=== PATIENT | female | born 1965 | race Caucasian/White ===

== ENCOUNTER 2023-04-09 20:47 | Outpatient (OUT) | payer MEDICARE, SELFPAY | END 2023-04-09 20:48 | PROVIDERS: PCP Nurse Practitioner; Visit Provider Nurse Practitioner | DX: G47.33 Obstructive sleep apnea (adult) (pediatric) (principal) | CPT/HCPCS: 95811 ==

== ENCOUNTER 2023-04-13 15:53 | Outpatient (OUT) | payer MEDICARE, SELFPAY ==
[2023-04-13 16:54] LABS: Free T4 0.74 ng/dL (0.76-1.46)
[2023-04-13 16:58] LABS: Thyroid Stimulating Hormone 5.441 uIU/mL (0.358-3.740)
== END 2023-04-13 15:54 ==
LOC: LAB 15:54
PROVIDERS: PCP Nurse Practitioner; Visit Provider Nurse Practitioner
DX: R94.6 Abnormal results of thyroid function studies (principal)
CPT/HCPCS: 36415; 84439; 84443

== ENCOUNTER 2023-06-15 10:13 | Outpatient (OUT) | payer MEDICARE, SELFPAY ==
[2023-06-15 11:26] LABS: Free T4 0.92 ng/dL (0.76-1.46)
[2023-06-15 11:28] LABS: Thyroid Stimulating Hormone 2.396 uIU/mL (0.358-3.740)
== END 2023-06-15 10:14 | disposition home or self-care (01) ==
LOC: LAB 10:15
PROVIDERS: PCP Nurse Practitioner; Visit Provider Nurse Practitioner
DX: E03.9 Hypothyroidism, unspecified (principal)
CPT/HCPCS: 36415; 84439; 84443

== ENCOUNTER 2023-10-17 12:35 | Emergency (ER) | payer MEDICARE, SELFPAY ==
[2023-10-17 12:45] VITALS: BP 155/74; PULSE 78; RESP 18; TEMP 36.8; O2SAT 97; BMI 32.5
--- NOTE | 2023-10-17 12:48 | XR_ITS ---
The [address] [address] Patient Name: JAMIR YORK MRN: [id number] date: 1965 Sex: F Assigned Patient Location: ER Current Patient Location: ER Accession/Order Number: [id number] Exam Date: 10/17/2023 13:11 Report Date: 10/17/2023 13:59 At the request of: SAMANTHA OVIEDO Procedure: XR knee LT 4V EXAM: XR knee LT 4V HISTORY: pain COMPARISON: None. TECHNIQUE: 3 views of the left knee. FINDINGS: Corticated ossicle adjacent to the medial femoral condyle likely relates to remote injury. Calcifications adjacent to the lateral femoral condyle are likely ligamentous. No acute fracture identified. No dislocation. No significant knee joint effusion. XR/XR knee LT 4V IMPRESSION: 1. No acute osseous abnormality. Electronically authenticated by: BERTAH BENJAMIN Date: 10/17/2023 13:59
--- NOTE | 2023-10-17 13:06 | ED_ITS ---
Documented by User: Nereida Rawls 10/17/23 15:51 HPI - Extremity Injury (Lower) General Chief Complaint: Extremity Injury, Lower Stated Complaint: LOWER EXTREMITY INJURY LEFT KNEE Time Seen by Provider: 10/17/23 13:05 Source: patient Mode of arrival: walk-in Limitations: no limitations History of Present Illness HPI Narrative: 58 year old female presents to the ED for pain to her left knee s/p slip and fall this morning. She slipped on ice, landing on the left knee. Denies injury to other areas. Denies hitting her head and LOC. Denies pain to her neck and back. She has been ambulatory. She has an abrasion to the left inferior knee. Tetanus status is unknown. She is deaf. Pt prefers family to sign for her; family is at bedside. She is declining medication for her discomfort at this time. Related Data Previous Rx's Medication Instructions Recorded hydrocodone 5 mg-acetaminophen 325 1 tab PO Q8H PRN pain 5 days #15 10/17/23 mg tablet tabs Allergies Allergy/AdvReac Type Severity Reaction Status Date / Time No Known Drug Allergies Allergy Verified 10/17/23 12:45 Review of Systems ROS Constitutional Denies: fever or chills Cardiovascular Denies: chest pain Respiratory Denies: shortness of breath Musculoskeletal Reports: extremity pain; Denies: back pain or neck pain Integumentary/Breast Denies: rash PFSH PFSH Social History Smoking status: Never smoker Exam Constitutional Vital Signs, click to edit/add: Last Vital Signs Temp 98.2 F 10/17/23 12:45 Pulse 78 10/17/23 12:45 Resp 18 10/17/23 12:45 BP 155/74 H 10/17/23 12:45 Pulse Ox 97 10/17/23 12:45 Common normals: no apparent distress and oriented x3 General appearance: cooperative; not ill appearing Eye Common normals: no scleral icterus Neck & C-Spine Common normals: supple Chest Chest: symmetrical chest wall rise Respiratory Common normals: normal respiratory effort Effort & inspection: symmetric chest movement Cardio Common normals: regular rhythm Peripheral pulses: posterior tibial pulses present and dorsalis pedis pulses present Extremity Left lower extremity: knee joint Left knee: inspection (Abrasion to inferior knee. No obvious deformity.) and palpation (Tenderness with palpation.) Neuro Common normals: oriented x3 Sensorium/orientation: awake and alert Course Vital Signs Vital signs: Vital Signs Temperature 98.2 F 10/17/23 12:45 Pulse Rate 78 10/17/23 12:45 Respiratory Rate 18 10/17/23 12:45 Blood Pressure 155/74 H 10/17/23 12:45 Pulse Oximetry 97 10/17/23 12:45 Temperature 98.2 F 10/17/23 12:45 Pulse Rate 78 10/17/23 12:45 Respiratory Rate 18 10/17/23 12:45 Blood Pressure 155/74 H 10/17/23 12:45 Pulse Oximetry 97 10/17/23 12:45 MDM - Extremity Injury (Lower) MDM Narrative Medical decision making narrative: X-ray of the left knee showed no acute findings. Her tetanus status was updated today. She declined medication for her discomfort here. She has a knee immobilizer and a walker at home. She also has antiinflammatory medication at home. OARRS was reviewed. A prescription was provided for nor[employer]. Follow up with an orthopedist for a recheck, further evaluation and treatment. Medical Records Attestation: I reviewed the patient's medical records. Imaging Data XR left knee: Attestation: I have reviewed the pertinent imaging results. Radiologist's impression: Procedure: XR knee LT 4V EXAM: XR knee LT 4V HISTORY: pain COMPARISON: None. TECHNIQUE: 3 views of the left knee. FINDINGS: Corticated ossicle adjacent to the medial femoral condyle likely relates to remote injury. Calcifications adjacent to the lateral femoral condyle are likely ligamentous. No acute fracture identified. No dislocation. No significant knee joint effusion. XR/XR knee LT 4V IMPRESSION: 1. No acute osseous abnormality. Electronically authenticated by: BERTHA BENJAMIN Date: 10/17/2023 13:59 Discharge Plan Discharge Chief Complaint: Extremity Injury, Lower Clinical Impression: Injury of knee, left, Abrasion of knee, left Patient Disposition: Home, Self-Care Time of Disposition Decision: 14:14 Condition: Good Mode of Transportation: Private Vehicle Prescriptions / Home Meds: New hydrocodone-acetaminophen 5-325 mg tablet 1 tab PO Q8H PRN (Reason: pain) 5 Days Qty: 15 0RF Instructions: Abrasion (ED), Knee Pain (ED) Stand Alone Forms: Portal Instructions Referrals: Cheri Pool NP [Primary Care Provider] - 1 week Jimbo De La O MD [Physician] - 11/05/23 Discharge Date/Time: 10/17/23 14:20 Documented by User: Gurwinder Rogers MD 10/17/23 18:43 HPI - Extremity Injury (Lower) General Chief Complaint: Extremity Injury, Lower Stated Complaint: LOWER EXTREMITY INJURY LEFT KNEE Time Seen by Provider: 10/17/23 13:05 Related Data Previous Rx's Medication Instructions Recorded hydrocodone 5 mg-acetaminophen 325 1 tab PO Q8H PRN pain 5 days #15 10/17/23 mg tablet tabs Allergies Allergy/AdvReac Type Severity Reaction Status Date / Time No Known Drug Allergies Allergy Verified 10/17/23 12:45 PFSH PFSH Social History Smoking status: Never smoker Exam Constitutional Vital Signs, click to edit/add: Last Vital Signs Temp 98.2 F 10/17/23 12:45 Pulse 78 10/17/23 12:45 Resp 18 10/17/23 12:45 BP 155/74 H 10/17/23 12:45 Pulse Ox 97 10/17/23 12:45 Course Vital Signs Vital signs: Vital Signs Temperature 98.2 F 10/17/23 12:45 Pulse Rate 78 10/17/23 12:45 Respiratory Rate 18 10/17/23 12:45 Blood Pressure 155/74 H 10/17/23 12:45 Pulse Oximetry 97 10/17/23 12:45 Temperature 98.2 F 10/17/23 12:45 Pulse Rate 78 10/17/23 12:45 Respiratory Rate 18 10/17/23 12:45 Blood Pressure 155/74 H 10/17/23 12:45 Pulse Oximetry 97 10/17/23 12:45 MDM - Extremity Injury (Lower) MDM Narrative Medical decision making narrative: X-ray of the left knee showed no acute findings. Her tetanus status was updated today. She declined medication for her discomfort here. She has a knee immobilizer and a walker at home. She also has antiinflammatory medication at home. OARRS was reviewed. A prescription was provided for norco. Follow up with an orthopedist for a recheck, further evaluation and treatment. I, Dr Rogers, have reviewed the above progress note and course of action in the ER; agree with the above. I have personally seen and evaluated this patient, gone over history and physical, and discussed disposition and treatment plan with the patient. Discharge Plan Discharge Chief Complaint: Extremity Injury, Lower Clinical Impression: Injury of knee, left, Abrasion of knee, left Patient Disposition: Home, Self-Care Time of Disposition Decision: 14:14 Condition: Good Mode of Transportation: Private Vehicle Prescriptions / Home Meds: New hydrocodone-acetaminophen 5-325 mg tablet 1 tab PO Q8H PRN (Reason: pain) 5 Days Qty: 15 0RF Instructions: Abrasion (ED), Knee Pain (ED) Stand Alone Forms: Portal Instructions Referrals: Cheri Pool NP [Primary Care Provider] - 1 week Jimbo De La O MD [Physician] - 11/05/23 Discharge Date/Time: 10/17/23 14:20
--- NOTE | 2023-10-17 14:28 | PC.NURSE ---
ABRASION TO R KNEE
== END 2023-10-17 14:20 | disposition home or self-care (01) ==
PROVIDERS: Emergency Provider Emergency Medicine; PCP Nurse Practitioner
DX: S80.212A Abrasion, left knee, initial encounter (principal); W00.0XXA Fall on same level due to ice and snow, initial encounter
CPT/HCPCS: 73564; 99284

== ENCOUNTER 2023-10-25 14:46 | Outpatient (OUT) | payer MEDICARE, SELFPAY ==
--- NOTE | 2023-10-25 15:10 | MM_ITS ---
Patient Name: JAMIR YORK MR#: [id number] : 1965 Exam Date: 10/25/2023 Ordering Doctor: SARAH Pool CNP RADIOLOGY REPORT PROCEDURE: MM TOMOSYNTHESIS SCREENING BI COMPARISON: MG MAMM SCREEN 3D YARY CAD, 10/24/2022. MG MAMM SCREEN 3D YARY CAD, 10/11/2021. MG MAMM YARY SCRN W CAD DIG, 12/18/2013. INDICATIONS: screening Calculator Name NCI Breast Cancer Risk Assessment Tool 5 Year Breast Cancer Risk 1.50% Lifetime Breast Cancer Risk 8.30% Personal Breast Cancer No Personal Ovarian Cancer No Treatments None Family Cancers Father with lung cancer at age ~65; Mother with colon/pancreas cancer at age 69. LOCATION: [facility] BREAST COMPOSITION: Heterogeneously dense,which may obscure small masses. FINDINGS: DIAGNOSTIC CATEGORY 2--BENIGN FINDING: RIGHT BREAST: No significant suspicious finding. Scattered benign-appearing calcifications are present. No significant change has occurred. LEFT BREAST: No significant suspicious finding. Scattered benign-appearing calcifications are present. No significant change has occurred. RECOMMENDATIONS: ROUTINE MAMMOGRAM AND CLINICAL EVALUATION IN 12 MONTHS. PLEASE NOTE: A NORMAL MAMMOGRAM DOES NOT EXCLUDE THE POSSIBILITY OF BREAST CANCER. A CLINICALLY SUSPICIOUS PALPABLE LUMP SHOULD BE BIOPSIED. Dictated by: Jimbo Jimenez M.D. on 10/26/2023 at 11:47 Approved by: Jimbo Jimenez M.D. on 10/26/2023 at 11:49
== END 2023-10-25 14:47 | disposition home or self-care (01) ==
LOC: MAMMO 14:46
PROVIDERS: PCP Nurse Practitioner; Visit Provider Nurse Practitioner
DX: Z12.31 Encounter for screening mammogram for malignant neoplasm of breast (principal); Z80.1 Family history of malignant neoplasm of trachea, bronchus and lung; Z80.0 Family history of malignant neoplasm of digestive organs; Z80.8 Family history of malignant neoplasm of other organs or systems
CPT/HCPCS: 77063; 77067

== ENCOUNTER 2023-12-04 09:32 | Outpatient (OUT) | payer MEDICARE, SELFPAY ==
--- OUTSIDE RECORDS SUMMARY | 2023-12-04 09:37 | XMS_ITS | CCD ---
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 Name Role Phone UNKNOWN, PROVIDER Attending Unavailable AICHHOLZ, RUBY Primary Care Unavailable AICHHOLZ, RUBY Referring Unavailable UNKNOWN, PROVIDER Admitting Unavailable DAISY MANZANO Attending Unavailable AICHHOLZ, ARMORED VEHICLE OFFICER RUBY Admitting Unavailable AICHHOLZ, ARMORED VEHICLE OFFICER RUBY Attending Unavailable AICHHOLZ, ARMORED VEHICLE OFFICER RUBY Primary Care Unavailable AICHHOLZ, ARMORED VEHICLE OFFICER RUBY Consulting Unavailable AICHHOLZ, ARMORED VEHICLE OFFICER RUBY Admitting Unavailable AICHHOLZ, ARMORED VEHICLE OFFICER RUBY Attending Unavailable AICHHOLZ, ARMORED VEHICLE OFFICER RUBY Primary Care Unavailable AICHHOLZ, ARMORED VEHICLE OFFICER RUBY Consulting Unavailable MAHOGANY, OLGA Admitting Unavailable MAHOGANY, OLGA Attending Unavailable AICHHOLZ, ARMORED VEHICLE OFFICER RUBY Primary Care Unavailable AICHHOLZ, ARMORED VEHICLE OFFICER RUBY Referring Unavailable MAHOGANY, OLGA Consulting Unavailable AICHHOLZ, ARMORED VEHICLE OFFICER RUBY Admitting Unavailable AICHHOLZ, ARMORED VEHICLE OFFICER RUBY Attending Unavailable AICHHOLZ, ARMORED VEHICLE OFFICER RUBY Primary Care Unavailable AICHHOLZ, ARMORED VEHICLE OFFICER RUBY Consulting Unavailable AICHHOLZ, ARMORED VEHICLE OFFICER RUBY Admitting Unavailable AICHHOLZ, ARMORED VEHICLE OFFICER RUBY Attending Unavailable AICHHOLZ, ARMORED VEHICLE OFFICER RUBY Primary Care Unavailable AICHHOLZ, ARMORED VEHICLE OFFICER RUBY Admitting Unavailable AICHHOLZ, ARMORED VEHICLE OFFICER RUBY Attending Unavailable AICHHOLZ, ARMORED VEHICLE OFFICER RUBY Primary Care Unavailable DR JOSSE GODFREY V Consulting Unavailable AICHHOLZ, ARMORED VEHICLE OFFICER RUBY Consulting Unavailable AICHHOLZ, RUBY Attending Unavailable Problems Active Problems Problem Classification Problem Date Documented Da te Episodic/Chronic Disorders of lipid metabolism (1 source) Hyperlipidemia, unspecified; Translations: [HYPERLIPIDEMIA UNSPECIFIED] Onset: 12-27-2022 Chronic Essential hypertension (6 sources) Essential (primary) hypertension; Translations: [Essential (primary) hypertension] Onset: 07-08-2022 Chronic Heart valve disorders (9 sources) Nonrheumatic aortic (valve) stenosis; Translations: [Presence of other heart-valve replacement] Onset: 03-21-2022 Chronic Other screening for suspected conditions (not mental disorders or infectious disease) (9 sources) Other specified abnormal findings of blood chemistry; Translations: [Abnormal results of thyroid function studies] Onset: 10-24-2022 Episodic Pulmonary heart disease (2 sources) Pulmonary hypertension due to left heart disease; Translations: [Pulmonary hypertension due to left heart disease] Onset: 09-18-2022 Chronic Residual codes; unclassified (4 sources) Obstructive sleep apnea (adult) (pediatric); Translations: [OBSTRUCTIVE SLEEP APNEA] Onset: 02-19-2023 Chronic Past or Other Problems Problem Classification Problem Date Documented Da te Episodic/Chronic Residual codes; unclassified (1 source) Family history of malignant neoplasm, unspecified; Translations: [FAM HX MALIGNANT NEOPLASM UNS] Onset: 10-27-2022 Episodic Results Test Name Value Interpretation Reference Range Facility THYROID ANTIBODIESon 023 Thyroglobulin Antibody <1.0 Normal 0.0-0.9 [facility] Comment on above: Result Comment: Thyr oglobulin Antibody measured by iDiDiD Methodology Performed By: #### T CANDELARIABS #### [facility] [address] [place] [address] Dr. Olya Vides Thyroid Peroxidase (TPO) Ab <9 Normal 0-34 [facility] Comment on above: Performed By: #### T HYRABS #### [facility] [address] [address] [address] Olya Vides FREE T4on 01-19-2023 Free T4 [Mass/Vol] 0.84 ng/dL Normal 0.76-1.[address] [facility] Comment on above: Performed By: #### T SH, CMP, LIPID #### [facility] [address] [address] [address] Olya Vides TSHon 01-19-2023 TSH 5.355 uIU/mL Critically high 0.358-3.[address] [facility] Comment on above: Performed By: #### T SH #### [facility] [address] [place] [address] Dr. Olya Vides CBC AUTO DIFFon 12-22-2022 BASO # 0.1 103/ul Normal 0.0-0.1 [facility] Comment on above: Performed By: #### C BC #### [facility] [address] [place] [address] Dr. Olya Vides Basophils/100 WBC (Bld) 1.1 % Normal 0.2-2.0 [facility] Comment on above: Performed By: #### C BC #### [facility] [address] [place] [address] Dr. Olya Vides EO # 0.1 103/ul Normal 0.0-0.7 [facility] Comment on above: Performed By: #### C BC #### [facility] [address] [place] [address] Dr. Olya Vides Eosinophils/100 WBC (Bld) 3.0 % Normal 0.9-7.0 [facility] Comment on above: Performed By: #### C BC #### [facility] [address] [place] [address] Dr. Olya Vides Erythrocyte distribution width (RBC) [Ratio] 12.5 % Normal 11.0-15.0 [facility] Comment on above: Performed By: #### C BC #### [facility] [address] [place] [address] Dr. Olya Vides Hematocrit (Bld) [Volume fraction] 42.5 % Normal 36.0-48.0 [facility] Comment on above: Performed By: #### C BC #### [facility] [address] [place] [address] Dr. Olya Vides Hemoglobin (Bld) [Mass/Vol] 15.0 g/dL Normal 12.0-16.0 [facility] Comment on above: Performed By: #### C BC #### [facility] [address] [place] [address] Dr. Olya Vides IG # 0.02 10e3/ul Normal 0.00-0.03 [facility] Comment on above: Performed By: #### C BC #### [facility] [address] [place] [address] Dr. Olya Vides IG % 0.4 % Normal 0.0-0.5 [facility] Comment on above: Performed By: #### C BC #### [facility] [address] [place] [address] Dr. Olya Vides LYMPH # 1.4 103/ul Normal 1.2-3.8 [facility] Comment on above: Performed By: #### C BC #### [facility] [address] [place] [address] Dr. Olya Vides Lymphocytes/100 WBC (Bld) 30.4 % Normal 20.5-60.0 [facility] Comment on above: Performed By: #### C BC #### [facility] [address] [place] [address] Dr. Olya Vides MANUAL DIFF REQ NO Normal [facility] Comment on above: Performed By: #### C BC #### [facility] [address] [place] [address] Dr. Olya Vides MCH (RBC) [Entitic mass] 32.8 pg Normal 26.7-34.0 [facility] Comment on above: Performed By: #### C BC #### [facility] [address] [place] [address] Dr. Olya Vides MCHC (RBC) [Mass/Vol] 35.3 g/dL Critically high 29.9-35.2 [facility] Comment on above: Performed By: #### C BC #### [facility] [address] [place] [address] Dr. Olya Vides MCV (RBC) [Entitic vol] 92.8 fL Normal 81.0-99.0 [facility] Comment on above: Performed By: #### C BC #### [facility] [address] [place] [address] Dr. Olya Vides MONO # 0.4 103/ul Normal 0.3-0.8 [facility] Comment on above: Performed By: #### C BC #### [facility] [address] [place] [address] Dr. Olya Vides Monocytes/100 WBC (Bld) 7.7 % Normal 1.7-12.0 [facility] Comment on above: Performed By: #### C BC #### [facility] [address] [place] [address] Dr. Olya Vides NEUT # 2.7 103/ul Normal 1.4-6.5 [facility] Comment on above: Performed By: #### C BC #### [facility] [address] [place] [address] Dr. Olya Vides Neutrophils/100 WBC (Bld) 57.4 % Normal 43.0-75.0 [facility] Comment on above: Performed By: #### C BC #### [facility] [address] [place] [address] Dr. Olya Vides Platelet mean volume (Bld) [Entitic vol] 9.7 fL Normal 9.5-13.5 [facility] Comment on above: Performed By: #### C BC #### [facility] [address] [place] [address] Dr. Olya Vides PLT 224 103/ul Normal 150-450 [facility] Comment on above: Performed By: #### C BC #### [facility] [address] [place] [address] Dr. Olya Vides RBC 4.58 106/ul Normal 4.20-5.40 [facility] Comment on above: Performed By: #### C BC #### [facility] [address] [place] [address] Dr. Olya Vides WBC 4.7 103/ul Normal 4.0-11.0 [facility] Comment on above: Performed By: #### C BC #### [facility] [address] [place] [address] Dr. Olya Vides FREE T4on 12-22-2022 Free T4 [Mass/Vol] 0.85 ng/dL Normal 0.76-1.46 [facility] Comment on above: Performed By: #### F T4 #### [facility] [address] [place] [address] Dr. Olya Vides LIPID PROFILEon 12-22-2022 CHOL-HDL RATIO NORM SEE BELOW Normal [facility] Comment on above: Result Comment: 3.3 - 4.4 LOW RISK 4.4 - 7.1 AVERAGE RISK 7.1 - 11.0 MODERATE RISK >11.0 HIGH RISK Performed By: #### T SH, CMP, LIPID #### [facility] [address] [address] [address] Olya Vides Cholesterol [Mass/Vol] 193 mg/dL Normal <=200 [facility] Comment on above: Performed By: #### T SH, CMP, LIPID #### [facility] [address] [address] [address] Olya Vides Cholesterol in HDL [Mass/Vol] 63 mg/dL Critically high 40-60 [facility] Comment on above: Performed By: #### T SH, CMP, LIPID #### [facility] [address] [address] [address] Olya Vides Cholesterol in LDL [Mass/Vol] 93.0 mg/dL Normal [facility] Comment on above: Performed By: #### T SH, CMP, LIPID #### [facility] [address] [address] [address] Olya Vides Cholesterol.total/C holesterol in HDL [Mass ratio] 3.1 {ratio} Normal [facility] Comment on above: Performed By: #### T SH, CMP, LIPID #### [facility] [address] [address] [address] Olya Vides HDL NORMAL > or = 60 mg/dl - LO W CARDIOVASCULAR RISK <40 mg/dl - HIGH CARDIOVASCULAR RISK Normal [facility] Comment on above: Performed By: #### T SH, CMP, LIPID #### [facility] [address] [address] [address] Olya Vides LDL CALC NORMAL SEE BELOW Normal [facility] Comment on above: Result Comment: <100 mg/dl OPTIMAL 100 - 129 mg/dl NEAR OR ABOVE OPTIMAL 130 - 159 mg/dl BORDERLINE HIGH 160 - 189 mg/dl HIGH >190 mg/dl VERY HIGH Performed By: #### T SH, CMP, LIPID #### [facility] [address] [address] [address] Olya Vides Triglyceride [Mass/Vol] 185 mg/dL Critically high <=150 [facility] Comment on above: Performed By: #### T SH, CMP, LIPID #### [facility] [address] [place] [address] Dr. Olya Vides VLDL CALC 37.0 mg/dL Normal [facility] Comment on above: Performed By: #### T SH, CMP, LIPID #### [facility] [address] [address] [address] Olya Vides PROF 14(COMP METB)on 023 Albumin [Mass/Vol] 4.2 g/dL Normal 3.4-5.0 [facility] Comment on above: Performed By: #### T SH, CMP, LIPID #### [facility] [address] [place] [address] Dr. Olya Vides Albumin/Globulin [Mass ratio] 1.0 {ratio} Normal [facility] Comment on above: Performed By: #### T SH, CMP, LIPID #### [facility] [address] [place] [address] Dr. Olya Vides ALP [Catalytic activity/Vol] 73 U/L Normal 46-116 [facility] Comment on above: Performed By: #### T SH, CMP, LIPID #### [facility] [address] [place] [address] Dr. Olya Vides ALT [Catalytic activity/Vol] 39 U/L Normal 14-59 [facility] Comment on above: Performed By: #### T SH, CMP, LIPID #### [facility] [address] [place] [address] Dr. Olya Vides Anion gap [Moles/Vol] 15.5 mmol/L Normal [facility] Comment on above: Performed By: #### T SH, CMP, LIPID #### [facility] [address] [place] [address] Dr. Olya Vides AST [Catalytic activity/Vol] 47 U/L Critically high 15-37 [facility] Comment on above: Performed By: #### T SH, CMP, LIPID #### [facility] [address] [address] [address] Olya Vides Bilirubin [Mass/Vol] 0.5 mg/dL Normal 0.2-1.0 [facility] Comment on above: Performed By: #### T SH, CMP, LIPID #### [facility] [address] [address] [address] Olya Vides Calcium [Mass/Vol] 9.6 mg/dL Normal 8.5-10.1 [facility] Comment on above: Performed By: #### T SH, CMP, LIPID #### [facility] [address] [address] [address] Olya Vides Chloride [Moles/Vol] 96 mmol/L Critically low 98-107 [facility] Comment on above: Performed By: #### T SH, CMP, LIPID #### [facility] [address] [place] [address] Dr. Olya Vides CO2 [Moles/Vol] 29.2 mmol/L Normal 21.0-32.0 [facility] Comment on above: Performed By: #### T SH, CMP, LIPID #### [facility] [address] [place] [address] Dr. Olya Vides Creatinine [Mass/Vol] 0.57 mg/dL Normal 0.55-1.02 [facility] Comment on above: Performed By: #### T SH, CMP, LIPID #### [facility] [address] [place] [address] Dr. Olya Vides EGFR-AF MALAGASY >60 Normal >=60 [facility] Comment on above: Performed By: #### T SH, CMP, LIPID #### [facility] [address] [place] [address] Dr. Olya Vides EGFR-NON AF MALAGASY >60 Normal >=60 [facility] Comment on above: Performed By: #### T SH, CMP, LIPID #### [facility] [address] [place] [address] Dr. Olya Vides Globulin (S) [Mass/Vol] 4.4 g/dL Normal [facility] Comment on above: Performed By: #### T SH, CMP, LIPID #### [facility] [address] [place] [address] Dr. Olya Vides Glucose [Mass/Vol] 87 mg/dL Normal 74-106 [facility] Comment on above: Performed By: #### T SH, CMP, LIPID #### [facility] [address] [place] [address] Dr. Olya Vides Potassium [Moles/Vol] 3.7 mmol/L Normal 3.5-5.1 [facility] Comment on above: Performed By: #### T SH, CMP, LIPID #### [facility] [address] [place] [address] Dr. Olya Vides Protein [Mass/Vol] 8.6 g/dL Critically high 6.4-8.2 [facility] Comment on above: Performed By: #### T SH, CMP, LIPID #### [facility] [address] [place] [address] Dr. Olya Vides Sodium [Moles/Vol] 137 mmol/L Normal 136-145 [facility] Comment on above: Performed By: #### T SH, CMP, LIPID #### [facility] [address] [place] [address] Dr. Olya Vides Urea nitrogen [Mass/Vol] 5.0 mg/dL Critically low 7.0-18.0 [facility] Comment on above: Performed By: #### T SH, CMP, LIPID #### [facility] [address] [place] [address] Dr. Olya Vides Urea nitrogen/Creatinine [Mass ratio] 8.8 mg/mg Normal [facility] Comment on above: Performed By: #### T SH, CMP, LIPID #### [facility] [address] [place] [address] Dr. Olya Vides TSHon 12-22-2022 TSH 3.759 uIU/mL Critically high 0.358-3.740 [facility] Comment on above: Performed By: #### T SH, CMP, LIPID #### [facility] [address] [place] [address] Dr. Olya Vides UA RANDOM W/MICROSCOPICon BACTERIA NONE SEEN Normal NONE SEEN [facility] Comment on above: Performed By: #### U AMIC #### [facility] [address] [address] [address] Olya Vides Bilirubin Ql (U) Negative Normal NEGATIVE [facility] Comment on above: Performed By: #### U AMIC #### [facility] [address] [address] [address] Olya Vides CAST NONE SEEN Normal NONE SEEN [facility] Comment on above: Performed By: #### U AMIC #### [facility] [address] [address] [address] Olya Vides Clarity (U) CLEAR Normal CLEAR [facility] Comment on above: Performed By: #### U AMIC #### [facility] [address] [place] [address] Dr. Olya Vides Color (U) LT. YELLOW Normal YELLOW [facility] Comment on above: Performed By: #### U AMIC #### [facility] [address] [place] [address] Dr. Olya Vides Crystals LM Nom (Urine sed) NONE SEEN Normal NONE SEEN [facility] Comment on above: Performed By: #### U AMIC #### [facility] [address] [place] [address] Dr. Olya Vides Epithelial cells LM Ql (Urine sed) FEW Abnormal NONE SEEN /RARE [facility] Comment on above: Performed By: #### U AMIC #### [facility] [address] [address] [address] Olya Vides Glucose Ql (U) Negative Normal NEGATIVE [facility] Comment on above: Performed By: #### U AMIC #### [facility] [address] [address] [address] Olya Vides Hemoglobin Ql (U) SMALL Abnormal NEGATIVE [facility] Comment on above: Performed By: #### U AMIC #### [facility] [address] [place] [address] Dr. Olya Vides Ketones Ql (U) Negative Normal NEGATIVE [facility] Comment on above: Performed By: #### U AMIC #### [facility] [address] [address] [address] Olya Vides LEUKOCYTES Negative Normal NEGATIVE [facility] Comment on above: Performed By: #### U AMIC #### [facility] [address] [address] [address] Olya Vides MUCOUS NONE SEEN Normal NONE SEEN [facility] Comment on above: Performed By: #### U AMIC #### [facility] [address] [address] [address] Olya Vides Nitrite Ql (U) Negative Normal NEGATIVE [facility] Comment on above: Performed By: #### U AMIC #### [facility] [address] [place] [address] Dr. Olya Vides pH (U) 5.5 [pH] Normal 5-9 [facility] Comment on above: Performed By: #### U AMIC #### [facility] [address] [place] [address] Dr. Olya Vides RBC 0-2 Normal 0-2 [facility] Comment on above: Performed By: #### U AMIC #### [facility] [address] [place] [address] Dr. Olya Vides SPEC GRAVITY <=1.005 Abnormal 1.005-<=1.025 [facility] Comment on above: Performed By: #### U AMIC #### [facility] [address] [address] [address] Olya Vides UA PROTEIN Negative Normal NEGATIVE/ TRACE [facility] Comment on above: Performed By: #### U AMIC #### [facility] [address] [address] [address] Olya Vides Urobilinogen Qn (U) 0.2 {Davie'U}/dL Normal 0.2 - 1. 0 [facility] Comment on above: Performed By: #### U AMIC #### [facility] [address] [place] [address] Dr. Olya Vides WBC NONE SEEN Normal NONE SEEN [facility] Comment on above: Performed By: #### U AMI #### [facility] [address] [address] [address] Olya Vides MG MAMM SCREEN 3D YARY CADon 10-24-2022 MG MAMM SCREEN 3D YARY CAD Patient: ROSA SADLER. Exam Date: 10/24/2022 : 1965 Gender:F Ordering : SARAH RUBY [facility] Admission #: [id number] Family : Order #: [id number] CLICK HERE TO VIEW EXAM RADIOLOGY REPORT PROCEDURE: MAMMOGRAM SCREENING 3D BILATERAL CAD COMPARISON: MG MAMM YARY DIAG W CAD, 10/06/2020. MG MAMM SCREEN 3D YARY CAD, 10/11/2021. INDICATIONS: Screening mammography Calculator Name NCI Breast Cancer Risk Assessment Tool 5 Year Breast Cancer Risk 1.50% Lifetime Breast Cancer Risk 8.50% Personal Breast Cancer No Personal Ovarian Cancer No Treatments None Family Cancers Mother with unkwn. etiology cancer at age 69. LOCATION: [facility] BREAST COMPOSITION: Heterogeneously dense,which may obscure small masses. FINDINGS: DIAGNOSTIC CATEGORY 2--BENIGN FINDING. NO CHANGE FROM COMPARISON. Scattered benign-appearing nodules are present. Scattered benign-appearing calcifications are present. Scattered benign-appearing lymph nodes are present. RIGHT BREAST: No significant suspicious finding. LEFT BREAST: No significant suspicious finding. RECOMMENDATIONS: ROUTINE MAMMOGRAM AND CLINICAL EVALUATION IN 12 MONTHS. PLEASE NOTE: A NORMAL MAMMOGRAM DOES NOT EXCLUDE THE POSSIBILITY OF BREAST CANCER. A CLINICALLY SUSPICIOUS PALPABLE LUMP SHOULD BE BIOPSIED. Dictated by: Josse Godfrey MD on 10/24/2022 at 15:29 Approved by: Josse Godfrey MD on 10/24/2022 at 15:31 Normal [facility] Follow-Upon 09-18-2022 Follow-Up [id number] Rosa Sadler 1965 F Date Provider Department Center 09/18/2022 DAISY GLASGOW [facility] Family History Problem Relation Age of Onset No Known Problems Mother No Known Problems Father Family Status - Relation Status Age at Mother Father Level of Service:80671 [place] OFFICE/OUTPATIENT ESTABLISHED LOW MDM 20-29 MIN Reason for Visit and Comments: Valve Disorder [3372] Hypertension [670096] Normal [facility] 07-09-2022 Abstract [id number] Rosa Sadler 1965 F Date Provider Department Center 07/09/2022 YOLANDA ARCHER Family History Family history unknown: Yes Normal [facility] 07-08-2022 Abstract [id number] Rosa Sadler 1965 F Date Provider Department Center 07/08/2022 YOLANDA ARCHER Family History Family history unknown: Yes Normal [facility] ECHOCARDIO M/2D COMPLETEon 0 03-21-2022 ECHOCARDIO M/2D COMPLETE Patient: ROSA SADLER. Exam Date: 03/21/2022 : 1965 Gender:F Ordering : OLGA VIDES Admission #: [id number] Family : SARAH [facility]ANDA [facility] Order #: [id number] CLICK HERE TO VIEW EXAM ECHOCARDIOGRAM REPORT PROCEDURE: CARDIO PULMONARY ECHOCARDIO M/2D COMP INDICATIONS: History of tissue graft aortic valve replacement (2018) COMPARISON: None. DESCRIPTION: COMPLETE ECHOCARDIOGRAM Real-time transthoracic echocardiography with 2D, M-mode, spectral and color flow Doppler performed. QUALITY: Technical quality was limited. LEFT VENTRICLE: Small chamber size. Normal global systolic function. Abnormal septal motion due to RV pressure or volume overload. LV EF: Normal left ventricular ejection fraction, (>55%). DIASTOLIC: ATRIAL SEPTUM: Hypermobile interatrial septum. Visually appears intact. LEFT ATRIUM: Mild dilatation. RIGHT ATRIUM: Moderate dilatation. RIGHT VENTRICLE: Moderate dilatation. Normal right ventricular systolic function. TRICUSPID VALVE: Normal mobility and thickness. No stenosis with moderate regurgitation. RVSP 33 mmHg MITRAL VALVE: Normal mobility and thickness. No evidence of mitral valve stenosis. There is no mitral annular calcification. AORTIC VALVE: Bio-Prosthetic valve appears well seated in the aortic position with abnormal doppler flow. DVI 0.2, mean gradient 16 mmHg. No aortic regurgitation. AORTIC ROOT: Normal diameter and appearance. PULMONIC VALVE: Not well visualized. No stenosis. No regurgitation. PERICARDIUM: No evidence of pericardial effusion. IVC: Collapses with inspirations. PLEURA: CONCLUSION: 1. Normal ventricular systolic function. LVEF is 65%. 2. Moderately dilated right ventricle. 3. Moderate biatrial dilatation. 4. Bioprosthetic aortic valve with abnormally high Doppler flows. No aortic regurgitation is seen. 5. Moderate tricuspid regurgitation. 6. Normal right-sided pressures. Adult Echocardiography Procedure Report Left Ventricle LVEDD (3.7 - 5.6 cm): 3.69 cm LVESD (2.2 - 4.0 cm): 2.52 cm LVIVS thickness (0.6 - 1.2 cm): 1.04 cm LVPW thickness (0.5 - 1.0 cm): 9.93 mm e': 12.30 cm/s E - e': 8.40 LVOT Area (cm2): 2.54 cm2 LVOT Diameter 1.80 cm Left Ventricular Ejection Fraction: 65 % Left Atrium Left Atrium Systolic Dimension: 3.60 cm Left Atrium Systolic Area(A4C): 18.90 cm2 Left Atrium Systolic Volume(A4C): 67338 mm3 Mitral Valve MV E to A Ratio: 1.50 Mitral Valve A-Wave Peak Velocity: 69.60 cm/s Mitral Valve E-Wave Peak Velocity: 103.00 cm/s Deceleration Time: 206 ms Right Ventricle Aorta AO Root Diam: 2.60 cm Aortic Valve Peak Velocity (Antegrade Flow): 229.00 cm/s, 242.00 cm/s AoV Area (Peak Lobo): 0.63 cm2 Peak Velocity(Antegrade Flow): 265.00 cm/s Peak Gradient(Antegrade Flow): 28 mm[Hg] Mean Velocity(Antegrade Flow): 189.00 cm/s Mean Gradient(Antegrade Flow): 16 mm[Hg] Velocity Time Integral: 63.40 cm Tricuspid Valve Pulmonic Valve Peak Velocity: 88.70 cm/s Peak Gradient: 3 mm[Hg] Right Atrium Dictated by: Daisy Manzano M.D. on 03/21/2022 at 17:07 Approved by: Daisy Manzano M.D. on 03/21/2022 at 17:14 Normal [facility] BASIC METABOLIC PANELon 10-3 Calcium [Mass/Vol] 9.9 mg/dL Normal 8.6-10.3 [facility] Comment on above: Performed By: #### 0 0071 #### [address] Chloride [Moles/Vol] 104 mmol/L Normal 98-107 [facility] Comment on above: Performed By: #### 0 0071 #### [facility] [address] [place] [address], [facility] CO2 [Moles/Vol] 27 mmol/L Normal 21-31 [facility] Comment on above: Performed By: #### 0 0071 #### [facility] [address] [facility] [address] [place] [id number], [facility] Creatinine [Mass/Vol] 0.62 mg/dL Normal 0.60-1.20 [facility] Comment on above: Performed By: #### 0 0071 #### [facility] [address] [place] [address], [facility] GFR/1.73 sq M.predicted among blacks MDRD (S/P/Bld) [Vol rate/Area] mL/min/{1.73_m2} Normal >60 [facility] Comment on above: Performed By: #### 0 0071 #### [facility] [address] [place] [address], [facility] GFR/1.73 sq M.predicted among non-blacks MDRD (S/P/Bld) [Vol rate/Area] mL/min/{1.73_m2} Normal >60 [facility] Comment on above: Performed By: #### 0 0071 #### [facility] [address] [facility] [place] [address], [facility] Glucose [Mass/Vol] 105 mg/dL High 70-100 [facility] Comment on above: Performed By: #### 0 0071 #### [facility] [address] [place] [address], [place] Potassium [Moles/Vol] 3.9 mmol/L Normal 3.5-5.1 [facility] Comment on above: Performed By: #### 0 0071 #### [facility] [address] Sodium [Moles/Vol] 139 mmol/L Normal 136-145 The [facility] Comment on above: Performed By: #### 0 0071 #### [facility] [address] Urea nitrogen [Mass/Vol] 10 mg/dL Normal 7-25 [facility] Comment on above: Performed By: #### 0 1 #### [facility] [address] CBC W/DIFFon 08-27-2020 ABS IMM GRANS 0.0 10*3/uL Normal 0.0-0.2 The [facility] Comment on above: Performed By: #### 5 102 #### [facility] [address] ABS NEUTROPHILS 5.2 10*3/uL Normal 1.6-7.6 The [facility] Comment on above: Performed By: #### 5 102 #### [facility] [address] Basophils (Bld) [#/Vol] 0.1 10*3/uL Normal 0.0-0.2 [facility] Comment on above: Performed By: #### 5 102 #### [facility] [address] Basophils/100 WBC (Bld) 0.8 % Normal 0.0-1.0 [facility] Comment on above: Performed By: #### 5 102 #### [facility] [address] Eosinophils (Bld) [#/Vol] 0.1 10*3/uL Normal 0.0-0.5 [facility] Comment on above: Performed By: #### 5 102 #### [facility] [address] [facility] [place] [address], [facility] Eosinophils/100 WBC (Bld) 1.0 % Normal 0.0-6.0 [facility] Comment on above: Performed By: #### 5 0103 #### [facility] [address] [place] [address], [facility] Erythrocyte distribution width (RBC) [Ratio] 13.2 % Normal 11.5-15.0 [facility] Comment on above: Performed By: #### 5 0103 #### [facility] [address] [facility] [place] [address], [facility] Hematocrit (Bld) [Volume fraction] 45.7 % High 36.0-45.0 [facility] Comment on above: Performed By: #### 5 3 #### [facility] [address] [facility]. [address] Hemoglobin (Bld) [Mass/Vol] 15.4 g/dL High 12.0-15.0 [facility] Comment on above: Performed By: #### 5 0103 #### [facility] [address] [facility] [place] [address], [facility] IMMATURE GRANS 0.4 % Normal 0.0-1.0 The [facility] Comment on above: Performed By: #### 5 0103 #### [facility] [address] [facility] [place] [address], [facility] Lymphocytes (Bld) [#/Vol] 1.3 10*3/uL Normal 1.2-4.0 [facility] Comment on above: Performed By: #### 5 0103 #### [facility] [address] [place] [address], [facility] Lymphocytes/100 WBC (Bld) 17.7 % Low 20.0-45.0 [facility] Comment on above: Performed By: #### 5 0103 #### [facility] [address] MCH (RBC) [Entitic mass] 32.4 pg Normal 27.0-33.0 [facility] Comment on above: Performed By: #### 5 0103 #### [facility] [address] [facility]. [address] MCHC (RBC) [Mass/Vol] 33.7 g/dL Normal 32.0-35.0 [facility] Comment on above: Performed By: #### 5 0103 #### [facility] [address] MCV (RBC) [Entitic vol] 96.0 fL Normal 82.0-98.0 [facility] Comment on above: Performed By: #### 5 0103 #### [facility] [address] Monocytes (Bld) [#/Vol] 0.5 10*3/uL Normal 0.1-1.0 [facility] Comment on above: Performed By: #### 5 0103 #### [facility] [address] MONOS 7.2 % Normal 5.0-12.0 [facility] Comment on above: Performed By: #### 5 0103 #### [facility] [address] Neutrophils/100 WBC (Bld) 72.9 % High 40.0-72.0 [facility] Comment on above: Performed By: #### 5 0103 #### [facility] [address] Nucleated RBC/100 WBC (Bld) [Ratio] 0 % Normal 0-0 [facility] Comment on above: Performed By: #### 5 0103 #### [facility] [address] PLAT CNT 199 10*3/uL Normal 150-400 The [facility] Comment on above: Performed By: #### 5 0103 #### [facility] [address] [place] [address], [facility] RBC (Bld) [#/Vol] 4.76 10*6/uL Normal 3.80-5.00 The [facility] Comment on above: Performed By: #### 5 0103 #### [facility] [address] [place] [address], [facility] WBC (Bld) [#/Vol] 7.18 10*3/uL Normal 4.00-10.60 [facility] Comment on above: Performed By: #### 5 0103 #### [facility] [address] [place] [address], [facility] Encounters Encounter Date Encounter Type Care Provider Facility Start: 10-09-2023 End: 10-09-2023 ambulatory RUBY AICHHOLZ Not Available Start: 04-09-2023 ambulatory [employer] RUBY AICHHOLZ Facil ity:H1 Start: 02-19-2023 End: 02-20-2023 ambulatory [employer] RUBY AICHHOLZ Facility:[facility]1 Start: 01-19-2023 End: 01-20-2023 ambulatory [employer] RUBY AICHHOLZ Facility:[facility]1 Start: 12-22-2022 End: 12-23-2022 ambulatory [employer] RUBY AICHHOLZ Facility:[facility]1 Start: 10-24-2022 End: 10-25-2022 ambulatory [employer] RUBY AICHHOLZ Facility:[facility]1 Start: 09-18-2022 ambulatory DAISY KARISSAALVARADO [facility] Start: 03-21-2022 End: 03-22-2022 ambulatory OLGA VIDES Facility:[facility]1 Start: 08-27-2020 End: 08-28-2020 ambulatory PROVIDER UNKNOWN Facility:[facility] Payers Date Payer Category Payer Unknown [id number] [id number] [id number] 1965 Unknown [id number] 2.16.84 [id number] 1964 Unknown [id number] 2.16.84 [id number] 1964 Unknown [id number] 2.16.84 [id number] 1964 Unknown [id number] 2.16.84 [id number] 1964 Unknown [id number] 2.16.84 [id number] 1964 Unknown [id number] 2.16.84 [id number] 1964 Unknown [id number] 1960 Medicare [id number] 1960 Medicare [id number] Private Health Insurance DETerri [id number] Progress note 09-18-2022 Note Date & Type Note Facility 09-18-2022 Note [facility] Subjective Rosa Sadler is a 56 y.o. year old female patient being seen for 6 mo follow up aortic Valve Disorder and Hypertension Denies chest pain, SOB, and palpitations. Had echo in February 2022. Doing well. 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 She is a 52 yo woman with no prior history of ? congenital heart disease. Her mentions that she had a heart cath procedure, this was at age 2 when she was discovered to be deaf. She is completely deaf in the right ear, and partially deaf in the left ear and wears a hearing aid. She has a underdeveloped right ear; at one point in time plastic surgery was considered but never done. She has hypertension recently on treatment with lisinopril-HCTZ. She has occasional chest pain. She has dyspnea on exertion, in NYHA class III. This is relived by rest. She has no palpitations and no leg edema. She is s/p hysterectomy 3 years ago for fibroid. She was never . Her says they never desired to conceive. Echocardiogram 07/08/2018: normal LV systolic function, mild diastolic dysfunction, moderate to severe aortic stenosis (mean Gr 33, Max gr 57), possibly bicuspid aortic valve, mildly elevated right sided pressures. ECG 07/08/2018: sinus rhythm RAD IRBBB Update 08/21/2018: She is seen in follow up. She has no chest pain. She has dyspnea on exertion, in NYHA class III. This is relived by rest. She has no palpitations and no leg edema. Transesophageal echocardiogram 07/24/2018: Global left ventricular systolic function is normal (Visually estimated EF 65%). Normal right ventricular systolic function. The right ventricle is mildly enlarged. The right atrium appears enlarged. The aortic valve is thickened with reduced cusp mobility Trileaflet aortic valve Severe low flow low gradient aortic valve stenosis with DEAN 0.8 cm2; stroke volume index is 33 ml/m2; mean gradient is 35 mmHg and the DVI is 0.26. Mild aortic valve regurgitation. Mild tricuspid regurgitation. Doppler studies suggest normal right sided pressures. No pericardial effusion. No intracardiac shunt by agitated saline injections. Update 09/30/2018: She is seen in follow up after her recent cardiac catheterization. She has been well with no new issues since last visit. She was seen by the CT surgery service and is scheduled for valve surgery on 10/08/2018. She has chosen a bioprosthetic valve. Cardiac cath 09/04/2018: 1. Normal coronary angiogram. 2. Normal filling pressures. 3. Normal pulmonary arterial pressures. 4. Preserved cardiac output and cardiac index. Carotid u/s 09/18/2018: 1. Antegrade flow of both vertebral arteries. 2. Stenosis in the range of 0-15% in both internal carotid arteries. Update 10/31/2018: She is now s/p AVR on 10/08/2018: Aortic valve replacement with 19 mm [place] Inspiris Resilia bovine pericardial tissue valve, serial #[id number], model 07759S. She has done well with that with no chest pain and no shortness of breath. She has no palpitations. Update 12/30/2018: She is seen in follow up. She has been well. No chest pain. No dyspnea. Occasional dizziness. No leg swelling. She is enrolled in cardiac rehab. At last visit I had stopped lasix and KCL. Visit of 09/22/2020: Seen in follow-up. Recently she underwent an echocardiogram that suggested evidence of stenosis of the bioprosthetic aortic valve. A transesophageal echocardiogram was performed that was consistent with patient prosthesis mismatch. She reports that she has been doing well with no symptoms. She feels good.. Her blood pressure today is low and her heart rate is elevated. She is currently on amlodipine 5 mg daily, aspirin 81 mg daily and atorvastatin 10 mg daily. LUIS 08/27/2020: Global left ventricular systolic function is normal. The EF is 55 % visually. No regional wall motion abnormality. Concentric left ventricular hypertrophy. The left atrium appears enlarged. The left atrial appendage is monolobular. There is no spontaneous echo contrast ( smoke ) in the left atrial appendage. Normal left atrial appendage, no thrombus seen. No intracardiac shunt by Doppler color flow. A bioprosthetic valve is seen in the aortic position with abnormally high Doppler flows. Prosthetic aortic valve leaflets is normal. No prosthesis regurgitation. There is no significant perivalvular reg (more content not included)... [facility] Summary Purpose Family History No Family History Records FoundNo Family History Records FoundNo Family History Records FoundNo Family History Records Found Advance Directives No Advanced Directives Records FoundNo Advanced Directives Records FoundNo Advanced Directives Records FoundNo Advanced Directives Records Found Additional Source Comments INFORMATION SOURCE (unrecogn ized section and content) DATE CREATED AUTHOR 03/22/2021 [facility] DATE CREATED AUTHOR AUTHOR'S ORGANIZ ATION 09/21/2022 [facility] DATE CREATED AUTHOR AUTHOR'S ORGANIZ ATION 03/13/2023 [facility] DATE CREATED AUTHOR AUTHOR'S ORGANIZ ATION 10/11/2023 [facility] [employer] [facility] FOR RECORDS PERTAINING TO PATIENTS WHO ARE OR HAVE BEEN ENROLLED IN A CHEMICAL DEPENDENCY/SUBSTANCEABUSE PROGRAM, SOME INFORMATION MAY BE OMITTED. This clinical summary was aggregated from multiple sources. Caution should be exercised in using it in the provision of clinical care. This summary normalizes information from multiple sources, and as a consequence, information in this document may materially change the coding, format and clinical context of patient data. In addition, data may be omitted in some cases. CLINICAL DECISIONS SHOULD BE BASED ON THE PRIMARY CLINICAL RECORDS. [facility] [employer] [facility]. provides no warranty or guarantee of the accuracy or completeness of information in this document.
[2023-12-04 10:13] LABS: Basophils Absolute Auto 0.1 10^3/uL (0.0-0.1); Basophils Percent Auto 1.4 % (0.2-2.0); Eosinophils Absolute Auto 0.1 10^3/uL (0.0-0.7); Eosinophils Percent Auto 2.5 % (0.9-7.0); Hematocrit 39.2 % (36.0-48.0); Hemoglobin 13.3 g/dL (12.0-16.0); Immature Granulocytes Abs Auto 0.01 10^3/uL (0.00-0.03); Immature Granulocytes Pct Auto 0.2 % (0.0-0.5); Lymphocytes Percent Auto 38.3 % (20.5-60.0); Mean Corpuscular HGB Conc 33.9 g/dL (29.9-35.2); Mean Corpuscular Hemoglobin 31.7 pg (26.7-34.0); Mean Corpuscular Volume 93.3 fL (81.0-99.0); Mean Platelet Volume 10.5 fL (9.5-13.5); Monocytes Absolute Auto 0.4 10^3/uL (0.3-0.8); Monocytes Percent Auto 8.5 % (1.7-12.0); Neutrophils Absolute Auto 2.5 10^3/uL (1.4-6.5); Neutrophils Percent Auto 49.1 % (43.0-75.0); Platelet Count 209 10^3/uL (150-450); Red Cell Distribution Width 12.3 % (11.0-15.0); White Blood Count 5.2 10^3/uL (4.0-11.0)
[2023-12-04 11:07] LABS: Alanine Aminotransferase 55 U/L (14-59); Albumin Globulin Ratio 0.9; Albumin Level 3.7 g/dL (3.4-5.0); Alkaline Phosphatase 84 U/L (46-116); Aspartate Amino Transferase 38 U/L (15-37); BUN Creatinine Ratio 10.8; Bilirubin Total 0.5 mg/dL (0.2-1.0); Carbon Dioxide 28.3 mmol/L (21.0-32.0); Chloride 94 mmol/L (98-107); Chol HDL Ratio 2.2; Cholesterol 155 mg/dL (<=200); Estimated GFR (African America >60 (>=60); Estimated GFR (Non-African Ame >60 (>=60); Globulin 4.1 g/dL; Glucose 83 mg/dL (74-106); HDL Cholesterol 70 mg/dL (40-60); Potassium 3.3 mmol/L (3.5-5.1); Sodium 132 mmol/L (136-145); TSH W/ REFLEX FT4 4.378 uIU/mL (0.358-3.740); Total Protein 7.8 g/dL (6.4-8.2); Triglycerides 83 mg/dL (<=150); VLDL CHOLESTEROL 16.6 mg/dL
[2023-12-04 12:47] LABS: Free T4 1.03 ng/dL (0.76-1.46)
[2023-12-04 15:57] LABS: Bilirubin Urine NEGATIVE (NEGATIVE); Blood Urine TRACE-I (NEGATIVE); Clarity Urine CLEAR (CLEAR); Color Urine LT. YELLOW (YELLOW); Glucose Urine UA NEGATIVE (NEGATIVE); Ketones Urine NEGATIVE (NEGATIVE); Leukocyte Esterase Urine NEGATIVE (NEGATIVE); Nitrite Urine NEGATIVE (NEGATIVE); Protein Urine NEGATIVE (NEG/TRACE); Specific Gravity Urine <=1.005 (1.005-1.025); Urobilinogen Urine 0.2 EU/dL (0.2-1.0)
[2023-12-04 16:01] LABS: Urine Microscopic Indicated YES
[2023-12-04 16:02] LABS: RBC Urine 0-2 #/HPF (0-2); WBC Urine NONE SEEN #/HPF (NONE SEEN)
[2023-12-04 16:03] LABS: Bacteria Urine TRACE #/HPF (NONE SEEN); Cast Seen? NONE SEEN #/LPF (NONE SEEN); Crystals Seen? None Seen #/HPF (None Seen); Mucus Urine NONE SEEN (NONE SEEN); Squamous Epithelial Cell Urine RARE #/LPF (NONE/RARE)
== END 2023-12-04 09:33 | disposition home or self-care (01) ==
LOC: LAB 09:35
PROVIDERS: PCP Nurse Practitioner; Visit Provider Nurse Practitioner
DX: E03.9 Hypothyroidism, unspecified (principal); E78.2 Mixed hyperlipidemia; I10 Essential (primary) hypertension
CPT/HCPCS: 36415; 80053; 80061; 81001; 84439; 84443; 85025

== ENCOUNTER 2023-12-25 10:31 | Outpatient (OUT) | payer MEDICARE, SELFPAY ==
--- OUTSIDE RECORDS SUMMARY | 2023-12-25 10:43 | XMS_ITS | CCD ---
Author Name Unknown Address [address] [place] [address] Organization [facility] Care Team Providers Care Steel Layer Name Role Phone UNKNOWN, PROVIDER Attending Unavailable AICHHOLZ, CHERI Primary Care Unavailable AICHHOLZ, CHERI Referring Unavailable UNKNOWN, PROVIDER Admitting Unavailable DAISY SMITH Attending Unavailable AICHHOLZ, LAPEL PADDER CHERI Admitting Unavailable AICHHOLZ, LAPEL PADDER CHERI Attending Unavailable AICHHOLZ, LAPEL PADDER CHERI Primary Care Unavailable AICHHOLZ, LAPEL PADDER CHERI Consulting Unavailable AICHHOLZ, LAPEL PADDER CHERI Admitting Unavailable AICHHOLZ, LAPEL PADDER CHERI Attending Unavailable AICHHOLZ, LAPEL PADDER CHERI Primary Care Unavailable AICHHOLZ, LAPEL PADDER CHERI Consulting Unavailable MAHOGANY, OLGA Admitting Unavailable MAHOGANY, OLGA Attending Unavailable AICHHOLZ, LAPEL PADDER CHERI Primary Care Unavailable AICHHOLZ, LAPEL PADDER CHERI Referring Unavailable MAHOGANY, OLGA Consulting Unavailable AICHHOLZ, LAPEL PADDER CHERI Admitting Unavailable AICHHOLZ, LAPEL PADDER CHERI Attending Unavailable AICHHOLZ, LAPEL PADDER CHERI Primary Care Unavailable AICHHOLZ, LAPEL PADDER CHERI Consulting Unavailable AICHHOLZ, LAPEL PADDER CHERI Admitting Unavailable AICHHOLZ, LAPEL PADDER CHERI Attending Unavailable AICHHOLZ, LAPEL PADDER CHERI Primary Care Unavailable AICHHOLZ, LAPEL PADDER CHERI Admitting Unavailable AICHHOLZ, LAPEL PADDER CHERI Attending Unavailable AICHHOLZ, LAPEL PADDER CHERI Primary Care Unavailable DR JOSSE GODFREY V Consulting Unavailable AICHHOLZ, LAPEL PADDER CHERI Consulting Unavailable AICHHOLZ, CHERI Attending Unavailable A[employer]holz [employer], Cheri Unavailable Caitie LOZOYA, Rick Primary Care Provider Medications Current Medications Medication Drug Class(es) Dates Sig (Normalized) Sig (Original) aspirin 81 mg delayed release oral tablet (1 source) Platelet Aggregation Inhibitor, Nonsteroidal Anti-inflammator y Drug take 1 tablet by mouth in the morning aspirin 81 MG EC tablet Take 81 mg by mouth in the morning. 0 Active atorvastatin 10 mg oral tablet (1 source) HMG-CoA Reductase Inhibitor take 1 tablet by mouth in the morning atorvastatin (Lipitor) 10 MG tablet Take 10 mg by mouth in the morning. 0 Active escitalopram 10 mg oral tablet (1 source) Serotonin Reuptake Inhibitor take 1 tablet by mouth in the morning escitalopram (Lexapro) 10 MG tablet Take 10 mg by mouth in the morning. 0 Active hydroCHLOROthiazide 12.5 mg oral tablet (1 source) Thiazide Diuretic take 2 tablets by mouth in the morning hydroCHLOROthiazide (HYDRODiuril) 12.5 MG tablet Take 25 mg by mouth in the morning. [facility] Cardiology. 0 Active levothyroxine sodium 0.05 mg oral tablet (1 source) l-Thyroxine Start: 4 End: 4 take 1 tablet by mouth before mealtime levothyroxine (Synthroid) 50 MCG tablet Indications: Hypothyroidism (acquired) (CMS/HCC) Take 1 tablet (50 mcg) by mouth in the morning. Take before meals. 90 tablet 0 12/06/2023 03/05/2024 Active 24 hr metoprolol succinate 50 mg extended release oral tablet (1 source) beta-Adrenergic Josiane take 1 tablet by mouth every twenty-four hours in the morning metoprolol succinate XL (Toprol-XL) 50 MG 24 hr tablet Take 50 mg by mouth in the morning. Do not crush or chew.. 0 Active omeprazole 20 mg delayed release oral capsule (1 source) Proton Pump Inhibitor Start: 4 End: 4 take 1 capsule by mouth in the morning omeprazole (PriLOSEC) [address] capsule Indications: Gastro-esophageal reflux disease without esophagitis , Esophageal reflux Take 1 capsule (20 mg) by mouth in the morning. 90 capsule 1 11/04/2023 02/02/2024 Active Problems Active Problems Problem Classification Problem Date Documented Date Episodic/Chronic Anxiety disorders (1 source) Anxiety; Translations: [Anxiety disorder, unspecified] Onset: 12-06-2023 12-06-2023 Chronic Disorders of lipid metabolism (2 sources) Hyperlipidemia, unspecified; Translations: [Mixed hyperlipidemia] Onset: 12-27-2022 10-09-2023 Chronic Esophageal disorders (1 source) Gastroesophageal reflux disease without esophagitis; Translations: [Gastro-esophageal reflux disease without esophagitis] Onset: 10-09-2023 10-09-2023 Chronic Essential hypertension (7 sources) Essential (primary) hypertension; Translations: [Essential hypertension] Onset: 07-08-2022 Chronic Fluid and electrolyte disorders (2 sources) Hyponatremia; Translations: [Hypo-osmolality and hyponatremia] Onset: 12-06-2023 12-06-2023 Episodic Heart valve disorders (11 sources) Nonrheumatic aortic (valve) stenosis; Translations: [Presence of other heart-valve replacement] Onset: 03-21-2022 Chronic Other ear and sense organ disorders (1 source) Hearing loss; Translations: [Unspecified hearing loss, unspecified ear] Onset: 12-06-2023 12-06-2023 Chronic Other nutritional; endocrine; and metabolic disorders (1 source) Body mass index 30+ - obesity; Translations: [Obesity, unspecified] Onset: 10-09-2023 10-09-2023 Chronic Other screening for suspected conditions (not mental disorders or infectious disease) (10 sources) Other specified abnormal findings of blood chemistry; Translations: [Abnormal results of thyroid function studies] Onset: 10-24-2022 Episodic Other upper respiratory disease (1 source) Allergic rhinitis; Translations: [Allergic rhinitis, unspecified] Onset: 12-06-2023 12-06-2023 Chronic Pulmonary heart disease (3 sources) Pulmonary hypertension due to left heart disease; Translations: [Pulmonary hypertension due to left heart disease] Onset: 09-18-2022 Chronic Residual codes; unclassified (4 sources) Obstructive sleep apnea (adult) (pediatric); Translations: [OBSTRUCTIVE SLEEP APNEA] Onset: 02-19-2023 Chronic Residual codes; unclassified (1 source) Obstructive sleep apnea syndrome; Translations: [Obstructive sleep apnea (adult) (pediatric)] Onset: 12-06-2023 12-06-2023 Chronic Thyroid disorders (1 source) Acquired hypothyroidism; Translations: [Hypothyroidism, unspecified] Onset: 10-09-2023 10-09-2023 Chronic Past or Other Problems Problem Classification Problem Date Documented Da te Episodic/Chronic Other nutritional; endocrine; and metabolic disorders (1 source) Obesity caused by energy imbalance; Translations: [Other obesity due to excess calories] Onset: 10-09-2023 Resolved: 10-09-2023 10-09-2023 Chronic Residual codes; unclassified (1 source) Family history of malignant neoplasm, unspecified; Translations: [FAM HX MALIGNANT NEOPLASM UNS] Onset: 10-27-2022 Episodic Results Test Name Value Interpretation Reference Range Facility THYROID ANTIBODIESon 023 Thyroglobulin Antibody <1.0 Normal 0.0-0.9 [facility] Comment on above: Result Comment: Thyr oglobulin Antibody measured by [employer] Performed By: #### T CANDELARIABS #### [facility] [address] [place] [address] Dr. Olya Vides Thyroid Peroxidase (TPO) Ab <9 Normal 0-34 [facility] Comment on above: Performed By: #### T HYBS #### [facility] [address] [place] [address] Dr. Olya Vides FREE T4on 01-19-2023 Free T4 [Mass/Vol] 0.84 ng/dL Normal 0.76-1.46 [facility] Comment on above: Performed By: #### T SH, CMP, LIPID #### [facility] [address] [place] [address] Dr. Olya Vides TSHon 01-19-2023 TSH 5.355 uIU/mL Critically high 0.358-3.740 [facility] Comment on above: Performed By: #### T SH #### [facility] [address] [place] [address] Dr. Olya Vides CBC AUTO DIFFon 12-22-2022 BASO # 0.1 103/ul Normal 0.0-0.1 [facility] Comment on above: Performed By: #### C BC #### [facility] [address] [place] [address] Dr. Olya Vides Basophils/100 WBC (Bld) 1.1 % Normal 0.2-2.0 [facility] Comment on above: Performed By: #### C BC #### [facility] [address] [place] [address] Dr. Olya Vides EO # 0.1 103/ul Normal 0.0-0.7 [facility] Comment on above: Performed By: #### C BC #### [facility] [address] [place] [address] Dr. Olya Vides Eosinophils/100 WBC (Bld) 3.0 % Normal 0.9-7.0 [facility] Comment on above: Performed By: #### C BC #### [facility] [address] [place] [address] Dr. Olya Vides Erythrocyte distribution width (RBC) [Ratio] 12.5 % Normal 11.0-15.0 [facility] Comment on above: Performed By: #### C BC #### [facility] [address] [place] [address] Dr. Olya Vides Hematocrit (Bld) [Volume fraction] 42.5 % Normal 36.0-48.0 [facility] Comment on above: Performed By: #### C BC #### [facility] [address] [place] [address] Dr. Olya Vides Hemoglobin (Bld) [Mass/Vol] 15.0 g/dL Normal 12.0-16.0 [facility] Comment on above: Performed By: #### C BC #### [facility] [address] [place] [address] Dr. Olya Vides IG # 0.02 10e3/ul Normal 0.00-0.03 [facility] Comment on above: Performed By: #### C BC #### [facility] [address] [place] [address] Dr. Olya Vides IG % 0.4 % Normal 0.0-0.5 [facility] Comment on above: Performed By: #### C BC #### [facility] [address] [place] [address] Dr. Olya Vides LYMPH # 1.4 103/ul Normal 1.2-3.8 [facility] Comment on above: Performed By: #### C BC #### [facility] [address] [place] [address] Dr. Olya Vides Lymphocytes/100 WBC (Bld) 30.4 % Normal 20.5-60.0 [facility] Comment on above: Performed By: #### C BC #### [facility] [address] [place] [address] Dr. Olya Vides MANUAL DIFF REQ NO Normal [facility] Comment on above: Performed By: #### C BC #### [facility] [address] [place] [address] Dr. Olya Vides MCH (RBC) [Entitic mass] 32.8 pg Normal 26.7-34.0 [facility] Comment on above: Performed By: #### C BC #### [facility] [address] [place] [address] Dr. Olya Vides MCHC (RBC) [Mass/Vol] 35.3 g/dL Critically high 29.9-35.2 [facility] Comment on above: Performed By: #### C BC #### [facility] [address] [place] [address] Dr. Olya Vides MCV (RBC) [Entitic vol] 92.8 fL Normal 81.0-99.0 [facility] Comment on above: Performed By: #### C BC #### [facility] [address] [place] [address] Dr. Olya Vides MONO # 0.4 103/ul Normal 0.3-0.8 [facility] Comment on above: Performed By: #### C BC #### [facility] [address] [place] [address] Dr. Olya Vides Monocytes/100 WBC (Bld) 7.7 % Normal 1.7-12.0 [facility] Comment on above: Performed By: #### C BC #### [facility] [address] [place] [address] Dr. Olya Vides NEUT # 2.7 103/ul Normal 1.4-6.5 [facility] Comment on above: Performed By: #### C BC #### [facility] [address] [place] [address] Dr. Olya Vides Neutrophils/100 WBC (Bld) 57.4 % Normal 43.0-75.0 [facility] Comment on above: Performed By: #### C BC #### [facility] [address] [address] [address] Olya Vides Platelet mean volume (Bld) [Entitic vol] 9.7 fL Normal 9.5-13.5 [facility] Comment on above: Performed By: #### C BC #### [facility] [address] [address] [address] Olya Vides PLT 224 103/ul Normal 150-450 [facility] Comment on above: Performed By: #### C BC #### [facility] [address] [address] [address] Olya Vides RBC 4.58 106/ul Normal 4.20-5.40 [facility] Comment on above: Performed By: #### C BC #### [facility] [address] [place] [address] Dr. Olya Vides WBC 4.7 103/ul Normal 4.0-11.0 [facility] Comment on above: Performed By: #### C BC #### [facility] [address] [place] [address] Dr. Olya Vides FREE T4on 12-22-2022 Free T4 [Mass/Vol] 0.85 ng/dL Normal 0.76-1.46 [facility] Comment on above: Performed By: #### F T4 #### [facility] [address] [place] [address] Dr. Olya Vides LIPID PROFILEon 12-22-2022 CHOL-HDL RATIO NORM SEE BELOW Normal [facility] Comment on above: Result Comment: 3.3 - 4.4 LOW RISK 4.4 - 7.1 AVERAGE RISK 7.1 - 11.0 MODERATE RISK >11.0 HIGH RISK Performed By: #### T SH, CMP, LIPID #### [facility] [address] [place] [address] Dr. Olya Vides Cholesterol [Mass/Vol] 193 mg/dL Normal <=200 [facility] Comment on above: Performed By: #### T SH, CMP, LIPID #### [facility] [address] [address] [address] Olya Vides Cholesterol in HDL [Mass/Vol] 63 mg/dL Critically high 40-60 [facility] Comment on above: Performed By: #### T SH, CMP, LIPID #### [facility] [address] [place] [address] Dr. Olya Vides Cholesterol in LDL [Mass/Vol] 93.0 mg/dL Normal [facility] Comment on above: Performed By: #### T SH, CMP, LIPID #### [facility] [address] [place] [address] Dr. Olya Vides Cholesterol.total/C holesterol in HDL [Mass ratio] 3.1 {ratio} Normal [facility] Comment on above: Performed By: #### T JORDY, CMP, LIPID #### [facility] [address] [place] [address] Dr. Olya Vides HDL NORMAL > or = 60 mg/dl - LO W CARDIOVASCULAR RISK <40 mg/dl - HIGH CARDIOVASCULAR RISK Normal [facility] Comment on above: Performed By: #### T SH, CMP, LIPID #### [facility] [address] [place] [address] Dr. Olya Vides LDL CALC NORMAL SEE BELOW Normal [facility] Comment on above: Result Comment: <100 mg/dl OPTIMAL 100 - 129 mg/dl NEAR OR ABOVE OPTIMAL 130 - 159 mg/dl BORDERLINE HIGH 160 - 189 mg/dl HIGH >190 mg/dl VERY HIGH Performed By: #### T JORDY CMP, LIPID #### [facility] [address] [place] [address] Dr. Olya Vides Triglyceride [Mass/Vol] 185 mg/dL Critically high <=150 [facility] Comment on above: Performed By: #### T SH, CMP, LIPID #### [facility] [address] [place] [address] Dr. Olya Vides VLDL CALC 37.0 mg/dL Normal [facility] Comment on above: Performed By: #### T SH, CMP, LIPID #### [facility] [address] [place] [address] Dr. Olya Vides PROF 14(COMP METB)on 023 Albumin [Mass/Vol] 4.2 g/dL Normal 3.4-5.0 [facility] Comment on above: Performed By: #### T SH, CMP, LIPID #### [facility] [address] [address] [address] Olya Vides Albumin/Globulin [Mass ratio] 1.0 {ratio} Normal [facility] Comment on above: Performed By: #### T SH, CMP, LIPID #### [facility] [address] [address] [address] Olya Vides ALP [Catalytic activity/Vol] 73 U/L Normal 46-116 [facility] Comment on above: Performed By: #### T JORDY, CMP, LIPID #### [facility] [address] [address] [address] Olya Vides ALT [Catalytic activity/Vol] 39 U/L Normal 14-59 [facility] Comment on above: Performed By: #### T JORDY, CMP, LIPID #### [facility] [address] [address] [address] Olya Vides Anion gap [Moles/Vol] 15.5 mmol/L Normal [facility] Comment on above: Performed By: #### T JORDY, CMP, LIPID #### [facility] [address] [address] [address] Olya Vides AST [Catalytic activity/Vol] 47 U/L Critically high 15-37 [facility] Comment on above: Performed By: #### T JORDY, CMP, LIPID #### [facility] [address] [address] [address] Olya Vides Bilirubin [Mass/Vol] 0.5 mg/dL Normal 0.2-1.0 [facility] Comment on above: Performed By: #### T SH, CMP, LIPID #### [facility] [address] [address] [address] Olya Vides Calcium [Mass/Vol] 9.6 mg/dL Normal 8.5-10.1 [facility] Comment on above: Performed By: #### T SH, CMP, LIPID #### [facility] [address] [address] [address] Olya Vides Chloride [Moles/Vol] 96 mmol/L Critically low 98-107 [facility] Comment on above: Performed By: #### T SH, CMP, LIPID #### [facility] [address] [address] [address] Olya Vides CO2 [Moles/Vol] 29.2 mmol/L Normal 21.0-32.0 [facility] Comment on above: Performed By: #### T SH, CMP, LIPID #### [facility] [address] [address] [address] Olya Vides Creatinine [Mass/Vol] 0.57 mg/dL Normal 0.55-1.02 [facility] Comment on above: Performed By: #### T SH, CMP, LIPID #### [facility] [address] [place] [address] Dr. Olya Vides EGFR-AF RWANDAN >60 Normal >=60 [facility] Comment on above: Performed By: #### T SH, CMP, LIPID #### [facility] [address] [place] [address] Dr. Olya Vides EGFR-NON AF RWANDAN >60 Normal >=60 [facility] Comment on above: Performed By: #### T SH, CMP, LIPID #### [facility] [address] [address] [address] Olya Vides Globulin (S) [Mass/Vol] 4.4 g/dL Normal [facility] Comment on above: Performed By: #### T SH, CMP, LIPID #### [facility] [address] [place] [address] Dr. Olya Vides Glucose [Mass/Vol] 87 mg/dL Normal 74-106 [facility] Comment on above: Performed By: #### T SH, CMP, LIPID #### [facility] [address] [place] [address] Dr. Olya Vides Potassium [Moles/Vol] 3.7 mmol/L Normal 3.5-5.1 [facility] Comment on above: Performed By: #### T SH, CMP, LIPID #### [facility] [address] [address] [address] Olya Vides Protein [Mass/Vol] 8.6 g/dL Critically high 6.4-8.2 [facility] Comment on above: Performed By: #### T SH, CMP, LIPID #### [facility] [address] [address] [address] Olya Vides Sodium [Moles/Vol] 137 mmol/L Normal 136-145 [facility] Comment on above: Performed By: #### T SH, CMP, LIPID #### [facility] [address] [place] [address] Dr. Olya Vides Urea nitrogen [Mass/Vol] 5.0 mg/dL Critically low 7.0-18.0 [facility] Comment on above: Performed By: #### T SH, CMP, LIPID #### [facility] [address] [place] [address] Dr. Olya Vides Urea nitrogen/Creatinine [Mass ratio] 8.8 mg/mg Normal [facility] Comment on above: Performed By: #### T SH, CMP, LIPID #### [facility] [address] [place] [address] Dr. Olya Vides TSHon 12-22-2022 TSH 3.759 uIU/mL Critically high 0.358-3.740 [facility] Comment on above: Performed By: #### T SH, CMP, LIPID #### [facility] [address] [place] [address] Dr. Olya Vides UA RANDOM W/MICROSCOPICon BACTERIA NONE SEEN Normal NONE SEEN [facility] Comment on above: Performed By: #### U AMIC #### [facility] [address] [place] [address] Dr. Olya Vides Bilirubin Ql (U) Negative Normal NEGATIVE [facility] Comment on above: Performed By: #### U AMIC #### [facility] [address] [place] [address] Dr. Olya Vides CAST NONE SEEN Normal NONE SEEN [facility] Comment on above: Performed By: #### U AMIC #### [facility] [address] [address] [address] Olya Vides Clarity (U) CLEAR Normal CLEAR [facility] Comment on above: Performed By: #### U AMIC #### [facility] [address] [place] [address] Dr. Olya Vides Color (U) LT. YELLOW Normal YELLOW [facility] Comment on above: Performed By: #### U AMIC #### [facility] [address] [address] [address] Olya Vides Crystals LM Nom (Urine sed) NONE SEEN Normal NONE SEEN [facility] Comment on above: Performed By: #### U AMIC #### [facility] [address] [place] [address] Dr. Olya Vides Epithelial cells LM Ql (Urine sed) FEW Abnormal NONE SEEN /RARE [facility] Comment on above: Performed By: #### U AMIC #### [facility] [address] [place] [address] Dr. Olya Vides Glucose Ql (U) Negative Normal NEGATIVE [facility] Comment on above: Performed By: #### U AMIC #### [facility] [address] [place] [address] Dr. Olya Vides Hemoglobin Ql (U) SMALL Abnormal NEGATIVE [facility] Comment on above: Performed By: #### U AMIC #### [facility] [address] [place] [address] Dr. Olya Vides Ketones Ql (U) Negative Normal NEGATIVE [facility] Comment on above: Performed By: #### U AMIC #### [facility] [address] [place] [address] Dr. Olya Vides LEUKOCYTES Negative Normal NEGATIVE [facility] Comment on above: Performed By: #### U AMIC #### [facility] [address] [place] [address] Dr. Olya Vides MUCOUS NONE SEEN Normal NONE SEEN [facility] Comment on above: Performed By: #### U AMIC #### [facility] [address] [place] [address] Dr. Olya Vides Nitrite Ql (U) Negative Normal NEGATIVE [facility] Comment on above: Performed By: #### U AMIC #### [facility] [address] [address] [address] Olya Vides pH (U) 5.5 [pH] Normal 5-9 [facility] Comment on above: Performed By: #### U AMIC #### [facility] [address] [address] [address] Olya Vides RBC 0-2 Normal 0-2 [facility] Comment on above: Performed By: #### U AMIC #### [facility] [address] [address] [address] Olya Vides SPEC GRAVITY <=1.005 Abnormal 1.005-<=1.025 [facility] Comment on above: Performed By: #### U AMIC #### [facility] [address] [place] [address] Dr. Olya Vides UA PROTEIN Negative Normal NEGATIVE/ TRACE [facility] Comment on above: Performed By: #### U AMIC #### [facility] [address] [address] [address] Olya Vides Urobilinogen Qn (U) 0.2 {Davie'U}/dL Normal 0.2 - 1. 0 [facility] Comment on above: Performed By: #### U AMIC #### [facility] [address] [place] [address] Dr. Olya Vides WBC NONE SEEN Normal NONE SEEN [facility] Comment on above: Performed By: #### U AMIC #### [facility] [address] [place] [address] Dr. Olya Vides MG MAMM SCREEN 3D YARY CADon 10-24-2022 MG MAMM SCREEN 3D YARY CAD Patient: ROSA SADLER Exam Date: 10/24/2022 : 1965 Gender:F Ordering : SARAH POOL CNP Admission #: [id number] Family : Order #: [id number] CLICK HERE TO VIEW EXAM RADIOLOGY REPORT [...] cancer at age 68. LOCATION: [facility] BREAST COMPOSITION: Heterogeneously dense,which may obscure small [...] Godfrey MD on 10/24/2022 at 15:31 Normal [facility] Follow-Upon 09-18-2022 Follow-Up [id number] Rosa Sadler 1965 F Date Provider Department Center 09/18/2022 DAISY GLASGOW ALEXANDRA Carson Family History Problem Relation Age of Onset No Known Problems Mother No Known Problems Father Family Status - Relation Status Age at Mother Father Level of Service:55067 IA OFFICE/OUTPATIENT ESTABLISHED LOW MDM 20-29 MIN Reason for Visit and Comments: Valve Disorder [3372] Hypertension [999205] Normal [facility] Abstracton 07-09-2022 Abstract [id number] Rosa Sadler 1965 F Date Provider Department Center 07/09/2022 YOLANDA ARCHER ALEXANDRA Carson Family History Family history unknown: Yes Normal [facility] Abstracton 07-08-2022 Abstract [id number] Rosa Sadler 1965 F Date Provider Department Center 07/08/2022 YOLANDA ARCHER ALEXANDRA Carson Family History Family history unknown: Yes Normal [facility] ECHOCARDIO M/2D COMPLETEon 0 03-21-2022 ECHOCARDIO M/2D COMPLETE Patient: ROSA SADLER Exam Date: 03/21/2022 : 1965 Gender:F Ordering : OLGA VIDES Admission #: [id number] Family : SARAH POOL [facility] Order #: [id number] CLICK HERE TO VIEW EXAM ECHOCARDIOGRAM REPORT [...] Area(A4C): 18.90 cm2 Left Atrium Systolic Volume(A4C): 14973 mm3 Mitral Valve MV E to A [...] 3 mm[Hg] Right Atrium Dictated by: Daisy Smith M.D. on 03/21/2022 at 17:07 Approved by: Daisy Smith M.D. on 03/21/2022 at 17:14 Normal [facility] BASIC METABOLIC PANELon 10-3 0 Calcium [Mass/Vol] 9.9 mg/dL Normal 8.6-10.3 [facility] Comment on above: Performed By: #### 0 0071 #### [facility] [address] [place] [address], [facility] Chloride [Moles/Vol] 104 mmol/L Normal 98-107 [facility] Comment on above: Performed By: #### 0 0071 #### [facility] [address] [place] [address], [place] CO2 [Moles/Vol] 27 mmol/L Normal 21-31 [facility] Comment on above: Performed By: #### 0 0071 #### [facility] [address] [place] [address], [place] Creatinine [Mass/Vol] 0.62 mg/dL Normal 0.60-1.20 [facility] Comment on above: Performed By: #### 0 0071 #### [facility] [address] [place] [address], [place] GFR/1.73 sq M.predicted among blacks MDRD (S/P/Bld) [Vol rate/Area] mL/min/{1.73_m2} Normal >60 [facility] Comment on above: Performed By: #### 0 0071 #### [facility] [address] [place] [address], [place] GFR/1.73 sq M.predicted among non-blacks MDRD (S/P/Bld) [Vol rate/Area] mL/min/{1.73_m2} Normal >60 [facility] Comment on above: Performed By: #### 0 0071 #### [facility] [address] [place] [address], [place] Glucose [Mass/Vol] 105 mg/dL High 70-100 [facility] Comment on above: Performed By: #### 0 0071 #### [facility] [address] [place] [address], [place] Potassium [Moles/Vol] 3.9 mmol/L Normal 3.5-5.1 [facility] Comment on above: Performed By: #### 0 0071 #### [facility] [address] [place] [address], [place] Sodium [Moles/Vol] 139 mmol/L Normal 136-145 [facility] Comment on above: Performed By: #### 0 0071 #### [facility] [address] [place] [address], [place] Urea nitrogen [Mass/Vol] 10 mg/dL Normal 7-25 [facility] Comment on above: Performed By: #### 0 0071 #### [facility] [address] CBC W/DIFFon 08-27-2020 ABS IMM GRANS 0.0 10*3/uL Normal 0.0-0.2 [facility] Comment on above: Performed By: #### 5 0103 #### [facility] [address] [place] [address], [facility] ABS NEUTROPHILS 5.2 10*3/uL Normal 1.6-7.6 [facility] Comment on above: Performed By: #### 5 0103 #### [facility] [address] [facility] [place] [address], [facility] Basophils (Bld) [#/Vol] 0.1 10*3/uL Normal 0.0-0.2 [facility] Comment on above: Performed By: #### 5 0103 #### [facility] [address] [place] [address], [facility] Basophils/100 WBC (Bld) 0.8 % Normal 0.0-1.0 [facility] Comment on above: Performed By: #### 5 0103 #### [facility] [address] [place] [address], [facility] Eosinophils (Bld) [#/Vol] 0.1 10*3/uL Normal 0.0-0.5 [facility] Comment on above: Performed By: #### 5 0103 #### [facility] [address] [facility] [place] [address], [facility] Eosinophils/100 WBC (Bld) 1.0 % Normal 0.0-6.0 [facility] Comment on above: Performed By: #### 5 0103 #### [facility] [address] Erythrocyte distribution width (RBC) [Ratio] 13.2 % Normal 11.5-15.0 [facility] Comment on above: Performed By: #### 5 0103 #### [facility] [address] [place] [address], [facility] Hematocrit (Bld) [Volume fraction] 45.7 % High 36.0-45.0 [facility] Comment on above: Performed By: #### 5 0103 #### [facility] [address] [facility] [place] [address], [facility] Hemoglobin (Bld) [Mass/Vol] 15.4 g/dL High 12.0-15.0 [facility] Comment on above: Performed By: #### 5 0103 #### [facility] [address] [place] [address], [facility] IMMATURE GRANS 0.4 % Normal 0.0-1.0 [facility] Comment on above: Performed By: #### 5 0103 #### [facility] [address] Lymphocytes (Bld) [#/Vol] 1.3 10*3/uL Normal 1.2-4.0 [facility] Comment on above: Performed By: #### 5 0103 #### [facility] [address] [place] [address], [facility] Lymphocytes/100 WBC (Bld) 17.7 % Low 20.0-45.0 [facility] Comment on above: Performed By: #### 5 0103 #### [facility] [address] [place] [address], [facility] MCH (RBC) [Entitic mass] 32.4 pg Normal 27.0-33.0 [facility] Comment on above: Performed By: #### 5 0103 #### [facility] [address] [place] [address], [facility] MCHC (RBC) [Mass/Vol] 33.7 g/dL Normal 32.0-35.0 [facility] Comment on above: Performed By: #### 5 0103 #### [facility] [address] [place] [address], [facility] MCV (RBC) [Entitic vol] 96.0 fL Normal 82.0-98.0 [facility] Comment on above: Performed By: #### 5 0103 #### [facility] [address] [place] [address], [facility] Monocytes (Bld) [#/Vol] 0.5 10*3/uL Normal 0.1-1.0 [facility] Comment on above: Performed By: #### 5 0103 #### [facility] [address] [place] [id number], [facility] MONOS 7.2 % Normal 5.0-12.0 [facility] Comment on above: Performed By: #### 102 #### [facility] [address] [place] [id number], [facility] Neutrophils/100 WBC (Bld) 72.9 % High 40.0-72.0 [facility] Comment on above: Performed By: #### 102 #### [facility] [address] [place] [address], [facility] Nucleated RBC/100 WBC (Bld) [Ratio] 0 % Normal 0-0 [facility] Comment on above: Performed By: #### 5 3 #### [facility] [address] [place] [id number], [facility] PLAT CNT 199 10*3/uL Normal 150-400 [facility] Comment on above: Performed By: #### 3 #### [facility] [address] [place] [address], [facility] RBC (Bld) [#/Vol] 4.76 10*6/uL Normal 3.80-5.00 [facility] Comment on above: Performed By: #### 102 #### [facility] [address] [place] [address], [facility] WBC (Bld) [#/Vol] 7.18 10*3/uL Normal 4.00-10.60 [facility] Comment on above: Performed By: #### 5 0103 #### [facility] [address] [place] [address], [facility] Encounters Encounter Date Encounter Type Care Provider Facility Start: 12-06-2023 Orders Only Cheri Pool [employer] Work Phone: [facility] Comment on above: Hyponatremia (Primar y Dx) Start: 10-09-2023 End: 10-09-2023 ambulatory CHERI AICHHOLZ Not Available Start: 04-09-2023 ambulatory LAP[employer] P[employer]DER CHERI AICHHOLZ Facil ity:H1 Start: 02-19-2023 End: 02-20-2023 ambulatory [employer] CHERI AICHHOLZ Facility:[facility]1 Start: 01-19-2023 End: 01-20-2023 ambulatory [employer] CHERI AICHHOLZ Facility:[facility]1 Start: 12-22-2022 End: 12-23-2022 ambulatory [employer] P[employer] CHERI AICHHOLZ Facility:[facility]1 Start: 10-24-2022 End: 10-25-2022 ambulatory [employer] CHERI AICHHOLZ Facility:[facility]1 Start: 09-18-2022 ambulatory DAISY shannon [facility] Start: 03-21-2022 End: 03-22-2022 ambulatory OLGA VIDES Facility:H1 Start: 08-27-2020 End: 08-28-2020 ambulatory PROVIDER UNKNOWN Facility:[facility] Procedures Date Procedure Procedure Detail Performing Clinician Start: 10-26-2023 Mammography Cheri chino [employer] Work Phone: Start: 01-07-2020 Colonoscopy Cheri Misti chino [employer] Work Phone: Plan of Treatment Date Care Activity Detail Author Start: 01-06-2030 Screening for malign ant neoplasm of colon [facility] Start: 10-26-2024 Screening for malign ant neoplasm of breast Mammogram [facility] Start: 01-10-2024 End: 01-10-2024 Patient encounter procedure 01/10/2024 4:30 PM EDT Office Visit [facility] [address] [place] [address] Cheri Pool, ABIEL [address] [place] [phone] [facility] Start: 12-06-2023 End: 12-06-2024 Basic metabolic 1998 panel - Serum or Plasma Basic metabolic panel Lab Routine Hyponatremia Expected: 12/06/2023 (Approximate), Expires: 12/06/2024 [facility] Work Phone: Comment on above: Expected: 12/06/2023 (Approximate), Expires: 12/06/2024 Start: 06-29-2023 Influenza vaccination Influenza Vacc ine (#1) [facility] Start: 1994 Screening for malign ant neoplasm of cervix HPV/Cotest [facility] Start: 1985 Screening for malign ant neoplasm of cervix Pap Smear [facility] Start: 1965 Medicare Annual Wellness (AWV) Medicare Annual Wellness (AWV) [facility] Start: 1965 Screening for malign ant neoplasm of colon [facility] Immunizations Immunization Date Immunization Notes Care Provider [facility] 08-24-2022 influenza, injectabl e, quadrivalent, preservative free Cheri Pool [employer] Work Phone: [facility] 08-24-2022 SARS-COV-2 (COVID-19 ) vaccine, mRNA, spike protein, LNP, bivalent, PF Cheri Pool [employer] Work Phone: [facility] 08-24-2022 influenza virus vacc ine, unspecified formulation Cheri Yrn [employer] Work Phone: [facility] 10-27-2021 Moderna SARS-CoV-2 Vaccination Cheri Yrn [employer] Work Phone: [facility] 02-25-2021 Moderna SARS-CoV-2 Vaccination Cheri Marioz [employer] Work Phone: [facility] 01-28-2021 Moderna SARS-CoV-2 Vaccination Cheri Aichholz [employer] Work Phone: [facility] Payers Date Payer Category Payer Medicare [employer] U[employer] MEDICARE ADVANTAGE [id number] 2023-Present [address] [address] [place] [address] [id number] 1965 Unknown [id number] 1965 Unknown [id number] 593 1965 Unknown [id number] 593 1965 Unknown [id number]. 593 1965 Unknown [id number] [id number]. 593 1965 Unknown [id number] [id number]. 593 1965 Unknown [id number]. 593 1965 Unknown [id number] 1259 1960 Medicare [id number] 1960 Medicare [id number] Private Health Insurance [facility] [id number] Social History Date Type Detail Facility [facility]: [facility]09[facility]23 [facility] Start: 10-09-2023 Tobacco use and exposure Smokeless t obacco non-user [facility] Start: 12-06-2023 Alcohol intake Ex-drinker (finding) [facility] Start: 10-09-2023 History of Social function [facility] Start: 10-09-2023 Tobacco use panel [facility] Start: 1965 Sex Assigned At Not on file [facility] History of Present illness Narrative 12-06-2023 Cheri Pool NP - 12/06/2023 9:30 AM EST Note Date & Type Note Facility 12-06-2023 History of Presen t illness Narrative labs documented in this encounter [facility] Progress note 09-18-2022 Note Date & Type Note Facility 09-18-2022 Note [place] [facility] Subjective Rosa Sadler is a 56 [...] 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 She has done well with that with [...] significant perivalvular reg (more content not included)... [facility] Evaluation note Note Date & Type Note Facility Evaluation note Diagnosis Hyponatremia- Primary Hyposmolality and/or hyponatremia documented in this encounter [facility] Summary Purpose Family History No Family History Records FoundNo Family History Records FoundNo Family History Records FoundNo Family History Records Found Advance Directives No Advanced Directives Records FoundNo Advanced Directives Records FoundNo Advanced Directives Records FoundNo Advanced Directives Records Found Additional Source Comments INFORMATION SOURCE (unrecogn ized section and content) DATE CREATED AUTHOR 03/22/2021 [facility] DATE CREATED AUTHOR AUTHOR'S ORGANIZ ATION 09/21/2022 [facility] DATE CREATED AUTHOR AUTHOR'S ORGANIZ ATION 03/13/2023 [facility] DATE CREATED AUTHOR AUTHOR'S ORGANIZ ATION 10/11/2023 [facility] dical Specialists EPIC Care Teams (unrecognized sec tion and content) Steel Layer Relationship Specialty Start Date End Date Rick Blood MD [address] [place] [phone] PCP - General Family Medicine 09/26/23 Cheri Pool NP [address] [place] [phone] Referring Physician Family Medicine 10/29/22 FOR RECORDS PERTAINING TO PATIENTS WHO ARE [...] BE BASED ON THE PRIMARY CLINICAL RECORDS. [facility]. provides no warranty or guarantee of the accuracy or completeness of information in this document.
[2023-12-25 12:09] LABS: BUN Creatinine Ratio 12.5; Calcium 9.1 mg/dL (8.5-10.1); Carbon Dioxide 31.5 mmol/L (21.0-32.0); Chloride 97 mmol/L (98-107); Estimated GFR (African America >60 (>=60); Estimated GFR (Non-African Ame >60 (>=60); Glucose 90 mg/dL (74-106); Potassium 3.5 mmol/L (3.5-5.1); Sodium 137 mmol/L (136-145); TSH W/ REFLEX FT4 2.425 uIU/mL (0.358-3.740)
== END 2023-12-25 10:32 | disposition home or self-care (01) ==
LOC: LAB 10:32
PROVIDERS: PCP Nurse Practitioner; Visit Provider Nurse Practitioner
DX: E87.1 Hypo-osmolality and hyponatremia (principal); E03.9 Hypothyroidism, unspecified
CPT/HCPCS: 36415; 80048; 84443

== ENCOUNTER 2024-09-05 13:49 | Outpatient (OUT) | payer MEDICARE, SELFPAY ==
--- NOTE | 2024-09-05 14:00 | CA_ITS ---
Patient Name: JAMIR YORK MR#: [id number] : 1965 Exam Date: 09/05/2024 Ordering Doctor: DR DAISY SMITH M.D. ECHOCARDIOGRAM REPORT PROCEDURE: CA ECHO DOPPLER COMPLETE INDICATIONS: Aortic valve replacement, tissue graft COMPARISON: None. DESCRIPTION: COMPLETE ECHOCARDIOGRAM Real-time transthoracic echocardiography with 2D, M-mode, spectral and color flow Doppler performed. QUALITY: Technical quality was good. LEFT VENTRICLE: Normal chamber size. Normal left ventricular wall thickness. LV EF: Normal left ventricular ejection fraction 55%, no wall motion abnormalities. DIASTOLIC: Indeterminate. ATRIAL SEPTUM: Visually appears intact. LEFT ATRIUM: Normal chamber size. RIGHT ATRIUM: Severe dilatation. RIGHT VENTRICLE: Moderate dilatation. Reduced right ventricular systolic function. TRICUSPID VALVE: Normal mobility and thickness. No stenosis with severe regurgitation. Doppler studies reveal moderately (45-60) elevated right sided pressures.RVSP 57 mmHg MITRAL VALVE: Mildly thickened with normal mobility. No evidence of mitral valve stenosis. Trivial mitral regurgitation. AORTIC VALVE: Bio-Prosthetic valve appears well seated in the aortic position with normal doppler flow. No aortic regurgitation. AORTIC ROOT: Normal diameter and appearance. PULMONIC VALVE: Normal thickness and mobility. No stenosis. No regurgitation. PERICARDIUM: No evidence of pericardial effusion. IVC: IVC is dilated (2.3 cm), less than 50% inspirational collapse.C/W RAP 15 mmHg PLEURA: CONCLUSION: Normal left ventricle chamber size. Normal left ventricular wall thickness. Normal left ventricular ejection fraction 55%, no wall motion abnormalities. Severe RA dilatation. Moderate right ventricle dilatation. Reduced right ventricular systolic function. Moderately elevated right sided pressures. RVSP 57 mmHg Bio-Prosthetic valve appears well seated in the aortic position with normal doppler flow.No aortic regurgitation. Severe tricuspid regurgitation IVC is dilated (2.3 cm), less than 50% inspirational collapse.C/W RAP 15 mmHg Adult Echocardiography Procedure Report Left Ventricle LVEDD (3.7 - 5.6 cm): 3.46 cm LVESD (2.2 - 4.0 cm): 2.56 cm LVIVS thickness (0.6 - 1.2 cm): 0.86 cm LVPW thickness (0.5 - 1.0 cm): 0.90 cm e': 0.14 m/s E - e': 9.38 LVOT Max Gradient: 3.13 mm[Hg] LVOT Area (cm2): 0.88 m/s Peak Velocity (LVOT): 0.88 m/s Mean Velocity (LVOT): 0.57 m/s LVOT Diameter 1.81 cm Left Ventricular Ejection Fraction: Left Atrium LA Volume Index (2D A2C): 35.59 ml/m2 Left Atrium Systolic Dimension: 3.86 cm Mitral Valve MV E to A Ratio: 1.67 MV Max Gradient: MV Mean Gradient: Mitral Valve A-Wave Peak Velocity: 0.78 m/s Mitral Valve E-Wave Peak Velocity: 1.30 m/s Cardiovascular Orifice Area: Right Ventricle RV Internal Diastolic Dimension: Aorta AO Root Diam: 2.46 cm Ascending Ao Diam: 2.66 cm Aortic Valve AoV Area (Peak Lobo): 0.76 cm2, 0.76 cm2 AoV Area (VTI): 0.87 cm2, 0.87 cm2 Deceleration Iosco: Pressure Half-Time: Peak Velocity(Antegrade Flow): 3.00 m/s Peak Gradient(Antegrade Flow): 35.96 mm[Hg] Mean Velocity(Antegrade Flow): 2.00 m/s Mean Gradient(Antegrade Flow): 19.34 mm[Hg] Velocity Time Integral: 61.66 cm Tricuspid Valve Peak Velocity (Regurgitant Flow): 3.24 m/s Peak Velocity: Pulmonic Valve Mean Gradient: 1.74 mm[Hg] Mean Velocity: 0.61 m/s Peak Velocity: 0.92 m/s, 0.81 m/s Peak Gradient: 2.61 mm[Hg], 3.41 mm[Hg] Right Atrium Right Atrium volume 71.85 ml, 71.85 ml Dictated by: Rich Hughes MD on 09/05/2024 at 21:22 Approved by: Rich Hughes MD on 09/05/2024 at 21:36
--- OUTSIDE RECORDS SUMMARY | 2024-09-05 14:01 | XMS_ITS | CCD ---
Author Organization [facility] Care Team Providers Care Block Cuber Name Role Phone UNKNOWN, PROVIDER Attending Unavailable AICHHOLZ, CHERI Primary Care Unavailable AICHHOLZ, CHERI Referring Unavailable UNKNOWN, PROVIDER Admitting Unavailable AICHHOLZ, DETONATOR MAKER CHERI Admitting Unavailable AICHHOLZ, DETONATOR MAKER CHERI Attending Unavailable AICHHOLZ, DETONATOR MAKER CHERI Primary Care Unavailable AICHHOLZ, DETONATOR MAKER CHERI Consulting Unavailable AICHHOLZ, DETONATOR MAKER CHERI Admitting Unavailable AICHHOLZ, DETONATOR MAKER CHERI Attending Unavailable AICHHOLZ, DETONATOR MAKER CHERI Primary Care Unavailable AICHHOLZ, DETONATOR MAKER CHERI Consulting Unavailable MAHOGANY, OLGA Admitting Unavailable MAHOGANY, OLGA Attending Unavailable AICHHOLZ, DETONATOR MAKER CHERI Primary Care Unavailable AICHHOLZ, DETONATOR MAKER CHERI Referring Unavailable MAHOGANY, OLGA Consulting Unavailable AICHHOLZ, DETONATOR MAKER CHERI Admitting Unavailable AICHHOLZ, DETONATOR MAKER CHERI Attending Unavailable AICHHOLZ, DETONATOR MAKER CHERI Primary Care Unavailable AICHHOLZ, DETONATOR MAKER CHERI Consulting Unavailable AICHHOLZ, DETONATOR MAKER CHERI Admitting Unavailable AICHHOLZ, DETONATOR MAKER CHERI Attending Unavailable AICHHOLZ, DETONATOR MAKER CHERI Primary Care Unavailable AICHHOLZ, DETONATOR MAKER CHERI Admitting Unavailable AICHHOLZ, DETONATOR MAKER CHERI Attending Unavailable AICHHOLZ, DETONATOR MAKER CHERI Primary Care Unavailable DR JOSSE GODFREY V Consulting Unavailable AICHHOLZ, DETONATOR MAKER CHERI Consulting Unavailable Aichholz STRADDLE BUG, Cheri Unavailable Rick Blood MD Primary Care Provider [phone] AICHHOLZ, CHERI Attending Unavailable AICHHOLZ, CHERI Attending Unavailable AICHHOLZ, CHERI Attending Unavailable HERNAN LACEY Attending Unavailable Aichholz STRADDLE BUG, Cheri Unavailable Rick Blood MD Primary Care Provider Aichholz STRADDLE BUG, Cheri Unavailable Medications Current Medications Medication Drug Class(es) Dates Sig (Normalized) Sig (Original) aspirin 81 mg delayed release oral tablet (4 sources) Platelet Aggregation Inhibitor, Nonsteroidal Anti-inflammatory Drug Start: 08-31-2024 take 81 mg by mouth once daily Aspirin Active 81 MG PO Daily August 30, 2024 11:00pm Start: 06-03-2024 End: 09-01-2024 take 2 tablets by mouth once daily aspirin (Aspirin Low Dose) 81 MG EC tablet Indications: Nonrheumatic aortic (valve) stenosis , Aortic valve disorder Take 2 tablets (162 mg) by mouth Daily 180 tablet 1 06/03/2024 09/01/2024 Active take 1 tablet by [facility] aspirin 81 MG EC tablet Take 81 mg by mouth in the morning. 0 Active atorvastatin 10 mg oral tablet (4 sources) HMG-CoA Reductase Inhibitor Start: 01-10-2024 End: 11-26-2024 take 10 mg by mouth once daily Atorvastatin Active 10 MG PO Daily August 30, 2024 11:00pm take 1 tablet by mouth in the mo rning atorvastatin (Lipitor) 10 MG tablet Take 10 mg by mouth in the morning. 0 Active cephalexin 500 mg oral capsule (1 source) Cephalosporin Antibacterial Start: 08-31-2024 take 500 mg by mouth three times daily Cephalexin Active 500 MG PO Three times daily 21 August 30, 2024 11:00pm escitalopram 10 mg oral tablet (4 sources) Serotonin Reuptake Inhibitor Start: 08-25-2024 End: 11-23-2024 take 10 mg by mouth once daily Escitalopram Oxalate Active 10 MG PO Daily August 30, 2024 11:00pm take 1 tablet by mouth in the mo rning escitalopram (Lexapro) 10 MG tablet Take 10 mg by mouth in the morning. 0 Active hydroCHLOROthiazide 25 mg oral tablet (4 sources) Thiazide Diuretic Start: 08-25-2024 End: 11-23-2024 take 25 mg by mouth once daily Hydrochlorothiazide Active 25 MG PO Daily August 30, 2024 11:00pm take 2 tablets by [facility] in the morning hydroCHLOROthiazide (HYDRODiuril) 12.5 M G tablet Take 25 mg by mouth in the morning. [facility] Cardiology. 0 Active levothyroxine (4 sources) l-Thyroxine Start: 08-31-2024 take 50 ug by mouth once daily Levothyroxine Active 50 MCG PO Daily August 30, 2024 11:00pm Start: 08-25-2024 End: 11-23-2024 take 1 tablet by mouth before mealtime levothyroxine (Synthroid, Levoxyl) 50 MCG tablet Indications: Hypothyroidism (acquired) (CMS/HCC) Take 1 tablet (50 mcg) by mouth in the morning. Take before meals. 90 tablet 1 08/25/2024 11/23/2024 Active Start: 12-06-2023 End: 03-05-2024 take 1 tablet by mouth before mealtime levothyroxine (Synthroid) 50 MCG tablet Indications: Hypothyroidism (acquired) (CMS/HCC) Take 1 tablet (50 mcg) by mouth in the morning. Take before meals. 90 tablet 0 12/06/2023 03/05/2024 Active metoprolol tartrate 50 mg oral tablet (4 sources) beta-Adrenergic Josiane Start: 08-31-2024 take 50 mg by mouth once daily Metoprolol Succinate Active 50 MG PO Daily August 30, 2024 11:00pm take 1 tablet by maría th every twenty-four hours in the morning metoprolol succinate XL (Toprol-XL) 50 M G 24 hr tablet Take 50 mg by mouth in the morning. Do not crush or chew.. Active omeprazole 20 mg oral tablet (5 sources) Proton Pump Inhibitor Start: 08-31-2024 take 20 mg by mouth once daily Omeprazole Active 20 MG PO Daily August 30, 2024 11:00pm Start: 07-25-2024 End: 08-28-2024 take 1 capsule by mouth once daily omeprazole (PriLOSEC) [address] capsule Indications: Esophageal reflux Take 1 capsule (20 mg) by mouth Daily 90 capsule 1 08/28/2024 Active Start: 11-04-2023 End: 02-02-2024 take 1 capsule by mouth in the morning omeprazole (PriLOSEC) [address] capsule Indications: Gastro-esophageal reflux disease without esophagitis , Esophageal reflux Take 1 capsule (20 mg) by mouth in the morning. 90 capsule 1 11/04/2023 02/02/2024 Active sulfamethoxazole 800 mg / trimethoprim 160 mg oral tablet (1 source) Dihydrofolate Reductase Inhibitor Antibacterial, Sulfonamide Antimicrobial Start: 08-31-2024 take 1 tablet by mouth every twelve hours Sulfamethoxazole-Trimethoprim Active 1 TAB PO Every 12 hours 14 August 30, 2024 11:00pm Problems Active Problems Problem Classification Problem Date Documented Date Episodic/Chronic Anxiety disorders (5 sources) Anxiety; Translations: [Anxiety disorder, unspecified] Onset: 12-06-2023 12-06-2023 Chronic Disorders of lipid metabolism (6 sources) Hyperlipidemia, unspecified; Translations: [Mixed hyperlipidemia] Onset: 12-27-2022 10-09-2023 Chronic Esophageal disorders (5 sources) Gastroesophageal reflux disease without esophagitis; Translations: [Gastro-esophageal reflux disease without esophagitis] Onset: 10-09-2023 10-09-2023 Chronic Essential hypertension (9 sources) Essential (primary) hypertension; Translations: [Essential hypertension] Onset: 12-22-2022 Chronic Heart valve disorders (17 sources) Presence of other heart-valve replacement; Translations: [Rheumatic tricuspid insufficiency] Onset: 03-21-2022 Chronic Other ear and sense organ disorders (3 sources) Hearing loss; Translations: [Unspecified hearing loss, unspecified ear] Onset: 12-06-2023 12-06-2023 Chronic Other nutritional; endocrine; and metabolic disorders (3 sources) Body mass index 30+ - obesity; Translations: [Obesity, unspecified] Onset: 10-09-2023 10-09-2023 Chronic Other upper respiratory disease (3 sources) Allergic rhinitis; Translations: [Allergic rhinitis, unspecified] Onset: 12-06-2023 12-06-2023 Chronic Pulmonary heart disease (4 sources) Pulmonary hypertension due to left heart disease; Translations: [Pulmonary hypertension due to left heart disease] Onset: 09-18-2022 12-06-2023 Chronic Residual codes; unclassified (4 sources) Obstructive sleep apnea (adult) (pediatric); Translations: [OBSTRUCTIVE SLEEP APNEA] Onset: 02-19-2023 Chronic Residual codes; unclassified (3 sources) Obstructive sleep apnea syndrome; Translations: [Obstructive sleep apnea (adult) (pediatric)] Onset: 12-06-2023 12-06-2023 Chronic Thyroid disorders (5 sources) Acquired hypothyroidism; Translations: [Hypothyroidism, unspecified] Onset: 10-09-2023 10-09-2023 Chronic Past or Other Problems Problem Classification Problem Date Documented Da te Episodic/Chronic Fluid and electrolyte disorders (4 sources) Hyponatremia; Translations: [Hypo-osmolality and hyponatremia] Onset: 12-06-2023 12-06-2023 Episodic Mood disorders (2 sources) Mood disorders Onset: 01-10-2024 01-10-2024 Other nutritional; endocrine; and metabolic disorders (3 sources) Obesity caused by energy imbalance; Translations: [Other obesity due to excess calories] Onset: 10-09-2023 Resolved: 10-09-2023 10-09-2023 Chronic Other screening for suspected conditions (not mental disorders or infectious disease) (12 sources) Other specified abnormal findings of blood chemistry; Translations: [Abnormal results of thyroid function studies] Onset: 10-24-2022 Episodic Residual codes; unclassified (1 source) Family history of malignant neoplasm, unspecified; Translations: [FAM HX MALIGNANT NEOPLASM UNS] Onset: 10-27-2022 Episodic Results Test Name Value Interpretation Reference Range Facility Office Visiton 08-20-2024 Follow-up visit [id number] Rosa Sadler 1965 F Date Provider Department Center 08/20/2024 HERNAN HART [facility] Family History Problem Relation Age of Onset No Known Problems Mother No Known Problems Father Family Status - Relation Status Age at Mother Father Level of Service:96947 [place] OFFICE/OUTPATIENT ESTABLISHED LOW MDM 20 MIN Reason for Visit and Comments: Follow-up [380067] Normal [facility] 36on 07-25-2024 36 Patient has not been seen since 2021 Normal [facility] THYROID ANTIBODIESon 023 Thyroglobulin Antibody <1.0 Normal 0.0-0.9 [facility] Comment on above: Result Comment: Thyr oglobulin Antibody measured by Pigit Lesli Methodology Performed By: #### T HYRABS #### [facility] [address] [place] [address] Dr. Olya Vides Thyroid Peroxidase (TPO) Ab <9 Normal 0-34 [facility] Comment on above: Performed By: #### T HYRABS #### [facility] [address] [place] [address] Dr. Olya Vides FREE T4on 01-19-2023 Free T4 [Mass/Vol] 0.84 ng/dL Normal 0.76-1.46 [facility] Comment on above: Performed By: #### T SH, CMP, LIPID #### [facility] [address] [place] [address] Dr. Olya Vides TSHon 01-19-2023 TSH 5.355 uIU/mL Critically high 0.358-3.740 [facility] Comment on above: Performed By: #### T SH #### [facility] [address] [place] [address] Dr. Olya Vides CBC AUTO DIFFon 12-22-2022 BASO # 0.1 103/ul Normal 0.0-0.1 [facility] Comment on above: Performed By: #### C BC #### [facility] [address] [place] [address] Dr. Olya Vides Basophils/100 WBC (Bld) 1.1 % Normal 0.2-2.0 [facility] Comment on above: Performed By: #### C BC #### [facility] [address] [place] [address] Dr. Olya Vides EO # 0.1 103/ul Normal 0.0-0.7 [facility] Comment on above: Performed By: #### C BC #### [facility] [address] [place] [address] Dr. Olya Vides Eosinophils/100 WBC (Bld) 3.0 % Normal 0.9-7.0 [facility] Comment on above: Performed By: #### C BC #### [facility] [address] [place] [address] Dr. Olya Vides Erythrocyte distribution width (RBC) [Ratio] 12.5 % Normal 11.0-15.0 [facility] Comment on above: Performed By: #### C BC #### [facility] [address] [place] [address] Dr. Olya Vides Hematocrit (Bld) [Volume fraction] 42.5 % Normal 36.0-48.0 [facility] Comment on above: Performed By: #### C BC #### [facility] [address] [place] [address] Dr. Olya Vides Hemoglobin (Bld) [Mass/Vol] 15.0 g/dL Normal 12.0-16.0 [facility] Comment on above: Performed By: #### C BC #### [facility] [address] [place] [address] Dr. Olya Vides IG # 0.02 10e3/ul Normal 0.00-0.03 [facility] Comment on above: Performed By: #### C BC #### [facility] [address] [place] [address] Dr. Olya Vides IG % 0.4 % Normal 0.0-0.5 [facility] Comment on above: Performed By: #### C BC #### [facility] [address] [place] [address] Dr. Olya Vides LYMPH # 1.4 103/ul Normal 1.2-3.8 [facility] Comment on above: Performed By: #### C BC #### [facility] [address] [place] [address] Dr. Olya Vides Lymphocytes/100 WBC (Bld) 30.4 % Normal 20.5-60.0 [facility] Comment on above: Performed By: #### C BC #### [facility] [address] [place] [address] Dr. Olya Vides MANUAL DIFF REQ NO Normal [facility] Comment on above: Performed By: #### C BC #### [facility] [address] [place] [address] Dr. Olya Vides MCH (RBC) [Entitic mass] 32.8 pg Normal 26.7-34.0 [facility] Comment on above: Performed By: #### C BC #### [facility] [address] [place] [address] Dr. Olya Vides MCHC (RBC) [Mass/Vol] 35.3 g/dL Critically high 29.9-35.2 [facility] Comment on above: Performed By: #### C BC #### [facility] [address] [place] [address] Dr. Olya Vides MCV (RBC) [Entitic vol] 92.8 fL Normal 81.0-99.0 [facility] Comment on above: Performed By: #### C BC #### [facility] [address] [place] [address] Dr. Olya Vides MONO # 0.4 103/ul Normal 0.3-0.8 [facility] Comment on above: Performed By: #### C BC #### [facility] [address] [place] [address] Dr. Olya Vides Monocytes/100 WBC (Bld) 7.7 % Normal 1.7-12.0 [facility] Comment on above: Performed By: #### C BC #### [facility] [address] [place] [address] Dr. Olya Vides NEUT # 2.7 103/ul Normal 1.4-6.5 [facility] Comment on above: Performed By: #### C BC #### [facility] [address] [place] [address] Dr. Olya Vides Neutrophils/100 WBC (Bld) 57.4 % Normal 43.0-75.0 [facility] Comment on above: Performed By: #### C BC #### [facility] [address] [place] [address] Dr. Olya Vides Platelet mean volume (Bld) [Entitic vol] 9.7 fL Normal 9.5-13.5 [facility] Comment on above: Performed By: #### C BC #### [facility] [address] [place] [address] Dr. Olya Vides PLT 224 103/ul Normal 150-450 [facility] Comment on above: Performed By: #### C BC #### [facility] [address] [place] [address] Dr. Olya Vides RBC 4.58 106/ul Normal 4.20-5.40 [facility] Comment on above: Performed By: #### C BC #### [facility] [address] [place] [address] Dr. Olya Vides WBC 4.7 103/ul Normal 4.0-11.0 [facility] Comment on above: Performed By: #### C BC #### [facility] [address] [address] [address] Olya Vides FREE T4on 12-22-2022 Free T4 [Mass/Vol] 0.85 ng/dL Normal 0.76-1.46 [facility] Comment on above: Performed By: #### F T4 #### [facility] [address] [address] [address] Olya Vides LIPID PROFILEon 12-22-2022 CHOL-HDL RATIO NORM SEE BELOW Normal [facility] Comment on above: Result Comment: 3.3 - 4.4 LOW RISK 4.4 - 7.1 AVERAGE RISK 7.1 - 11.0 MODERATE RISK >11.0 HIGH RISK Performed By: #### T SH, CMP, LIPID #### [facility] [address] [address] [address] Olya Vides Cholesterol [Mass/Vol] 193 mg/dL Normal <=200 [facility] Comment on above: Performed By: #### T SH, CMP, LIPID #### [facility] [address] [address] [address] Olya Vides Cholesterol in HDL [Mass/Vol] 63 mg/dL Critically high 40-60 [facility] Comment on above: Performed By: #### T SH, CMP, LIPID #### [facility] [address] [address] [address] Olya Vides Cholesterol in LDL [Mass/Vol] 93.0 mg/dL Normal [facility] Comment on above: Performed By: #### T SH, CMP, LIPID #### [facility] [address] [address] [address] Olya Vides Cholesterol.total/C holesterol in HDL [Mass ratio] 3.1 {ratio} Normal [facility] Comment on above: Performed By: #### T SH, CMP, LIPID #### [facility] [address] [address] [address] Olya Vides HDL NORMAL > or = 60 mg/dl - LO W CARDIOVASCULAR RISK <40 mg/dl - HIGH CARDIOVASCULAR RISK Normal [facility] Comment on above: Performed By: #### T SH, CMP, LIPID #### [facility] [address] [address] [address] Olya Vides LDL CALC NORMAL SEE BELOW Normal [facility] Comment on above: Result Comment: <100 mg/dl OPTIMAL 100 - 129 mg/dl NEAR OR ABOVE OPTIMAL 130 - 159 mg/dl BORDERLINE HIGH 160 - 189 mg/dl HIGH >190 mg/dl VERY HIGH Performed By: #### T SH, CMP, LIPID #### [facility] [address] [address] [address] Olya Vides Triglyceride [Mass/Vol] 185 mg/dL Critically high <=150 [facility] Comment on above: Performed By: #### T SH, CMP, LIPID #### [facility] [address] [address] [address] Olya Vides VLDL CALC 37.0 mg/dL Normal [facility] Comment on above: Performed By: #### T SH, CMP, LIPID #### [facility] [address] [address] [address] Olya Vides PROF 14(COMP METB)on 023 Albumin [Mass/Vol] 4.2 g/dL Normal 3.4-5.0 [facility] Comment on above: Performed By: #### T SH, CMP, LIPID #### [facility] [address] [address] [address] Olya Vides Albumin/Globulin [Mass ratio] 1.0 {ratio} Normal [facility] Comment on above: Performed By: #### T SH, CMP, LIPID #### [facility] [address] [address] [address] Olya Vides ALP [Catalytic activity/Vol] 73 U/L Normal 46-116 [facility] Comment on above: Performed By: #### T SH, CMP, LIPID #### [facility] [address] [address] [address] Olya Vides ALT [Catalytic activity/Vol] 39 U/L Normal 14-59 [facility] Comment on above: Performed By: #### T SH, CMP, LIPID #### [facility] [address] [address] [address] Olya Vides Anion gap [Moles/Vol] 15.5 mmol/L Normal [facility] Comment on above: Performed By: #### T SH, CMP, LIPID #### [facility] [address] [address] [address] Olya Vides AST [Catalytic activity/Vol] 47 U/L Critically high 15-37 [facility] Comment on above: Performed By: #### T SH, CMP, LIPID #### [facility] [address] [address] [address] Olya Vides Bilirubin [Mass/Vol] 0.5 mg/dL Normal 0.2-1.0 [facility] Comment on above: Performed By: #### T SH, CMP, LIPID #### [facility] [address] [address] [address] Olya Vides Calcium [Mass/Vol] 9.6 mg/dL Normal 8.5-10.1 [facility] Comment on above: Performed By: #### T SH, CMP, LIPID #### [facility] [address] [address] [address] Olya Vides Chloride [Moles/Vol] 96 mmol/L Critically low 98-107 [facility] Comment on above: Performed By: #### T SH, CMP, LIPID #### [facility] [address] [address] [address] Olya Vides CO2 [Moles/Vol] 29.2 mmol/L Normal 21.0-32.0 [facility] Comment on above: Performed By: #### T SH, CMP, LIPID #### [facility] [address] [address] [address] Olya Vides Creatinine [Mass/Vol] 0.57 mg/dL Normal 0.55-1.02 [facility] Comment on above: Performed By: #### T SH, CMP, LIPID #### [facility] [address] [address] [address] Olya Vides EGFR-AF COMORAN >60 Normal >=60 [facility] Comment on above: Performed By: #### T SH, CMP, LIPID #### [facility] [address] [address] [address] Olya Vides EGFR-NON AF COMORAN >60 Normal >=60 [facility] Comment on above: Performed By: #### T SH, CMP, LIPID #### [facility] [address] [address] [address] Olya Vides Globulin (S) [Mass/Vol] 4.4 g/dL Normal [facility] Comment on above: Performed By: #### T SH, CMP, LIPID #### [facility] [address] [address] [address] Olya Vides Glucose [Mass/Vol] 87 mg/dL Normal 74-106 [facility] Comment on above: Performed By: #### T SH, CMP, LIPID #### [facility] [address] [address] [address] Olya Vides Potassium [Moles/Vol] 3.7 mmol/L Normal 3.5-5.1 [facility] Comment on above: Performed By: #### T SH, CMP, LIPID #### [facility] [address] [address] [address] Olya Vides Protein [Mass/Vol] 8.6 g/dL Critically high 6.4-8.2 [facility] Comment on above: Performed By: #### T SH, CMP, LIPID #### [facility] [address] [address] [address] Olya Vides Sodium [Moles/Vol] 137 mmol/L Normal 136-145 [facility] Comment on above: Performed By: #### T SH, CMP, LIPID #### [facility] [address] [address] [address] Olya Vides Urea nitrogen [Mass/Vol] 5.0 mg/dL Critically low 7.0-18.0 [facility] Comment on above: Performed By: #### T SH, CMP, LIPID #### [facility] [address] [address] [address] Olya Vides Urea nitrogen/Creatinine [Mass ratio] 8.8 mg/mg Normal [facility] Comment on above: Performed By: #### T SH, CMP, LIPID #### [facility] [address] [place] [address] Dr. Olya Vides TSHon 12-22-2022 TSH 3.759 uIU/mL Critically high 0.358-3.740 [facility] Comment on above: Performed By: #### T SH, CMP, LIPID #### [facility] [address] [place] [address] Dr. Olya Vides UA RANDOM W/MICROSCOPICon BACTERIA NONE SEEN Normal NONE SEEN [facility] Comment on above: Performed By: #### U AMIC #### [facility] [address] [place] [address] Dr. Olya Vides Bilirubin Ql (U) Negative Normal NEGATIVE [facility] Comment on above: Performed By: #### U AMIC #### [facility] [address] [place] [address] Dr. Olya Vides CAST NONE SEEN Normal NONE SEEN [facility] Comment on above: Performed By: #### U AMIC #### [facility] [address] [place] [address] Dr. Olya Vides Clarity (U) CLEAR Normal CLEAR [facility] Comment on above: Performed By: #### U AMIC #### [facility] [address] [place] [address] Dr. Olya Vides Color (U) LT. YELLOW Normal YELLOW [facility] Comment on above: Performed By: #### U AMIC #### [facility] [address] [place] [address] Dr. Olya Vides Crystals LM Nom (Urine sed) NONE SEEN Normal NONE SEEN [facility] Comment on above: Performed By: #### U AMIC #### [facility] [address] [place] [address] Dr. Olya Vides Epithelial cells LM Ql (Urine sed) FEW Abnormal NONE SEEN /RARE [facility] Comment on above: Performed By: #### U AMIC #### [facility] [address] [address] [address] Olya Vides Glucose Ql (U) Negative Normal NEGATIVE [facility] Comment on above: Performed By: #### U AMIC #### [facility] [address] [address] [address] Olya Vides Hemoglobin Ql (U) SMALL Abnormal NEGATIVE The [facility] Comment on above: Performed By: #### U AMIC #### [facility] [address] [address] [address] Olya Vides Ketones Ql (U) Negative Normal NEGATIVE [facility] Comment on above: Performed By: #### U AMIC #### [facility] [address] [address] [address] Olya Vides LEUKOCYTES Negative Normal NEGATIVE [facility] Comment on above: Performed By: #### U AMIC #### [facility] [address] [place] [address] Dr. Olya Vides MUCOUS NONE SEEN Normal NONE SEEN [facility] Comment on above: Performed By: #### U AMIC #### [facility] [address] [address] [address] Olya Vides Nitrite Ql (U) Negative Normal NEGATIVE The [facility] Comment on above: Performed By: #### U AMIC #### [facility] [address] [place] [address] Dr. Olya Vides pH (U) 5.5 [pH] Normal 5-9 [facility] Comment on above: Performed By: #### U AMIC #### [facility] [address] [address] [address] Olya Vides RBC 0-2 Normal 0-2 [facility] Comment on above: Performed By: #### U AMIC #### [facility] [address] [place] [address] Dr. Olya Vides SPEC GRAVITY <=1.005 Abnormal 1.005-<=1.025 [facility] Comment on above: Performed By: #### U AMIC #### [facility] [address] [place] [address] Dr. Olya Vides UA PROTEIN Negative Normal NEGATIVE/ TRACE [facility] Comment on above: Performed By: #### U AMIC #### [facility] [address] [address] [address] Olya Vides Urobilinogen Qn (U) 0.2 {Davie'U}/dL Normal 0.2 - 1. 0 [facility] Comment on above: Performed By: #### U AMIC #### [facility] [address] [address] [address] Olya Vides WBC NONE SEEN Normal NONE SEEN [facility] Comment on above: Performed By: #### U AMIC #### [facility] [address] [address] [address] Olya Vides MG MAMM SCREEN 3D YARY CADon 10-24-2022 MG MAMM SCREEN 3D YARY CAD Patient: ROSA SADLER Exam Date: 10/24/2022 : 1965 Gender:F Ordering : SARAH POOL [facility] Admission #: [id number] Family : Order #: [id number] CLICK HERE TO VIEW EXAM RADIOLOGY REPORT [...] etiology cancer at age 68. LOCATION: [facility] BREAST COMPOSITION: Heterogeneously dense,which may obscure [...] MD on 10/24/2022 at 15:31 Normal [facility] ECHOCARDIO M/2D COMPLETEon 0 03-21-2022 ECHOCARDIO M/2D COMPLETE Patient: ROSA SADLER Exam Date: 03/21/2022 : 1965 Gender:F Ordering : OLGA VIDES Admission #: [id number] Family : SARAH POOL [facility] Order #: [id number] CLICK HERE TO VIEW EXAM ECHOCARDIOGRAM REPORT [...] Area(A4C): 18.90 cm2 Left Atrium Systolic Volume(A4C): 05001 mm3 Mitral Valve MV E to A [...] Gradient: 3 mm[Hg] Right Atrium Dictated by: Christian Manzano M.D. on 03/21/2022 at 17:07 Approved by: Christian Manzano M.D. on 03/21/2022 at 17:14 Normal [facility] BASIC METABOLIC PANELon 10-3 Calcium [Mass/Vol] 9.9 mg/dL Normal 8.6-10.3 [facility] Comment on above: Performed By: #### 0 0071 #### [facility] [address] [place] [address], [facility] Chloride [Moles/Vol] 104 mmol/L Normal 98-107 [facility] Comment on above: Performed By: #### 0 0071 #### [facility] [address] [place] [address], [facility] CO2 [Moles/Vol] 27 mmol/L Normal 21-31 [facility] Comment on above: Performed By: #### 0 0071 #### [facility] [address] [place] [address], [place] Creatinine [Mass/Vol] 0.62 mg/dL Normal 0.60-1.20 [facility] Comment on above: Performed By: #### 0 0071 #### [facility] [address] [place] [address], [place] GFR/1.73 sq M.predicted among blacks MDRD (S/P/Bld) [Vol rate/Area] mL/min/{1.73_m2} Normal >60 [facility] Comment on above: Performed By: #### 0 0071 #### [facility] [address] [place] [address], [place] GFR/1.73 sq M.predicted among non-blacks MDRD (S/P/Bld) [Vol rate/Area] mL/min/{1.73_m2} Normal >60 [facility] Comment on above: Performed By: #### 0 0071 #### [facility] [address] [place] [address], [place] Glucose [Mass/Vol] 105 mg/dL High 70-[address] [facility] Comment on above: Performed By: #### 0 0071 #### [facility] [address] [place] [address], [place] Potassium [Moles/Vol] 3.9 mmol/L Normal 3.5-5.1 [facility] Comment on above: Performed By: #### 0 0071 #### [facility] [address] [place] [address], [place] Sodium [Moles/Vol] 139 mmol/L Normal 136-[address] [facility] Comment on above: Performed By: #### 0 0071 #### [facility] [address] [place] [address], [place] Urea nitrogen [Mass/Vol] 10 mg/dL Normal 7-25 [facility] Comment on above: Performed By: #### 0 0071 #### [facility] [address] [facility] [place] [address], [facility] CBC W/DIFFon 08-27-2020 ABS IMM GRANS 0.0 10*3/uL Normal 0.0-0.2 [facility] Comment on above: Performed By: #### 5 0103 #### [facility] [address] [facility] [place] [address], [facility] ABS NEUTROPHILS 5.2 10*3/uL Normal 1.6-7.6 The [facility] Comment on above: Performed By: #### 5 3 #### [facility] [address] [place] [address], [facility] Basophils (Bld) [#/Vol] 0.1 10*3/uL Normal 0.0-0.2 [facility] Comment on above: Performed By: #### 5 3 #### [facility] [address] [facility] [place] [address], [facility] Basophils/100 WBC (Bld) 0.8 % Normal 0.0-1.0 [facility] Comment on above: Performed By: #### 5 3 #### [facility] [address] [facility] [place] [address], [facility] Eosinophils (Bld) [#/Vol] 0.1 10*3/uL Normal 0.0-0.5 [facility] Comment on above: Performed By: #### 5 3 #### [facility] [address] [id number], [facility] Eosinophils/100 WBC (Bld) 1.0 % Normal 0.0-6.0 [facility] Comment on above: Performed By: #### 5 102 #### [facility] [address] [facility] [place] [id number], [facility] Erythrocyte distribution width (RBC) [Ratio] 13.2 % Normal 11.5-15.0 [facility] Comment on above: Performed By: #### 5 0103 #### [facility] [address] [place] [address], [facility] Hematocrit (Bld) [Volume fraction] 45.7 % High 36.0-45.0 [facility] Comment on above: Performed By: #### 5 0103 #### [facility] [address] [facility] [place] [address], [facility] Hemoglobin (Bld) [Mass/Vol] 15.4 g/dL High 12.0-15.0 [facility] Comment on above: Performed By: #### 5 0103 #### [facility] [address] [place] [address], [facility] IMMATURE GRANS 0.4 % Normal 0.0-1.0 [facility] Comment on above: Performed By: #### 5 0103 #### [facility] [address] [place] [address], [facility] Lymphocytes (Bld) [#/Vol] 1.3 10*3/uL Normal 1.2-4.0 [facility] Comment on above: Performed By: #### 5 0103 #### [facility] [address] [facility] [place] [address], [facility] Lymphocytes/100 WBC (Bld) 17.7 % Low 20.0-45.0 [facility] Comment on above: Performed By: #### 5 0103 #### [facility] [address] [facility] [place] [address], [facility] MCH (RBC) [Entitic mass] 32.4 pg Normal 27.0-33.0 [facility] Comment on above: Performed By: #### 5 0103 #### [facility] [address] [place] [address], [facility] MCHC (RBC) [Mass/Vol] 33.7 g/dL Normal 32.0-35.0 [facility] Comment on above: Performed By: #### 102 #### [facility] [address] [place] [address], [facility] MCV (RBC) [Entitic vol] 96.0 fL Normal 82.0-98.0 [facility] Comment on above: Performed By: #### 102 #### [facility] [address] [place] [address], [facility] Monocytes (Bld) [#/Vol] 0.5 10*3/uL Normal 0.1-1.0 [facility] Comment on above: Performed By: #### 102 #### [facility] [address] MONOS 7.2 % Normal 5.0-12.0 [facility] Comment on above: Performed By: #### 102 #### [facility] [address] Neutrophils/100 WBC (Bld) 72.9 % High 40.0-72.0 [facility] Comment on above: Performed By: #### 102 #### [facility] [address] Nucleated RBC/100 WBC (Bld) [Ratio] 0 % Normal 0-0 [facility] Comment on above: Performed By: #### 102 #### [facility] [address] [place] [address], [facility] PLAT CNT 199 10*3/uL Normal 150-400 The [facility] Comment on above: Performed By: #### 102 #### [facility] [address] [place] [address], [facility] RBC (Bld) [#/Vol] 4.76 10*6/uL Normal 3.80-5.00 [facility] Comment on above: Performed By: #### 102 #### [facility] [address] [place] [address], [facility] WBC (Bld) [#/Vol] 7.18 10*3/uL Normal 4.00-10.60 The [facility] Comment on above: Performed By: #### 5 0103 #### [facility] [address] [place] [address], [facility] Vital Signs Date Time Vital Sign Value Performing Clinician Faci lity 08-31-2024 12:24-0500 Body height 153.67 cm [facility] 08-31-2024 12:24-0500 Body mass index (BMI) [Ratio] 33.6 kg/m2 [facility] 08-31-2024 12:24-0500 Body temperature 97.3 [degF] [facility] 08-31-2024 12:24-0500 Body weight 79.37 kg [facility] 08-31-2024 12:24-0500 Diastolic blood pressure 84 mm[Hg] [facility] 08-31-2024 12:24-0500 Heart rate 74 /min [facility] 08-31-2024 12:24-0500 Respiratory rate 18 /min [facility] 08-31-2024 12:24-0500 SaO2% (BldA) [Mass fraction] 96 % [facility] 08-31-2024 12:24-0500 Systolic blood pressure 150 mm[Hg] [facility] Encounters Encounter Date Encounter Type Care Provider Facility Start: 08-31-2024 End: 08-31-2024 ambulatory [facility] Work Phone: Start: 08-31-2024 End: 08-31-2024 Patient encounter procedure [facility] Work Phone: Start: 08-28-2024 End: 08-28-2024 Refill Cheri Pool NP Work Phone: [facility] Comment on above: Mixed hyperlipidemia (CMS/HCC); Esophageal reflux Start: 08-23-2024 End: 08-25-2024 Refill Cheri Aichholz [facility] Work Phone: [facility] Comment on above: Anxiety; Hypothyroidism (acquired) (CMS/HCC); Primary hypertension (CMS/HCC); 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) Start: 08-20-2024 End: 08-20-2024 ambulatory [facility] Start: 07-14-2024 End: 07-14-2024 ambulatory CHERI AICHHOLZ Not Available Start: 01-10-2024 End: 01-10-2024 ambulatory CHERI AICHHOLZ Not Available Start: 01-10-2024 Patient encounter procedure Cheri Aichholz STRADDLE [employer]UG Work Phone: [facility] Start: 12-06-2023 Orders Only Cheri Aichholz STRADDLE BUG Work Phone: [facility] Comment on above: Hyponatremia (Primar y Dx) Start: 10-09-2023 End: 10-09-2023 ambulatory CHERI AICHHOLZ Not Available Start: 04-09-2023 ambulatory [employer]ON[employer] CHERI AICHHOLZ Facil ity:H1 Start: 02-19-2023 End: 02-20-2023 ambulatory DETONATOR MAK[employer] CHERI AICHHOLZ Facility:[facility] Start: 01-19-2023 End: 01-20-2023 ambulatory DETONATOR MAK[employer] CHERI AICHHOLZ Facility:[facility] Start: 12-22-2022 End: 12-23-2022 ambulatory [employer]ONATOR MAK[employer] CHERI AICHHOLZ Facility:[facility] Start: 10-24-2022 End: 10-25-2022 ambulatory DETONATOR MAKER CHERI AICHHOLZ Facility:[facility] Start: 03-21-2022 End: 03-22-2022 ambulatory LOGA VIDES Facility:[facility]1 Start: 08-27-2020 End: 08-28-2020 ambulatory PROVIDER UNKNOWN Facility:[facility] Procedures Date Procedure Procedure Detail Performing Clinician Start: 10-26-2023 Mammography Cherimegan chino [facility] Work Phone: Start: 01-07-2020 Colonoscopy Cheri Misti chino [employer] [employer] Work Phone: Plan of Treatment Date Care Activity Detail Author Start: 01-06-2030 Screening for malign ant neoplasm of colon [facility] Start: 01-13-2025 End: 01-13-2025 Patient encounter procedure 01/13/2025 10:00 AM EDT Office Visit [facility] [address] [place] [address] Cheri Pool, ABIEL [address] [place] [id number] [facility] Start: 01-09-2025 Medicare Annual Wellness (AWV) Medicare Annual Wellness (AWV) [facility] Start: 10-26-2024 Screening for malign ant neoplasm of breast Mammogram [facility] Start: 01-10-2024 End: 01-10-2024 Patient encounter procedure 01/10/2024 4:30 PM EDT Office Visit [facility] [address] [place] [address] Cheri Pool, ABIEL [address] [place] [id number] [facility] Start: 12-06-2023 End: 12-06-2024 Basic metabolic 1998 panel - Serum or Plasma Basic metabolic panel Lab Routine Hyponatremia Expected: 12/06/2023 (Approximate), Expires: 12/06/2024 [facility] Work Phone: Comment on above: Expected: 12/06/2023 (Approximate), Expires: 12/06/2024 Start: 06-29-2023 Influenza vaccination Influenza Vacc ine (#1) [facility] Start: 1994 Screening for malign ant neoplasm of cervix HPV/Cotest [facility] Start: 1985 Screening for malign ant neoplasm of cervix Pap Smear [facility] Start: 1964 Medicare Annual Wellness (AWV) Medicare Annual Wellness (AWV) [facility] Start: 1965 Screening for malign ant neoplasm of colon [facility] Immunizations Immunization Date Immunization Notes Care Provider Fa cility 10-27-2022 influenza, injectabl e, quadrivalent, preservative free Cheri Aichholz [employer] Work Phone: [facility] 08-24-2022 SARS-COV-2 (COVID-19 ) vaccine, mRNA, spike protein, LNP, bivalent, PF Cheri Aichholz [employer] Work Phone: [facility] 08-24-2022 influenza virus vacc ine, unspecified formulation Cheri Aichholz [employer] Work Phone: [facility] 10-27-2021 Moderna SARS-CoV-2 Vaccination Cheri Aichholz [employer] Work Phone: [facility] 02-25-2021 Moderna SARS-CoV-2 Vaccination Cheri Aichholz [employer]UG Work Phone: [facility] 01-28-2021 Moderna SARS-CoV-2 Vaccination Cheri Aichholz [employer]ADDLE [employer]UG Work Phone: [facility] Payers Date Payer Category Payer Medicare [employer] U[employer] MEDICARE ADVANTAGE [id number] 2023-Present [address] [address] [place] [address] [id number] 2023 Medicare (Managed Care) [facility] [id number] 1965 Unknown [id number] 1964 Unknown [id number] 1964 Unknown [id number]. 593 1965 Unknown [id number]. 593 1964 Unknown [id number]. 593 1964 Unknown [id number]. 593 1965 Unknown [id number]. 593 1965 Unknown [id number]. 1259 1965 Unknown [id number]. 1259 1964 Unknown [id number]. 1259 1960 Medicare [id number] 1960 Medicare [id number] Private Health Insurance [facility] [id number] Private Health Insurance [facility] [id number] Social History Date Type Detail Facility Start: 10-09-2023 End: 08-31-2024 Tobacco smoking status ILIS Never smoked tobacco [facility] Start: 10-09-2023 Tobacco use and exposure Smoke less tobacco non-user [facility] Start: 12-06-2023 End: 07-14-2024 Alcohol intake Ex-drinker (finding) [facility] Start: 10-09-2023 End: 01-10-2024 History of Social function [facility] Start: 10-09-2023 End: 01-10-2024 Tobacco use panel [facility] Start: 1965 Sex Assigned At Not on file [facility] Within the last year , have you been afraid of your partner or ex-partner? No [facility] Do you belong to any clubs or organizations such as catholic groups, unions, fraternal or athletic groups, or school groups? Yes [facility] Are you now , , , , never or living with a partner? [facility] How often to you hav e a drink containing alcohol? 4 or more times a week [facility] How many standard dr inks containing alcohol do you have on a typical day? 5 or 6 [facility] How often do you hav e 6 or more drinks on 1 occasion? Daily or almost daily [facility] How hard is it for y ou to pay for the very basics like food, housing, medical care, and heating Not hard at all [facility] Do you feel stress - tense, restless, nervous, or anxious, or unable to sleep at night because your mind is troubled all the time - these days [OSQ] Not at all [facility] (I/We) worried wheth er (my/our) food would run out before (I/we) got money to buy more. Never true [facility] Start: 1965 Sex Assigned At Female F [facility] Progress note 08-20-2024 Note Date & Type Note Facility 08-20-2024 Note Cardiovascular Medic [facility] SUBJECTIVE Chief Complaint Patient presents with Follow-up Rosa Sadler is a 58 y.o. female here for follow-up. Her Brayan accompanied her. HPI PMHx: aortic valve stenosis s/p aortic valve replacement, HTN, pHTN Deaf She has been doing well since we last saw her in 2021. No significant changes. Denies c/o CP, dyspnea, orthopnea, PND, LE edema, dizziness/LH, palpitations, syncope. 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 Cardiovascular: Negative for chest pain, dyspnea on exertion, irregular heartbeat, leg swelling, near-syncope, orthopnea, palpitations, paroxysmal nocturnal dyspnea and syncope. Hematologic/Lymphatic: Negative for bleeding problem. Does not bruise/bleed easily. OBJECTIVE Visit Vitals BP 110/80 (BP Location: Left arm, Patient Position: Sitting, BP Cuff Size: Adult) Pulse 72 Resp 13 Ht 1.575 m (5' 2 ) Wt 77.1 kg (170 lb) SpO2 97% BMI 31.09 kg/m??? Smoking Status Never BSA 1.84 m??? Medications: Current Outpatient Medications: aspirin 81 mg EC tablet, Take 2 tablets by mouth in the morning., Disp: , Rfl: atorvastatin (Lipitor) 10 mg tablet, TAKE 1 TABLET BY MOUTH EVERYDAY AT BEDTIME, Disp: , Rfl: escitalopram (Lexapro) 10 mg tablet, Take 1 tablet by mouth in the morning., Disp: , Rfl: hydroCHLOROthiazide (HYDRODiuril) 25 mg tablet, Take 1 tablet (25 mg) by mouth in the morning., Disp: 90 tablet, Rfl: 3 metoprolol succinate XL (Toprol-XL) 50 mg 24 hr tablet, Take 1 tablet (50 mg) by mouth in the morning., Disp: 90 tablet, Rfl: 0 omeprazole (PriLOSEC) [address] capsule, Take 1 tablet by mouth in the morning., Disp: , Rfl: Physical Exam Constitutional: Appearance: She is well-developed. She is not ill-appearing. HENT: Head: Normocephalic and atraumatic. Nose: Nose normal. Eyes: General: No scleral icterus. Pupils: Pupils are equal, round, and reactive to light. Neck: Thyroid: No thyromegaly. Vascular: No JVD. Cardiovascular: Rate and Rhythm: Normal rate and regular rhythm. Pulses: Radial pulses are 2+ on the right side and 2+ on the left side. Heart sounds: Murmur heard. Systolic (RUSB) murmur is present with a grade of 2/6. No friction rub. No gallop. Pulmonary: Effort: Pulmonary effort is normal. No respiratory distress. Breath sounds: Normal breath sounds. No wheezing or rales. Chest: Chest wall: No tenderness. Abdominal: General: Bowel sounds are normal. There is no distension. Palpations: Abdomen is soft. Tenderness: There is no abdominal tenderness. Musculoskeletal: General: No swelling. Cervical back: Neck supple. Skin: General: Skin is warm and dry. Neurological: General: No focal deficit present. Mental Status: She is alert and oriented to person, place, and time. Psychiatric: Mood and Affect: Mood normal. Behavior: Behavior is cooperative. Judgment: Judgment normal. Labs: Legacy Encounter on 08/27/2020 Component Date Value Ref Range Status Glucose 08/27/2020 105 (H) 70 - 100 mg/dL Final BUN 08/27/2020 10 7 - 25 mg/dL Final Creatinine 08/27/2020 0.62 0.60 - 1.20 mg/dL Final Sodium 08/27/2020 139 136 - 145 meq/L Final Potassium 08/27/2020 3.9 3.5 - 5.1 meq/L Final Chloride 08/27/2020 104 98 - 107 meq/L Final CO2 08/27/2020 27 21 - 31 meq/L Final Calcium 08/27/2020 9.9 8.6 - 10.3 mg/dL Final eGFR - Non- 08/27/2020 >60 >60 ml/min/1.73sq m Final eGFR - 08/27/2020 >60 >60 ml/min/1.73sq m Final No results found for: EXTCMP , BMPR1A , CBCDIF , BNP , LASAP , RED 12/25/2023 Cr 0.64, BUN 8, K 3.5, Na 137, eGFR >60 TSH 2.425 12/04/2023 Hgb 13.3, hct39.2, plt 209 Cr 0.65, BUN 7, K 3.3, Na 132, eGFR >60, AST 38, ALT 55 Chol 155, LDL 69, HDL 70, trig 83 TSH 4.378 Labs- 09/05/2021: BUN 13, Cr 0.71, normal, K+ 3.8 normal. Blood testing 09/13/2020: Chol 200, HDL 69, Trig 58, LDL 119- stable labs 09/15/2020 BUN 11., Cr 0.61- normal LFT normal Chol 200, HDL 69, Trig 58, LDL 119- stable TSH elevated 5.505 Testing/Procedures: Echocardiogram 03/21/2022: Normal ventricular systolic function, LVEF is 65%, moderately dilated right ventricle, moderate biatrial dilatation, bioprosthetic aortic valve with abn (more content not included)... [facility] History of Present illness Narrative 12-06-2023 Cheri Pool NP - 12/06/2023 9:30 AM EST Note Date & Type Note Facility 12-06-2023 History of Presen t illness Narrative labs documented in this encounter [facility] Evaluation note Note Date & Type Note Facility Evaluation note Diagnosis Hyponatremia- Primary Hyposmolality and/or hyponatremia documented in this encounter [facility] Evaluation note Note Date & Type Note Facility Evaluation note Diagnosis Primary hypertension (CMS/HCC)- Primary Unspecified essential hypertension Hypothyroidism (acquired) (CMS/HCC) Unspecified hypothyroidism Encounter for screening mammogram for malignant neoplasm of breast Mixed hyperlipidemia (CMS/HCC) Mixed hyperlipidemia Gastroesophageal reflux disease without esophagitis Esophageal reflux Obesity (BMI 30-39.9) Encounter for subsequent annual wellness visit (AWV) in Medicare patient- Primary Primary hypertension (CMS/HCC) Unspecified essential hypertension 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) Aortic valve stenosis, etiology of cardiac valve disease unspecified Gastroesophageal reflux disease without esophagitis Esophageal reflux Hypothyroidism (acquired) (CMS/HCC) Unspecified hypothyroidism Obesity (BMI 30-39.9) Anxiety Anxiety state, unspecified Gastro-esophageal reflux disease without esophagitis Esophageal reflux Mixed hyperlipidemia (CMS/HCC) Mixed hyperlipidemia Primary hypertension (CMS/HCC)- Primary Unspecified essential hypertension Obstructive sleep apnea Obstructive sleep apnea (adult) (pediatric) Aortic valve stenosis, etiology of cardiac valve disease unspecified Hypothyroidism (acquired) (CMS/HCC) Unspecified hypothyroidism Obesity (BMI 30-39.9) Anxiety Anxiety state, unspecified Anxiety Anxiety state, unspecified Hypothyroidism (acquired) (CMS/HCC) Unspecified hypothyroidism Primary hypertension (CMS/HCC) Unspecified essential hypertension 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) documented in this encounter [facility] Evaluation note Note Date & Type Note Facility Evaluation note Diagnosis Primary hypertension (CMS/HCC)- Primary Unspecified essential hypertension Hypothyroidism (acquired) (CMS/HCC) Unspecified hypothyroidism Encounter for screening mammogram for malignant neoplasm of breast Mixed hyperlipidemia (CMS/HCC) Mixed hyperlipidemia Gastroesophageal reflux disease without esophagitis Esophageal reflux Obesity (BMI 30-39.9) Encounter for subsequent annual wellness visit (AWV) in Medicare patient- Primary Primary hypertension (CMS/HCC) Unspecified essential hypertension 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) Aortic valve stenosis, etiology of cardiac valve disease unspecified Gastroesophageal reflux disease without esophagitis Esophageal reflux Hypothyroidism (acquired) (CMS/HCC) Unspecified hypothyroidism Obesity (BMI 30-39.9) Anxiety Anxiety state, unspecified Gastro-esophageal reflux disease without esophagitis Esophageal reflux Mixed hyperlipidemia (CMS/HCC) Mixed hyperlipidemia Primary hypertension (CMS/HCC)- Primary Unspecified essential hypertension Obstructive sleep apnea Obstructive sleep apnea (adult) (pediatric) Aortic valve stenosis, etiology of cardiac valve disease unspecified Hypothyroidism (acquired) (CMS/HCC) Unspecified hypothyroidism Obesity (BMI 30-39.9) Anxiety Anxiety state, unspecified Mixed hyperlipidemia (CMS/HCC) Mixed hyperlipidemia Esophageal reflux documented in this encounter [facility] Evaluation note Note Date & Type Note Facility Evaluation note No assessment information availa [facility] Work Phone: Summary Purpose Family History Relationship Condition Age at Onset Recorded Date/T warren father Malignant neoplasm Unknown Unknown mother Malignant neoplasm Unknown Advance Directives Advance Directive Response Recorded Date/ Time Advance Directives No August 31, 2024 12:11pm Chief Complaint and Reason for Visit Chief Complaint swollen sore below left breast Additional Source Comments INFORMATION SOURCE (unrecogn ized section and content) DATE CREATED AUTHOR 03/22/2021 [facility] DATE CREATED AUTHOR AUTHOR'S ORGANIZ ATION 03/13/2023 [facility] DATE CREATED AUTHOR AUTHOR'S ORGANIZ ATION 07/16/2024 [facility] DATE CREATED AUTHOR AUTHOR'S ORGANIZ ATION 08/22/2024 [facility] Teams (unrecognized sec tion and content) Block Cuber Relationship Specialty Start Date End Date Rick Blood MD [address] [place] [address] PCP - General Family Medicine 09/26/23 Cheri Pool NP [address] [place] [phone] Referring Physician Family Medicine 10/29/22 Block Cuber Relationship Specialty Start Date End Date Rick Blood MD [address] [place] [phone] PCP - General Family Medicine 01/10/24 Cheri Pool NP [address] [place] [phone] Referring Physician Family Medicine 10/29/22 Cheri Pool NP [address] [place] [phone] Nurse Practitioner Family Medicine 01/10/24 Block Cuber Relationship Specialty Start Date End Date Rick Blood MD [address] [place] [phone] PCP - General Family Medicine 01/10/24 Cheri Pool NP [address] [place] [phone] Referring Physician Family Medicine 10/29/22 Cheri Pool NP [address] [place] [phone] Nurse Practitioner Family Medicine 01/10/24 Team Status: Active Member Role Status Dates NON STAFF Primary Care Provider Active Team Status: Inactive Member Role Status Dates Margie Rasheed APRN Attending Provider Active Start: August 31, 2024 End: August 31, 2024 NON STAFF Primary Care Provider Active Start: August 31, 2024 End: August 31, 2024 Reason for Visit (unrecogniz ed section and content) Reason Comments Med Refill Reason Onset Date Comments Med Refill 08/28/2024 Goals (unrecognized section and content) Goals may be documented in a n alternate section FOR RECORDS PERTAINING TO PATIENTS WHO ARE [...] BE BASED ON THE PRIMARY CLINICAL RECORDS. [facility]. provides no warranty or guarantee of the accuracy or completeness of information in this document.
== END 2024-09-05 13:50 | disposition home or self-care (01) ==
LOC: CARD 13:49
PROVIDERS: PCP Nurse Practitioner; Visit Provider Internal Medicine Interventional Cardiology
DX: I35.9 Nonrheumatic aortic valve disorder, unspecified (principal); Z95.2 Presence of prosthetic heart valve
CPT/HCPCS: 93306

== ENCOUNTER 2024-10-07 11:16 | Outpatient (OUT) | payer MEDICARE, SELFPAY ==
[2024-10-07 11:42] LABS: Basophils Absolute Auto 0.1 10^3/uL (0.0-0.1); Basophils Percent Auto 0.9 % (0.2-2.0); Eosinophils Absolute Auto 0.1 10^3/uL (0.0-0.7); Eosinophils Percent Auto 1.1 % (0.9-7.0); Hematocrit 38.2 % (36.0-48.0); Hemoglobin 13.5 g/dL (12.0-16.0); Immature Granulocytes Abs Auto 0.02 10^3/uL (0.00-0.03); Immature Granulocytes Pct Auto 0.4 % (0.0-0.5); Lymphocytes Absolute Auto 1.2 10^3/uL (1.2-3.8); Mean Corpuscular HGB Conc 35.3 g/dL (29.9-35.2); Mean Corpuscular Hemoglobin 33.1 pg (26.7-34.0); Mean Corpuscular Volume 93.6 fL (81.0-99.0); Monocytes Absolute Auto 0.6 10^3/uL (0.3-0.8); Monocytes Percent Auto 10.3 % (1.7-12.0); Neutrophils Absolute Auto 3.6 10^3/uL (1.4-6.5); Neutrophils Percent Auto 65.3 % (43.0-75.0); Platelet Count 165 10^3/uL (150-450); Red Blood Count 4.08 10^6/uL (4.20-5.40); Red Cell Distribution Width 12.7 % (11.0-15.0); White Blood Count 5.5 10^3/uL (4.0-11.0)
[2024-10-07 11:56] LABS: Anion Gap 11.1; Calcium 9.3 mg/dL (8.5-10.1); Carbon Dioxide 29.6 mmol/L (21.0-32.0); Chloride 93 mmol/L (98-107); Estimated GFR (African America >60 (>=60 mL/min/1.73m^2); Estimated GFR (Non-African Ame >60 (>=60 mL/min/1.73m^2); Glucose 88 mg/dL (74-106); Potassium 3.7 mmol/L (3.5-5.1); Sodium 130 mmol/L (136-145)
--- OUTSIDE RECORDS SUMMARY | 2024-10-07 11:56 | XMS_ITS | CCD ---
Author Organization [facility] Care Team Providers Care Spinning Bath Person Name Role Phone UNKNOWN, PROVIDER Attending Unavailable AICHHOLZ, CHERI Primary Care Unavailable AICHHOLZ, CHERI Referring Unavailable UNKNOWN, PROVIDER Admitting Unavailable AICHHOLZ, TRAINING OFFICER CHERI Admitting Unavailable AICHHOLZ, TRAINING OFFICER CHERI Attending Unavailable AICHHOLZ, TRAINING OFFICER CHERI Primary Care Unavailable AICHHOLZ, TRAINING OFFICER CHERI Consulting Unavailable AICHHOLZ, TRAINING OFFICER CHERI Admitting Unavailable AICHHOLZ, TRAINING OFFICER CHERI Attending Unavailable AICHHOLZ, TRAINING OFFICER CHERI Primary Care Unavailable AICHHOLZ, TRAINING OFFICER CHERI Consulting Unavailable MAHOGANY, OLGA Admitting Unavailable MAHOGANY, OLGA Attending Unavailable AICHHOLZ, TRAINING OFFICER CHERI Primary Care Unavailable AICHHOLZ, TRAINING OFFICER CHERI Referring Unavailable MAHOGANY, OLGA Consulting Unavailable AICHHOLZ, TRAINING OFFICER CHERI Admitting Unavailable AICHHOLZ, TRAINING OFFICER CHERI Attending Unavailable AICHHOLZ, TRAINING OFFICER CHERI Primary Care Unavailable AICHHOLZ, TRAINING OFFICER CHERI Consulting Unavailable AICHHOLZ, TRAINING OFFICER CHERI Admitting Unavailable AICHHOLZ, TRAINING OFFICER CHERI Attending Unavailable AICHHOLZ, TRAINING OFFICER CHERI Primary Care Unavailable AICHHOLZ, TRAINING OFFICER CHERI Admitting Unavailable AICHHOLZ, TRAINING OFFICER CHERI Attending Unavailable AICHHOLZ, TRAINING OFFICER CHERI Primary Care Unavailable DR JOSSE GODFREY V Consulting Unavailable AICHHOLZ, TRAINING OFFICER CHERI Consulting Unavailable Aichholz CORE INSPECTOR, Cheri Unavailable Rick Blood MD Primary Care Provider [phone] AICHHOLZ, CHERI Attending Unavailable AICHHOLZ, CHERI Attending Unavailable AICHHOLZ, CHERI Attending Unavailable Aichholz CORE INSPECTOR, Cheri Unavailable Rick Blood MD Primary Care Provider [phone] Aichholz CORE INSPECTOR, Cheri Unavailable HERNAN GANDHI Attending Unavailable Medications Current Medications Medication Drug Class(es) [...] 06/03/2024 09/01/2024 Active take [facility] aspirin 81 MG EC [...] Active 500 MG PO Three times daily 18 05August 30, 2024 11:00pm escitalopram 10 mg oral [...] 30, 2024 11:00pm take 2 tablets by [facility] in the morning hydroCHLOROthiazide (HYDRODiuril) 12.5 M G tablet Take 25 mg by mouth in the morning. [facility] Cardiology. 0 Active levothyroxine (4 sources) l-Thyroxine [...] Test Name Value Interpretation Reference Range Facility 36on 09-16-2024 36 Regarding echo resul t from 09/05/2024: MD Tammy Hull MA; Hernan Gandhi NP She has severe tricuspid regurgitation and elevated right-sided pressures. I think we need to proceed with LUIS and right heart cath. Please schedule with me. Use diagnoses nonrheumatic tricuspid regurgitation and pulmonary hypertension. Tried to contact patient's . The phone went straight to voicemail and the mailbox is not set up to accept messages. I will try again later. Normal [facility] Office Visiton 08-20-2024 Follow-up visit [id number] Rosa Sadler 1965 F Date Provider Department Center 08/20/2024 Umer-HERNAN GANDHI [facility] Family History Problem Relation Age of Onset No Known Problems Mother No Known Problems Father Family Status - Relation Status Age at Mother Father Level of Service:77846 [place] OFFICE/OUTPATIENT ESTABLISHED LOW MDM 20 MIN Reason for Visit and Comments: Follow-up [641239] Normal [facility] 36on 07-25-2024 36 Patient has not been seen since 2021 Normal [facility] THYROID ANTIBODIESon 023 Thyroglobulin Antibody <1.0 Normal 0.0-0.9 [facility] Comment on above: Result Comment: Thyr oglobulin Antibody measured by [employer] Performed By: #### T CANDELARIABS #### [facility] [address] [place] [address] Dr. Olya Vides Thyroid Peroxidase (TPO) Ab <9 Normal 0-34 [facility] Comment on above: Performed By: #### T HYBS #### [facility] [address] [place] [address] Dr. Olya Vides FREE T4on 01-19-2023 Free T4 [Mass/Vol] 0.84 ng/dL Normal 0.76-1.46 [facility] Comment on above: Performed By: #### T SH, CMP, LIPID #### [facility] [address] [place] [address] Dr. Olya Vides TSHon 01-19-2023 TSH 5.355 uIU/mL Critically high 0.358-3.740 [facility] Comment on above: Performed By: #### T SH #### [facility] [address] [place] [address] Dr. Olya Vides CBC AUTO DIFFon 12-22-2022 BASO # 0.1 103/ul Normal 0.0-0.1 [facility] Comment on above: Performed By: #### C BC #### [facility] [address] [place] [address] Dr. Olya Vides Basophils/100 WBC (Bld) 1.1 % Normal 0.2-2.0 [facility] Comment on above: Performed By: #### C BC #### [facility] [address] [place] [address] Dr. Olya Vides EO # 0.1 103/ul Normal 0.0-0.7 [facility] Comment on above: Performed By: #### C BC #### [facility] [address] [place] [address] Dr. Olya Vides Eosinophils/100 WBC (Bld) 3.0 % Normal 0.9-7.0 [facility] Comment on above: Performed By: #### C BC #### [facility] [address] [place] [address] Dr. Olya Vides Erythrocyte distribution width (RBC) [Ratio] 12.5 % Normal 11.0-15.0 [facility] Comment on above: Performed By: #### C BC #### [facility] [address] [place] [address] Dr. Olya Vides Hematocrit (Bld) [Volume fraction] 42.5 % Normal 36.0-48.0 [facility] Comment on above: Performed By: #### C BC #### [facility] [address] [place] [address] Dr. Olya Vides Hemoglobin (Bld) [Mass/Vol] 15.0 g/dL Normal 12.0-16.0 [facility] Comment on above: Performed By: #### C BC #### [facility] [address] [place] [address] Dr. Olya Vides IG # 0.02 10e3/ul Normal 0.00-0.03 [facility] Comment on above: Performed By: #### C BC #### [facility] [address] [place] [address] Dr. Olya Vides IG % 0.4 % Normal 0.0-0.5 [facility] Comment on above: Performed By: #### C BC #### [facility] [address] [place] [address] Dr. Olya Vides LYMPH # 1.4 103/ul Normal 1.2-3.8 [facility] Comment on above: Performed By: #### C BC #### [facility] [address] [place] [address] Dr. Olya Vides Lymphocytes/100 WBC (Bld) 30.4 % Normal 20.5-60.0 [facility] Comment on above: Performed By: #### C BC #### [facility] [address] [place] [address] Dr. Olya Vides MANUAL DIFF REQ NO Normal [facility] Comment on above: Performed By: #### C BC #### [facility] [address] [address] [address] Olya Vides MCH (RBC) [Entitic mass] 32.8 pg Normal 26.7-34.0 [facility] Comment on above: Performed By: #### C BC #### [facility] [address] [place] [address] Dr. Olya Vides MCHC (RBC) [Mass/Vol] 35.3 g/dL Critically high 29.9-35.2 [facility] Comment on above: Performed By: #### C BC #### [facility] [address] [place] [address] Dr. Olya Vides MCV (RBC) [Entitic vol] 92.8 fL Normal 81.0-99.0 [facility] Comment on above: Performed By: #### C BC #### [facility] [address] [place] [address] Dr. Olya Vides MONO # 0.4 103/ul Normal 0.3-0.8 [facility] Comment on above: Performed By: #### C BC #### [facility] [address] [place] [address] Dr. Olya Vides Monocytes/100 WBC (Bld) 7.7 % Normal 1.7-12.0 [facility] Comment on above: Performed By: #### C BC #### [facility] [address] [place] [address] Dr. Olya Vides NEUT # 2.7 103/ul Normal 1.4-6.5 [facility] Comment on above: Performed By: #### C BC #### [facility] [address] [place] [address] Dr. Olya Vides Neutrophils/100 WBC (Bld) 57.4 % Normal 43.0-75.0 [facility] Comment on above: Performed By: #### C BC #### [facility] [address] [place] [address] Dr. Olya Vides Platelet mean volume (Bld) [Entitic vol] 9.7 fL Normal 9.5-13.5 [facility] Comment on above: Performed By: #### C BC #### [facility] [address] [place] [address] Dr. Olya Vides PLT 224 103/ul Normal 150-450 [facility] Comment on above: Performed By: #### C BC #### [facility] [address] [place] [address] Dr. Olya Vides RBC 4.58 106/ul Normal 4.20-5.40 [facility] Comment on above: Performed By: #### C BC #### [facility] [address] [place] [address] Dr. Olya Vides WBC 4.7 103/ul Normal 4.0-11.0 [facility] Comment on above: Performed By: #### C BC #### [facility] [address] [place] [address] Dr. Olya Vides FREE T4on 12-22-2022 Free T4 [Mass/Vol] 0.85 ng/dL Normal 0.76-1.46 [facility] Comment on above: Performed By: #### F T4 #### [facility] [address] [place] [address] Dr. Olya Vides LIPID PROFILEon 12-22-2022 CHOL-HDL RATIO NORM SEE BELOW Normal [facility] Comment on above: Result Comment: 3.3 - 4.4 LOW RISK 4.4 - 7.1 AVERAGE RISK 7.1 - 11.0 MODERATE RISK >11.0 HIGH RISK Performed By: #### T SH, CMP, LIPID #### [facility] [address] [place] [address] Dr. Olya Vides Cholesterol [Mass/Vol] 193 mg/dL Normal <=200 [facility] Comment on above: Performed By: #### T SH, CMP, LIPID #### [facility] [address] [place] [address] Dr. Olya Vides Cholesterol in HDL [Mass/Vol] 63 mg/dL Critically high 40-60 [facility] Comment on above: Performed By: #### T SH, CMP, LIPID #### [facility] [address] [place] [address] Dr. Olya Vides Cholesterol in LDL [Mass/Vol] 93.0 mg/dL Normal [facility] Comment on above: Performed By: #### T SH, CMP, LIPID #### [facility] [address] [address] [address] Olya Vides Cholesterol.total/C holesterol in HDL [Mass ratio] 3.1 {ratio} Normal [facility] Comment on above: Performed By: #### T SH, CMP, LIPID #### [facility] [address] [address] [address] Olya Vides HDL NORMAL > or = 60 mg/dl - LO W CARDIOVASCULAR RISK <40 mg/dl - HIGH CARDIOVASCULAR RISK Normal [facility] Comment on above: Performed By: #### T SH, CMP, LIPID #### [facility] [address] [address] [address] Olya Vides LDL CALC NORMAL SEE BELOW Normal [facility] Comment on above: Result Comment: <100 mg/dl OPTIMAL 100 - 129 mg/dl NEAR OR ABOVE OPTIMAL 130 - 159 mg/dl BORDERLINE HIGH 160 - 189 mg/dl HIGH >190 mg/dl VERY HIGH Performed By: #### T SH, CMP, LIPID #### [facility] [address] [address] [address] Olya Vides Triglyceride [Mass/Vol] 185 mg/dL Critically high <=150 [facility] Comment on above: Performed By: #### T SH, CMP, LIPID #### [facility] [address] [address] [address] Olya Vides VLDL CALC 37.0 mg/dL Normal [facility] Comment on above: Performed By: #### T SH, CMP, LIPID #### [facility] [address] [address] [address] Olya Vides PROF 14(COMP METB)on 023 Albumin [Mass/Vol] 4.2 g/dL Normal 3.4-5.0 [facility] Comment on above: Performed By: #### T SH, CMP, LIPID #### [facility] [address] [place] [address] Dr. Olya Vides Albumin/Globulin [Mass ratio] 1.0 {ratio} Normal [facility] Comment on above: Performed By: #### T SH, CMP, LIPID #### [facility] [address] [address] [address] Olya Vides ALP [Catalytic activity/Vol] 73 U/L Normal 46-116 [facility] Comment on above: Performed By: #### T SH, CMP, LIPID #### [facility] [address] [address] [address] Olya Vides ALT [Catalytic activity/Vol] 39 U/L Normal 14-59 [facility] Comment on above: Performed By: #### T SH, CMP, LIPID #### [facility] [address] [address] [address] Olya Vides Anion gap [Moles/Vol] 15.5 mmol/L Normal [facility] Comment on above: Performed By: #### T SH, CMP, LIPID #### [facility] [address] [address] [address] Olya Vides AST [Catalytic activity/Vol] 47 U/L Critically high 15-37 [facility] Comment on above: Performed By: #### T SH, CMP, LIPID #### [facility] [address] [address] [address] Olya Vides Bilirubin [Mass/Vol] 0.5 mg/dL Normal 0.2-1.0 [facility] Comment on above: Performed By: #### T SH, CMP, LIPID #### [facility] [address] [address] [address] Olya Vides Calcium [Mass/Vol] 9.6 mg/dL Normal 8.5-10.1 [facility] Comment on above: Performed By: #### T SH, CMP, LIPID #### [facility] [address] [address] [address] Olya Vides Chloride [Moles/Vol] 96 mmol/L Critically low 98-107 [facility] Comment on above: Performed By: #### T SH, CMP, LIPID #### [facility] [address] [address] [address] Olya Vides CO2 [Moles/Vol] 29.2 mmol/L Normal 21.0-32.0 [facility] Comment on above: Performed By: #### T SH, CMP, LIPID #### [facility] [address] [address] [address] Olya Vides Creatinine [Mass/Vol] 0.57 mg/dL Normal 0.55-1.02 [facility] Comment on above: Performed By: #### T SH, CMP, LIPID #### [facility] [address] [address] [address] Olya Vides EGFR-AF POLISH >60 Normal >=60 [facility] Comment on above: Performed By: #### T SH, CMP, LIPID #### [facility] [address] [address] [address] Olya Vides EGFR-NON AF POLISH >60 Normal >=60 [facility] Comment on above: Performed By: #### T SH, CMP, LIPID #### [facility] [address] [address] [address] Olya Vides Globulin (S) [Mass/Vol] 4.4 g/dL Normal [facility] Comment on above: Performed By: #### T SH, CMP, LIPID #### [facility] [address] [address] [address] Olya Vides Glucose [Mass/Vol] 87 mg/dL Normal 74-106 [facility] Comment on above: Performed By: #### T SH, CMP, LIPID #### [facility] [address] [address] [address] Olya Vides Potassium [Moles/Vol] 3.7 mmol/L Normal 3.5-5.1 [facility] Comment on above: Performed By: #### T SH, CMP, LIPID #### [facility] [address] [place] [address] Dr. Olya Vides Protein [Mass/Vol] 8.6 g/dL Critically high 6.4-8.2 [facility] Comment on above: Performed By: #### T SH, CMP, LIPID #### [facility] [address] [place] [address] Dr. Olya Vides Sodium [Moles/Vol] 137 mmol/L Normal 136-145 [facility] Comment on above: Performed By: #### T MICHI SPENCE, LIPID #### [facility] [address] [place] [address] Dr. Olya Vides Urea nitrogen [Mass/Vol] 5.0 mg/dL Critically low 7.0-18.0 [facility] Comment on above: Performed By: #### T JORDY CMP, LIPID #### [facility] [address] [place] [address] Dr. Olya Vides Urea nitrogen/Creatinine [Mass ratio] 8.8 mg/mg Normal [facility] Comment on above: Performed By: #### T JORDY CMP, LIPID #### [facility] [address] [place] [address] Dr. Olya Vides TSHon 12-22-2022 TSH 3.759 uIU/mL Critically high 0.358-3.740 [facility] Comment on above: Performed By: #### T JORDY CMP, LIPID #### [facility] [address] [place] [address] Dr. Olya Vides UA RANDOM W/MICROSCOPICon BACTERIA NONE SEEN Normal NONE SEEN [facility] Comment on above: Performed By: #### U AMIC #### [facility] [address] [place] [address] Dr. Olya Vides Bilirubin Ql (U) Negative Normal NEGATIVE [facility] Comment on above: Performed By: #### U AMIC #### [facility] [address] [place] [address] Dr. Olya Vides CAST NONE SEEN Normal NONE SEEN [facility] Comment on above: Performed By: #### U AMIC #### [facility] [address] [place] [address] Dr. Olya Vides Clarity (U) CLEAR Normal CLEAR [facility] Comment on above: Performed By: #### U AMIC #### [facility] [address] [place] [address] Dr. Olya Vides Color (U) LT. YELLOW Normal YELLOW [facility] Comment on above: Performed By: #### U AMIC #### [facility] [address] [address] [address] Olya Vides Crystals LM Nom (Urine sed) NONE SEEN Normal NONE SEEN [facility] Comment on above: Performed By: #### U AMIC #### [facility] [address] [address] [address] Olya Vides Epithelial cells LM Ql (Urine sed) FEW Abnormal NONE SEEN /RARE [facility] Comment on above: Performed By: #### U AMIC #### [facility] [address] [address] [address] Olya Vides Glucose Ql (U) Negative Normal NEGATIVE [facility] Comment on above: Performed By: #### U AMIC #### [facility] [address] [address] [address] Olya Vides Hemoglobin Ql (U) SMALL Abnormal NEGATIVE [facility] Comment on above: Performed By: #### U AMIC #### [facility] [address] [address] [address] Olya Vides Ketones Ql (U) Negative Normal NEGATIVE [facility] Comment on above: Performed By: #### U AMIC #### [facility] [address] [address] [address] Olya Vides LEUKOCYTES Negative Normal NEGATIVE [facility] Comment on above: Performed By: #### U AMIC #### [facility] [address] [address] [address] Olya Vides MUCOUS NONE SEEN Normal NONE SEEN [facility] Comment on above: Performed By: #### U AMIC #### [facility] [address] [address] [address] Olya Vides Nitrite Ql (U) Negative Normal NEGATIVE [facility] Comment on above: Performed By: #### U AMIC #### [facility] [address] [address] [address] Olya Vides pH (U) 5.5 [pH] Normal 5-9 [facility] Comment on above: Performed By: #### U AMIC #### [facility] [address] [address] [address] Olya Vides RBC 0-2 Normal 0-2 [facility] Comment on above: Performed By: #### U AMIC #### [facility] [address] [address] [address] Olya Vides SPEC GRAVITY <=1.005 Abnormal 1.005-<=1.025 [facility] Comment on above: Performed By: #### U AMIC #### [facility] [address] [address] [address] Olya Vides UA PROTEIN Negative Normal NEGATIVE/ TRACE [facility] Comment on above: Performed By: #### U AMIC #### [facility] [address] [address] [address] Olya Vides Urobilinogen Qn (U) 0.2 {Davie'U}/dL Normal 0.2 - 1. 0 [facility] Comment on above: Performed By: #### U AMIC #### [facility] [address] [place] [address] Dr. Olya Vides WBC NONE SEEN Normal NONE SEEN [facility] Comment on above: Performed By: #### U AMIC #### [facility] [address] [place] [address] Dr. Olya Vides MG MAMM SCREEN 3D YARY CADon 10-24-2022 MG MAMM SCREEN 3D YARY CAD Patient: ROSA SADLER Exam Date: 10/24/2022 : 1965 Gender:F Ordering : SARAH POOL [facility] Admission #: [id number] Family : Order #: [id number] CLICK HERE TO VIEW EXAM RADIOLOGY REPORT [...] cancer at age 68. LOCATION: [facility] BREAST COMPOSITION: Heterogeneously dense,which may obscure [...] Godfrey MD on 10/24/2022 at 15:31 Normal [facility] ECHOCARDIO M/2D COMPLETEon 0 03-21-2022 ECHOCARDIO M/2D COMPLETE Patient: ROSA SADLER Exam Date: 03/21/2022 : 1965 Gender:F Ordering : OLGA VIDES Admission #: [id number] Family : SARAH CHERIHyun POOL [facility] Order #: [id number] CLICK HERE TO VIEW EXAM ECHOCARDIOGRAM REPORT [...] Area(A4C): 18.90 cm2 Left Atrium Systolic Volume(A4C): 42988 mm3 Mitral Valve MV E to A [...] on 03/21/2022 at 17:14 Normal [facility] BASIC METABOLIC PANELon 10-3 Calcium [Mass/Vol] 9.9 mg/dL Normal 8.6-10.3 [facility] Comment on above: Performed By: #### 0 0071 #### [facility] [address] [place] [address], [place] Chloride [Moles/Vol] 104 mmol/L Normal 98-107 [facility] Comment on above: Performed By: #### 0 0071 #### [facility] [address] [place] [address], [place] CO2 [Moles/Vol] 27 mmol/L Normal 21-31 [facility] Comment on above: Performed By: #### 0 0071 #### [facility] [address] [place] [address], [place] Creatinine [Mass/Vol] 0.62 mg/dL Normal 0.60-1.20 [facility] Comment on above: Performed By: #### 0 0071 #### [facility] [address] [place] [address], [place] GFR/1.73 sq M.predicted among blacks MDRD (S/P/Bld) [Vol rate/Area] mL/min/{1.73_m2} Normal >60 [facility] Comment on above: Performed By: #### 0 0071 #### [facility] [address] [place] [address], [place] GFR/1.73 sq M.predicted among non-blacks MDRD (S/P/Bld) [Vol rate/Area] mL/min/{1.73_m2} Normal >60 [facility] Comment on above: Performed By: #### 0 0071 #### [facility] [address] [place] [address], [place] Glucose [Mass/Vol] 105 mg/dL High 70-100 [facility] Comment on above: Performed By: #### 0 0071 #### [facility] [address] [place] [address], [place] Potassium [Moles/Vol] 3.9 mmol/L Normal 3.5-5.1 [facility] Comment on above: Performed By: #### 0 0071 #### [facility] [address] Sodium [Moles/Vol] 139 mmol/L Normal 136-145 [facility] Comment on above: Performed By: #### 0 0071 #### [facility] [address] Urea nitrogen [Mass/Vol] 10 mg/dL Normal 7-25 [facility] Comment on above: Performed By: #### 0 0071 #### [facility] [address] [place] [address], [facility] CBC W/DIFFon 08-27-2020 ABS IMM GRANS 0.0 10*3/uL Normal 0.0-0.2 [facility] Comment on above: Performed By: #### 5 102 #### [facility] [address] ABS NEUTROPHILS 5.2 10*3/uL Normal 1.6-7.6 [facility] Comment on above: Performed By: #### 5 102 #### [facility] [address] [place] [address], [facility] Basophils (Bld) [#/Vol] 0.1 10*3/uL Normal 0.0-0.2 [facility] Comment on above: Performed By: #### 5 3 #### [facility] [address] [place] [address], [facility] Basophils/100 WBC (Bld) 0.8 % Normal 0.0-1.0 [facility] Comment on above: Performed By: #### 5 102 #### [facility] [address] [place] [address], [facility] Eosinophils (Bld) [#/Vol] 0.1 10*3/uL Normal 0.0-0.5 [facility] Comment on above: Performed By: #### 5 0103 #### [facility] [address] [place] [address], [facility] Eosinophils/100 WBC (Bld) 1.0 % Normal 0.0-6.0 [facility] Comment on above: Performed By: #### 5 0103 #### [facility] [address] [place] [address], [facility] Erythrocyte distribution width (RBC) [Ratio] 13.2 % Normal 11.5-15.0 [facility] Comment on above: Performed By: #### 5 0103 #### [facility] [address] [facility] [place] [address], [facility] Hematocrit (Bld) [Volume fraction] 45.7 % High 36.0-45.0 [facility] Comment on above: Performed By: #### 5 0103 #### [facility] [address] [facility] [place] [address], [facility] Hemoglobin (Bld) [Mass/Vol] 15.4 g/dL High 12.0-15.0 [facility] Comment on above: Performed By: #### 5 0103 #### [facility] [address] [place] [address], [facility] IMMATURE GRANS 0.4 % Normal 0.0-1.0 [facility] Comment on above: Performed By: #### 5 0103 #### [facility] [address] [facility] [place] [address], [facility] Lymphocytes (Bld) [#/Vol] 1.3 10*3/uL Normal 1.2-4.0 [facility] Comment on above: Performed By: #### 5 0103 #### [facility] [address] [place] [address], [facility] Lymphocytes/100 WBC (Bld) 17.7 % Low 20.0-45.0 [facility] Comment on above: Performed By: #### 5 0103 #### [facility] [address] [facility] [place] [address], [facility] MCH (RBC) [Entitic mass] 32.4 pg Normal 27.0-33.0 [facility] Comment on above: Performed By: #### 3 #### [facility] [address] [facility] [place] [address], [facility] MCHC (RBC) [Mass/Vol] 33.7 g/dL Normal 32.0-35.0 [facility] Comment on above: Performed By: #### 3 #### [facility] [address] [place] [address], [facility] MCV (RBC) [Entitic vol] 96.0 fL Normal 82.0-98.0 [facility] Comment on above: Performed By: #### 5 3 #### [facility] [address] [place] [address], [facility] Monocytes (Bld) [#/Vol] 0.5 10*3/uL Normal 0.1-1.0 [facility] Comment on above: Performed By: #### 5 3 #### [facility] [address] [place] [address], [facility] MONOS 7.2 % Normal 5.0-12.0 [facility] Comment on above: Performed By: #### 5 3 #### [facility] [address] [facility] [address] Neutrophils/100 WBC (Bld) 72.9 % High 40.0-72.0 [facility] Comment on above: Performed By: #### 5 3 #### [facility] [address] [facility] [place] [address], [facility] Nucleated RBC/100 WBC (Bld) [Ratio] 0 % Normal 0-0 [facility] Comment on above: Performed By: #### 5 3 #### [facility] [address] [place] [address], [facility] PLAT CNT 199 10*3/uL Normal 150-[address] [facility] Comment on above: Performed By: #### 5 0103 #### [facility] [address] [place] [address], [facility] RBC (Bld) [#/Vol] 4.76 10*6/uL Normal 3.80-5.00 The [facility] Comment on above: Performed By: #### 5 0103 #### [facility] [address] [place] [address], [facility] WBC (Bld) [#/Vol] 7.18 10*3/uL Normal 4.00-10.60 The [facility] Comment on above: Performed By: #### 5 0103 #### [facility] [address] [place] [address], [facility] Vital Signs Date Time Vital Sign Value Performing Clinician Faci lity 08-31-2024 12:24-0500 Body height 153.67 cm [facility] 08-31-2024 12:24-0500 Body mass index (BMI) [Ratio] 33.6 kg/m2 [facility] 08-31-2024 12:24-0500 Body temperature 97.3 [degF] [facility] 08-31-2024 12:24-0500 Body weight 79.37 kg [facility] 08-31-2024 12:24-0500 Diastolic blood pressure 84 mm[Hg] [facility] 08-31-2024 12:24-0500 Heart rate 74 /min [facility] 08-31-2024 12:24-0500 Respiratory rate 18 /min [facility] 08-31-2024 12:24-0500 SaO2% (BldA) [Mass fraction] 96 % [facility] 08-31-2024 12:24-0500 Systolic blood pressure 150 mm[Hg] [facility] Encounters Encounter Date Encounter Type Care Provider Facility Start: 08-31-2024 End: 08-31-2024 ambulatory [facility] Work Phone: Start: 08-31-2024 End: 08-31-2024 Patient encounter procedure [facility] [place] Work Phone: Start: 08-28-2024 End: 08-28-2024 Refill Cheri Aichholz CORE INSPECTOR Work Phone: [facility] Comment on above: Mixed hyperlipidemia (CMS/HCC); Esophageal reflux Start: 08-23-2024 End: 08-25-2024 Refill Cheri Aichholz CORE INSPECTOR Work Phone: [facility] Comment on above: Anxiety; Hypothyroidism (acquired) (CMS/HCC); Primary hypertension (CMS/HCC); 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) Start: 08-20-2024 End: 08-20-2024 ambulatory [facility] Start: 07-14-2024 End: 07-14-2024 ambulatory CHERI AICHHOLZ Not Available Start: 01-10-2024 End: 01-10-2024 ambulatory CHERI AICHHOLZ Not Available Start: 01-10-2024 Patient encounter procedure Cheri Aichholz CORE INSPECTOR Work Phone: [facility] Start: 12-06-2023 Orders Only Cheri Aichholz CORE INSPECTOR Work Phone: [facility] Comment on above: Hyponatremia (Primar y Dx) Start: 10-09-2023 End: 10-09-2023 ambulatory CHERI AICHHOLZ Not Available Start: 04-09-2023 ambulatory TRAINING OFFICER CHERI AICHHOLZ Facil ity:[facility]1 Start: 02-19-2023 End: 02-20-2023 ambulatory TRAINING OFFICER CHERI AICHHOLZ Facility:[facility] Start: 01-19-2023 End: 01-20-2023 ambulatory TRAINING OFFICER CHERI AICHHOLZ Facility:[facility] Start: 12-22-2022 End: 12-23-2022 ambulatory TRAINING OFFICER CHERI AICHHOLZ Facility:[facility] Start: 10-24-2022 End: 10-25-2022 ambulatory TRAINING OFFICER CHERI SADAFReedSHASHI Facility:[facility] Start: 03-21-2022 End: 03-22-2022 ambulatory OLGA VIDES Facility:[facility] Start: 08-27-2020 End: 08-28-2020 ambulatory PROVIDER UNKNOWN Facility:[facility] Procedures Date Procedure Procedure Detail Performing Clinician Start: 10-26-2023 Mammography Cheri chino CORE INSPECTOR Work Phone: Start: 01-07-2020 Colonoscopy Cheri chino CORE INSPECTOR Work Phone: Plan of Treatment Date Care Activity Detail Author Start: 01-06-2030 Screening for malign ant neoplasm of colon [facility] Start: 01-13-2025 End: 01-13-2025 Patient encounter procedure 01/13/2025 10:00 AM EDT Office Visit [facility] [address] [place] [phone] Cheri Pool NP [address] [place] [phone] [facility] Start: 01-09-2025 Medicare Annual Wellness (AWV) Medicare Annual Wellness (AWV) [facility] Start: 10-26-2024 Screening for malign ant neoplasm of breast Mammogram [facility] Start: 01-10-2024 End: 01-10-2024 Patient encounter procedure 01/10/2024 4:30 PM EDT Office Visit [facility] [address] [place] [address] Cheri Pool NP [address] [place] [phone] [facility] Start: 12-06-2023 End: 12-06-2024 Basic metabolic 1998 panel - Serum or Plasma Basic metabolic panel Lab Routine Hyponatremia Expected: 12/06/2023 (Approximate), Expires: 12/06/2024 [facility] Work Phone: Comment on above: Expected: 12/06/2023 (Approximate), Expires: 12/06/2024 Start: 06-29-2023 Influenza vaccination Influenza Vacc ine (#1) [facility] Start: 1994 Screening for malign ant neoplasm of cervix HPV/Cotest [facility] Start: 1985 Screening for malign ant neoplasm of cervix Pap Smear [facility] Start: 1964 Medicare Annual Wellness (AWV) Medicare Annual Wellness (AWV) [facility] Start: 1964 Screening for malign ant neoplasm of colon [facility] Immunizations Immunization Date Immunization Notes Care Provider Fa cility 08-24-2022 influenza, injectabl e, quadrivalent, preservative free Cheri Aichholz CORE INSPECTOR Work Phone: [facility] 08-24-2022 SARS-COV-2 (COVID-19 ) vaccine, mRNA, spike protein, LNP, bivalent, PF Cheri Aichholz CORE INSPECTOR Work Phone: [facility] 08-24-2022 influenza virus vacc ine, unspecified formulation Cheri Aichholz CORE INSPECTOR Work Phone: [facility] 10-27-2021 Moderna SARS-CoV-2 Vaccination Cheri Aichholz CORE INSPECTOR Work Phone: [facility] 02-25-2021 Moderna SARS-CoV-2 Vaccination Cheri Aichholz CORE INSPECTOR Work Phone: [facility] 01-28-2021 Moderna SARS-CoV-2 Vaccination Cheri Aichholz CORE INSPECTOR Work Phone: [facility] Payers Date Payer Category Payer Medicare [employer] UHC MEDICARE ADVANTAGE [id number] 2023-Present [address] [address] [place] [address] [id number] 2023 Medicare (Managed Care) [facility] [id number] 1964 Unknown [id number]. 647 1964 Unknown [id number] [id number]. 593 1964 Unknown [id number] [id number]. 593 1964 Unknown [id number] [id number]. 593 1964 Unknown [id number] [id number]. 593 1964 Unknown [id number] [id number]. 593 1964 Unknown [id number] [id number]. 593 1964 Unknown [id number] [id number]. 1259 1964 Unknown [id number] [id number]. 1259 1964 Unknown [id number] [id number]. 1259 1959 Medicare [id number] 1959 Medicare [id number] Private Health Insurance [facility] [id number] Private Health Insurance [facility] [id number] Social History Date Type Detail Facility Start: 10-09-2023 End: 08-31-2024 Tobacco smoking status NHIS Never smoked tobacco [facility] Start: 10-09-2023 [...] to any clubs or organizations such as adventism groups, unions, fraternal or athletic groups, or [...] Not at all [facility] (I/We) worried whehitesh er (my/our) food would run out before (I/we) got money to buy more. Never true [facility] Start: 1965 Sex Assigned At Female F [facility] Progress note 08-20-2024 Note Date & Type Note Facility 08-20-2024 Note Cardiovascular Medic ine [facility] SUBJECTIVE Chief Complaint Patient presents with [...] valve with abn (more content not included)... [facility] History of Present illness Narrative 12-06-2023 Cheri Pool NP - 12/06/2023 9:30 AM EST Note Date & Type Note Facility 12-06-2023 History of Presen t illness Narrative labs documented in this encounter [facility] Evaluation note Note Date & Type Note Facility Evaluation note Diagnosis Hyponatremia- Primary Hyposmolality and/or hyponatremia documented in this encounter [facility] Evaluation note Note Date & Type [...] heart disease (CMS/HCC) documented in this encounter [facility] Evaluation note Note Date & Type [...] hyperlipidemia Esophageal reflux documented in this encounter [facility] Evaluation note Note Date & Type Note Facility Evaluation note No [facility] Summary Purpose Family History No Family History Records Found Relationship Condition Age at Onset Recorded Date/T warren father Malignant neoplasm Unknown Unknown mother Malignant neoplasm Unknown Advance Directives No Advanced Directives Records Found Advance Directive Response Recorded Date/ Time Advance Directives No August 31, 2024 12:11pm Chief Complaint and Reason for Visit Chief Complaint swollen sore below left breast Additional Source Comments INFORMATION SOURCE (unrecogn ized section and content) DATE CREATED AUTHOR 03/22/2021 [facility] DATE CREATED AUTHOR AUTHOR'S ORGANIZ ATION 03/13/2023 [facility] DATE CREATED AUTHOR AUTHOR'S ORGANIZ ATION 07/16/2024 [facility] EPIC DATE CREATED AUTHOR AUTHOR'S ORGANIZ ATION 09/18/2024 [facility] Care Teams (unrecognized sec tion and content) Spinning Bath Person Relationship Specialty Start Date End Date Rick Blood MD [address] [place] [phone] PCP - General Family Medicine 09/26/23 Cheri Pool NP [address] [place] [phone] Referring Physician Family Medicine 10/29/22 Spinning Bath Person Relationship Specialty Start Date End Date Rick Blood MD [address] [place] [phone] PCP - General Family Medicine 01/10/24 Cheri Pool NP [address] [place] [phone] Referring Physician Family Medicine 10/29/22 Cheri Pool NP [address] [place] [phone] Nurse Practitioner Family Medicine 01/10/24 Spinning Bath Person Relationship Specialty Start Date End Date Rick Blood MD [address] [place] [phone] PCP - General Family Medicine 01/10/24 Cheri Pool NP [address] [place] [phone] Referring Physician Family Medicine 10/29/22 Cheri Pool NP [address] [place] [address] Nurse Practitioner Family Medicine 01/10/24 Team Status: [...] BE BASED ON THE PRIMARY CLINICAL RECORDS. [employer] provides no warranty or guarantee of the accuracy or completeness of information in this document.
== END 2024-10-07 11:17 | disposition home or self-care (01) ==
LOC: LAB 11:17
PROVIDERS: PCP Nurse Practitioner; Visit Provider Internal Medicine Interventional Cardiology
DX: I27.20 Pulmonary hypertension, unspecified (principal); I07.1 Rheumatic tricuspid insufficiency
CPT/HCPCS: 36415; 80048; 85025

== ENCOUNTER 2024-10-31 12:13 | Outpatient (OUT) | payer MEDICARE, SELFPAY ==
--- OUTSIDE RECORDS SUMMARY | 2024-10-31 12:18 | XMS_ITS | CCD ---
Author Organization [facility] Care Team Providers Care Hat Trimmer Name Role Phone UNKNOWN, PROVIDER Attending Unavailable AICHHOLZ, CHERI Primary Care Unavailable AICHHOLZ, CHERI Referring Unavailable UNKNOWN, PROVIDER Admitting Unavailable AICHHOLZ, RETAIL KEY HOLDER CHERI Admitting Unavailable AICHHOLZ, RETAIL KEY HOLDER CHERI Attending Unavailable AICHHOLZ, RETAIL KEY HOLDER CHERI Primary Care Unavailable AICHHOLZ, RETAIL KEY HOLDER CHERI Consulting Unavailable AICHHOLZ, RETAIL KEY HOLDER CHERI Admitting Unavailable AICHHOLZ, RETAIL KEY HOLDER CHERI Attending Unavailable AICHHOLZ, RETAIL KEY HOLDER CHERI Primary Care Unavailable AICHHOLZ, RETAIL KEY HOLDER CHERI Consulting Unavailable MAHOGANY, OLGA Admitting Unavailable MAHOGANY, OLGA Attending Unavailable AICHHOLZ, RETAIL KEY HOLDER CHERI Primary Care Unavailable AICHHOLZ, RETAIL KEY HOLDER CHERI Referring Unavailable MAHOGANY, OLGA Consulting Unavailable AICHHOLZ, RETAIL KEY HOLDER CHERI Admitting Unavailable AICHHOLZ, RETAIL KEY HOLDER CHERI Attending Unavailable AICHHOLZ, RETAIL KEY HOLDER CHERI Primary Care Unavailable AICHHOLZ, RETAIL KEY HOLDER CHERI Consulting Unavailable AICHHOLZ, RETAIL KEY HOLDER CHERI Admitting Unavailable AICHHOLZ, RETAIL KEY HOLDER CHERI Attending Unavailable AICHHOLZ, RETAIL KEY HOLDER CHERI Primary Care Unavailable AICHHOLZ, RETAIL KEY HOLDER CHERI Admitting Unavailable AICHHOLZ, RETAIL KEY HOLDER CHERI Attending Unavailable AICHHOLZ, RETAIL KEY HOLDER CHERI Primary Care Unavailable DR JOSSE GODFREY V Consulting Unavailable AICHHOLZ, RETAIL KEY HOLDER CHERI Consulting Unavailable Aichholz HOME DEMONSTRATOR, Cheri Unavailable Rick Blood MD Primary Care Provider AICHHOLZ, CHERI Attending Unavailable AICHHOLZ, CHERI Attending Unavailable AICHHOLZ, CHERI Attending Unavailable Aichholz HOME DEMONSTRATOR, Cheri Unavailable Rick Blood MD Primary Care Provider Aichholz HOME DEMONSTRATOR, Cheri Unavailable DAISY SMITH Admitting Unavailable DAISY SMITH Attending Unavailable HERNAN GANDHI Attending Unavailable DAISY SMITH Referring Unavailable DAISY SMITH Referring Unavailable Medications Current Medications Medication Drug Class(es) Dates Sig (Normalized) Sig (Original) aspirin 81 mg delayed release oral tablet (8 sources) Platelet Aggregation Inhibitor, Nonsteroidal Anti-inflammatory Drug [...] 06/03/2024 09/01/2024 Active take 1 tablet by maría th in the morning aspirin 81 MG EC tablet Take 81 mg by mouth in the morning. 0 Active atorvastatin 10 mg oral tablet (9 sources) HMG-CoA Reductase Inhibitor Start: 01-10-2024 End: 11-26-2024 take 1 tablet by mouth in the evening atorvastatin (Lipitor) 10 MG tablet Indications: Mixed hyperlipidemia (CMS/HCC) Take 1 tablet (10 mg) by mouth in the evening 90 tablet 1 08/28/2024 11/26/2024 Active take 1 tablet by mouth in the mo rning atorvastatin (Lipitor) 10 MG tablet Take 10 mg by mouth in the morning. 0 Active cephalexin 500 mg oral capsule (1 source) Cephalosporin Antibacterial Start: 08-31-2024 take 500 mg by mouth three times daily Cephalexin Active 500 MG PO Three times daily 18 05August 30, 2024 11:00pm escitalopram 10 mg oral tablet (9 sources) Serotonin Reuptake Inhibitor Start: 08-25-2024 End: 11-23-2024 take 1 tablet by mouth once daily escitalopram (Lexapro) 10 MG tablet Indications: Anxiety Take 1 tablet (10 mg) by mouth Daily 90 tablet 1 08/25/2024 11/23/2024 Active Start: 01-10-2024 take 1 tablet by maría th once daily escitalopram (Lexapro) 10 MG tablet Indications: Anxiety Take 1 tablet (10 mg) by mouth Daily 90 tablet 1 01/10/2024 Active take 1 tablet by maría th in the morning escitalopram (Lexapro) 10 MG tablet Take 10 mg by mouth in the morning. 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 [facility] Cardiology. 07/14/2024 Discontinued (Therapy completed) levothyroxine (9 sources) l-Thyroxine Start: 08-31-2024 take 50 ug [...] morning. Take before meals. 90 tablet 1 01/10/2024 Active metoprolol tartrate 50 mg oral tablet (9 sources) beta-Adrenergic Josiane Start: 08-31-2024 take 50 [...] chew.. Active omeprazole 20 mg oral tablet (11 sources) Proton Pump Inhibitor Start: 08-31-2024 take 20 mg by mouth once daily Omeprazole Active 20 MG PO Daily August 30, 2024 11:00pm Start: 07-25-2024 take 1 capsule by mo uth once daily omeprazole (PriLOSEC) [address] capsule Indications: Esophageal reflux TAKE 1 CAPSULE BY MOUTH EVERY DAY 90 capsule 1 07/25/2024 Active Start: 11-04-2023 End: 08-28-2024 take 1 capsule by mouth once daily omeprazole (PriLOSEC) [address] capsule Indications: Esophageal reflux Take 1 capsule (20 mg) by mouth Daily 90 capsule 1 08/28/2024 Active sulfamethoxazole 800 mg / trimethoprim 160 mg oral tablet (1 source) Dihydrofolate Reductase Inhibitor Antibacterial, Sulfonamide Antimicrobial Start: 08-31-2024 take 1 tablet by mouth every twelve hours Sulfamethoxazole-Trimethoprim Active 1 TAB PO Every 12 hours 14 7 August 30, 2024 11:00pm Problems Active Problems Problem Classification Problem Date Documented Date Episodic/Chronic Anxiety disorders (12 sources) Anxiety; Translations: [Anxiety disorder, unspecified] Onset: 12-06-2023 12-06-2023 Chronic Disorders of lipid metabolism (11 sources) Hyperlipidemia, unspecified; Translations: [Mixed hyperlipidemia] Onset: 12-27-2022 10-09-2023 Chronic Esophageal disorders (11 sources) Gastroesophageal reflux disease without esophagitis; Translations: [Gastro-esophageal reflux disease without esophagitis] Onset: 10-09-2023 10-09-2023 Chronic Essential hypertension (16 sources) Essential (primary) hypertension; Translations: [Essential hypertension] Onset: 12-22-2022 Chronic Heart valve disorders (20 sources) Presence of other heart-valve replacement; Translations: [Rheumatic tricuspid insufficiency] Onset: 03-21-2022 Chronic Other ear and sense organ disorders (8 sources) Hearing loss; Translations: [Unspecified hearing loss, unspecified ear] Onset: 12-06-2023 12-06-2023 Chronic Other nutritional; endocrine; and metabolic disorders (10 sources) Body mass index 30+ - obesity; Translations: [Obesity, unspecified] Onset: 10-09-2023 10-09-2023 Chronic Other upper respiratory disease (8 sources) Allergic rhinitis; Translations: [Allergic rhinitis, unspecified] Onset: 12-06-2023 12-06-2023 Chronic Pulmonary heart disease (13 sources) Pulmonary hypertension due to left heart disease; Translations: [Pulmonary hypertension due to left heart disease] Onset: 09-18-2022 12-06-2023 Chronic Residual codes; unclassified (4 sources) Obstructive sleep apnea (adult) (pediatric); Translations: [OBSTRUCTIVE SLEEP APNEA] Onset: 02-19-2023 Chronic Residual codes; unclassified (10 sources) Obstructive sleep apnea syndrome; Translations: [Obstructive sleep apnea (adult) (pediatric)] Onset: 12-06-2023 12-06-2023 Chronic Thyroid disorders (12 sources) Acquired hypothyroidism; Translations: [Hypothyroidism, unspecified] Onset: 10-09-2023 10-09-2023 Chronic Past or Other Problems Problem Classification Problem Date Documented Da te Episodic/Chronic Fluid and electrolyte disorders (9 sources) Hyponatremia; Translations: [Hypo-osmolality and hyponatremia] Onset: 12-06-2023 12-06-2023 Episodic Mood disorders (7 sources) Mood disorders Onset: 01-10-2024 01-10-2024 Other nutritional; endocrine; and metabolic disorders (8 sources) Obesity caused by energy imbalance; Translations: [Other obesity due to excess calories] Onset: 10-09-2023 Resolved: 10-09-2023 10-09-2023 Chronic Other screening for suspected conditions (not mental disorders or infectious disease) (17 sources) Other specified abnormal findings of blood chemistry; Translations: [Abnormal results of thyroid function studies] Onset: 10-24-2022 Episodic Residual codes; unclassified (1 source) Family history of malignant neoplasm, unspecified; Translations: [FAM HX MALIGNANT NEOPLASM UNS] Onset: 10-27-2022 Episodic Results Test Name Value Interpretation Reference Range Facility [facility] 10-20-2024 HP History Of Present Illness Rosa Sadler is a 59 y.o. female presenting for right heart catheterization and transesophageal echocardiogram for investigation of dyspnea, and tricuspid regurgitation and pulmonary hypertension discovered on recent echocardiography. she is a 59-year-old woman with congenital deafness. She has history of severe aortic valve stenosis status post aortic valve replacement in September 2018 using a bioprosthetic valve. In 2018 her coronary angiography was normal. She was evaluated recently in cardiology clinic on 08/20/2024 and an echocardiogram showed significant tricuspid regurgitation and elevated right-sided pressures. She has shortness of breath on exertion NYHA class II symptoms. Past Medical History She has a past medical history of Deafness, Heart valve disease, and Hypertension. Surgical History She has a past surgical history that includes Hysterectomy; Cardiac valve replacement; and Cardiac catheterization. Social History She reports that she has never smoked. She has never used smokeless tobacco. She reports current alcohol use. She reports that she does not use drugs. Allergies Patient has no known allergies. Medications Medications Prior to Admission Medication Sig Dispense Refill Last Dose aspirin 81 mg EC tablet Take 2 tablets by mouth in the morning. 10/20/2024 atorvastatin (Lipitor) 10 mg tablet TAKE 1 TABLET BY MOUTH EVERYDAY AT BEDTIME 10/20/2024 escitalopram (Lexapro) 10 mg tablet Take 1 tablet by mouth in the morning. 10/20/2024 hydroCHLOROthiazide (HYDRODiuril) 25 mg tablet Take 1 tablet (25 mg) by mouth in the morning. 90 tablet 3 10/20/2024 metoprolol succinate XL (Toprol-XL) 50 mg 24 hr tablet Take 1 tablet (50 mg) by mouth in the morning. 90 tablet 0 10/20/2024 omeprazole (PriLOSEC) [address] capsule Take 1 tablet by mouth in the morning. 10/20/2024 levothyroxine (Synthroid, Levoxyl) 50 mcg tablet Take 50 mcg by mouth before breakfast. Review of Systems Respiratory: Positive for shortness of breath. Physical Exam Constitutional: Appearance: She is well-developed. [...] Behavior: Behavior is cooperative. Judgment: Judgment normal. Last Recorded Vitals Blood pressure 155/77, pulse 79, resp. rate 16, SpO2 96%. Relevant Results Echocardiogram 09/05/2024: CONCLUSION: Normal left ventricle chamber size. Normal left ventricular wall thickness. Normal left ventricular ejection fraction 55%, no wall motion abnormalities. Severe RA dilatation. Moderate right ventricle dilatation. Reduced right ventricular systolic function. Moderately elevated right sided pressures. RVSP 57 mmHg Bio-Prosthetic valve appears well seated in the aortic position with normal doppler flow. No aortic regurgitation. Severe tricuspid regurgitation IVC is dilated (2.3 cm), less than 50% inspirational collapse.C/W RAP 15 mmHg Blood testing 10/07/2024: Potassium 3.7, BUN 6, creatinine 0.67, hemoglobin 13.5, platelets 165. Assessment/Plan Principal Problem: Pulmonary hypertension (CMS/HCC) Active Problems: Nonrheumatic tricuspid valve regurgitation S/P aortic valve replacement with bioprosthetic valve Given severe tricuspid regurgitation and moderate to severe pulmonary hypertension on recent echocardiogram coupled with symptoms of shortness of breath NYHA class II we will proceed with transesophageal echocardiogram for assessment of the valves as well as right heart catheterization for characterization of the pulmonary hypertension to guide management. Risks, benefits and alternatives were discussed at length with the patient and her and they both are in agreement. She signed informed consent. [facility] RAZANOTAnselmo 10-20-2024 NURSNOTE RN educated pt on discharge instructions. RN encouraged pt to voice any questions or concerns. Pt verbalizes no questions or concerns at this time. Pt passed bedside swallow. Pt was wheeled off unit with all belongings. [facility] ALL BASIC METABOLIC PANELon 10-07-2024 Anion gap [Moles/Vol] 11.1 mmol/L [facility] Calcium [Mass/Vol] 9.3 mg/dL 8.5 - 10. 1 mg/dL [facility] Chloride [Moles/Vol] 93 mmol/L Low 98 - 107 mmol/L [facility] CO2 [Moles/Vol] 29.6 mmol/L 21.0 - 32.0 mmol/L [facility] Creatinine [Mass/Vol] 0.67 mg/dL 0.55 - 1.02 mg/dL [facility] GFR/1.73 sq M.predicted CKD-EPI (S/P/Bld) [Vol rate/Area] >60 >=60 mL/min/1.73m 2 [facility] Glucose [Mass/Vol] 88 mg/dL 74 - 106 mg/dL [facility] Interpretation and review of laboratory results Abnormal [facility] re Potassium [Moles/Vol] 3.7 mmol/L 3.5 - 5.1 mmol/L [facility] Sodium [Moles/Vol] 130 mmol/L Low 136 - 145 mmol/L [facility] TBH EGFR-NON AF GUAMANIAN >60 >=60 mL/min/1.73m 2 [facility] Urea nitrogen [Mass/Vol] 6 mg/dL Low 7.0 - 18.0 mg/dL [facility] Urea nitrogen/Creatinine [Mass ratio] 9 mg/mg [facility] e ALL CBC WITH AUTO DIFFon BASOPHILS ABSOLUTE AUTO 0.1 [facility] Basophils/100 WBC (Bld) 0.9 % 0.2 - 2.0 % [facility] Eosinophils/100 WBC (Bld) 1.1 % 0.9 - 7.0 % [facility] Erythrocyte distribution width (RBC) [Ratio] 12.7 % 11.0 - 15.0 % [facility] Hematocrit (Bld) [Volume fraction] 38.2 % 36.0 - 48.0 % [facility] Hem[facility] ([facility]ld[facility] [Mass/Vol] 13.5 g/dL 12.0 - 16.0 g/dL [facility] IMMATURE GRANULOCYTES ABS AUTO 0.02 [facility] Immature granulocytes/100 WBC (Bld) 0.4 % 0.0 - 0.5 % [facility] Interpretation and review of laboratory results [facility] LYMPHOCYTES ABSOLUTE AUTO 1.2 [facility] Lymphocytes/100 WBC (Bld) 22 % 20.5 - 60.0 % [facility] MCH (RBC) [Entitic mass] 33.1 pg 26.7 - 34.0 pg [facility] MCHC (RBC) [Mass/Vol] 35.3 g/dL High 29.9 - 35.2 g/dL [facility] MCV (RBC) [Entitic vol] 93.6 fL 81.0 - 99.0 fL [facility] MONOCYTES ABSOLUTE AUTO 0.6 [facility] Monocytes/100 WBC (Bld) 10.3 % 1.7 - 12.0 % [facility] NEUTROPHILS ABSOLUTE AUTO 3.6 [facility] Neutrophils/100 WBC (Bld) 65.3 % 43.0 - 75.0 % [facility] Platelet mean volume (Bld) [Entitic vol] 10 fL 9.5 - 13.5 fL [facility] TBH EO # 0.1 [facility] PLT 165 [facility] RBC 4.08 Low [facility] WBC 5.5 [facility] Orders Onlyon 10-02-2024 Orders Only [id number] Rosa Sadler 1965 Provider Department Center 10/02/2024 MARIA E LOUISE ALEXANDRA [facility] Family History Problem Relation Age of Onset No Known Problems Mother No Known Problems Father Family Status - Relation Status Age at Mother Father [facility] 36on 09-16-2024 36 Regarding echo resul t from 09/05/2024: MD Maria E Hull MA; Hernan Gandhi NP She has [...] accept messages. I will try again later. [facility] Office Visiton 08-20-2024 Follow-up visit [id number] Rosa Sadler 1965 F Date Provider Department Center 08/20/2024 HERNAN HART CARD [facility] Family History Problem Relation Age of Onset No Known Problems Mother No Known Problems Father Family Status - Relation Status Age at Mother Father Level of Service:51456 [place] OFFICE/OUTPATIENT ESTABLISHED LOW MDM 20 MIN Reason for Visit and Comments: Follow-up [866338] Normal [facility] 36on 07-25-2024 36 Patient has not been seen since 2021 Normal [facility] THYROID ANTIBODIESon 023 Thyroglobulin Antibody <1.0 Normal 0.0-0.9 [facility] Comment on above: Result Comment: Thyr oglobulin Antibody measured by [employer] Methodology Performed By: #### T HYRABS #### [facility] [address] [place] [address] Dr. Olya Vides Thyroid Peroxidase (TPO) Ab <9 Normal 0-34 [facility] Comment on above: Performed By: #### T HYRABS #### [facility] [address] [place] [address] Dr. Olya Vides FREE T4on 01-19-2023 Free T4 [Mass/Vol] 0.84 ng/dL Normal 0.76-1.46 [facility] Comment on above: Performed By: #### T SH, CMP, LIPID #### [facility] [address] [place] [address] Dr. Olya Vides TSHon 01-19-2023 TSH 5.355 uIU/mL Critically high 0.358-3.740 [facility] Comment on above: Performed By: #### T SH #### [facility] [address] [place] [address] Dr. Olya Vides CBC AUTO DIFFon 12-22-2022 BASO # 0.1 103/ul Normal 0.0-0.1 [facility] Comment on above: Performed By: #### C BC #### [facility] [address] [place] [address] Dr. Olya Vides Basophils/100 WBC (Bld) 1.1 % Normal 0.2-2.0 [facility] Comment on above: Performed By: #### C BC #### [facility] [address] [place] [address] Dr. Olya Vides EO # 0.1 103/ul Normal 0.0-0.7 [facility] Comment on above: Performed By: #### C BC #### [facility] [address] [place] [address] Dr. Olya Vides Eosinophils/100 WBC (Bld) 3.0 % Normal 0.9-7.0 [facility] Comment on above: Performed By: #### C BC #### [facility] [address] [place] [address] Dr. Olya Vides Erythrocyte distribution width (RBC) [Ratio] 12.5 % Normal 11.0-15.0 [facility] Comment on above: Performed By: #### C BC #### [facility] [address] [place] [address] Dr. Olya Vides Hematocrit (Bld) [Volume fraction] 42.5 % Normal 36.0-48.0 [facility] Comment on above: Performed By: #### C BC #### [facility] [address] [place] [address] Dr. Olya Vides Hemoglobin (Bld) [Mass/Vol] 15.0 g/dL Normal 12.0-16.0 [facility] Comment on above: Performed By: #### C BC #### [facility] [address] [place] [address] Dr. Olya Vides IG # 0.02 10e3/ul Normal 0.00-0.03 [facility] Comment on above: Performed By: #### C BC #### [facility] [address] [place] [address] Dr. Olya Vides IG % 0.4 % Normal 0.0-0.5 [facility] Comment on above: Performed By: #### C BC #### [facility] [address] [place] [address] Dr. Olya Vides LYMPH # 1.4 103/ul Normal 1.2-3.8 [facility] Comment on above: Performed By: #### C BC #### [facility] [address] [address] [address] Olya Vides Lymphocytes/100 WBC (Bld) 30.4 % Normal 20.5-60.0 [facility] Comment on above: Performed By: #### C BC #### [facility] [address] [place] [address] Dr. Olya Vides MANUAL DIFF REQ NO Normal [facility] Comment on above: Performed By: #### C BC #### [facility] [address] [place] [address] Dr. Olya Vides MCH (RBC) [Entitic mass] 32.8 pg Normal 26.7-34.0 [facility] Comment on above: Performed By: #### C BC #### [facility] [address] [place] [address] Dr. Olya Vides MCHC (RBC) [Mass/Vol] 35.3 g/dL Critically high 29.9-35.2 [facility] Comment on above: Performed By: #### C BC #### [facility] [address] [place] [address] Dr. Olya Vides MCV (RBC) [Entitic vol] 92.8 fL Normal 81.0-99.0 [facility] Comment on above: Performed By: #### C BC #### [facility] [address] [place] [address] Dr. Olya Vides MONO # 0.4 103/ul Normal 0.3-0.8 [facility] Comment on above: Performed By: #### C BC #### [facility] [address] [place] [address] Dr. Olya Vides Monocytes/100 WBC (Bld) 7.7 % Normal 1.7-12.0 [facility] Comment on above: Performed By: #### C BC #### [facility] [address] [place] [address] Dr. Olya Vides NEUT # 2.7 103/ul Normal 1.4-6.5 [facility] Comment on above: Performed By: #### C BC #### [facility] [address] [address] [address] Olya Vides Neutrophils/100 WBC (Bld) 57.4 % Normal 43.0-75.0 [facility] Comment on above: Performed By: #### C BC #### [facility] [address] [address] [address] Olya Vides Platelet mean volume (Bld) [Entitic vol] 9.7 fL Normal 9.5-13.5 [facility] Comment on above: Performed By: #### C BC #### [facility] [address] [address] [address] Olya Vides PLT 224 103/ul Normal 150-450 [facility] Comment on above: Performed By: #### C BC #### [facility] [address] [place] [address] Dr. Olya Vides RBC 4.58 106/ul Normal 4.20-5.40 [facility] Comment on above: Performed By: #### C BC #### [facility] [address] [place] [address] Dr. Olya Vides WBC 4.7 103/ul Normal 4.0-11.0 [facility] Comment on above: Performed By: #### C BC #### [facility] [address] [place] [address] Dr. Olya Vides FREE T4on 12-22-2022 Free T4 [Mass/Vol] 0.85 ng/dL Normal 0.76-1.46 [facility] Comment on above: Performed By: #### F T4 #### [facility] [address] [place] [address] Dr. Olya Vides LIPID PROFILEon 12-22-2022 CHOL-HDL RATIO NORM SEE BELOW Normal [facility] Comment on above: Result Comment: 3.3 - 4.4 LOW RISK 4.4 - 7.1 AVERAGE RISK 7.1 - 11.0 MODERATE RISK >11.0 HIGH RISK Performed By: #### T SH, CMP, LIPID #### [facility] [address] [place] [address] Dr. Olya Vides Cholesterol [Mass/Vol] 193 mg/dL Normal <=200 [facility] Comment on above: Performed By: #### T SH, CMP, LIPID #### [facility] [address] [address] [address] Olya Vides Cholesterol in HDL [Mass/Vol] 63 mg/dL Critically high 40-60 [facility] Comment on above: Performed By: #### T SH, CMP, LIPID #### [facility] [address] [address] [address] Olya Vides Cholesterol in LDL [Mass/Vol] 93.0 mg/dL Normal [facility] Comment on above: Performed By: #### T SH, CMP, LIPID #### [facility] [address] [address] [address] Olya Vides Cholesterol.total/C holesterol in HDL [Mass ratio] 3.1 {ratio} Normal [facility] Comment on above: Performed By: #### T SH, CMP, LIPID #### [facility] [address] [address] [address] Olya Vides HDL NORMAL > or = 60 mg/dl - LO W CARDIOVASCULAR RISK <40 mg/dl - HIGH CARDIOVASCULAR RISK Normal [facility] Comment on above: Performed By: #### T SH, CMP, LIPID #### [facility] [facility] [address] [address] [address] Olya Vides LDL CALC NORMAL SEE BELOW Normal [facility] Comment on above: Result Comment: <100 mg/dl OPTIMAL 100 - 129 mg/dl NEAR OR ABOVE OPTIMAL 130 - 159 mg/dl BORDERLINE HIGH 160 - 189 mg/dl HIGH >190 mg/dl VERY HIGH Performed By: #### T SH, CMP, LIPID #### [facility] [address] [address] [address] Olya Vides Triglyceride [Mass/Vol] 185 mg/dL Critically high <=150 [facility] Comment on above: Performed By: #### T SH, CMP, LIPID #### [facility] [address] [address] [address] Olya Vides VLDL CALC 37.0 mg/dL Normal [facility] Comment on above: Performed By: #### T SH, CMP, LIPID #### [facility] [address] [address] [address] Olya Vides PROF 14(COMP METB)on 023 Albumin [Mass/Vol] 4.2 g/dL Normal 3.4-5.0 [facility] Comment on above: Performed By: #### T SH, CMP, LIPID #### [facility] [address] [address] [address] Olya Vides Albumin/Globulin [Mass ratio] 1.0 {ratio} Normal [facility] Comment on above: Performed By: #### T SH, CMP, LIPID #### [facility] [address] [address] [address] Olya Vides ALP [Catalytic activity/Vol] 73 U/L Normal 46-116 [facility] Comment on above: Performed By: #### T SH, CMP, LIPID #### [facility] [address] [address] [address] Olya Vides ALT [Catalytic activity/Vol] 39 U/L Normal 14-59 [facility] Comment on above: Performed By: #### T SH, CMP, LIPID #### [facility] [address] [address] [address] Olya Vides Anion gap [Moles/Vol] 15.5 mmol/L Normal [facility] Comment on above: Performed By: #### T SH, CMP, LIPID #### [facility] [address] [address] [address] Olya Vides AST [Catalytic activity/Vol] 47 U/L Critically high 15-37 [facility] Comment on above: Performed By: #### T SH, CMP, LIPID #### [facility] [address] [address] [address] Olya Vides Bilirubin [Mass/Vol] 0.5 mg/dL Normal 0.2-1.0 [facility] Comment on above: Performed By: #### T SH, CMP, LIPID #### [facility] [address] [address] [address] Olya Vides Calcium [Mass/Vol] 9.6 mg/dL Normal 8.5-10.1 [facility] Comment on above: Performed By: #### T SH, CMP, LIPID #### [facility] [address] [place] [address] Dr. Olya Vides Chloride [Moles/Vol] 96 mmol/L Critically low 98-107 [facility] Comment on above: Performed By: #### T SH, CMP, LIPID #### [facility] [address] [place] [address] Dr. Olya Vides CO2 [Moles/Vol] 29.2 mmol/L Normal 21.0-32.0 The [facility] Comment on above: Performed By: #### T SH, CMP, LIPID #### [facility] [address] [place] [address] Dr. Olya Vides Creatinine [Mass/Vol] 0.57 mg/dL Normal 0.55-1.02 [facility] Comment on above: Performed By: #### T SH, CMP, LIPID #### [facility] [address] [place] [address] Dr. Olya Vides EGFR-AF GUAMANIAN >60 Normal >=60 The [facility] Comment on above: Performed By: #### T SH CMP, LIPID #### [facility] [address] [place] [address] Dr. Olya Vides EGFR-NON AF GUAMANIAN >60 Normal >=60 [facility] Comment on above: Performed By: #### T SH, CMP, LIPID #### [facility] [address] [place] [address] Dr. Olya Vides Globulin (S) [Mass/Vol] 4.4 g/dL Normal [facility] Comment on above: Performed By: #### T SH, CMP, LIPID #### [facility] [address] [place] [address] Dr. Olya Vides Glucose [Mass/Vol] 87 mg/dL Normal 74-106 [facility] Comment on above: Performed By: #### T SH, CMP, LIPID #### [facility] [address] [place] [address] Dr. Olya Vides Potassium [Moles/Vol] 3.7 mmol/L Normal 3.5-5.1 [facility] Comment on above: Performed By: #### T JORDY CMP, LIPID #### [facility] [address] [place] [address] Dr. Olya Vides Protein [Mass/Vol] 8.6 g/dL Critically high 6.4-8.2 [facility] Comment on above: Performed By: #### T JORDY, CMP, LIPID #### [facility] [address] [address] [address] Olya Vides Sodium [Moles/Vol] 137 mmol/L Normal 136-145 [facility] Comment on above: Performed By: #### T JORDY CMP, LIPID #### [facility] [address] [place] [address] Dr. Olya Vides Urea nitrogen [Mass/Vol] 5.0 mg/dL Critically low 7.0-18.0 [facility] Comment on above: Performed By: #### T JORDY CMP, LIPID #### [facility] [address] [place] [address] Dr. Olya Vides Urea nitrogen/Creatinine [Mass ratio] 8.8 mg/mg Normal [facility] Comment on above: Performed By: #### T JORDY CMP, LIPID #### [facility] [address] [place] [address] Dr. Olya Vides TSHon 12-22-2022 TSH 3.759 uIU/mL Critically high 0.358-3.740 [facility] Comment on above: Performed By: #### T JORDY, CMP, LIPID #### [facility] [address] [place] [address] Dr. Olya Vides UA RANDOM W/MICROSCOPICon BACTERIA NONE SEEN Normal NONE SEEN [facility] Comment on above: Performed By: #### U AMIC #### [facility] [address] [place] [address] Dr. Olya Vides Bilirubin Ql (U) Negative Normal NEGATIVE The [facility] Comment on above: Performed By: #### U AMIC #### [facility] [address] [address] [address] Olya Vides CAST NONE SEEN Normal NONE SEEN [facility] Comment on above: Performed By: #### U AMIC #### [facility] [address] [address] [address] Olya Vides Clarity (U) CLEAR Normal CLEAR [facility] Comment on above: Performed By: #### U AMIC #### [facility] [address] [address] [address] Olya Vides Color (U) LT. YELLOW Normal YELLOW [facility] Comment on above: Performed By: #### U AMIC #### [facility] [address] [address] [address] Olya Vides Crystals LM Nom (Urine sed) NONE SEEN Normal NONE SEEN [facility] Comment on above: Performed By: #### U AMIC #### [facility] [address] [place] [address] Dr. Olya Vides Epithelial cells LM Ql (Urine sed) FEW Abnormal NONE SEEN /RARE [facility] Comment on above: Performed By: #### U AMIC #### [facility] [address] [place] [address] Dr. Olya Vides Glucose Ql (U) Negative Normal NEGATIVE The [facility] Comment on above: Performed By: #### U AMIC #### [facility] [address] [place] [address] Dr. Olya Vides Hemoglobin Ql (U) SMALL Abnormal NEGATIVE The [facility] Comment on above: Performed By: #### U AMIC #### [facility] [address] [place] [address] Dr. Olya Vides Ketones Ql (U) Negative Normal NEGATIVE The [facility] Comment on above: Performed By: #### U AMIC #### [facility] [address] [place] [address] Dr. Olya Vides LEUKOCYTES Negative Normal NEGATIVE [facility] Comment on above: Performed By: #### U AMIC #### [facility] [address] [address] [address] Olya Vides MUCOUS NONE SEEN Normal NONE SEEN [facility] Comment on above: Performed By: #### U AMIC #### [facility] [address] [address] [address] Olya Vides Nitrite Ql (U) Negative Normal NEGATIVE [facility] Comment on above: Performed By: #### U AMIC #### [facility] [address] [address] [address] Olya Vides pH (U) 5.5 [pH] Normal 5-9 [facility] Comment on above: Performed By: #### U AMIC #### [facility] [address] [place] [address] Dr. Olya Vides RBC 0-2 Normal 0-2 [facility] Comment on above: Performed By: #### U AMIC #### [facility] [address] [place] [address] Dr. Olya Vides SPEC GRAVITY <=1.005 Abnormal 1.005-<=1.025 [facility] Comment on above: Performed By: #### U AMIC #### [facility] [address] [place] [address] Dr. Olya Vides UA PROTEIN Negative Normal NEGATIVE/ TRACE [facility] Comment on above: Performed By: #### U AMIC #### [facility] [address] [address] [address] Olya Vides Urobilinogen Qn (U) 0.2 {Davie'U}/dL Normal 0.2 - 1. 0 [facility] Comment on above: Performed By: #### U AMIC #### [facility] [address] [place] [address] Dr. Oyla Vides WBC NONE SEEN Normal NONE SEEN [facility] Comment on above: Performed By: #### U AMIC #### [facility] [address] [place] [address] Dr. Olya Vides MG MAMM SCREEN 3D YARY CADon 10-24-2022 MG MAMM SCREEN 3D YARY CAD Patient: ROSA SADLER Exam Date: 10/24/2022 : 1965 Gender:F Ordering : SARAH POOL CNP Admission #: [id number] Family : Order #: [id number] CLICK HERE TO VIEW EXAM RADIOLOGY REPORT [...] etiology cancer at age 68. LOCATION: [facility] BREAST COMPOSITION: Heterogeneously dense,which may obscure [...] Godfrey MD on 10/24/2022 at 15:31 Normal [facility] ECHOCARDIO M/2D COMPLETEon 0 03-21-2022 ECHOCARDIO M/2D COMPLETE Patient: ROSA SADLER Exam Date: 03/21/2022 : 1965 Gender:F Ordering : OLGA VIDSE Admission #: [id number] Family : SARAH POOL [facility] Order #: [id number] CLICK HERE TO VIEW EXAM ECHOCARDIOGRAM REPORT [...] Area(A4C): 18.90 cm2 Left Atrium Systolic Volume(A4C): 69170 mm3 Mitral Valve MV E to A [...] Smith M.D. on 03/21/2022 at 17:14 Normal [facility] BASIC METABOLIC PANELon 10-3 0 Calcium [Mass/Vol] 9.9 mg/dL Normal 8.6-10.3 [facility] Comment on above: Performed By: #### 0 0071 #### [facility] [address] [place] [address], [place] Chloride [Moles/Vol] 104 mmol/L Normal 98-107 [facility] Comment on above: Performed By: #### 0 0071 #### [facility] [address] [place] [address], [place] CO2 [Moles/Vol] 27 mmol/L Normal 21-[address] [facility] Comment on above: Performed By: #### 0 0071 #### [facility] [address] [place] [address], [place] Creatinine [Mass/Vol] 0.62 mg/dL Normal 0.60-1.20 [facility] Comment on above: Performed By: #### 0 0071 #### [facility] [address] [place] [address], [place] GFR/1.73 sq M.predicted among blacks MDRD (S/P/Bld) [Vol rate/Area] mL/min/{1.73_m2} Normal >60 [facility] Comment on above: Performed By: #### 0 0071 #### [facility] [address] [place] [address], [place] GFR/1.73 sq M.predicted among non-blacks MDRD (S/P/Bld) [Vol rate/Area] mL/min/{1.73_m2} Normal >60 [facility] Comment on above: Performed By: #### 0 0071 #### [facility] [address] [facility] [place] [address], [facility] Glucose [Mass/Vol] 105 mg/dL High 70-100 The [facility] Comment on above: Performed By: #### 0 0071 #### [facility] [address] [place] [address], [facility] Potassium [Moles/Vol] 3.9 mmol/L Normal 3.5-5.1 [facility] Comment on above: Performed By: #### 0 1 #### [facility] [address] [place] [address], [facility] Sodium [Moles/Vol] 139 mmol/L Normal 136-145 [facility] Comment on above: Performed By: #### 0 1 #### [facility] [address] [facility] Urea nitrogen [Mass/Vol] 10 mg/dL Normal 7-25 [facility] Comment on above: Performed By: #### 0 1 #### [facility] [address] [place] [address], [facility] CBC W/DIFFon 08-27-2020 ABS IMM GRANS 0.0 10*3/uL Normal 0.0-0.2 [facility] Comment on above: Performed By: #### 5 102 #### [facility] [address] [place] [address], [facility] ABS NEUTROPHILS 5.2 10*3/uL Normal 1.6-7.6 [facility] Comment on above: Performed By: #### 5 102 #### [facility] [address] [place] [address], [facility] Basophils (Bld) [#/Vol] 0.1 10*3/uL Normal 0.0-0.2 [facility] Comment on above: Performed By: #### 5 102 #### [facility] [address] [place] [address], [facility] Basophils/100 WBC (Bld) 0.8 % Normal 0.0-1.0 [facility] Comment on above: Performed By: #### 5 0103 #### [facility] [address] [place] [address], [facility] Eosinophils (Bld) [#/Vol] 0.1 10*3/uL Normal 0.0-0.5 [facility] Comment on above: Performed By: #### 3 #### [facility] [address] [place] [address], [facility] Eosinophils/100 WBC (Bld) 1.0 % Normal 0.0-6.0 [facility] Comment on above: Performed By: #### 3 #### [facility] [address] [facility] [address] Erythrocyte distribution width (RBC) [Ratio] 13.2 % Normal 11.5-15.0 [facility] Comment on above: Performed By: #### 5 3 #### [facility] [address] Hematocrit (Bld) [Volume fraction] 45.7 % High 36.0-45.0 [facility] Comment on above: Performed By: #### 5 3 #### [facility] [address] [place] [address], [facility] Hemoglobin (Bld) [Mass/Vol] 15.4 g/dL High 12.0-15.0 [facility] Comment on above: Performed By: #### 5 3 #### [facility] [address] [place] [address], [facility] IMMATURE GRANS 0.4 % Normal 0.0-1.0 The [facility] Comment on above: Performed By: #### 5 3 #### [facility] [address] Lymphocytes (Bld) [#/Vol] 1.3 10*3/uL Normal 1.2-4.0 [facility] Comment on above: Performed By: #### 5 102 #### [facility] [address] Lymphocytes/100 WBC (Bld) 17.7 % Low 20.0-45.0 [facility] Comment on above: Performed By: #### 102 #### [facility] [address] MCH (RBC) [Entitic mass] 32.4 pg Normal 27.0-33.0 [facility] Comment on above: Performed By: #### 102 #### [facility] [address] MCHC (RBC) [Mass/Vol] 33.7 g/dL Normal 32.0-35.0 [facility] Comment on above: Performed By: #### 5 102 #### [facility] [address] MCV (RBC) [Entitic vol] 96.0 fL Normal 82.0-98.0 [facility] Comment on above: Performed By: #### 3 #### [facility] [address] Monocytes (Bld) [#/Vol] 0.5 10*3/uL Normal 0.1-1.0 [facility] Comment on above: Performed By: #### 5 102 #### [facility] [address] [place] [address], [facility] MONOS 7.2 % Normal 5.0-12.0 [facility] Comment on above: Performed By: #### 5 102 #### [facility] [address] [place] [address], [facility] Neutrophils/100 WBC (Bld) 72.9 % High 40.0-72.0 [facility] Comment on above: Performed By: #### 5 0103 #### [facility] [address] [place] [address], [facility] Nucleated RBC/100 WBC (Bld) [Ratio] 0 % Normal 0-0 [facility] Comment on above: Performed By: #### 5 0103 #### [facility] [address] [place] [address], [facility] PLAT CNT 199 10*3/uL Normal 150-400 [facility] Comment on above: Performed By: #### 5 0103 #### [facility] [address] [place] [address], [facility] RBC (Bld) [#/Vol] 4.76 10*6/uL Normal 3.80-5.00 The [facility] Comment on above: Performed By: #### 5 0103 #### [facility] [address] [place] [address], [facility] WBC (Bld) [#/Vol] 7.18 10*3/uL Normal 4.00-10.60 [facility] Comment on above: Performed By: #### 5 0103 #### [facility] [address] Vital Signs Date Time Vital Sign Value Performing Clinician Facility 08-31-2024 12:24-0500 Body height 153.67 cm [facility] 08-31-2024 12:24-0500 Body mass index (BMI) [Ratio] 33.6 kg/m2 [facility] 08-31-2024 12:24-0500 Body temperature 97.3 [degF] [facility] 08-31-2024 12:24-0500 Body weight 79.37 kg [facility] 08-31-2024 12:24-0500 Diastolic blood pressure 84 mm[Hg] [facility] 08-31-2024 12:24-0500 Heart rate 74 /min [facility] 08-31-2024 12:24-0500 Respiratory rate 18 /min [facility] 08-31-2024 12:24-0500 SaO2% (BldA) [Mass fraction] 96 % [facility] 08-31-2024 12:24-0500 Systolic blood pressure 150 mm[Hg] [facility] 07-14-2024 15:09-0400 Body height 157.5 cm Cheri Marioz HOME DEMONSTRATOR Work Phone: [facility] 07-14-2024 15:09-0400 Body mass index (BMI) [Ratio] 32.01 kg/m2 Cheri Aichholz HOME DEMONSTRATOR Work Phone: [facility] 07-14-2024 15:09-0400 Body temperature 98.1 [degF] Cheri Aichholz HOME DEMONSTRATOR Work Phone: [facility] 07-14-2024 15:09-0400 Body weight 79.38 kg Cheri Aichholz HOME DEMONSTRATOR Work Phone: [facility] 07-14-2024 15:09-0400 Diastolic blood pressure 80 mm[Hg] Cheri Aichholz HOME DEMONSTRATOR Work Phone: [facility] 07-14-2024 15:09-0400 Heart rate 80 /min Cheri Aichholz HOME DEMONSTRATOR Work Phone: [facility] 07-14-2024 15:09-0400 Respiratory rate 19 /min Cheri Aichholz HOME DEMONSTRATOR Work Phone: [facility] 07-14-2024 15:09-0400 SaO2% (BldA) [Mass fraction] 94 % Cheri Aichholz HOME DEMONSTRATOR Work Phone: [facility] 07-14-2024 15:09-0400 Systolic blood pressure 128 mm[Hg] Cheri Aichholz HOME DEMONSTRATOR Work Phone: [facility] Encounters Encounter Date Encounter Type Care Provider Facility Start: 10-20-2024 End: 10-20-2024 ambulatory [facility] Start: 10-07-2024 End: 10-07-2024 Clinisync Result Encounter Generic External Data Provider [facility] Department Unsolicited Start: 10-07-2024 End: 10-07-2024 Clinisync Result Encounter Generic External Data Provider [facility] External [facility] Unsolicited Start: 08-31-2024 End: 08-31-[address] [facility] Work Phone: Start: 08-31-2024 End: 08-31-2024 Patient encounter procedure [facility] Work Phone: Start: 08-28-2024 End: 08-28-2024 Refill Cheri Marioz HOME DEMONSTRATOR Work Phone: [facility] Comment on above: Mixed hyperlipidemia (CMS/HCC); Esophageal reflux Start: 08-23-2024 End: 08-25-2024 Refill Cheri Marioz HOME DEMONSTRATOR Work Phone: [facility] Comment on above: Anxiety; Hypothyroidism (acquired) (CMS/HCC); Primary hypertension (CMS/HCC); 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) Start: 08-20-2024 End: [facility] Start: 07-25-2024 End: 07-25-2024 Refill Cheri Aichholz HOME DEMONSTRATOR Work Phone: [facility] Comment on above: Esophageal reflux Start: 07-14-2024 End: 07-14-2024 Office outpatient visit 25 minutes Cheri Yrn HOME DEMONSTRATOR Work Phone: [facility] Comment on above: Primary hypertension (CMS/HCC) (Primary Dx); Obstructive sleep apnea; Aortic valve stenosis, etiology of cardiac valve disease unspecified; Hypothyroidism (acquired) (CMS/HCC); Obesity (BMI 30-39.9); Anxiety Start: 07-14-2024 End: 07-14-2024 ambulatory CHERI AICHHOLZ Not Available Start: 07-14-2024 End: 07-14-2024 Bamboo flowsheet Cheri Aicpolaholz HOME DEMONSTRATOR Work Phone: [facility] Start: 07-14-2024 End: 07-14-2024 Bamboo flowsheet Cheri Verenahholz HOME DEMONSTRATOR Work Phone: [facility] Start: 01-10-2024 End: 01-10-2024 ambulatory CHERI AICHHOLZ Not Available Start: 01-10-2024 Patient encounter procedure Cheri Robertoholz HOME DEMONSTRATOR Work Phone: [facility] Start: 12-06-2023 Orders Only Cheri Marioz HOME DEMONSTRATOR Work Phone: [facility] Comment on above: Hyponatremia (Primar y Dx) Start: 10-09-2023 End: 10-09-2023 ambulatory CHERI AICHHOLZ Not Available Start: 04-09-2023 ambulatory [employer]AIL [employer] CHERI AICHHOLZ Facil ity:[facility] Start: 02-19-2023 End: 02-20-2023 ambulatory RETAIL KEY HOLDER CHERI AICHHOLZ Facility:[facility] Start: 01-19-2023 End: 01-20-2023 ambulatory RETAIL KEY HOLDER CHERI AICHHOLZ Facility:[facility] Start: 12-22-2022 End: 12-23-2022 ambulatory RETAIL KEY HOLDER CHERI AICHHOLZ Facility:[facility] Start: 10-24-2022 End: 10-25-2022 ambulatory RETAIL KEY HOLDER CHERI AICHHOLZ Facility:[facility] Start: 03-21-2022 End: 03-22-2022 ambulatory OLGA MAHOGANY Facility:[facility] Start: 08-27-2020 End: 08-28-2020 ambulatory PROVIDER UNKNOWN Facility:[facility] Procedures Date Procedure Procedure Detail Performing Clinician Start: 10-07-2024 ALL BASIC METABOLIC PANEL Generic External Data Provider Start: 10-07-2024 ALL CBC WITH AUTO DIFF Generic External Data Provider Start: 10-26-2023 Mammography Cheri chino HOME DEMONSTRATOR Work Phone: Start: 01-07-2020 Colonoscopy Cheri Misti chino HOME DEMONSTRATOR Work Phone: Plan of Treatment Date Care Activity Detail Author Start: 01-06-2030 Screening for malign ant neoplasm of colon [facility] Start: 01-13-2025 End: 01-13-2025 Patient encounter procedure 01/13/2025 10:00 AM EDT Office Visit [facility] [address] [place] [address] Cheri Pool, ABIEL [address] [place] [id number] [facility] Start: 01-09-2025 Medicare Annual Wellness (AWV) Medicare Annual Wellness (AWV) [facility] Start: 10-26-2024 Screening for malign ant neoplasm of breast Mammogram [facility] Start: 07-14-2024 End: 07-14-2024 Patient encounter procedure 07/14/2024 3:00 PM EDT Office Visit [facility] [address] [place] [address] Cheri Pool, ABIEL [address] [place] [phone] Arrived [facility] Comment on above: Arrived Start: 01-10-2024 End: 01-10-2024 Patient encounter procedure 01/10/2024 4:30 PM EDT Office Visit [facility] [address] [place] [address] Cheri Pool, ABIEL [address] [place] [id number] [facility] Start: 12-06-2023 End: 12-06-2024 Basic metabolic 1998 panel - Serum or Plasma Basic metabolic panel Lab Routine Hyponatremia Expected: 12/06/2023 (Approximate), Expires: 12/06/2024 [facility] Work Phone: Comment on above: Expected: 12/06/2023 (Approximate), Expires: 12/06/2024 Start: 06-29-2023 Influenza vaccination Influenza Vacc ine (#1) [facility] Start: 1994 Screening for malign ant neoplasm of cervix HPV/Cotest [facility] Start: 1985 Screening for malign ant neoplasm of cervix Pap Smear [facility] Start: 1965 Medicare Annual Wellness (AWV) Medicare Annual Wellness (AWV) [facility] Start: 1964 Screening for malign ant neoplasm of colon [facility] Immunizations Immunization Date Immunization Notes Care Provider Fa [facility] 08-24-2022 influenza, injectabl e, quadrivalent, preservative free Cheri Aichholz HOME DEMONSTRATOR Work Phone: [facility] 08-24-2022 SARS-COV-2 (COVID-19 ) vaccine, mRNA, spike protein, LNP, bivalent, PF Cheir Aichholz HOME DEMONSTRATOR Work Phone: [facility] 08-24-2022 influenza virus vacc ine, unspecified formulation Cheri Aichholz HOME DEMONSTRATOR Work Phone: [facility] 10-27-2021 Moderna SARS-CoV-2 Vaccination Cheri Aichholz HOME DEMONSTRATOR Work Phone: [facility] 02-25-2021 Moderna SARS-CoV-2 Vaccination Cheri Aichholz HOME DEMONSTRATOR Work Phone: [facility] 01-28-2021 Moderna SARS-CoV-2 Vaccination Cheri Aichholz HOME DEMONSTRATOR Work Phone: [facility] Payers Date Payer Category Payer Medicare [employer] UHC MEDICARE ADVANTAGE [id number] 2023-Present [address] [address] [place] [address] [id number] 2023 Medicare (Managed Care) [facility] [id number] 1964 Unknown [id number]. 647 1964 Unknown [id number] [id number]. 593 1964 Unknown [id number] [id number]. 593 1964 Unknown [id number] [id number]. 593 1964 Unknown [id number] 2.16.840.1.914695.3.579.2. 593 1964 Unknown [id number] 2.16.840.1.359276.3.579.2. 593 1964 Unknown [id number] 2.16.840.1.561071.3.579.2. 593 1964 Unknown [id number] 2.16.840.1.009242.3.579.2. 1259 1964 Unknown [id number] 2.16.840.1.117845.3.579.2. 1259 1964 Unknown [id number] [id number]. 1259 1959 Medicare [id number] 1959 Medicare [id number] Private Health Insurance [facility] [id number] Private Health Insurance [facility] [id number] Social History Date Type Detail Facility Start: 10-09-2023 End: 08-31-2024 Tobacco smoking status [facility] Never smoked tobacco [facility] Start: 10-09-2023 [...] to any clubs or organizations such as yazdanism groups, unions, fraternal or athletic groups, or [...] Start: 1965 Sex Assigned At Female F [facility] Clinical Notes 12-06-2023 to 10-20-2024 Cheri Pool, ABIEL - 07/14/2024 4:42 PM Dariel Pool NP - 07/14/2024 4:42 PM Dariel Pool, ABIEL - 07/14/2024 4:42 PM Dariel Pool NP - 07/14/2024 4:42 PM EDT Note Date & Type Note Facility 10-20-2024 Note Patient: Rosaalex izaguirre Procedure Information Date/Time: 10/20/24 0830 Procedure: Right heart cath (Right) - PC APPROVED with LUIS also Location: [facility] / [facility] (Cath) Providers: Daisy Smith MD Clinical information reviewed: Allergies Meds OB Status Physical Exam Airway Mallampati: III TM distance: >3 FB Neck ROM: full Cardiovascular Rhythm: regular Rate: normal Dental Pulmonary Breath sounds clear to auscultation Abdominal Anesthesia Plan ASA 3 other (Conscious sedation.) Anesthetic plan and risks discussed with patient. Use of blood products discussed with patient who consented to blood products. Additional Equipment Requests [facility] 10-02-2024 Note Called patient's hus band after obtaining the correct phone number from [employer]. They are agreeable to procedure. Orders entered. He verbalized understanding. [facility] 08-20-2024 Note Cardiovascular Medic ine [facility] SUBJECTIVE Chief Complaint Patient presents with Follow-up [...] valve with abn (more content not included)... [facility] 07-14-2024 History of Present illness Narrative Associated Problem(s): Anxiety Cont current med Associated Problem(s): Hypothyroidism (acquired) (CMS/HCC) Continue current meds Associated Problem(s): Primary hypertension (CMS/HCC) No med dose change Associated Problem(s): Aortic stenosis Continue with cardiology Associated Problem(s): Obstructive sleep apnea Has sleep med appt next month, is not wearing PAP d/t cont leak Will discuss this w provider when they see them Images from the original note were not included. Rosa Sadler is a 58 y.o. female presents with chief complaint of No chief complaint on file. HPI: Hypertension This is a chronic problem. The current episode started more than 1 year ago. The problem is unchanged. The problem is controlled. Associated symptoms include anxiety. Pertinent negatives include no chest pain, headaches, palpitations, peripheral edema, PND or shortness of breath. There are no associated agents to hypertension. Risk factors for coronary artery disease include obesity and sedentary lifestyle. Past treatments include beta blockers and diuretics. The current treatment provides significant improvement. There are no compliance problems. There is no history of CAD/VA or PVD. Identifiable causes of hypertension include a thyroid problem. Thyroid Problem Presents for follow-up visit. Patient reports no anxiety, cold intolerance, constipation, depressed mood, diarrhea, fatigue, hair loss, heat intolerance, hoarse voice, leg swelling, palpitations, tremors, weight gain or weight loss. The symptoms have been stable. Anxiety Presents for follow-up visit. Patient reports no chest pain, compulsions, decreased concentration, depressed mood, dizziness, excessive worry, insomnia, irritability, muscle tension, nausea, nervous/anxious behavior, obsessions, palpitations, shortness of breath or suicidal ideas. Symptoms occur rarely. The severity of symptoms is mild. Compliance with medications is 76-100%. SUBJECTIVE: MEDICATIONS: Current Outpatient Medications Medication Instructions aspirin (ASPIRIN LOW DOSE) 162 mg, Oral, Daily atorvastatin (LIPITOR) 10 mg, Oral, Every evening escitalopram (LEXAPRO) 10 mg, Oral, Daily hydroCHLOROthiazide (HYDRODIURIL) 25 mg, Oral, Daily, [facility] hydroCHLOROthiazide (HYDRODIURIL) 25 mg, Oral, Daily levothyroxine (SYNTHROID) 50 mcg, Oral, Daily before breakfast metoprolol succinate XL (TOPROL-XL) 50 mg, Oral, Daily, Do not crush or chew. omeprazole (PRILOSEC) 20 mg, Oral, Daily ALLERGIES: No Known Allergies REVIEW OF SYMPTOMS: Review of Systems Constitutional: Negative for appetite change, chills, fatigue, fever, irritability, weight gain and weight loss. HENT: Negative for congestion, ear pain, hoarse voice and sore throat. Eyes: Negative for pain, discharge, redness and visual disturbance. Respiratory: Negative for cough, shortness of breath and wheezing. Cardiovascular: Negative for chest pain, palpitations, leg swelling and PND. Gastrointestinal: Negative for abdominal pain, blood in stool, constipation, diarrhea, nausea and vomiting. Genitourinary: Negative for difficulty urinating, dysuria and frequency. Musculoskeletal: Negative for arthralgias, back pain, joint swelling and myalgias. Skin: Negative for rash and wound. Neurological: Negative for dizziness, tremors, seizures, syncope and headaches. Psychiatric/Behavioral: Negative for behavioral problems, decreased concentration, self-injury and suicidal ideas. The patient is not nervous/anxious and does not have insomnia. Hematological: Does not bruise/bleed easily. Endocrine: Negative for cold intolerance, heat intolerance, polydipsia, polyphagia and polyuria. Allergic/Immunologic: Negative for environmental allergies and food allergies. PAST MEDICAL HISTORY Past Medical History: Diagnosis Date Allergic rhinitis Anxiety Aortic stenosis Bruit of left carotid artery Class 2 obesity due to excess calories in adult 10/09/2023 Deaf Encounter for screening mammogram for malignant neoplasm of breast 10/09/2023 Fatigue Gastroesophageal reflux disease without esophagitis 10/09/2023 Hyponatremia Hypothyroidism (acquired) ([facility]) 10/09/2023 Hypothyroidism, adult (CMS/HCC) Mixed hyperlipidemia (CMS/HCC) 10/09/2023 Obesity (BMI 30-39.9) 10/09/2023 Obstructive sleep apnea Papule of skin Primary hypertension (CMS/HCC) 10/09/2023 History reviewed. No pertinent surgical history. family history is not on file. OBJECTIVE: Visit Vitals BP 128/80 (BP Location: Left arm, Patient Position: Sitting, BP Cuff Size: Adult long) Pulse 80 Temp 98.1 F (Temporal) Resp 19 Ht 5' 2 Wt 175 lb SpO2 94% BMI 32.01 kg/m Smoking Status Never BSA 1.86 m Physical Exam Vitals and nursing note reviewed. Constitutional: General: She is not in acute distress. Appearance: Normal appearance. HENT: Head: Normocephalic and atraumatic. Right Ear: External ear normal. Left Ear: External ear normal. Nose: Nose normal. Mouth/Throat: Mouth: Mucous membranes are moist. Eyes: Extraocular Movements: Extraocular movements intact. Conjunctiva/sclera: Conjunctivae normal. Cardiovascular: Rate and Rhythm: Normal rate and regular rhythm. Pulses: Normal pulses. Heart sounds: Murmur heard. Pulmonary: Effort: Pulmonary effort is normal. Breath sounds: Normal breath sounds. No wheezing or rhonchi. Abdominal: General: Bowel sounds are normal. There is no distension. Palpations: Abdomen is soft. There is no mass. Tenderness: There is no abdominal tenderness. Musculoskeletal: General: Normal range of motion. Cervical back: Normal range of motion and neck supple. Right lower leg: No edema. Left lower leg: No edema. Lymphadenopathy: Cervical: No cervical adenopathy. Skin: General: Skin is warm and dry. Capillary Refill: Capillary refill takes 2 to 3 seconds. Findings: No rash. Neurological: General: No focal deficit present. Mental Status: She is alert and oriented to person, place, and time. Psychiatric: Mood and Affect: Mood normal. Behavior: Behavior normal. Thought Content: Thought content normal. Judgment: Judgment normal. ASSESSMENT AND PLAN: No follow-ups on file. Problem List Items Addressed This Visit Primary hypertension (CMS/HCC) No med dose change Hypothyroidism (acquired) (CMS/HCC) Continue current meds Obesity (BMI 30-39.9) Obstructive sleep apnea - Primary Has sleep med appt next month, is not wearing PAP d/t cont leak Will discuss this w provider when they see them Aortic stenosis Continue with cardiology Anxiety Cont current med documented in this encounter [facility] 12-06-2023 History of Present illness Narrative labs documented in this encounter [facility] Evaluation note Diagnosis Hyponatremia- Primary Hyposmolality and/or hyponatremia documented in this encounter [facility]* Diagnosis Primary hypertension (CMS/HCC)- Primary Unspecified essential [...] heart disease (CMS/HCC) documented in this encounter [facility] note* Diagnosis Primary hypertension (CMS/HCC)- Primary Unspecified essential [...] Esophageal reflux [facility] in this [facility] Work Phone: Evaluation note* Diagnosis Primary hypertension (CMS/HCC)- Primary Unspecified essential hypertension Obstructive sleep apnea Obstructive sleep apnea (adult) (pediatric) Aortic valve stenosis, etiology of cardiac valve disease unspecified Hypothyroidism (acquired) (CMS/HCC) Unspecified hypothyroidism Obesity (BMI 30-39.9) Anxiety Anxiety state, unspecified [facility] encounter [facility]* Diagnosis Esophageal reflux documented in this encounter [facility] Summary [...] and content) DATE CREATED AUTHOR 03/22/2021 [facility] DATE CREATED AUTHOR AUTHOR'S ORGANIZ ATION 03/13/2023 [facility] DATE CREATED AUTHOR AUTHOR'S ORGANIZ ATION 07/16/2024 [facility] EPIC DATE CREATED AUTHOR AUTHOR'S ORGANIZ ATION 10/25/2024 [facility] Care Teams (unrecognized sec tion and content) Hat Trimmer Relationship Specialty Start Date End Date Rick Blood MD [address] [place] [phone] PCP - General Family Medicine 09/26/23 Cheri Pool NP [address] [place] [phone] Referring Physician Family Medicine 10/29/22 Hat Trimmer Relationship Specialty Start Date End Date Rick Blood MD [address] [place] [phone] PCP - General Family Medicine 01/10/24 Cheri Pool NP [address] [place] [phone] Referring Physician Family Medicine 10/29/22 Cheri Pool NP [address] [place] [phone] Nurse Practitioner Family Medicine 01/10/24 Hat Trimmer Relationship Specialty Start Date End Date Rick Blood MD [address] [place] [phone] PCP - General Family Medicine 01/10/24 Cheri Pool NP [address] [place] [phone] Referring Physician Family Medicine 10/29/22 Cheri Pool NP [address] [place] [phone] Nurse Practitioner Family Medicine 01/10/24 Team Status: Active Member Role Status Dates NON STAFF Primary Care Provider Active Team Status: Inactive Member Role Status Dates Margie Rasheed , DANIELA Attending Provider Active Start: August 31, 2024 End: August 31, 2024 NON STAFF Primary Care Provider Active Start: August 31, 2024 End: August 31, 2024 Hat Trimmer Relationship Specialty Start Date End Date Rick Blood MD [address] [place] [phone] PCP - General Family Medicine 01/10/24 Cheri Pool NP [address] [place] [phone] Referring Physician Family Medicine 10/29/22 Cheri Pool NP [address] [place] [phone] Nurse Practitioner Family Medicine 01/10/24 Hat Trimmer Relationship Specialty Start Date End Date Rick Blood MD [address] [place] [phone] PCP - General Family Medicine 01/10/24 Cheri Pool NP [address] [place] [phone] Referring Physician Family Medicine 10/29/22 Cheri Pool NP [address] [place] [phone] Nurse Practitioner Family Medicine 01/10/24 Hat Trimmer Relationship Specialty Start Date End Date Rick Blood MD [address] [place] [phone] PCP - General Family Medicine 01/10/24 Cheri Pool NP [address] [place] [phone] Referring Physician Family Medicine 10/29/22 Cheri Pool NP [address] [place] [phone] Nurse Practitioner [facility] Medicine 01/10/24 Hat Trimmer Relationship Specialty Start Date End Date Rick Blood MD [address] [place] [phone] PCP - General Family Medicine 01/10/24 Cheri Pool NP [address] [place] [phone] Referring Physician [facility] 10/29/22 Cheri Pool NP [address] [place] [phone] Nurse Practitioner [facility] 01/10/24 Reason for Visit (unrecogniz ed section and [...] BE BASED ON THE PRIMARY CLINICAL RECORDS. [facility]. provides no warranty or guarantee of the accuracy or completeness of information in this document.
[2024-10-31 13:09] LABS: Anion Gap 9.4; Calcium 9.9 mg/dL (8.5-10.1); Carbon Dioxide 33.8 mmol/L (21.0-32.0); Chloride 88 mmol/L (98-107); Estimated GFR (African America >60 (>=60 mL/min/1.73m^2); Estimated GFR (Non-African Ame >60 (>=60 mL/min/1.73m^2); Glucose 107 mg/dL (74-106); Potassium 3.2 mmol/L (3.5-5.1); Sodium 128 mmol/L (136-145)
== END 2024-10-31 12:14 | disposition home or self-care (01) ==
PROVIDERS: PCP Nurse Practitioner; Visit Provider Internal Medicine Interventional Cardiology
DX: I27.22 Pulmonary hypertension due to left heart disease (principal)
CPT/HCPCS: 36415; 80048

== ENCOUNTER 2024-11-06 10:15 | Outpatient (OUT) | payer MEDICARE, SELFPAY ==
[2024-11-06 11:11] LABS: Anion Gap 11.7; BUN Creatinine Ratio 15.6; Calcium 9.5 mg/dL (8.5-10.1); Carbon Dioxide 31.7 mmol/L (21.0-32.0); Chloride 87 mmol/L (98-107); Estimated GFR (African America >60 (>=60 mL/min/1.73m^2); Estimated GFR (Non-African Ame >60 (>=60 mL/min/1.73m^2); Glucose 94 mg/dL (74-106); Potassium 3.4 mmol/L (3.5-5.1); Sodium 127 mmol/L (136-145)
== END 2024-11-06 10:16 | disposition home or self-care (01) ==
LOC: LAB 10:17
PROVIDERS: PCP Nurse Practitioner; Visit Provider Internal Medicine Interventional Cardiology
DX: I27.22 Pulmonary hypertension due to left heart disease (principal)
CPT/HCPCS: 36415; 80048

== ENCOUNTER 2024-11-10 12:18 | Outpatient (OUT) | payer MEDICARE, SELFPAY ==
--- NOTE | 2024-11-10 12:25 | MM_ITS ---
Patient Name: JAMIR YORK MR#: [id number] : 1965 Exam Date: 11/10/2024 Ordering Doctor: SARAH Pool CNP RADIOLOGY REPORT PROCEDURE: MM TOMOSYNTHESIS SCREENING BI COMPARISON: MG MAMM SCREEN 3D YARY CAD, 10/24/2022. MM TOMOSYNTHESIS SCREENING BI, 10/25/2023. INDICATIONS: Screening Calculator Name NCI Breast Cancer Risk Assessment Tool 5 Year Breast Cancer Risk 1.60% Lifetime Breast Cancer Risk 8.10% Personal Breast Cancer No Personal Ovarian Cancer No Treatments None Family Cancers Father with lung cancer at age ~65; Mother with colon/pancreas cancer at age 69. LOCATION: [facility] BREAST COMPOSITION: The breasts are heterogeneously dense,which may obscure small masses. FINDINGS: DIAGNOSTIC CATEGORY 2--BENIGN FINDING. NO CHANGE FROM COMPARISON. Scattered benign-appearing nodules are present. Scattered benign-appearing calcifications are present. Scattered benign-appearing lymph nodes are present. RIGHT BREAST: No significant suspicious finding. LEFT BREAST: No significant suspicious finding. RECOMMENDATIONS: ROUTINE MAMMOGRAM AND CLINICAL EVALUATION IN 12 MONTHS. PLEASE NOTE: A NORMAL MAMMOGRAM DOES NOT EXCLUDE THE POSSIBILITY OF BREAST CANCER. A CLINICALLY SUSPICIOUS PALPABLE LUMP SHOULD BE BIOPSIED. Dictated by: Francis Perez MD on 11/10/2024 at 13:22 Approved by: Francis Perez MD on 11/10/2024 at 13:24
== END 2024-11-10 12:19 | disposition home or self-care (01) ==
LOC: MAMMO 12:18
PROVIDERS: PCP Nurse Practitioner; Visit Provider Nurse Practitioner
DX: Z12.31 Encounter for screening mammogram for malignant neoplasm of breast (principal); Z80.1 Family history of malignant neoplasm of trachea, bronchus and lung; Z80.0 Family history of malignant neoplasm of digestive organs; Z80.8 Family history of malignant neoplasm of other organs or systems
CPT/HCPCS: 77063; 77067

== ENCOUNTER 2024-12-02 10:33 | Outpatient (OUT) | payer MEDICARE, SELFPAY ==
[2024-12-02 11:17] LABS: Anion Gap 10.5; BUN Creatinine Ratio 11.8; Calcium 8.9 mg/dL (8.5-10.1); Carbon Dioxide 31.5 mmol/L (21.0-32.0); Chloride 100 mmol/L (98-107); Estimated GFR (African America >60 (>=60 mL/min/1.73m^2); Estimated GFR (Non-African Ame >60 (>=60 mL/min/1.73m^2); Glucose 100 mg/dL (74-106); Sodium 138 mmol/L (136-145)
== END 2024-12-02 10:34 | disposition home or self-care (01) ==
LOC: LAB 10:35
PROVIDERS: PCP Nurse Practitioner; Visit Provider Internal Medicine Cardiovascular Disease
DX: I10 Essential (primary) hypertension (principal)
CPT/HCPCS: 36415; 80048

== ENCOUNTER 2025-01-16 14:18 | Outpatient (OUT) | payer MEDICARE, SELFPAY | END 2025-01-16 14:19 | disposition home or self-care (01) | LOC: RAD 14:18 | PROVIDERS: PCP Nurse Practitioner; Visit Provider Nurse Practitioner | DX: M85.80 Other specified disorders of bone density and structure, unspecified site (principal); Z78.0 Asymptomatic menopausal state | CPT/HCPCS: 77080 ==

== ENCOUNTER 2025-05-04 06:56 | Outpatient (OUT) | payer MEDICARE, SELFPAY ==
--- OUTSIDE RECORDS SUMMARY | 2025-01-13 09:59 | XMS_ITS ---
Author Name Auto Generated Organization [facility] Care Team Providers Care Medical Sales Name Role Phone RUBY MIRANDA Attending Unavailable RUBY MIRANDA Attending Unavailable LEIGH HUGHES Attending Unavailable DAISY MANZANO Admitting Unavailable DAISY MANZANO Attending Unavailable DAISY MANZANO Referring Unavailable DAISY MANZANO Referring Unavailable DAISY MANZANO Attending Unavailable HERNAN LACEY Attending Unavailable PROBLEMS DATE TYPE CONDITION / CODE ATTENDING STATUS [facility] 10/20/2024 Admitting Diagnosis Presence of xenogenic heart valve / Z95.3(ICD-10) DAISY MANZANO [facility] 07/08/2022 Admitting Diagnosis Nonrheumatic aortic (valve) stenosis / I35.0(ICD-10) DAISY MANZANO [facility] 07/08/2022 Admitting Diagnosis Essential (primary) hypertension / I10(ICD-10) DAISY MANZANO [facility] 09/18/2022 Admitting Diagnosis Pulmonary hypertension due to left heart disease / I27.22(ICD-10) LEIGH HUGHES Active [facility] 10/20/2024 Admitting Diagnosis Nonrheumatic tricuspid (valve) insufficiency / I36.1(ICD-10) DAISY MANZANO Active [facility] 10/06/2024 Admitting Diagnosis Pulmonary hypertension, unspecified / I27.20(ICD-10) DAISY MANZANO Active [facility] 08/20/2024 Admitting Diagnosis Presence of prosthetic heart valve / Z95.2(ICD-10) HERNAN LACEY Active [facility] 08/20/2024 Admitting Diagnosis Rheumatic disorders of both mitral and aortic valves / I08.0(ICD-10) HERNAN LACEY Active [facility] 08/20/2024 Admitting Diagnosis Nonrheumatic aortic valve disorder, unspecified / I35.9(ICD-10) ABHIJIT HERNAN Active [facility] PROCEDURES No Procedure Records Found RESULTS OFFICE VISIT Observed: 12/08/2024 1:15 PM Status: COMPLETED Source: [facility] [id number] Rosa Sadler 1964 F Date Provider Department [place] [facility] Family History Problem Relation Age of Onset No Known Problems Mother No Known Problems Father Family Status - Relation Status Age at Mother Father Level of Service:56770 [place] OFFICE/OUTPATIENT ESTABLISHED MOD MDM 30 MIN PROGRESS Observed: 12/08/2024 1:15 PM Status: COMPLETED Source: [facility] Cardiology - [facility] Subjective Rosa Sadler is a 59 y.o. year old female patient being seen for 1 mo follow up per Dr. Hughes for diastolic heart failure, valve disorder, hypertension, and hyperlipidemia. Hydrochlorothiazide was stopped last month, and lasix was increased to 40mg daily. Had BMP last week. She denies chest pain, SOB, and palpitations. 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 She has done well with that with [...] prosthesis regurgitation. There is no significant perivalvular regurgitation. Aortic Valve Measurements: AV Vmean: 2.88 m/s. AV VTI: 85.50 cm. AV PGmax: 70.00 mmHg. AV PGmean: 39.00 mmHg. AV Vmax, Caliper: 4.17 m/s. AV DVI: 0.25. Acceleration Time 70mS Mild tricuspid regurgitation. Minimal atherosclerotic plaque is seen in the aorta. Prosthetic aortic valve leaflets open well. 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 Update 07/05/2021: She is seen in follow-up. She has been doing well. No change in her symptoms. She has some mild shortness of breath on exertion but nothing limiting. No lower extremity edema. No chest pain. No palpitations. No syncope. No dizziness or lightheadedness. echocardiogram 03/09/21: Normal LV systolic function EF > 55% moderately dilated RV Moderate atrial dilation Bioprosthetic AO valve with abnormally high doppler flows- Mean gradient 28 mm hg, DVI 0.24 moderately elevated rt sided pressures, RVSP 48 mmHg. labs 09/15/2020 BUN 11., Cr 0.61- normal LFT normal Chol 200, HDL 69, Trig 58, LDL 119- stable TSH elevated 5.505 Update 09/18/2022: She is seen in follow-up. She has been doing well. She has no complaints of shortness of breath or chest pain. No leg edema. No palpitations. She has good exercise tolerance. Recent testing: Echocardiogram 03/21/2022: Normal ventricular systolic function, LVEF is 65%, moderately dilated right ventricle, moderate biatrial dilatation, bioprosthetic aortic valve with abnormally high Doppler flows. No aortic regurgitation is seen. DVI 0.2, mean gradient 16 mmHg. Moderate tricuspid regurgitation, normal right-sided pressures. labs- 09/05/2021: BUN 13, Cr 0.71, normal, K+ 3.8 normal. Blood testing 09/13/2020: Chol 200, HDL 69, Trig 58, LDL 119- stable echo 03/09/21: Normal LVSF, Moderately dilated RV, mod dilated atria Bioprosthetic valve with abnormally elevated doppler flow, DVI 0.24, Mean gradient 28 mmhg, elevated rt sided pressure- RVSP 48 Visit if 12/08/2024: She is seen in follow-up. She was recently evaluated in cardiology clinic on 08/20/2024 by nurse john Lacey. At that time she was found to have elevated velocities across the aortic valve, In addition she had significantly elevated right-sided pressures.. She was recommended right heart catheterization and transesophageal echocardiogram. The transesophageal echocardiogram showed that the aortic valve opens well however it had increased velocities. She also had severe tricuspid regurgitation. In addition right heart catheterization showed elevated left and right filling pressures with moderate pulm hypertension. I added furosemide 20 mg daily and spironolactone 12.5 mg once daily. She was evaluated in clinic on 11/03/2024 and hydrochlorothiazide was stopped and furosemide was increased to 40 mg once daily. Then due to low K spironolactone was increased to 25 mg daily. Today she reports doing well. she denies chest pain, shortness of breath, palpitations, dizziness, syncope and leg edema. she has good exercise tolerance. There is no claudication. Review of Systems HENT: Positive for hearing loss (Pt is deaf.). Neurological: Positive for light-headedness. All other systems reviewed and are negative. Objective Visit Vitals BP 132/68 (BP Location: Right arm, Patient Position: Sitting) Pulse 73 Ht 1.575 m (5' 2 ) Wt 75.3 kg (166 lb) SpO2 98% BMI 30.36 kg/m??? OB Status Postmenopausal Smoking Status Never BSA 1.82 m??? Physical Exam Constitutional: Appearance: She is well-developed. [...] Behavior: Behavior is cooperative. Judgment: Judgment normal. Allergies No Known Allergies Medications Current Outpatient Medications: aspirin 81 mg EC tablet, Take 2 tablets by mouth in the morning., Disp: , Rfl: atorvastatin (Lipitor) 10 mg tablet, TAKE 1 TABLET BY MOUTH EVERYDAY AT BEDTIME, Disp: , Rfl: escitalopram (Lexapro) 10 mg tablet, Take 1 tablet by mouth in the morning., Disp: , Rfl: furosemide (Lasix) 40 mg tablet, Take 1 tablet (40 mg) by mouth in the morning., Disp: 90 tablet, Rfl: 3 levothyroxine (Synthroid, Levoxyl) 50 mcg tablet, Take 50 mcg by mouth before breakfast., Disp: , Rfl: metoprolol succinate XL (Toprol-XL) 50 mg 24 hr tablet, TAKE 1 TABLET BY MOUTH EVERY DAY IN THE MORNING, Disp: 90 tablet, Rfl: 0 omeprazole (PriLOSEC) [address] capsule, Take 1 tablet by mouth in the morning., Disp: , Rfl: spironolactone (Aldactone) 25 mg tablet, Take 0.5 tablets (12.5 mg) by mouth in the morning. (Patient taking differently: Take 25 mg by mouth in the morning.), Disp: 45 tablet, Rfl: 3 Recent Labs Admission on 10/20/2024, Discharged on 10/20/2024 Component Date Value Ventricular Rate 10/20/2024 74 Atrial Rate 10/20/2024 74 [place] Interval 10/20/2024 184 QRS DURATION 10/20/2024 170 QT Interval 10/20/2024 518 QTC CALCULATION(BAZETT) 10/20/2024 574 P [place] 10/20/2024 54 R-[place] 10/20/2024 -73 T Wave [place] 10/20/2024 42 RVYZXB20% 10/20/2024 68.2 (A) QC Pass/Fail 10/20/2024 Passed QC LOT # 10/20/2024 [id number] QC Expiration Date 10/20/2024 113,025 SAMPLESITE 10/20/2024 PA 12/25/2023 Cr 0.64, BUN 8, K 3.5, Na 137, eGFR >60 TSH 2.425 blood testing 11/06/2024: Potassium 3.4, BUN 10, creatinine 0.64, EGFR more than 60. Blood testing 12/02/2024: Potassium 4.0, BUN 9, creatinine 0.76, EGFR more than 60. Imaging and other tests ECG 10/20/2024: Normal sinus rhythm Left axis deviation Right bundle branch block T wave abnormality, consider lateral ischemia Abnormal ECG Right heart catheterization 10/20/2024: Hemodynamic Data: RA: 23; the right atrial pressure waveform is ventricularized. RV: 37/10, 23 PA: 35/25 (30) PCWP: 20 CO: manage 203.33 CI: 1.87 O2 Sat: PA sat: 68%, AO sat: 100% BP: 177/96 (118) TP PVR: 2.1 Wood units SVR: 2282 Metric units Impression/Findings: Mild to moderate elevation of left filling pressures. Severe elevation of right filling pressures with ventricularization of the pressure waveform consistent with significant tricuspid regurgitation. Moderate pulmonary hypertension. Reduced cardiac output and cardiac index. Uncontrolled systemic hypertension. 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 Plan: Add furosemide 20 mg once daily and spironolactone 12.5 mg daily. BMP in 2 weeks. Her blood pressure was significantly elevated during the procedure but this could be related to her being nervous. Usually her blood pressure is under good control. Monitor blood pressure at home. Follow up in Cardiology Clinic. Transesophageal echocardiogram 10/20/2024: Left Ventricle: The left ventricle is normal size. Global left ventricular systolic function is normal. The EF is 65 % visually. Right Ventricle: The right ventricle is severely enlarged. Right ventricular systolic function appears reduced. Left Atrium: The left atrium is mildly enlarged. Right Atrium: The right atrium is severely enlarged. Aortic Valve: Bioprosthetic AVR with slightly increased velocities. The AVR leaflets open well. No aortic valve regurgitation. Tricuspid Valve: Severe tricuspid regurgitation. Echocardiogram 09/05/2024: CONCLUSION: Normal left ventricle chamber size. Normal left ventricular wall thickness. Normal left ventricular ejection fraction 55%, no wall motion abnormalities. Severe RA dilatation. Moderate right ventricle dilatation. Reduced right ventricular systolic function. Moderately elevated right sided pressures. RVSP 57 mmHg Bio-Prosthetic valve appears well seated in the aortic position with normal doppler flow.No aortic regurgitation. Severe tricuspid regurgitation IVC is dilated (2.3 cm), less than 50% inspirational collapse.C/W RAP 15 mmHg Echocardiogram 03/21/2022: Normal ventricular systolic function, LVEF is 65%, moderately dilated right ventricle, moderate biatrial dilatation, bioprosthetic aortic valve with abnormally high Doppler flows. No aortic regurgitation is seen. DVI 0.2, mean gradient 16 mmHg. Moderate tricuspid regurgitation, normal right-sided pressures. 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 No chest pain and no shortness of breath. I reviewed with her and her the results of the recent investigation including the transesophageal echocardiogram and the right heart catheterization. She does have chronic diastolic heart failure and severe tricuspid regurgitation according to the transesophageal echocardiogram. We are managing this with diuretic therapy including spironolactone and furosemide. She has done well with those. The transesophageal echocardiogram showed increased velocities across the bioprosthetic aortic valve which appears to function well by 2D imaging. I think she has potentially the patient prosthesis mismatch. She is not symptomatic. We will continue to observe. I previously explained to her and her that she needs antibiotic prophylaxis prior to dental work. I had given her a prescription for amoxicillin. At this time I will continue current medications. I reviewed the recent blood testing which showed potassium and kidney function in good range. No change in the dosages. Her blood pressure is reasonably well-controlled. Continue metoprolol succinate. Continue aspirin and atorvastatin. I will plan an echocardiogram in 6 months to follow-up on tricuspid regurgitation, pulmonary hypertension as well as the aortic valve function. I will see her at that time in clinic. Follow up in about 6 months (around 06/07/2025). Daisy Manzano MD PROGRESS Observed: 11/03/2024 2:00 PM Status: COMPLETED Source: [facility] Cardiology - [facility] Subjective Rosa Sadler is a 59 y.o. year old female patient being seen for Post-Cath (Follow up s/p right heart cath and LUIS. ), Pulmonary Hypertension (Dr. Manzano increased spironolactone to 25mg daily last week s/p lab results. ), and Shortness of Breath (Improving per patient. 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 She has history of normal coronary arteries in 2017. She had worsening dyspnea on exertion and therefore she was admitted on 10/20/2020 for underwent right heart catheterization which showed elevated left filling pressure with a wedge of 20, mild pulmonary hypertension with PA pressure 35/25 with a reduced cardiac output and cardiac index 1.87. She was started on Lasix 20 mg daily and spironolactone 12.5 mg daily Also at the same time she underwent transesophageal echo which showed normal left ventricular static function with ejection fraction 65%, severely dilated right ventricle with reduced systolic function mildly enlarged left atrium and severely enlarged right atrium, normally functioning bioprosthetic aortic valve and severe tricuspid regurgitation. Aldactone was increased again to 25 mg daily last week. The patient is here today for follow-up visit with her . Of note the patient is deaf and communication was through her using sign language. The patient states that she feels much better. She thinks that she lost weight after she was started on Lasix and Aldactone. She continues to take hydrochlorothiazide 12.5 mg daily. She does not recall what her weight at home. She denies any chest pain or shortness of breath at rest or with exertion. She denies orthopnea or paroxysmal nocturnal dyspnea. She denies any legs edema. She denies dizziness or palpitations. ROS All systems were reviewed and they were negative except for the positive findings noted above in the history Past Medical History: Diagnosis Date Deafness Heart valve disease Hyperlipidemia Hypertension Pulmonary hypertension (CMS/HCC) Past Surgical History: Procedure Laterality Date CARDIAC CATHETERIZATION CARDIAC VALVE REPLACEMENT HYSTERECTOMY Family History Problem Relation Name Age of Onset No Known Problems Mother No Known Problems Father Social History Tobacco Use Smoking status: Never Smokeless tobacco: Never Substance Use Topics Alcohol use: Yes Comment: moderate Drug use: Never Allergies No Known Allergies Medications Current Outpatient Medications: aspirin 81 mg EC tablet, Take 2 tablets by mouth in the morning., Disp: , Rfl: atorvastatin (Lipitor) 10 mg tablet, TAKE 1 TABLET BY MOUTH EVERYDAY AT BEDTIME, Disp: , Rfl: escitalopram (Lexapro) 10 mg tablet, Take 1 tablet by mouth in the morning., Disp: , Rfl: furosemide (Lasix) 20 mg tablet, Take 1 tablet (20 mg) by mouth in the morning., Disp: 90 tablet, Rfl: 3 hydroCHLOROthiazide (HYDRODiuril) 25 mg tablet, Take 1 tablet (25 mg) by mouth in the morning. (Patient taking differently: Take 12.5 mg by mouth in the morning.), Disp: 90 tablet, Rfl: 3 levothyroxine (Synthroid, Levoxyl) 50 mcg tablet, Take 50 mcg by mouth before breakfast., Disp: , Rfl: metoprolol succinate XL (Toprol-XL) 50 mg 24 hr tablet, TAKE 1 TABLET BY MOUTH EVERY DAY IN THE MORNING, Disp: 90 tablet, Rfl: 0 omeprazole (PriLOSEC) [address] capsule, Take 1 tablet by mouth in the morning., Disp: , Rfl: spironolactone (Aldactone) 25 mg tablet, Take 0.5 tablets (12.5 mg) by mouth in the morning. (Patient taking differently: Take 25 mg by mouth in the morning.), Disp: 45 tablet, Rfl: 3 Objective Visit Vitals BP 113/80 (BP Location: Left arm, Patient Position: Sitting) Pulse 78 Ht 1.575 m (5' 2 ) Wt 75.3 kg (166 lb) SpO2 96% BMI 30.36 kg/m??? OB Status Postmenopausal Smoking Status Never BSA 1.82 m??? Physical exam: GENERAL: alert and oriented x3, well developed, in no acute distress. HEAD: atraumatic, normocephalic. EYES: CARMENCITA, EOMI. NECK: trachea midline, no JVD present, no carotid bruits present. CARDIAC: S1, S2 present. RRR. Systolic murmur 3/6 at the left lower sternal border radiating to the base. RESPIRATORY: CTAB, no increased effort of breathing, no rales, rhonchi, or wheezing. ABDOMEN: soft, nontender, nondistended. EXTREMITIES: no lower extremity edema, peripheral pulses are 2+ bilaterally. No rash/skin discoloration present. NEURO: strength/sensation equal and symmetric in bilateral upper and lower extremities. PSYCH: appropriate mood, affect, and judgement. Recent Labs 10/31/2024 Sodium 128, potassium 3.2, BUN 10, creatinine 0.89, glucose 107, GFR above 60, calcium 9.9 10/07/2024 Sodium 130, potassium 3.7, BUN 6, creatinine 0.7, glucose 88, GFR above 60 White blood count 5.5, hemoglobin 13.5, platelets 165 Lab Results Component Value Date CALCIUM 9.9 08/27/2020 CO2 27 08/27/2020 BUN 10 08/27/2020 Lab Results Component Value Date WBC 7.18 08/27/2020 HGB 15.4 (H) 08/27/2020 HCT 45.7 (H) 08/27/2020 MCV 96.0 08/27/2020 PLT 199 08/27/2020 Imaging and other tests EK10/20/2024 Normal sinus rhythm Left axis deviation Right bundle branch block T wave abnormality, consider lateral ischemia Abnormal ECG When compared with ECG of 08-OCT-2018 14:58, Premature ventricular complexes are no longer Present Nonspecific T wave abnormality now evident in Inferior lead T wave inversion now evident in Lateral Confirmed by Frankie KEENE, CHUY Batres ([id number]) on 10/20/2024 8:53:29 AM LUIS 10/20/2024 Left Ventricle: The left ventricle is normal size. Global left ventricular systolic function is normal. The EF is 65 % visually. Right Ventricle: The right ventricle is severely enlarged. Right ventricular systolic function appears reduced. Left Atrium: The left atrium is mildly enlarged. Right Atrium: The right atrium is severely enlarged. Aortic Valve: Bioprosthetic AVR with slightly increased velocities. The AVR leaflets open well. No aortic valve regurgitation. Tricuspid Valve: Severe tricuspid regurgitation. Right heart catheterization 10/20/2024 Hemodynamic Data: RA: 23; the right atrial pressure waveform is ventricularized. RV: 37/10, 23 PA: 35/25 (30) PCWP: 20 CO: manage 203.33 CI: 1.87 O2 Sat: PA sat: 68%, AO sat: 100% BP: 177/96 (118) TP PVR: 2.1 Wood units SVR: 2282 Metric units Impression/Findings: Mild to moderate elevation of left filling pressures. Severe elevation of right filling pressures with ventricularization of the pressure waveform consistent with significant tricuspid regurgitation. Moderate pulmonary hypertension. Reduced cardiac output and cardiac index. Uncontrolled systemic hypertension. 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 Plan: Add furosemide 20 mg once daily and spironolactone 12.5 mg daily. BMP in 2 weeks. Her blood pressure was significantly elevated during the procedure but this could be related to her being nervous. Usually her blood pressure is under good control. Monitor blood pressure at home. Follow up in Cardiology Clinic. Daisy Manzano MD Assessment/Plan Chronic diastolic heart failure Clinically stable and she is doing better. Currently she is on Toprol-XL, Aldactone, Lasix, and hydrochlorothiazide Status post aortic valve replacement with bioprosthetic valve due to severe aortic stenosis. It appeared to be functioning adequately on recent LUIS 10/20/2024 Mild to moderate pulmonary hypertension Probably due to combination of diastolic heart failure and tricuspid regurgitation Severe tricuspid regurgitation, associated with dilatation and systolic dysfunction of the right ventricle as well as pulmonary hypertension Mild hyponatremia with sodium level 128 on most recent BMP Hypertension, well-controlled on combination of Toprol XL, Aldactone, Lasix, and hydrochlorothiazide Hyperlipidemia, on atorvastatin Obesity, BMI 30.4 kg/m??? Anxiety Deafness Plan: I will stop hydrochlorothiazide and increase Lasix to 40 mg daily Continue Toprol XL and Aldactone I advised the patient to restrict her fluids intake not to exceed 1300 cc/day given the mild hyponatremia noted on most recent labs Recheck BMP on 11/06/2024 Patient was encouraged to walk 1 mile daily at least 5 times a week Follow-up with in 6 to 8 weeks Leigh Hughes MD,[facility] FOLLOW-UP Observed: 11/03/2024 2:00 PM Status: COMPLETED Source: [facility] [id number] Rosa Sadler 1964 F Date Provider Department Center 11/03/2024 [id number]-MIEUOFLEIGH HUGHES [facility] Family History Problem Relation Age of Onset No Known Problems Mother No Known Problems Father Family Status - Relation Status Age at Mother Father Level of Service:[id number] [place] OFFICE/OUTPATIENT ESTABLISHED MOD MDM 30 MIN Reason for Visit and Comments: Post-Cath [731] - Follow up s/p right heart cath and LUIS. Pulmonary Hypertension [818] - Dr. Manzano increased spironolactone to 25mg daily last week s/p lab results. Shortness of Breath [002198] - Improving per patient. 36 Observed: 10/31/2024 3:15 PM Status: COMPLETED Source: [facility] Regarding lab result from 10/31/2024: MD Maria E Hull MA Please have her increase spironolactone to 25 mg daily (this will help increase her potassium). Seda should repeat labs when she sees her. Spoke with patient's and made him aware. She is scheduled to follow up with Dr. Hughes on 11/03/2024 because Seda isn't able to be here in the AM of 11/04/2024. He verbalized understanding. NURSNOTE Observed: 10/20/2024 1:50 PM Status: COMPLETED Source: [facility] RN educated pt on discharge instructions. RN encouraged pt to voice any questions or concerns. Pt verbalizes no questions or concerns at this time. Pt passed bedside swallow. Pt was wheeled off unit with all belongings. HP Observed: 10/20/2024 7:52 AM Status: COMPLETED Source: [facility] History Of Present Illness Rosa Sadler is [...] are in agreement. She signed informed consent. ANES Observed: 10/20/2024 7:52 AM Status: COMPLETED Source: [facility] Patient: Rosa Sadler Procedure Information Date/Time: 10/20/24829 Procedure: Right heart cath (Right) - PC APPROVED with LUIS also Location: [facility] / [facility] (Cath) Providers: Daisy Manzano MD Clinical information reviewed: Allergies Meds OB Status Physical Exam Airway Mallampati: III TM distance: >3 FB Neck ROM: full Cardiovascular Rhythm: regular Rate: normal Dental Pulmonary Breath sounds clear to auscultation Abdominal Anesthesia Plan ASA 3 other (Conscious sedation.) Anesthetic plan and risks discussed with patient. Use of blood products discussed with patient who consented to blood products. Additional Equipment Requests 36 Observed: 10/02/2024 11:40 AM Status: COMPLETED Source: [facility] Called patient's aft er obtaining the correct phone number from [facility] system. They are agreeable to procedure. Orders entered. He verbalized understanding. ORDERS ONLY Observed: 10/02/2024 12:00 AM Status: COMPLETED Source: [facility] [id number] Rosa Sadler 1964 [facility] Provider Department [place] 10/02/2024 MARIA E LOUISE Family History Problem Relation Age of Onset No Known Problems Mother No Known Problems Father Family Status - Relation Status Age at Mother Father 36 Observed: 09/16/2024 12:09 PM Status: COMPLETED Source: [facility] Regarding echo result from 1 11/05/2023: MD Maria E Hull MA; Hernan Lacey NP She has severe tricuspid regurgitation and elevated right-sided pressures. I think we need to proceed with LUIS and right heart cath. Please schedule with me. Use diagnoses nonrheumatic tricuspid regurgitation and pulmonary hypertension. Tried to contact patient's . The phone went straight to voicemail and the mailbox is not set up to accept messages. I will try again later. OFFICE VISIT Observed: 08/20/2024 2:00 PM Status: COMPLETED Source: [facility] [id number] Rosa Sadler 1964 [facility] Provider Department [facility] 08/20/2024 HERNAN HART Family History Problem Relation Age of Onset No Known Problems Mother No Known Problems Father Family Status - Relation Status Age at Mother Father Level of Service:58296 [place] OFFICE/OUTPATIENT ESTABLISHED LOW MDM 20 MIN Reason for Visit and Comments: Follow-up [[id number]] PROGRESS Observed: 08/20/2024 2:00 PM Status: COMPLETED Source: [facility] Cardiovascular Medicine [facility] SUBJECTIVE Chief Complaint Patient presents with Follow-up Rosa Sadler is a 58 y.o. female here for follow-up. Her Ag accompanied her. HPI PMHx: aortic valve stenosis [...] moderate biatrial dilatation, bioprosthetic aortic valve with abnormally high Doppler flows. No aortic regurgitation is seen. DVI 0.2, mean gradient 16 mmHg. Moderate tricuspid regurgitation, normal right-sided pressures. echocardiogram 03/09/21: Normal LV systolic function EF > 55% moderately dilated RV Moderate atrial dilation Bioprosthetic AO valve with abnormally high doppler flows- Mean gradient 28 mm hg, DVI 0.24 moderately elevated rt sided pressures, RVSP 48 mmHg. LUIS 08/27/2020: Global left ventricular systolic function [...] prosthesis regurgitation. There is no significant perivalvular regurgitation. Aortic Valve Measurements: AV Vmean: 2.88 m/s. AV VTI: 85.50 cm. AV PGmax: 70.00 mmHg. AV PGmean: 39.00 mmHg. AV Vmax, Caliper: 4.17 m/s. AV DVI: 0.25. Acceleration Time 70mS Mild tricuspid regurgitation. Minimal atherosclerotic plaque is seen in the aorta. Prosthetic aortic valve leaflets open well. 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 Cardiac cath 09/04/2018: 1. Normal coronary angiogram. 2. Normal filling pressures. 3. Normal pulmonary arterial pressures. 4. Preserved cardiac output and cardiac index. Carotid u/s 09/18/2018: 1. Antegrade flow of both vertebral arteries. 2. Stenosis in the range of 0-15% in both internal carotid arteries. Transesophageal echocardiogram 07/24/2018: Global left ventricular systolic [...] No intracardiac shunt by agitated saline injections. Echocardiogram 07/08/2018: normal LV systolic function, mild diastolic dysfunction, moderate to severe aortic stenosis (mean Gr 33, Max gr 57), possibly bicuspid aortic valve, mildly elevated right sided pressures. 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 -Her last ECHO 02/2022 showed abnormally high doppler flows - she may have a prosthesis mismatch -Follow-up ECHO ordered -She is on ASA 81mg daily HTN -Well controlled -Continue hydrochlorothiazide 25mg daily, Toprol 50mg daily Pulmonary HTN -RVSP at 48 on previous ECHO, was normal on her 02/2022 ECHO -Follow-up ECHO ordered HLD -On atorvastatin 10mg daily -Lipids well controlled per 11/2023 labs -Continue current dose of atorvastatin If ECHO shows no significant changes Follow up in about 1 year (around 08/20/2025). Hernan Lacey NP [facility] Cardiovascular Medicine 36 Observed: 07/25/2024 2:42 PM Status: COMPLETED Source: [facility] Patient has not been seen si 2021 ALLERGIES DATE TYPE / CODE NAME / CODE REACTION SEVERITY SOURCE SYSTEMIC/[id number]( SNOMED CT) NO KNOWN ALLERGIES [facility] ENCOUNTERS ADMIT/DISCHARGE ACCOUNT NUMBER ADMITTING ENCOUNTER CLASS LOCATION SOURCE 01/13/2025/01/14/20 [id number] Ambulatory Building:[facility] EPIC 12/08/2024/12/08/19 [id number] Ambulatory Building: B [facility] 11/03/2024/11/03/19 [id number] Ambulatory Building:[facility] 10/20/2024 [id number] Ambulatory Buildin 70 [facility] 10/20/2024 [id number] Ambulatory Building: T [facility] 10/20/2024/10/20/20 [id number] DAISY MANZANO Ambulatory Buildin 70Room: [facility]: [facility] 08/20/2024/08/20/20 [id number] Ambulatory Building: B [facility] 07/14/2024/07/14/20 [id number] Ambulatory Building:[facility] EPIC PAYERS ENCOUNTER GUARANTOR PAYER SUBSCRIBER SOURCE 01/13/2025 ROSA CARPENTER: [id number] [place] [address]Fxs: () Primary Insurance:UNITED HEALTHCARE MEDICAREPolicy Number: [id number] Date:[id number] ROSA CARPENTER: [id number] [place] [address] [facility] EPIC 12/08/2024 Primary Insurance:UNITED HEALTHCARE MEDICAREPolicy Number: [id number] Date:2023-12-28 ROSA ADAMSOB: [id number] [place] [address] [facility] 11/03/2024 Primary Insurance:[facility] MEDICAREPolicy Number: [id number] Date:2023-12-28 ROSA ADAMSOB: [id number] [place] [address] [facility] 10/20/2024 Primary Insurance:[facility] MEDICAREPolicy Number: [id number] Date:2023-12-28 ROSA ADAMSOB: [id number] [place] [address] [facility] 10/20/2024 Primary Insurance:[facility] MEDICAREPolicy Number: [id number] Date:2023-12-28 ROSA ADAMSOB: [id number] [place] [address] [facility] 10/20/2024 Primary Insurance:[facility] MEDICAREPolicy Number: [id number] Date:2023-12-28 ROSA ADAMSOB: [id number] [place] [address] [facility] 08/20/2024 Primary Insurance:[facility] MEDICAREPolicy Number: [id number] Date:2023-12-28 ROSA ADAMSOB: [id number] [place] [address] [facility] 07/14/2024 ROSA ADAMSOB: [place] [address]Sxo: (HP) Primary Insurance:[facility] MEDICAREPolicy Number: [id number] Date:2023-04-28 ROSA ADAMSOB: [id number] [place] [address] [facility] EPIC
--- OUTSIDE RECORDS SUMMARY | 2025-05-04 06:59 | XMS_ITS | Clinical Summary ---
Author Organization [facility] Address [address] [place] [address] Care Team Providers Care Typing Checker Name Role Phone Cheri Pool MD Primary Care Provider [phone] Allergies No known active allergies Medications aspirin 81 mg EC tablet Take 2 tablets by mouth in the morning. Active atorvastatin (Lipitor) 10 mg tablet TAKE 1 TABLET BY MOUTH EVERYDAY AT BEDTIME Active escitalopram (Lexapro) 10 mg tablet Take 1 tablet by mouth in the morning. Active omeprazole (PriLOSEC) [address] capsule Take 1 tablet by mouth in the morning. Active levothyroxine (Synthroid, Levoxyl) 50 mcg tablet Take 50 mcg by mouth before breakfast. Active furosemide (Lasix) 40 mg tabletIndications :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) Take 1 tablet (40 mg) by mouth in the morning. 90 tablet 3 5 11/03/19 26 Active spironolactone (Aldactone) 25 mg tabletIndications :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) Take 1 tablet (25 mg) by mouth once daily as directed. 90 tablet 3 5 12/24/19 26 Active metoprolol succinate XL (Toprol-XL) 50 mg 24 hr tabletIndications :Essential (primary) hypertension Take 1 tablet (50 mg) by mouth once daily as directed. 90 tablet 3 5 Active Active Problems Problem Noted Date Diagnosed Date Chronic diastolic heart failure 11/03/2024 Nonrheumatic tricuspid valve regurgitation 10/20 S/P aortic valve replacement with bioprosthetic valve 10/20/2024 Pulmonary hypertension 10/02/2024 Allergic rhinitis 12/06/2023 Anxiety 12/06/2023 Hyponatremia 12/06/2023 Obstructive sleep apnea 12/06/2023 Encounter for screening mamm ogram for malignant neoplasm of breast 10/09/2023 Gastroesophageal reflux disease without esophagi tis 10/09/2023 Hypothyroidism (acquired) 10/09/2023 Mixed hyperlipidemia 10/09/2023 Obesity (BMI 30-39.9) 10/09/2023 History of aortic valve replacement with tissue graft 09/18/2022 Pulmonary hypertension due to left heart disease 09/18/2022 Acute urinary tract infection 09/18/2018 Hearing loss 09/18/2018 Aortic valve stenosis 09/11/2018 Hypertensive disorder 07/15/2018 Family History Medical History Relation Name Comments No Known Problems Father No Known Problems Mother Relation Name Status Comments Father Mother Social History Tobacco Use Types Packs/Day Years Used Date Smoking Tobacco: Never Smokeless Tobacco: Never Tobacco Cessation:Counseling Given: Not Answered Alcohol Use Standard Drinks/Week Comments Yes 0 (1 standard drink = 0.6 oz pur e alcohol) moderate [place] Safety & Environment Answer Date Rec orded Fear of Current or Ex-Partner Not on file Emotionally Abused Not on file 12/20/2023 Physically Abused Not on file 12/20/2023 Sexually Abused Not on file 12/20/2023 Physically or Sexually Abused Not on file Comments No Sex and Gender Information Value Date Recorded Sex Assigned at Not on file Legal Sex Female 12:08 AM EDT Gender Identity Not on file Sexual Orientation Not on file Last Filed Vital Signs Vital Sign Reading Time Taken Comments Blood Pressure 132/68 12/08/2024 1:34 PM EST Pulse 73 12/08/2024 1:34 PM EST Temperature 36.6 C (97.8 F) 11/13/2018 9:26 AM EST Respiratory Rate 20 10/20/2024 1:15 PM EST Oxygen Saturation 98% 12/08/2024 1:34 PM EST Inhaled Oxygen Concentration - - Weight 75.3 kg (166 lb) 12/08/2024 1:34 PM EST Height 157.5 cm (5' 2 ) 12/08/2024 1:34 PM EST Body Mass Index 30.36 12/08/2024 1:34 PM EST Plan of Treatment Health Maintenance Due Date Last Done Comments CT Colonography 1964 Colonoscopy 1964 Colorectal Cancer Screening 1964 FIT-DNA 1964 FIT 1964 FOBT 1964 Medicare Annual Wellness (AWV) 1964 Sigmoidoscopy 1964 Depression Screening 1976 Pneumococcal Vaccine: Pediatrics (0 to 5 Years) and At-Risk Patients (6 to 64 Years) (1 of 2 - PCV) 1983 Pap Smear 1985 Adult Tetanus 1986 Cervical Cancer Screening 1994 HPV/Cotest 1994 Mammogram 2004 Zoster Vaccines (1 of 2) 2014 COVID-19 Vaccine ( season) 2024 08/24/2022, 10/27/2021, 02/25/2021, Additional history exists Influenza Vaccine (#1) 2025 08/24/2022 HIB Vaccines Aged Out No longer eligi ble based on patient's age to complete this topic HPV Vaccines Aged Out No longer eligi ble based on patient's age to complete this topic IPV Vaccines Aged Out No longer eligi ble based on patient's age to complete this topic Meningococcal B Vaccine Aged Out No l onger eligible based on patient's age to complete this topic Meningococcal Vaccine Aged Out No tracie devante eligible based on patient's age to complete this topic Rotavirus Vaccines Aged Out No longer eligible based on patient's age to complete this topic Insurance [employer] MEDICARE Care Teams Typing Checker Relationship Specialty Start Date End Date Cheri Pool MD [address] [place] [address] PCP - General 07/08/22
--- OUTSIDE RECORDS SUMMARY | 2025-05-04 06:59 | XMS_ITS | Encounter Summary ---
Author Organization [facility] Address [address] [place] [address] Care Team Providers Care Making Department Preparer Name Role Phone Cheri Pool AUTOMOBI[employer]ICE STATION MANAGER Unavailable [phone] Rick Blood MD Primary Care Provider [phone] Cheri Pool AUTOMOBILE SERVICE STATION MANAGER Unavailable [phone] Encounter Details Date Type Department Care Team (Late st Contact Info) Description 09/08/2024 [facility] [address] [place] [address] Christian Manzano MD [address] [place] [address] Social History Tobacco Use Types Packs/Day Years Used Date Smoking Tobacco: Never Smokeless Tobacco: Never Alcohol Use Standard Drinks/Week Comments Not Currently 0 (1 standard drink = 0.6 oz pur e alcohol) Humiliation, Afraid, Rape, and Kick questionnair e Answer Date Recorded Within the last year, have y ou been afraid of your partner or ex-partner? No 01/10/2024 Within the last year, have y ou been humiliated or emotionally abused in other ways by your partner or ex-partner? No Within the last year, have y ou been kicked, hit, slapped, or otherwise physically hurt by your partner or ex-partner? No 01/10/2024 Within the last year, have y ou been raped or forced to have any kind of sexual activity by your partner or ex-partner? No 01/10/2024 Social Connection and Isolat ion Panel [NHANES] Answer Date Recorded In a typical week, how many times do you talk on the phone with family, friends, or neighbors? Never 01/10/2024 How often do you get togethe r with friends or relatives? Never 01/10/2024 How often do you attend chur ch or sikh services? Never 01/10/2024 Do you belong to any clubs o r organizations such as zoroastrianism groups, unions, fraternal or athletic groups, or school groups? Yes 01/10/2024 How often do you attend meet ings of the clubs or organizations you belong to? More than 4 times per year 01/10/2024 Are you , , di vorced, , never , or living with a partner? 01/10/2024 AUDIT-C Answer Date Recorded Q1: How often do you have a drink containing alcohol? 4 or more times a week 01/10/2024 Q2: How many drinks containi ng alcohol do you have on a typical day when you are drinking? 5 or 6 Q3: How often do you have si x or more drinks on one occasion? Daily or almost daily 01/10/2024 Overall Financial Resource Strain (CARDIA) Answe r Date Recorded How hard is it for you to pa y for the very basics like food, housing, medical care, and heating? Not hard at all 01/10/2024 [facility] [place] [facility] - Occupational Stress Questionnaire Answer Date Recorded Do you feel stress - tense, restless, nervous, or anxious, or unable to sleep at night because your mind is troubled all the time - these days? Not at all 01/10/2024 Exercise Vital Sign Answer Date Recorde d On average, how many days pe r week do you engage in moderate to strenuous exercise (like a brisk walk)? 0 days 01/10/2024 On average, how many minutes do you engage in exercise at this level? 0 min 01/10/2024 Hunger Vital Sign Answer Date Recorded Within the past 12 months, y ou worried that your food would run out before you got the money to buy more. Never true 01/10/20 24 Within the past 12 months, t he food you bought just didn't last and you didn't have money to get more. Never true 01/10/2024 PRAPARE - Transportation Answer Date Re corded In the past 12 months, has l ack of transportation kept you from medical appointments or from getting medications? No 12/27 In the past 12 months, has l ack of transportation kept you from meetings, work, or from getting things needed for daily living? No 01/10/2024 Housing Stability Vital Sign Answer Augusto e Recorded In the last 12 months, was t here a time when you were not able to pay the mortgage or rent on time? No 01/10/2024 In the last 12 months, how many places have you lived? 1 01/10/2024 In the last 12 months, was t here a time when you did not have a steady place to sleep or slept in a chcf (including now)? No 01/10/2024 Comments Unknown Sex and Gender Information Value Date Recorded Sex Assigned at Not on file Legal Sex Female 8:26 PM EDT Gender Identity Not on file Sexual Orientation Not on file documented as of this encounter Plan of Treatment Upcoming Encounters Date Type Department Care Team (Late st Contact Info) Description 07/16/2025 2:40 PM EDT Office Visit [facility] [address] [place] [address] Cheri Pool NP [address] [place] [address] 01/18/2026 11:00 AM EDT Office Visit [facility] [address] [place] [address] Cheri Pool NP [address] [place] [address] documented as of this encounter Procedures Procedure Name Priority Date/Time Associated Diagnosis Comments ECHOCARDIOGRAM WITH DOPPLER IF INDICATED Routine 09/08/2024 9:40 AM EST documented in this encounter Results * ECHOCARDIOGRAM WITH DOPPLER IF INDICATED (09/08/2024 9:40 AM EST) Anatomical Region Laterality Modality Radiographic Cristina ging us Christian Manzano MD IMG XR PROCEDURES Final Resu lt documented in this encounter Visit Diagnoses Not on filedocumented in this encounter Additional Health Concerns Assessment Noted Time PHQ-9 Depression Total Score: 1 01/10/20 24 4:26 PM EDT documented as of this encounter Care Teams Making Department Preparer Relationship Specialty Start Date End Date Rick Blood MD [address] [place] [address] PCP - General Family Medicine 01/10/24 Cheri Pool NP [address] [place] [address] Referring Physician Family Medicine 10/29/22 Cheri Pool NP [address] [place] [address] Nurse Practitioner Family Medicine 01/10/24 documented as of this encounter
--- OUTSIDE RECORDS SUMMARY | 2025-05-04 06:59 | XMS_ITS | Encounter Summary ---
Author Organization [facility] Address [address] [place] [address] Care Team Providers Care Branch Service Associate Name Role Phone Cheri Pool FINE ARTS MODEL Unavailable [phone] Rick Blood MD Primary Care Provider [phone] Rick Blood MD Primary Care Provider [phone] Cheri Pool FINE ARTS MODEL Unavailable [phone] Encounter Details Date Type Department Care Team (Late Contact Info) Description 10/29/2023 Abstract [facility] [address] [place] [address] Cheri Pool, FINE ARTS MODEL [address] [place] [address] Social History Tobacco Use Types Packs/Day Years Used Date Smoking Tobacco: Never Smokeless Tobacco: Never Alcohol Use Standard Drinks/Week Comments Not Currently 0 (1 standard drink = 0.6 oz pur e alcohol) Comments Unknown Sex and Gender Information Value Date Recorded Sex Assigned at Not on file Legal Sex Female 8:26 PM EDT Gender Identity Not on file Sexual Orientation Not on file documented as of this encounter Plan of Treatment Upcoming Encounters Date Type Department Care Team ([facility] Contact Info) Description 07/16/2025 2:40 PM EDT Office Visit [facility] [address] [place] [address] Cheri Pool, FINE ARTS MODEL [address] [place] [address] 01/18/2026 11:00 AM EDT Office Visit [facility] [address] [place] [address] Cheri Pool, ABIEL [address] [place] [address] documented as of this encounter Visit Diagnoses Not on filedocumented in this encounter Care Teams Branch Service Associate Relationship Specialty Start Date End Date Rick Blood MD [address] [place] [phone] PCP - General Family Medicine 09/26/23 01/09/24 Rick Blood MD [address] [place] [address] PCP - General Family Medicine 01/10/24 Cheri Pool NP [address] [place] [address] Referring Physician Family Medicine 10/29/22 Cheri Pool NP [address] [place] [address] Nurse Practitioner Family Medicine 01/10/24 documented as of this encounter
--- OUTSIDE RECORDS SUMMARY | 2025-05-04 06:59 | XMS_ITS | Encounter Summary ---
Author Organization [facility] Address [address] [place] [address] Care Team Providers Care Urban Planner Name Role Phone Cheri Pool COMMERCIAL REAL ESTATE APPRAISER Unavailable [phone] Rick Blood MD Primary Care Provider [phone] Rick Blood MD Primary Care Provider [phone] Cheri Pool COMMERCIAL REAL ESTATE APPRAISER Unavailable Encounter Details Date Type Department Care Team (Late Contact Info) Description 10/26/2023 Clinisync Result Encounter [facility] External Department Unsolicited Cheri Pool NP [address] [place] [address] Social History Tobacco Use Types Packs/Day [...] Encounters Date Type Department Care Team (Late Contact Info) Description 07/16/2025 2:40 PM EDT Office Visit [facility] [address] [place] [address] Cheri Pool NP [address] [place] [address] 01/18/2026 11:00 AM EDT Office Visit [facility] [address] [place] [address] Cheri Pool NP [address] [place] [address] documented as of this encounter Procedures Procedure Name Priority Date/Time Associated Diagnosis Comments MM TOMOSYNTHESIS SCREENING BI 10/26/2023 11:50 AM EST documented in this encounter Results * MM TOMOSYNTHESIS SCREENING BI (10/26/2023 11:50 AM EST) Anatomical Region Laterality Modality Other 10/26/2023 11:5 0 AM EST Narrative 10/26/2023 11:51 [place] [address] Mammography Report Signed Patient: ORSA SADLER MR#: [id number] : 1965 Acct:[id number] Age/Sex: 58 / F ADM Date: 10/25/23 Loc: MAMMO Attending Dr: Cheri Pool NP Ordering Physician: Cheri Pool NP Results: Date of Service: 10/25/23 Follow Up: Procedure(s): MM tomosynthesis screening BI Accession Number(s): [id number] cc: Cheri Pool NP Patient Name: ROSA SADLER MR#: [id number] : 1965 Exam Date: 10/25/2023 Ordering Doctor: SARAH Pool ULTRASONIC TESTER RADIOLOGY REPORT PROCEDURE: MM TOMOSYNTHESIS SCREENING BI COMPARISON: MG MAMM SCREEN 3D YARY CAD, 10/24/2022. MG MAMM SCREEN 3D YARY CAD, 10/11/2021. MG MAMM YARY SCRN W CAD DIG, 12/18/2013. INDICATIONS: screening Calculator Name NCI Breast Cancer Risk Assessment Tool 5 Year Breast Cancer Risk 1.50% Lifetime Breast Cancer Risk 8.30% Personal Breast Cancer No Personal Ovarian Cancer No Treatments None Family Cancers Father with lung cancer at age 65; Mother with colon/pancreas cancer at age 69. LOCATION: [facility] BREAST COMPOSITION: Heterogeneously dense,which may obscure small masses. FINDINGS: DIAGNOSTIC CATEGORY 2--BENIGN FINDING: RIGHT BREAST: No significant suspicious finding. Scattered benign-appearing calcifications are present. No significant change has occurred. LEFT BREAST: No significant suspicious finding. Scattered benign-appearing calcifications are present. No significant change has occurred. RECOMMENDATIONS: ROUTINE MAMMOGRAM AND CLINICAL EVALUATION IN 12 MONTHS. PLEASE NOTE: A NORMAL MAMMOGRAM DOES NOT EXCLUDE THE POSSIBILITY OF BREAST CANCER. A CLINICALLY SUSPICIOUS PALPABLE LUMP SHOULD BE BIOPSIED. Dictated by: Jimbo Jimenez M.D. on 10/26/2023 at 11:47 Approved by: Jimbo Jimenez M.D. on 10/26/2023 at 11:49 Dictated By: Jimbo Jimenez M.D. Signed By: 10/26/23 1151 DD/ 1150 TD/TT: Chain Hooker: Procedure Note Radiology, Radiologist, MD - 10/26/2023 [place] [address] Mammography Report Signed Patient: ROSA SADLER LMR#: [id number] : 1965Acct:[id number] Age/Sex: 58 / FADM Date: 10/25/23 Loc: MAMMO Attending Dr: Cheri Pool NP Ordering Physician: Cheri Pool NPResults: Date of Service: 10/25/23Follow Up: Procedure(s): MM tomosynthesis screening BI Accession Number(s): [id number] cc: Cheri Pool NP Patient Name: ROSA SADLER MR#: [id number] : 1965 Exam Date: 10/25/2023 Ordering Doctor: SARAH Pool ULTRASONIC TESTER RADIOLOGY REPORT PROCEDURE: MM TOMOSYNTHESIS SCREENING BI COMPARISON: MG MAMM SCREEN 3D YARY CAD, 10/24/2022. MG MAMM SCREEN 3DBIL CAD, 10/11/2021. MG MAMM YARY SCRN W CAD DIG, 12/18/2013. INDICATIONS: screening Calculator Name NCI Breast Cancer Risk Assessment Tool 5 Year Breast Cancer Risk 1.50% Lifetime Breast Cancer Risk 8.30% Personal Breast Cancer No Personal Ovarian Cancer No Treatments None Family Cancers Father with lung cancer at age 65; Mother with colon/pancreas cancer at age 69. LOCATION: [facility] BREAST COMPOSITION: Heterogeneously dense,which may obscure smallmasses. FINDINGS: DIAGNOSTIC CATEGORY 2--BENIGN FINDING: RIGHT BREAST: No significant suspicious finding. Scatteredbenign-appearing calcifications are present. No significant change has occurred. LEFT BREAST: No significant suspicious finding. Scatteredbenign-appearing calcifications are present. No significant change has occurred. RECOMMENDATIONS: ROUTINE MAMMOGRAM AND CLINICAL EVALUATION IN 12 MONTHS. PLEASE NOTE: A NORMAL MAMMOGRAM DOES NOT EXCLUDE THE POSSIBILITY OFBREAST CANCER. A CLINICALLY SUSPICIOUS PALPABLE LUMP SHOULD BE BIOPSIED. Dictated by: Jimbo Jimenez M.D. on 10/26/2023 at 11:47 Approved by: Jimbo Jimenez M.D. on 10/26/2023 at 11:49 Dictated By: Jimbo Jimenez M.D. Signed By:10/26/23 1151 DD/ 1150 TD/TT: Chain Hooker: us Cheri Pool NP [facility] Final Result documented in this encounter Visit Diagnoses Not on filedocumented in this encounter Care Teams Urban Planner Relationship Specialty Start Date End Date Rick Blood MD [address] [place] [address] PCP - General Family Medicine 09/26/23 01/09/24 Rick Blood MD [address] [place] [address] PCP - General Family Medicine 01/10/24 Cheri Pool NP [address] [place] [address] Referring Physician Family Medicine 10/29/22 Cheri Pool NP [address] [place] [address] Nurse Practitioner Family Medicine 01/10/24 documented as of this encounter
--- OUTSIDE RECORDS SUMMARY | 2025-05-04 06:59 | XMS_ITS | Clinical Summary ---
Author Organization [facility] Address [address] [place] [address] Care Team Providers Care Collection Systems Modeler Name Role Phone Cheri Pool NP Unavailable [phone] Rick Blood MD Primary Care Provider [phone] Cheri Pool BUILDING SERVICE WORKER Unavailable [phone] Allergies No known active allergies Medications metoprolol succinate XL (Toprol-XL) 50 MG 24 hr tablet Take 50 mg by mouth in the morning. Do not crush or chew.. Active furosemide (Lasix) 20 MG tablet Take 20 mg by mouth in the morning. 4 10/20/20 25 Active spironolactone (Aldactone) 25 MG tablet Take 12.5 mg by mouth in the morning. 4 10/20/20 25 Active escitalopram (Lexapro) 10 MG tabletIndications:A nxiety Take 1 tablet (10 mg) by mouth Daily 90 tablet 1 5 Active levothyroxine (Synthroid, Levoxyl) 50 MCG tabletIndications:H ypothyroidism (acquired) Take 1 tablet (50 mcg) by mouth in the morning. Take before meals. 90 tablet 1 5 Active omeprazole (PriLOSEC) [address] capsuleIndications: Esophageal reflux Take 1 capsule (20 mg) by mouth Daily 90 capsule 1 5 Active atorvastatin (Lipitor) 10 MG tabletIndications:M ixed hyperlipidemia Take 1 tablet (10 mg) by mouth in the evening 90 tablet 1 5 Active aspirin ([facility] Aspirin Low Dose) 81 MG EC tabletIndications:N onrheumatic aortic valve disorder, unspecified,Nonrheu matic aortic (valve) stenosis Take 2 tablets (162 mg) by mouth Daily 180 tablet 3 5 05/18/20 25 Active hydroCHLOROthiazide (HYDRODiuril) 25 MG tabletIndications:P rimary hypertension,Pulmon dixie hypertension due to left heart disease (HCC) Take 1 tablet (25 mg) by mouth Daily 90 tablet 1 5 05/18/20 25 Active Active Problems Problem Noted Date Diagnosed Date Menopause 01/13/2025 Assessment & Plan (01/13/2025 6:23 AM EDT): Will check DEXA scan Overweight (BMI 25.0-29.9) 01/13/2025 Assessment & Plan (01/13/2025 10:36 AM EDT): Recommend physical activity as chronic health conditions allow Health food choices and portion control Chronic diastolic heart failure 11/03/2024 Assessment & Plan (01/13/2025 6:16 AM EDT): Dx with [facility] Cardiology Current meds: asa, lasix, hydrochlorothiazide, b cooper and aldactone S/P aortic valve replacement with bioprosthetic valve 10/20/2024 Nonrheumatic tricuspid valve regurgitation 09/08 Overview (09/08/2024): ECHO 08/2024: severe RA regurg, elevated PA pressures Encounter for subsequent [facility] wellness visit (AWV) in Medicare patient 01/10/2024 Assessment & Plan (01/13/2025 6:19 AM EDT): Reviewed Ht/Wt/BMI Recommend eye exam yearly Recommend dental exams twice a year Balance work/leisure activities Exercises is recommended most days of the week (appropriate as chronic conditions allow) Follow up yearly and prn Assessment & Plan (01/10/2024 4:54 PM EDT): Reviewed Ht/Wt/BMI Recommend eye exam yearly Recommend dental exams twice a year Balance work/leisure activities Exercises is recommended most days of the week (appropriate as chronic conditions allow) Follow up yearly and prn Obstructive sleep apnea 12/06/2023 Assessment & Plan (01/13/2025 10:43 AM EDT): You have a diagnosis of obstructive sleep apnea. It is recommended that you wear your PAP device any time while in bed sleeping. Not using the PAP device can increase your risk of elevated/uncontrolled high blood pressure, atrial fibrillation, heart attack, stroke, or sudden . Compliance with PAP: yes How many hours of use per night: 6-7 hours Do you feel more refreshed in the morning: yes Company that supplies your machine and tubing/filters etc: [employer] Doctor that manages your JACQUES: Do yearly Assessment & Plan (07/14/2024 4:41 PM EDT): Has sleep med appt next month, is not wearing PAP d/t cont leak Will discuss this w provider when they see them Aortic stenosis 12/06/2023 Assessment & Plan (07/14/2024 4:42 PM EDT): Continue with cardiology Assessment & Plan (01/10/2024 4:52 PM EDT): Continue with [facility] Cardiology Hyponatremia 12/06/2023 Deaf 12/06/2023 Anxiety 12/06/2023 Assessment & Plan (01/13/2025 10:36 AM EDT): Current medication: escitalopram STEVE 7=1 Assessment & Plan (07/14/2024 4:42 PM EDT): Cont current med Assessment & Plan (01/10/2024 4:53 PM EDT): No changes in meds Fu in 6 months Allergic rhinitis 12/06/2023 Encounter for screening mamm ogram for malignant neoplasm of breast 10/09/2023 Assessment & Plan (10/09/2023 11:30 AM EST): Due in 10/20, order printed faxed to [facility] Primary hypertension 10/09/2023 Assessment & Plan (01/13/2025 6:17 AM EDT): Please check blood pressure daily and record DASH diet Limit caffeine Take medication as directed Contact office if chest pain, pressure, dizziness, shortness of breath, swelling legs Recommend slow position changes Current meds: hydrochlorothiazide, b cooper, aldactone Assessment & Plan (07/14/2024 4:42 PM EDT): No med dose change Assessment & Plan (01/10/2024 4:52 PM EDT): Stable at this time, no changes Fu in 6 months Assessment & Plan (10/09/2023 11:29 AM EST): At goal no changes Recommend weight loss Cont current meds Hypothyroidism (acquired) 10/09/2023 Assessment & Plan (01/13/2025 6:18 AM EDT): Current medication is levothyroxine Check labs yearly, prn dose changes, or changes in sxs Assessment & Plan (07/14/2024 4:42 PM EDT): Continue current meds Assessment & Plan (01/10/2024 4:53 PM EDT): Stable on current dose Reviewed recent labs Assessment & Plan (10/09/2023 11:29 AM EST): Stable no changes Mixed hyperlipidemia 10/09/2023 Assessment & Plan (01/13/2025 6:20 AM EDT): On statin therapy Check labs yearly, and prn dose chagnes Assessment & Plan (10/09/2023 11:30 AM EST): Continue statin Orders for 11/2023 Gastroesophageal reflux disease without esophagi tis 10/09/2023 Assessment & Plan (01/13/2025 6:18 AM EDT): Recommendations: freq small meals, nothing to eat or drink at least 2 hours prior to bed, limit caffeine, alcohol, as well as spicy foods Meds to limit or avoid if possible: NSAIDS Elevate HOB if possible Current med: omeprazole Assessment & Plan (01/10/2024 4:53 PM EDT): No changes in meds Assessment & Plan (10/09/2023 11:29 AM EST): Stable on current dose of PPI No chagnes History of aortic valve replacement with tissue graft 09/18/2022 Pulmonary hypertension due to left heart disease 09/18/2022 Assessment & Plan (01/13/2025 6:17 AM EDT): Noted on ECHO, does have JACQUES as well Current meds: asa, b cooper, diuretic therapy Assessment & Plan (01/10/2024 4:52 PM EDT): Continue with [facility] Cardiology Resolved Problems Problem Noted Date Diagnosed Date Resolved Date Pulmonary hypertension 10/02/202401/13 Class 2 obesity due to exces s calories in adult 10/09/2023 10/09/2023 Obesity (BMI 30-39.9) 10/09/20232024 Assessment & Plan (01/13/2025 6:18 AM EDT): Discussed with patient their BMI (actual, verses recommended). We have also discussed lifestyle modifications: attempts to perform physical activity as chronic conditions allow, also to monitor dietary intake: increasing protein/fruits/veggies and lowering carb intake (unless contraindicated). Limit sodas, juices, and sugary drinks. Encounters Date Type Department Care Team Description 02/17/2025 Refill [facility] [address] [place] [phone] Cheri Pool NP Primary hypertension ; Pulmonary hypertension due to left heart disease (HCC) 02/16/2025 Refill [facility] [address] [place] [address] Cheri Pool NP Nonrheumatic aortic valve disorder, unspecified; Nonrheumatic aortic (valve) stenosis from Last 3 Months Immunizations Immunization Administration Dates Next Due Influenza, injectable, quadr ivalent, preservative free 08/24/2022 Moderna SARS-CoV-2 Vaccination 10/27/2021,2020,01/28/2021 SARS-COV-2 (COVID-19) vaccin e, mRNA, spike protein, LNP, bivalent, PF 08/24/2022 Social History Tobacco Use Types Packs/Day Years Used Date Smoking Tobacco: Never Smokeless Tobacco: Never Tobacco Cessation:Counseling Given: Not Answered Alcohol Use Standard Drinks/Week Comments Not Currently [...] 01/10/2024 How often do you attend chur or congregation services? Never 01/10/2024 Do you belong to any clubs o r organizations such as zoroastrian groups, unions, fraternal or athletic groups, or [...] and heating? Not hard at all 01/10/2024 PHQ-2 Answer Date Recorded Patient Health Questionnaire-2 Score 1 01/13/2025 [facility] - Occupational Stress [...] place to sleep or slept in a half-way (including now)? No 01/10/2024 Comments Unknown Sex and Gender Information Value Date Recorded Sex Assigned at Not on file Legal Sex Female 8:26 PM EDT Gender Identity Not on file Sexual Orientation Not on file Last Filed Vital Signs Vital Sign Reading Time Taken Comments Blood Pressure 128/82 01/13/2025 10:05 AM EDT Pulse 94 01/13/2025 10:05 AM EDT Temperature 36.7 C (98.1 F) 01/13/2025 10:05 AM EDT Respiratory Rate 18 01/13/2025 10:05 AM EDT Oxygen Saturation 97% 01/13/2025 10:05 AM EDT Inhaled Oxygen Concentration - - Weight 74.1 kg (163 lb 6.4 oz) 01/13/2025 10:05 AM EDT Height 157.5 cm (5' 2 ) 07/14/2024 3:09 PM EDT Body Mass Index 29.89 07/14/2024 3:09 PM EDT Plan of Treatment Upcoming Encounters Date Type Department Care Team (Late st Contact Info) Description 07/16/2025 2:40 PM EDT [facility] [address] [place] [address] Cheri Pool, [facility] [address] [place] [address] 01/18/2026 11:00 AM EDT Office Visit [facility] [address] [place] [address] Cheri Pool NP [address] [place] [address] Health Maintenance Due Date Last Done Comments CT Colonography 1965 FIT-DNA 1965 FIT 1965 FOBT 1965 Sigmoidoscopy 1965 Pap Smear 1985 HPV/Cotest 1994 Mammogram 11/10/2025 11/10/2024, 12/2 06/2023, 10/20/2022 Medicare Annual Wellness (AWV) 01/13/2026 0 01/13/2025, 01/13/2025, 01/10/2024, Additional history exists Colonoscopy 01/06/2030 01/07/2020 Colorectal Cancer Screening 01/06/2030 Influenza Vaccine Discontinued 08/24/2022 Cervical Cancer Screening Discontinued Procedures Procedure Name Priority Date/Time Associated Diagnosis Comments MM TOMOSYNTHESIS SCREENING BI 11/10/2024 1:24 PM EST from Last 3 Months or Most Recently Relevant to Health Maintenance Results * MM TOMOSYNTHESIS SCREENING BI (11/10/2024 1:24 PM EST) Anatomical Region Laterality Modality Other 11/10/2024 1:24 PM EST Narrative 11/10/2024 1:25 [place] [address] Mammography Report Signed Patient: ROSA SADLER MR#: [id number] : 1965 Acct:[id number] Age/Sex: 59 / F ADM Date: 11/10/24 Loc: MAMMO Attending Dr: Cheri Pool NP Ordering Physician: Cheri Pool NP Results: Date of Service: 11/10/24 Follow Up: Procedure(s): MM tomosynthesis screening BI Accession Number(s): [id number] cc: Cheri Pool NP Patient Name: ROSA SADLER MR#: [id number] : 1965 Exam Date: 11/10/2024 Ordering Doctor: SARAH Pool CNP RADIOLOGY REPORT PROCEDURE: MM TOMOSYNTHESIS SCREENING BI COMPARISON: MG MAMM SCREEN 3D YARY CAD, 10/24/2022. MM TOMOSYNTHESIS SCREENING BI, 10/25/2023. INDICATIONS: Screening Calculator Name NCI Breast Cancer Risk Assessment Tool 5 Year Breast Cancer Risk 1.60% Lifetime Breast Cancer Risk 8.10% Personal Breast Cancer No Personal Ovarian Cancer No Treatments None Family Cancers Father with lung cancer at age 65; Mother with colon/pancreas cancer at age 69. LOCATION: [facility] BREAST COMPOSITION: The breasts are heterogeneously dense,which may obscure small masses. FINDINGS: DIAGNOSTIC [...] PALPABLE LUMP SHOULD BE BIOPSIED. Dictated by: Francis Perez MD on 11/10/2024 at 13:22 Approved by: Francis Perez MD on 11/10/2024 at 13:24 Dictated By: Francis Perez M.D. Signed By: 11/10/24 1325 DD/ 1324 TD/TT: Esl Tutor: Procedure Note Radiology, Radiologist, MD - 11/10/2024 [place] [address] Mammography Report Signed Patient: ROSA SADLER LMR#: [id number] : 1965Acct:[id number] Age/Sex: 59 / FADM Date: 11/10/24 Loc: MAMMO Attending Dr: Cheri Pool NP Ordering Physician: Cheri Pool NPResults: Date of Service: 11/10/24Follow Up: Procedure(s): MM tomosynthesis screening BI Accession Number(s): [id number] cc: Cheri Pool NP Patient Name: ROSA SADLER MR#: [id number] : 1965 Exam Date: 11/10/2024 Ordering Doctor: SARAH Pool CNP RADIOLOGY REPORT PROCEDURE: MM TOMOSYNTHESIS SCREENING BI COMPARISON: MG MAMM SCREEN 3D YARY CAD, 10/24/2022. MM TOMOSYNTHESIS SCREENING BI, 10/25/2023. INDICATIONS: Screening Calculator Name NCI Breast Cancer Risk Assessment Tool 5 Year Breast Cancer Risk 1.60% Lifetime Breast Cancer Risk 8.10% Personal Breast Cancer No Personal Ovarian Cancer No Treatments None Family Cancers Father with lung cancer at age 65; Mother with colon/pancreas cancer at age 69. LOCATION: [facility] BREAST COMPOSITION: The breasts are heterogeneously dense,which may obscure small masses. FINDINGS: DIAGNOSTIC CATEGORY 2--BENIGN FINDING. NO CHANGE FROM COMPARISON. Scattered benign-appearing nodules are present. Scatteredbenign-appearing calcifications are present. Scattered benign-appearing lymph nodes are present. RIGHT BREAST: No significant suspicious finding. LEFT BREAST: No significant suspicious finding. RECOMMENDATIONS: ROUTINE MAMMOGRAM AND CLINICAL EVALUATION IN 12 MONTHS. PLEASE NOTE: A NORMAL MAMMOGRAM DOES NOT EXCLUDE THE POSSIBILITY OFBREAST CANCER. A CLINICALLY SUSPICIOUS PALPABLE LUMP SHOULD BE BIOPSIED. Dictated by: Francis Perez MD on 11/10/2024 at 13:22 Approved by: Francis Perez MD on 11/10/2024 at 13:24 Dictated By: Francis Perez M.D. Signed By:11/10/24 1325 DD/ 1324 TD/TT: Esl Tutor: Cheri Pool NP [facility] Final Result from Last 3 Months or Most Recently Relevant to Health Maintenance Insurance [employer] MEDICARE Care Teams Collection Systems Modeler Relationship Specialty Start Date End Date Rick Blood MD [address] [place] [address] PCP - General Family Medicine 01/10/24 Cheri Pool NP [address] [place] [address] Referring Physician Family Medicine 10/29/22 Cheri Pool NP [address] [place] [address] Nurse Practitioner Family Medicine 01/10/24
--- OUTSIDE RECORDS SUMMARY | 2025-05-04 06:59 | XMS_ITS | Encounter Summary ---
Author Organization [facility] Address [address] [place] [address] Care Team Providers Care Adjuster And Inspector Name Role Phone Cheri Pool ENAMEL APPLIER Unavailable [phone] Rick Blood MD Primary Care Provider [phone] Cheri Pool ENAMEL APPLIER Unavailable [phone] Encounter Details Date Type Department Care Team (Late st Contact Info) Description 11/10/2024 Clinisync Result Encounter [facility] External Department Unsolicited Cheri Pool, ABIEL [address] [place] [address] Social History Tobacco Use Types Packs/Day Years [...] often do you attend chur ch or episcopalian services? Never 01/10/2024 Do you belong to any clubs o r organizations such as worship groups, unions, fraternal or athletic groups, or [...] and heating? Not hard at all 01/10/2024 [facility] of Occupat ional Health - Occupational Stress [...] Visit [facility] [address] [place] [address] Cheri Pool NP [address] [place] [address] 01/18/2026 11:00 AM EDT Office Visit [facility] [address] [place] [address] Cheri Pool NP [address] [place] [address] documented as of this encounter Procedures Procedure Name Priority Date/Time Associated Diagnosis Comments MM TOMOSYNTHESIS SCREENING BI 11/10/2024 1:24 PM EST documented in this encounter Results * MM TOMOSYNTHESIS SCREENING BI (11/10/2024 1:24 PM EST) Anatomical Region Laterality Modality Other 11/10/2024 1:24 PM EST Narrative 11/10/2024 1:25 PM EST [facility] [place] [id number] Mammography Report Signed Patient: ROSA SADLER MR#: [id number] : 1965 Acct:[id number] Age/Sex: 59 / F ADM Date: 11/10/24 Loc: MAMMO Attending Dr: Cheri Pool NP Ordering Physician: Cheri Pool NP Results: Date of Service: 11/10/24 Follow Up: Procedure(s): MM tomosynthesis screening BI Accession Number(s): [id number] cc: Cheri Pool NP Patient Name: ROSA SADLER MR#: [id number] : 1965 Exam Date: 11/10/2024 Ordering Doctor: [...] colon/pancreas cancer at age 68. LOCATION: [facility] BREAST COMPOSITION: The breasts are heterogeneously dense,which [...] Signed By: 11/10/24 1325 DD/ 1324 TD/TT: Production Control Pegboard Clerk: Procedure Note Radiology, Radiologist, MD - 11/10/2024 [facility] [place] [id number] Mammography Report Signed Patient: ROSA SADLER LMR#: [id number] : 1965Acct:[id number] Age/Sex: 59 / FADM Date: 11/10/24 Loc: MAMMO Attending Dr: Cheri Pool ENAMEL APPLIER Ordering Physician: Cheri Pool NPResults: Date of Service: 11/10/24Follow Up: Procedure(s): MM tomosynthesis screening BI Accession Number(s): [id number] cc: Cheri Pool NP Patient Name: ROSA SADLER MR#: [id number] : 1965 Exam Date: 11/10/2024 Ordering Doctor: SARAH Pool PLACEMENT MANAGER RADIOLOGY REPORT PROCEDURE: MM TOMOSYNTHESIS SCREENING BI [...] colon/pancreas cancer at age 68. LOCATION: [facility] BREAST COMPOSITION: The breasts are heterogeneously dense,which [...] M.D. Signed By:11/10/24 1325 DD/ 1324 TD/TT: Production Control Pegboard Clerk: Cheri Pool NP [facility] Final Result documented in this encounter Visit Diagnoses Not on filedocumented in this encounter Additional Health Concerns Assessment Noted Time PHQ-9 Depression Total Score: 1 01/10/20 4:26 PM EDT documented as of this encounter Care Teams Adjuster And Inspector Relationship Specialty Start Date End Date Rick Blood MD [address] [place] [address] PCP - General Family Medicine 01/10/24 Cheri Pool NP [address] [place] [address] Referring Physician Family Medicine 10/29/22 Cheri Pool NP [address] [place] [address] Nurse Practitioner Family Medicine 01/10/24 documented as of this encounter
--- OUTSIDE RECORDS SUMMARY | 2025-05-04 06:59 | XMS_ITS | Encounter Summary ---
Author Organization [facility] Address [address] [place] [address] Care Team Providers Care Domestic Technician Name Role Phone Cheri Pool MD Primary Care Provider [phone] Reason for Visit * Reason Comments Med Refill Encounter Details Date Type Department Care Team ([facility] st Contact Info) Description 02/13/2024 Refill [facility] [address] [place] [id number] Tiffany Scott, [employer] [address] [place] [phone] Essential (primary) hypertension Social History Tobacco Use Types Packs/Day Years Used Date Smoking Tobacco: Never Smokeless Tobacco: Never Alcohol Use Standard Drinks/Week Comments Yes 0 (1 standard drink = 0.6 oz pur e alcohol) moderate [place] Safety & Environment Answer Date Rec orded Fear of Current or Ex-Partner Not on file Emotionally Abused Not on file 12/20/2023 Physically Abused Not on file 12/20/2023 Sexually Abused Not on file 12/20/2023 Physically or Sexually Abused Not on file Comments Unknown Sex and Gender Information Value Date Recorded Sex Assigned at Not on file Legal Sex Female 12:08 AM EDT Gender Identity Not on file Sexual Orientation Not on file documented as of this encounter Plan of Treatment Not on file documented as of this encounter Visit Diagnoses Diagnosis Essential (primary) hypertension Unspecified essential hypertension documented in this encounter Care Teams Domestic Technician Relationship Specialty Start Date End Date Cheri Pool MD [address] [place] [address] PCP - General 07/08/22 documented as of this encounter
--- OUTSIDE RECORDS SUMMARY | 2025-05-04 06:59 | XMS_ITS | Encounter Summary ---
Author Organization [facility] Address [address] [place] [address] Care Team Providers Care Assembly Machine Offbearer Name Role Phone Cheri Pool LEISURE TRAVEL AGENT Unavailable [phone] Rick Blood MD Primary Care Provider [phone] Cheri Pool LEISURE TRAVEL AGENT Unavailable [phone] Encounter Details Date Type Department Care Team (Late st Contact Info) Description 09/05/2024 Clinisync Result Encounter [facility] External Department Unsolicited Provider, Generic External Data Social History Tobacco Use Types Packs/Day Years [...] Never 01/10/2024 How often do you attend formerly [facility] or sikhism services? Never 01/10/2024 Do you belong to any clubs o r organizations such as alevism groups, unions, fraternal or athletic groups, or [...] and heating? Not hard at all 01/10/2024 [facility] - Occupational [...] place to sleep or slept in a assisted (including now)? No 01/10/2024 Comments Unknown Sex [...] Visit [facility] [address] [place] [address] Cheri Pool NP [address] [place] [address] 01/18/2026 11:00 AM EDT Office Visit [facility] [address] [place] [address] Cheri Pool NP [address] [place] [address] documented as of this encounter Procedures Procedure Name Priority Date/Time Associated Diagnosis Comments CA ECHO DOPPLER COMPLETE 09/05/2024 9:36 PM EST documented in this encounter Results * CA ECHO DOPPLER COMPLETE (09/05/2024 9:36 PM EST) Anatomical Region Laterality Modality Other 09/05/2024 9:36 PM EST Narrative 09/05/2024 9:37 PM EST The [address] [address] Cardiology Report Signed Patient: ROSA SADLER MR#: [id number] : 1965 Acct:[id number] Age/Sex: 58 / F ADM Date: 09/05/24 Loc: CARD Attending Dr: DAISY SMITH Ordering Physician: DAISY SMITH Date of Service: 09/05/24 Procedure(s): CA echo doppler complete Accession Number(s): [id number] cc: Cheri Pool NP; DAISY SMITH Patient Name: ROSA SADLER MR#: [id number] : 1965 Exam Date: 09/05/2024 Ordering Doctor: DR DAISY SMITH M.D. ECHOCARDIOGRAM REPORT PROCEDURE: CA ECHO DOPPLER COMPLETE INDICATIONS: Aortic valve replacement, tissue graft COMPARISON: None. DESCRIPTION: COMPLETE ECHOCARDIOGRAM Real-time transthoracic echocardiography with 2D, M-mode, spectral and color flow Doppler performed. QUALITY: Technical quality was good. LEFT VENTRICLE: Normal chamber size. Normal left ventricular wall thickness. LV EF: Normal left ventricular ejection fraction 55%, no wall motion abnormalities. DIASTOLIC: Indeterminate. ATRIAL SEPTUM: Visually appears intact. LEFT ATRIUM: Normal chamber size. RIGHT ATRIUM: Severe dilatation. RIGHT VENTRICLE: Moderate dilatation. Reduced right ventricular systolic function. TRICUSPID VALVE: Normal mobility and thickness. No stenosis with severe regurgitation. Doppler studies reveal moderately (45-60) elevated right sided pressures.RVSP 57 mmHg MITRAL VALVE: Mildly thickened with normal mobility. No evidence of mitral valve stenosis. Trivial mitral regurgitation. AORTIC VALVE: Bio-Prosthetic valve appears well seated in the aortic position with normal doppler flow. No aortic regurgitation. AORTIC ROOT: Normal diameter and appearance. PULMONIC VALVE: Normal thickness and mobility. No stenosis. No regurgitation. PERICARDIUM: No evidence of pericardial effusion. IVC: IVC is dilated (2.3 cm), less than 50% inspirational collapse.C/W RAP 15 mmHg PLEURA: CONCLUSION: Normal left ventricle chamber size. Normal [...] than 50% inspirational collapse.C/W RAP 15 mmHg Adult Echocardiography Procedure Report Left Ventricle LVEDD (3.7 - 5.6 cm): 3.46 cm LVESD (2.2 - 4.0 cm): 2.56 cm LVIVS thickness (0.6 - 1.2 cm): 0.86 cm LVPW thickness (0.5 - 1.0 cm): 0.90 cm e': 0.14 m/s E - e': 9.38 LVOT Max Gradient: 3.13 mm[Hg] LVOT Area (cm2): 0.88 m/s Peak Velocity (LVOT): 0.88 m/s Mean Velocity (LVOT): 0.57 m/s LVOT Diameter 1.81 cm Left Ventricular Ejection Fraction: Left Atrium LA Volume Index (2D A2C): 35.59 ml/m2 Left Atrium Systolic Dimension: 3.86 cm Mitral Valve MV E to A Ratio: 1.67 MV Max Gradient: MV Mean Gradient: Mitral Valve A-Wave Peak Velocity: 0.78 m/s Mitral Valve E-Wave Peak Velocity: 1.30 m/s Cardiovascular Orifice Area: Right Ventricle RV Internal Diastolic Dimension: Aorta AO Root Diam: 2.46 cm Ascending Ao Diam: 2.66 cm Aortic Valve AoV Area (Peak Lobo): 0.76 cm2, 0.76 cm2 AoV Area (VTI): 0.87 cm2, 0.87 cm2 Deceleration Lea: Pressure Half-Time: Peak Velocity(Antegrade Flow): 3.00 m/s Peak Gradient(Antegrade Flow): 35.96 mm[Hg] Mean Velocity(Antegrade Flow): 2.00 m/s Mean Gradient(Antegrade Flow): 19.34 mm[Hg] Velocity Time Integral: 61.66 cm Tricuspid Valve Peak Velocity (Regurgitant Flow): 3.24 m/s Peak Velocity: Pulmonic Valve Mean Gradient: 1.74 mm[Hg] Mean Velocity: 0.61 m/s Peak Velocity: 0.92 m/s, 0.81 m/s Peak Gradient: 2.61 mm[Hg], 3.41 mm[Hg] Right Atrium Right Atrium volume 71.85 ml, 71.85 ml Dictated by: Rich Hughes MD on 09/05/2024 at 21:22 Approved by: Rich Hughes MD on 09/05/2024 at 21:36 Dictated By: Rich Hughes M.D. Signed By: 09/05/242136 DD/ 35 TD/TT: Bran Mixer: Procedure Note Radiology, MD Janette - 09/05/2024 [place] [address] Cardiology Report Signed Patient: ROSA SADLER LMR#: [id number] : 1965Acct:[id number] Age/Sex: 58 / FADM Date: 09/05/24 Loc: CARD Attending Dr: DAISY SMITH Ordering Physician: DAISY SMITH Date of Service: 09/05/24 Procedure(s): CA echo doppler complete Accession Number(s): [id number] cc: Cheri Pool LEISURE TRAVEL AGENT; DAISY SMITH Patient Name: ROSA SADLER MR#: [id number] : 1965 Exam Date: 09/05/2024 Ordering Doctor: DR DAISY SMITH M.D. ECHOCARDIOGRAM REPORT PROCEDURE: CA ECHO DOPPLER COMPLETE INDICATIONS: Aortic valve replacement, tissue graft COMPARISON: None. DESCRIPTION: COMPLETE ECHOCARDIOGRAM Real-time transthoracic echocardiography with 2D, M-mode, spectral and color flow Dopplerperformed. QUALITY: Technical quality was good. LEFT VENTRICLE: Normal chamber size. Normal left ventricular wall thickness. LV EF: Normal left ventricular ejection fraction 55%, no wall motion abnormalities. DIASTOLIC: Indeterminate. ATRIAL SEPTUM: Visually appears intact. LEFT ATRIUM: Normal chamber size. RIGHT ATRIUM: Severe dilatation. RIGHT VENTRICLE: Moderate dilatation. Reduced right ventricularsystolic function. TRICUSPID VALVE: Normal mobility and thickness. No stenosis withsevere regurgitation. Doppler studies reveal moderately (45-60) elevated rightsided pressures.RVSP 57 mmHg MITRAL VALVE: Mildly thickened with normal mobility. No evidence of mitral valve stenosis. Trivial mitral regurgitation. AORTIC VALVE: Bio-Prosthetic valve appears well seated in the aortic position with normal doppler flow. No aortic regurgitation. AORTIC ROOT: Normal diameter and appearance. PULMONIC VALVE: Normal thickness and mobility. No stenosis. No regurgitation. PERICARDIUM: No evidence of pericardial effusion. IVC: IVC is dilated (2.3 cm), less than 50% inspirational collapse.C/WRAP 15 mmHg PLEURA: CONCLUSION: Normal left ventricle chamber size. Normal left ventricular wallthickness. Normal left ventricular ejection fraction 55%, no wall motion abnormalities. Severe RA dilatation. Moderate right ventricle dilatation. Reduced right ventricular systolic function. Moderately elevated right sided pressures. RVSP 57 mmHg Bio-Prosthetic valve appears well seated in the aortic position withnormal doppler flow.No aortic regurgitation. Severe tricuspid regurgitation IVC is dilated (2.3 cm), less than 50% inspirational collapse.C/W RAP 15mmHg Adult Echocardiography Procedure Report Left Ventricle LVEDD (3.7 - 5.6 cm): 3.46 cm LVESD (2.2 - 4.0 cm): 2.56 cm LVIVS thickness (0.6 - 1.2 cm): 0.86 cm LVPW thickness (0.5 - 1.0 cm): 0.90 cm e': 0.14 m/s E - e': 9.38 LVOT Max Gradient: 3.13 mm[Hg] LVOT Area (cm2): 0.88 m/s Peak Velocity (LVOT): 0.88 m/s Mean Velocity (LVOT): 0.57 m/s LVOT Diameter 1.81 cm Left Ventricular Ejection Fraction: Left Atrium LA Volume Index (2D A2C): 35.59 ml/m2 Left Atrium Systolic Dimension: 3.86 cm Mitral Valve MV E to A Ratio: 1.67 MV Max Gradient: MV Mean Gradient: Mitral Valve A-Wave Peak Velocity: 0.78 m/s Mitral Valve E-Wave Peak Velocity: 1.30 m/s Cardiovascular Orifice Area: Right Ventricle RV Internal Diastolic Dimension: Aorta AO Root Diam: 2.46 cm Ascending Ao Diam: 2.66 cm Aortic Valve AoV Area (Peak Lobo): 0.76 cm2, 0.76 cm2 AoV Area (VTI): 0.87 cm2, 0.87 cm2 Deceleration Lea: Pressure Half-Time: Peak Velocity(Antegrade Flow): 3.00 m/s Peak Gradient(Antegrade Flow): 35.96 mm[Hg] Mean Velocity(Antegrade Flow): 2.00 m/s Mean Gradient(Antegrade Flow): 19.34 mm[Hg] Velocity Time Integral: 61.66 cm Tricuspid Valve Peak Velocity (Regurgitant Flow): 3.24 m/s Peak Velocity: Pulmonic Valve Mean Gradient: 1.74 mm[Hg] Mean Velocity: 0.61 m/s Peak Velocity: 0.92 m/s, 0.81 m/s Peak Gradient: 2.61 mm[Hg], 3.41 mm[Hg] Right Atrium Right Atrium volume 71.85 ml, 71.85 ml Dictated by: Rich Hughes MD on 09/05/2024 at 21:22 Approved by: Rich Hughes MD on 09/05/2024 at 21:36 Dictated By: Rich Hughes M.D. Signed By:09/05/242136 DD/ 35 TD/TT: Bran Mixer: us Generic External Data Provider [facility] Final Result documented in this encounter Visit Diagnoses Not on filedocumented in this encounter Additional Health Concerns Assessment Noted Time PHQ-9 Depression Total Score: 1 01/10/20 24 4:26 PM EDT documented as of this encounter Care Teams Assembly Machine Offbearer Relationship Specialty Start Date End Date Rick Blood MD [address] [place] [address] PCP - General Family Medicine 01/10/24 Cheri Pool NP [address] [place] [address] Referring Physician Family Medicine 10/29/22 Cheri Pool NP [address] [place] [address] Nurse Practitioner Family Medicine 01/10/24 documented as of this encounter
--- NOTE | 2025-05-04 07:00 | CA_ITS ---
Patient Name: JAMIR YORK MR#: [id number] : 1965 Exam Date: 05/04/2025 Ordering Doctor: DR DAISY MANZANO M.D. ECHOCARDIOGRAM REPORT PROCEDURE: CA ECHO DOPPLER COMPLETE INDICATIONS: Tricuspid regurgitation, aortic valve replacement (2018) COMPARISON: None. DESCRIPTION: COMPLETE ECHOCARDIOGRAM Real-time transthoracic echocardiography with 2D, M-mode, spectral and color flow Doppler performed. QUALITY: Technical quality was good. LEFT VENTRICLE: Normal chamber size. Borderline left ventricular hypertrophy. Systolic function is normal. LV EF: Normal left ventricular ejection fraction, (>55%). DIASTOLIC: Grade II diastolic dysfunction. ATRIAL SEPTUM: Visually appears intact. LEFT ATRIUM: Moderate dilatation. RIGHT ATRIUM: Severe dilatation. RIGHT VENTRICLE: Moderate dilatation. Mildly reduced systolic function. TRICUSPID VALVE: Normal mobility and thickness. No stenosis with moderate to severe regurgitation. Doppler studies reveal mildly (35-45) elevated right sided pressures. RVSP 42 mmHg MITRAL VALVE: Mildly thickened with normal mobility. No evidence of mitral valve stenosis. There is no mitral annular calcification. Mild mitral regurgitation. AORTIC VALVE: Bio-Prosthetic valve appears well seated in the aortic position with slightly abnormal doppler flow. DVI 0.25, Mean gradient 18.5 mmHg. No aortic regurgitation. AORTIC ROOT: Normal diameter and appearance, measuring 2.7 cm. Ascending aorta is normal in size, measuring 2.5 cm. PULMONIC VALVE: Normal thickness and mobility. No stenosis. No regurgitation. PERICARDIUM: No evidence of pericardial effusion. IVC: Collapses with inspiration. IVC is normal in size. PLEURA: CONCLUSION: 1. Borderline left ventricular hypertrophy with normal systolic function. LVEF is estimated at 55 to 60%. 2. Moderately dilated right ventricle with mildly reduced systolic function. 3. Moderate left atrial and severe right atrial dilatation. 4. Bioprosthetic aortic valve is well-seated with slightly increased Doppler flows and no regurgitation. 5. Moderate to severe tricuspid regurgitation. 6. Mildly elevated right-sided pressures. RVSP is 42 mmHg. Adult Echocardiography Procedure Report Left Ventricle LVEDD (3.7 - 5.6 cm): 3.85 cm LVESD (2.2 - 4.0 cm): 2.60 cm LVIVS thickness (0.6 - 1.2 cm): 0.95 cm LVPW thickness (0.5 - 1.0 cm): 1.19 cm e': 0.09 m/s E - e': 13.34 LVOT Max Gradient: 2.26 mm[Hg], 1.80 mm[Hg] Peak Velocity (LVOT): 0.75 m/s, 0.67 m/s LVOT Diameter 1.85 cm Left Atrium LA Volume Index (2D A2C): 41.82 ml/m2 Left Atrium Systolic Dimension: 3.66 cm Mitral Valve MV E to A Ratio: 1.23 Mitral Valve A-Wave Peak Velocity: 0.94 m/s Mitral Valve E-Wave Peak Velocity: 1.15 m/s Right Ventricle Aorta AO Root Diam: 2.67 cm Ascending Ao Diam: 2.52 cm Aortic Valve AoV Area (Peak Lobo): 0.68 cm2, 0.68 cm2, 0.70 cm2 AoV Area (VTI): 0.74 cm2, 0.74 cm2, 0.77 cm2 Peak Velocity(Antegrade Flow): 2.96 m/s, 2.58 m/s Peak Gradient(Antegrade Flow): 34.93 mm[Hg], 26.72 mm[Hg] Mean Velocity(Antegrade Flow): 2.01 m/s, 1.89 m/s Mean Gradient(Antegrade Flow): 18.50 mm[Hg], 15.93 mm[Hg] Velocity Time Integral: 69.93 cm, 65.14 cm Tricuspid Valve Peak Velocity (Regurgitant Flow): 2.39 m/s, 2.79 m/s, 2.76 m/s, 3.14 m/s Pulmonic Valve Peak Gradient: 2.40 mm[Hg], 2.54 mm[Hg] Right Atrium Right Atrium Systolic Pressure: 96.93 ml, 96.93 ml Dictated by: Daisy Manzano M.D. on 05/04/2025 at 20:09 Approved by: Daisy Manzano M.D. on 05/04/2025 at 20:19
== END 2025-05-04 06:57 | disposition home or self-care (01) ==
LOC: CARD 06:57
PROVIDERS: PCP Nurse Practitioner; Visit Provider Internal Medicine Interventional Cardiology
DX: I36.1 Nonrheumatic tricuspid (valve) insufficiency (principal); Z95.3 Presence of xenogenic heart valve; I27.22 Pulmonary hypertension due to left heart disease
CPT/HCPCS: 93306

== ENCOUNTER 2025-06-02 09:50 | Outpatient (OUT) | payer MEDICARE, SELFPAY ==
[2025-06-02 10:34] LABS: Hematocrit 40.8 % (36.0-48.0); Hemoglobin 14.1 g/dL (12.0-16.0); Immature Granulocytes Abs Auto 0.01 10^3/uL (0.00-0.03); Immature Granulocytes Pct Auto 0.2 % (0.0-0.5); Lymphocytes Absolute Auto 1.4 10^3/uL (1.2-3.8); Mean Corpuscular HGB Conc 34.6 g/dL (29.9-35.2); Mean Corpuscular Hemoglobin 33.3 pg (26.7-34.0); Mean Corpuscular Volume 96.5 fL (81.0-99.0); Platelet Count 213 10^3/uL (150-450); Red Blood Count 4.23 10^6/uL (4.20-5.40); White Blood Count 4.6 10^3/uL (4.0-11.0)
[2025-06-02 11:06] LABS: Alanine Aminotransferase 43 U/L (14-59); Albumin Globulin Ratio 0.8; Albumin Level 3.7 g/dL (3.4-5.0); Alkaline Phosphatase 115 U/L (46-116); Anion Gap 11.1; Aspartate Amino Transferase 36 U/L (15-37); Blood Urea Nitrogen 9.0 mg/dL (7.0-18.0); Calcium 9.4 mg/dL (8.5-10.1); Carbon Dioxide 29.1 mmol/L (21.0-32.0); Chloride 104 mmol/L (98-107); Cholesterol 195 mg/dL (<=200); Estimated GFR (African America >60 (>=60 mL/min/1.73m^2); Estimated GFR (Non-African Ame >60 (>=60 mL/min/1.73m^2); Globulin 4.5 g/dL; Glucose 92 mg/dL (74-106); HDL Cholesterol 68 mg/dL (40-60); Potassium 4.2 mmol/L (3.5-5.1); Sodium 140 mmol/L (136-145); Thyroid Stimulating Hormone 1.909 uIU/mL (0.358-3.740); Total Protein 8.2 g/dL (6.4-8.2); Triglycerides 120 mg/dL (<=150); VLDL CHOLESTEROL 24.0 mg/dL
[2025-06-02 11:11] LABS: Glucose Urine UA NEGATIVE (NEGATIVE)
[2025-06-02 11:55] LABS: Cast Seen? NONE SEEN #/LPF (NONE SEEN); Crystals Seen? None Seen #/HPF (None Seen)
== END 2025-06-02 09:51 | disposition home or self-care (01) ==
LOC: LAB 09:53
PROVIDERS: PCP Nurse Practitioner; Visit Provider Nurse Practitioner
DX: G47.33 Obstructive sleep apnea (adult) (pediatric) (principal); I10 Essential (primary) hypertension; E78.2 Mixed hyperlipidemia; E03.9 Hypothyroidism, unspecified
CPT/HCPCS: 36415; 80053; 80061; 81001; 82043; 82570; 84439; 84443; 85025

== ENCOUNTER 2025-08-10 09:42 | Outpatient (OUT) | payer MEDICARE, SELFPAY ==
--- OUTSIDE RECORDS SUMMARY | 2025-08-10 09:50 | XMS_ITS | CCD ---
Author Organization [facility] Care Team Providers Care Retail Security Professional Name Role Phone UNKNOWN, PROVIDER Attending Unavailable AICHHOLZ, CHERI Primary Care Unavailable AICHHOLZ, CHERI Referring Unavailable UNKNOWN, PROVIDER Admitting Unavailable AICHHOLZ, DEVOPS DEVELOPER CHERI Admitting Unavailable AICHHOLZ, DEVOPS DEVELOPER CHERI Attending Unavailable AICHHOLZ, DEVOPS DEVELOPER CHERI Primary Care Unavailable AICHHOLZ, DEVOPS DEVELOPER CHERI Consulting Unavailable AICHHOLZ, DEVOPS DEVELOPER CHERI Admitting Unavailable AICHHOLZ, DEVOPS DEVELOPER CHERI Attending Unavailable AICHHOLZ, DEVOPS DEVELOPER CHERI Primary Care Unavailable AICHHOLZ, DEVOPS DEVELOPER CHERI Consulting Unavailable MAHOGANY, OLGA Admitting Unavailable MAHOGANY, OLGA Attending Unavailable AICHHOLZ, DEVOPS DEVELOPER CHERI Primary Care Unavailable AICHHOLZ, DEVOPS DEVELOPER CHERI Referring Unavailable MAHOGANY, OLGA Consulting Unavailable AICHHOLZ, DEVOPS DEVELOPER CHERI Admitting Unavailable AICHHOLZ, DEVOPS DEVELOPER CHERI Attending Unavailable AICHHOLZ, DEVOPS DEVELOPER CHERI Primary Care Unavailable AICHHOLZ, DEVOPS DEVELOPER CHERI Consulting Unavailable AICHHOLZ, DEVOPS DEVELOPER CHERI Admitting Unavailable AICHHOLZ, DEVOPS DEVELOPER CHERI Attending Unavailable AICHHOLZ, DEVOPS DEVELOPER CHERI Primary Care Unavailable AICHHOLZ, DEVOPS DEVELOPER CHERI Admitting Unavailable AICHHOLZ, DEVOPS DEVELOPER CHERI Attending Unavailable AICHHOLZ, DEVOPS DEVELOPER CHERI Primary Care Unavailable DR JOSSE GODFREY V Consulting Unavailable AICHHOLZ, DEVOPS DEVELOPER CHERI Consulting Unavailable Aichholz BID CLERK, Cheri Unavailable Rick Blood MD Primary Care Provider [phone] Aichholz BID CLERK, Cheri Unavailable Rick Blood MD Primary Care Provider [phone] Aichholz BID CLERK, Cheri Unavailable AICHHOLZ, CHERI Attending Unavailable AICHHOLZ, CHERI Attending Unavailable Aichholz Cheri MAYES Primary Care Provider Cheri Zhao Attending Provider [phone] DAISY SMITH Referring Unavailable DAISY SMITH Admitting Unavailable DAISY SMITH Attending Unavailable DAISY SMITH Referring Unavailable LEIGH HUGHES Attending Unavailable DAISY SMITH Attending Unavailable DAISY SMITH Attending Unavailable HERNAN GANDHI Attending Unavailable DAISY SMITH Referring Unavailable Medications Current Medications Medication Drug Class(es) Dates Sig (Normalized) Sig (Original) aspirin 81 mg delayed release oral tablet (14 sources) Platelet Aggregation Inhibitor, Nonsteroidal Anti-inflammatory Drug Start: 11-22-2024 End: 05-18-2025 take 2 tablets by mouth once daily aspirin ([facility] Aspirin Low Dose) 81 MG EC tablet Indications: Nonrheumatic aortic valve disorder, unspecified , Nonrheumatic aortic (valve) stenosis Take 2 tablets (162 mg) by mouth Daily 180 tablet 3 02/17/2025 05/18/2025 Active Start: 08-31-2024 take 1 tablet by maría th once daily Aspirin 81 mg tablet,delayed release (DR/EC) Active 81 MG PO Daily August 31, 2024 12:00am Complies with drug therapy Start: 06-03-2024 End: 09-01-2024 take 2 tablets [...] mouth in the morning. 0 Active atorvastatin 20 mg oral tablet (20 sources) HMG-CoA Reductase Inhibitor Start: 06-10-2025 End: 09-08-2025 take 1 tablet by mouth once daily in the evening Atorvastatin 20 mg tablet Active 20 MG PO Every evening July 15, 2025 12:00am Complies with drug therapy Start: 01-10-2024 End: 07-15-2025 take 1 tablet by mouth in the evening atorvastatin (Lipitor) 10 MG tablet Indications: Mixed hyperlipidemia Take 1 tablet (10 mg) by mouth in the evening 90 tablet 1 01/13/2025 06/10/2025 Discontinued (Reorder) take 1 tablet by maría th in the morning atorvastatin (Lipitor) 10 MG tablet Take 10 mg by mouth in the morning. 0 Active escitalopram 10 mg oral tablet (18 sources) Serotonin Reuptake Inhibitor Start: 08-25-2024 End: 04-13-2025 take 1 tablet by mouth once daily escitalopram (Lexapro) 10 MG tablet Indications: Anxiety Take 1 tablet (10 mg) by mouth Daily 90 tablet 1 01/13/2025 Active Start: 01-10-2024 take 1 tablet by maría th once daily escitalopram (Lexapro) 10 MG tablet Indications: Anxiety Take 1 tablet (10 mg) by mouth Daily 90 tablet 1 01/10/2024 Active take 1 tablet by maría th in the morning escitalopram (Lexapro) 10 MG tablet Take 10 mg by mouth in the morning. 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 [facility] Cardiology. 07/14/2024 Discontinued (Therapy completed) levothyroxine sodium 0.05 mg oral tablet (18 sources) l-Thyroxine Start: 08-31-2024 take 1 tablet by mouth once daily Levothyroxine 50 mcg tablet Active 50 MCG PO Daily August 30, 2024 11:00pm Start: 08-31-2024 take 50 ug by mouth once daily Levothyroxine Active 50 MCG PO Daily August 30, 2024 11:00pm Start: 08-25-2024 End: 04-13-2025 take 1 tablet by mouth before mealtime levothyroxine (Synthroid, Levoxyl) 50 MCG tablet Indications: Hypothyroidism (acquired) Take 1 tablet (50 mcg) by mouth in the morning. Take before meals. 90 tablet 1 01/13/2025 Active Start: 12-06-2023 End: 03-05-2024 take 1 tablet by mouth before mealtime levothyroxine (Synthroid) 50 MCG tablet Indications: Hypothyroidism (acquired) (CMS/HCC) Take 1 tablet (50 mcg) by mouth in the morning. Take before meals. 90 tablet 1 01/10/2024 Active 24 hr metoprolol succinate 50 mg extended release oral tablet (18 sources) beta-Adrenergic Josiane Start: 08-31-2024 take 1 tablet by mouth once daily Metoprolol Succinate 50 mg tablet extended release 24 hr Active 50 MG PO Daily August 31, 2024 12:00am Complies with drug therapy Start: 08-31-2024 take 50 mg by mouth once daily Metoprolol Succinate Active 50 MG PO Daily August 30, 2024 11:00pm [facility]four hours in the morning metoprolol succinate XL (Toprol-XL) 50 MG 24 hr tablet Take 50 mg by mouth in the morning. Do not crush or chew.. Active omeprazole 20 mg delayed release oral capsule (19 sources) Proton Pump Inhibitor Start: 08-31-2024 take 20 mg by mouth once daily Omeprazole Active 20 MG PO Daily August 30, 2024 11:00pm Start: 08-28-2024 take 1 capsule by mo [facility] once daily omeprazole (PriLOSEC) [address] capsule Indications: Esophageal reflux Take 1 capsule (20 mg) by mouth Daily 90 capsule 1 01/13/2025 Active Start: 07-25-2024 take 1 capsule by [facility] once daily omeprazole (PriLOSEC) [address] capsule Indications: Esophageal reflux TAKE 1 CAPSULE BY MOUTH EVERY DAY 90 capsule 1 07/25/2024 Active Start: 11-04-2023 End: 08-28-2024 take 1 capsule by mouth once daily omeprazole (PriLOSEC) [address] capsule Indications: Esophageal reflux Take 1 capsule (20 mg) by mouth Daily 90 capsule 1 08/28/2024 Active Omeprazole 20 mg capsule,delayed release(DR/EC) (1 source) Start: 08-31-2024 take 1 capsule by mouth once daily Omeprazole 20 mg capsule,delayed release(DR/EC) Active 20 MG PO Daily August 30, 2024 11:00pm spironolactone 25 mg oral tablet (9 sources) Aldosterone Antagonist Start: 12-23-2024 Spironolactone 25 mg tablet Active MG PO December 23, 2024 1:00am Complies with drug therapy Start: 10-20-2024 End: 10-20-2025 spironolactone (Aldactone) 2 5 MG tablet Take 12.5 mg by mouth in the morning. 10/20/2024 10/20/2025 Active Completed/Discontinued Medications Medication Drug Class(es) Dates Sig (Normalized) Sig (Original) cephalexin 500 mg oral capsule (3 sources) Cephalosporin Antibacterial Start: 08-31-2024 End: 12-23-2024 take 1 capsule by mouth three times daily Cephalexin 500 mg capsule Discontinued 500 MG PO Three times daily 18 05August 31, 2024 12:00am December 23, 2024 11:27am doxycycline hyclate 100 mg oral capsule (2 sources) Tetracycline-class Drug Start: 12-23-2024 End: 07-15-2025 take 1 capsule by mouth twice daily Doxycycline Hyclate 100 mg capsule Discontinued 100 MG PO Twice daily 17 08December 23, 2024 1:00am July 15, 2025 2:58pm sulfamethoxazole 800 mg / trimethoprim 160 mg oral tablet (3 sources) Dihydrofolate Reductase Inhibitor Antibacterial, Sulfonamide Antimicrobial Start: 08-31-2024 End: 07-15-2025 take 1 tablet by mouth every twelve hours Sulfamethoxazole- Trimethoprim 800-160 mg tablet Discontinued 1 TAB PO Every 12 hours 14 7 August 31, 2024 12:00am July 15, 2025 2:58pm Problems Active Problems Problem Classification Problem Date Documented Date Episodic/Chronic Anxiety disorders (20 sources) Anxiety; Translations: [Anxiety disorder, unspecified] Onset: 12-06-2023 12-06-2023 Chronic Congestive heart failure; nonhypertensive (6 sources) Chronic diastolic heart failure; Translations: [Chronic diastolic (congestive) heart failure] Onset: 11-03-2024 01-13-2025 Chronic Disorders of lipid metabolism (20 sources) Hyperlipidemia, unspecified; Translations: [Mixed hyperlipidemia] Onset: 12-27-2022 10-09-2023 Chronic Esophageal disorders (20 sources) Gastroesophageal reflux disease without esophagitis; Translations: [Gastro-esophageal reflux disease without esophagitis] Onset: 10-09-2023 10-09-2023 Chronic Essential hypertension (20 sources) Essential (primary) hypertension; Translations: [Essential hypertension] Onset: 07-08-2022 Chronic Fluid and electrolyte disorders (17 sources) Hyponatremia; Translations: [Hypo-osmolality and hyponatremia] Onset: 12-06-2023 12-06-2023 Episodic Heart valve disorders (20 sources) Presence of other heart-valve replacement; Translations: [Rheumatic tricuspid insufficiency] Onset: 03-21-2022 Chronic Other ear and sense organ disorders (16 sources) Hearing loss; Translations: [Unspecified hearing loss, unspecified ear] Onset: 12-06-2023 12-06-2023 Chronic Other nutritional; endocrine; and metabolic disorders (7 sources) Body mass index 25-29 - overweight; Translations: [Overweight] Onset: 01-13-2025 01-13-2025 Episodic Other screening for suspected conditions (not mental disorders or infectious disease) (20 sources) Other specified abnormal findings of blood chemistry; Translations: [Abnormal results of thyroid function studies] Onset: 10-24-2022 Episodic Other upper respiratory disease (16 sources) Allergic rhinitis; Translations: [Allergic rhinitis, unspecified] Onset: 12-06-2023 12-06-2023 Chronic Other upper respiratory infections (1 source) Acute maxillary sinusitis; Translations: [Acute maxillary sinusitis, unspecified] 12-23-2024 Episodic Peritonitis and intestinal abscess (2 sources) Abdominal abscess; Translations: [Peritoneal abscess] 08-31-2024 Episodic Pulmonary heart disease (20 sources) Pulmonary hypertension due to left heart disease; Translations: [Pulmonary hypertension due to left heart disease] Onset: 09-18-2022 Resolved: 01-13-2025 12-06-2023 Chronic Residual codes; unclassified (4 sources) Obstructive sleep apnea (adult) (pediatric); Translations: [OBSTRUCTIVE SLEEP APNEA] Onset: 02-19-2023 Chronic Residual codes; unclassified (19 sources) Obstructive sleep apnea syndrome; Translations: [Obstructive sleep apnea (adult) (pediatric)] Onset: 12-06-2023 12-06-2023 Chronic Residual codes; unclassified (6 sources) Menopause present; Translations: [Asymptomatic menopausal state] Onset: 01-13-2025 01-13-2025 Episodic Thyroid disorders (20 sources) Acquired hypothyroidism; Translations: [Hypothyroidism, unspecified] Onset: 10-09-2023 10-09-2023 Chronic Past or Other Problems Problem Classification Problem Date Documented Da te Episodic/Chronic Mood disorders (14 sources) Mood disorders Onset: 01-10-2024 Resolved: 01-13-2025 01-10-2024 Other nutritional; endocrine; and metabolic disorders (17 sources) Body mass index 30+ - obesity; Translations: [Obesity, unspecified] Onset: 10-09-2023 Resolved: 01-13-2025 10-09-2023 Chronic Other nutritional; endocrine; and metabolic disorders (15 sources) Obesity caused by energy imbalance; Translations: [Other obesity due to excess calories] Onset: 10-09-2023 Resolved: 10-09-2023 10-09-2023 Chronic Residual codes; unclassified (1 source) Family history of malignant neoplasm, unspecified; Translations: [FAM HX MALIGNANT NEOPLASM UNS] Onset: 10-27-2022 Episodic Results Test Name Value Interpretation Reference Range Facility ALL CBC WITH AUTO DIFFon BASOPHILS ABSOLUTE AUTO 0.1 [facility] Basophils/100 WBC (Bld) 1.3 % 0.2 - 2.0 % [facility] Eosinophils/100 WBC (Bld) 2.2 % 0.9 - 7.0 % [facility] Erythrocyte distribution width (RBC) [Ratio] 11.9 % 11.0 - 15.0 % [facility] Hematocrit (Bld) [Volume fraction] 40.8 % 36.0 - 48.0 % [facility] Hemoglobin (Bld) [Mass/Vol] 14.1 g/dL 12.0 - 16.0 g/dL [facility] IMMATURE GRANULOCYTES ABS AUTO 0.01 [facility] Immature granulocytes/100 WBC (Bld) 0.2 % 0.0 - 0.5 % [facility] LYMPHOCYTES [facility]OL[facility] Lymphocytes/100 WBC (Bld) 29.7 % 20.5 - 60.0 % [facility] MCH (RBC) [Entitic mass] 33.3 pg 26.7 - 34.[address] [facility] MCHC (RBC) [Mass/Vol] 34.6 g/dL 29.9 - 35.2 g/dL [facility] MCV (RBC) [Entitic vol] 96.5 fL 81.0 - 99.[address] [facility] MONOCYTES ABSOLUTE AUTO 0.[address] [facility] Monocytes/100 WBC (Bld) 9.9 % 1.7 - 12.0 % [facility] NEUTROPHILS ABSOLUTE AUTO 2.[address] [facility] Neutrophils/100 WBC (Bld) 56.7 % 43.0 - 75.0 % [facility] Platelet mean volume (Bld) [Entitic vol] 10.2 fL 9.5 - 13.[address] [facility] TBH EO # 0.1 [facility] TBH PLT 213 [facility] TB RBC 4.[address] [facility] TB WBC 4.6 [facility] Office Visiton 06-01-2025 Follow-up visit [id number] Rosa Sadler 1965 Date Provider Department Center 06/01/2025 Saul-DAISY SMITH CARD [facility] Family History Problem Relation Age of Onset No Known Problems Mother No Known Problems Father Family Status - Relation Status Age at Mother Father Level of Service:92020 HI OFFICE/OUTPATIENT ESTABLISHED LOW MDM 20 MIN Normal [facility] Results Follow-Upon 05-23-20 Results Follow-Up [id number] Rosa Sadler 1965 F Date Provider Department Center 05/23/2025 [facility]ARD [facility] Family History Problem Relation Age of Onset No Known Problems Mother No Known Problems Father Family Status - Relation Status Age at Mother Father Normal [facility] ANESon 05-22-2025 ANES -- Attestation signed by Taniya Hare MD at 05/28/2025 2:39 PM By using the attestations below, the signing clinician agrees that I have read and verify that the documentation has been personally reviewed by me and ensure that the documentation accurately reflects the encounter. GC: I personally saw this patient on the day of the encounter with Dr. Aviles, performed the bhatia portion(s) of the service and participated in the management and confirm the resident's documentation. Please note there may be an additional personal documentation from me. Patient: Rosa Sadler Procedure Information Date/Time: 05/22/25 0900 Procedure: TRANSESOPHAGEAL ECHO (LUIS) Location: [facility] Vascular Lab Clinical information reviewed: Allergies Meds Physical Exam Airway Mallampati: III TM distance: >3 FB Cardiovascular Rhythm: regular Rate: normal (+) murmur (-) peripheral edema Dental Pulmonary Breath sounds clear to auscultation Neurological Abdominal Anesthesia Plan ASA 3 (Conscious moderate sedation) Anesthetic plan and risks discussed with patient. Use of blood products discussed with patient who consented to blood products. Plan discussed with attending. Additional Equipment Requests Normal [facility] BASIC METABOLIC PANELon 04-29 Anion gap [Moles/Vol] 12 mmol/L Normal 7-20 [facility] Comment on above: Performed By: #### L [id number] ####[facility] HOSPITAL LAB (BEAKER)[address] [place] [address] Calcium [Mass/Vol] 9.5 mg/dL Normal 8.6-10.3 [facility] Comment on above: Performed By: #### L [id number] ####[facility] (BEAKER)[address] [place] [address] Chloride [Moles/Vol] 102 mmol/L Normal 98-107 [facility] Comment on above: Performed By: #### L [id number] ####[facility] ([facility] [place] [address] CO2 [Moles/Vol] 29 mmol/L Normal 21-31 [facility] Comment on above: Performed By: #### L [id number] ####[facility] ([facility])[address] [place] [address] Creatinine [Mass/Vol] 0.60 mg/dL Normal 0.60-1.20 [facility] Comment on above: Performed By: #### L [id number] ####[facility] ([facility])[address] [place] [address] GLOMERULAR FILTRATION RATE ML/MIN/1.73 SQ M.PREDICTED 102.7 mL/min/1.73m*2 Normal >60.0 [facility] Comment on above: Result Comment: The [facility]???s estimated glomerular filtration rate (eGFR) will no longer include consideration of race in its calculation. The National Kidney Foundation???s eGFR Task Force developed new recommendations for the estimation of the glomerular filtration rate in the [place] They recommend immediate implementation of the new equation refit without the race variable in all laboratories because the calculation does not include race. In addition to not including race in the calculation and reporting, it included diversity in its development, and has acceptable performance characteristics and potential consequences that do not disproportionately affect any one group of individuals. Performed By: #### L [id number] ####[facility] ([facility])[address] [place] [address] Glucose [Mass/Vol] 90 mg/dL Normal 70-100 [facility] Comment on above: Performed By: #### L [id number] ####[facility] (BEAKER)[address] [place] [address] Potassium [Moles/Vol] 4.1 mmol/L Normal 3.5-5.1 [facility] Comment on above: Performed By: #### L [id number] ####[facility] (BEAKER)[address] [place] [address] Sodium [Moles/Vol] 139 mmol/L Normal 136-145 [facility] Comment on above: Performed By: #### L [id number] ####[facility] ([facility])[address] [place] [address] Urea nitrogen [Mass/Vol] 9 mg/dL Normal 7-25 [facility] Comment on above: Performed By: #### L [id number] ####[facility] ([facility])[address] [place] [address] UREA NITROGEN/CREATININE (MASS RATIO) IN SER/PLAS 15.0 Normal [facility] Comment on above: Performed By: #### L [id number] ####[facility] ([facility])[address] [place] [address] CBC WITH AUTO DIFFERENTIALon 05-22-2025 Basophils (Bld) [#/Vol] 0.07 10*3/uL Normal 0.00-0.20 [facility] Comment on above: Performed By: #### L [id number] ####[facility] (BEAKER)[address] [place] [address] Basophils/100 WBC (Bld) 1.1 % High 0.0-1.0 [facility] Comment on above: Performed By: #### L [id number] ####[facility] (BEAKER)[address] [place] [address] Eosinophils (Bld) [#/Vol] 0.10 10*3/uL Normal 0.00-0.50 [facility] Comment on above: Performed By: #### L [id number] ####[facility] (BEAKER)[address] [facility] [place] [address] Eosinophils/100 WBC (Bld) 1.6 % Normal 0.0-6.0 [facility] Comment on above: Performed By: #### L [id number] ####[facility] ([facility])[address] [place] [address] Erythrocyte distribution width (RBC) [Ratio] 11.9 % Normal 11.5-15.0 [facility] Comment on above: Performed By: #### L [id number] ####[facility] ([facility])[address] [place] [address] ERYTHROCYTE MEAN CORPUSCULAR HEMOGLOBIN CONCENTRATION (G/DL) BY AUTOMATED 34.5 g/dL Normal 32.0-35.0 [facility] Comment on above: Performed By: #### L [id number] ####[facility] ([facility])[address] [place] [address] Hematocrit (Bld) [Volume fraction] 41.5 % Normal 36.0-45.0 [facility] Comment on above: Performed By: #### L [id number] ####[facility] ([facility])[address] [place] [address] Hemoglobin (Bld) [Mass/Vol] 14.3 g/dL Normal 12.0-15.0 [facility] Comment on above: Performed By: #### L [id number] ####[facility] ([facility])[address] [place] [address] Immature granulocytes (Bld) [#/Vol] 0.02 10*3/uL Normal 0.00-0.20 [facility] Comment on above: Performed By: #### L [id number] ####[facility] (BEAKER)[address] [place] [address] Immature granulocytes/100 WBC (Bld) 0.3 % Normal 0.0-1.0 [facility] Comment on above: Performed By: #### L [id number] ####[facility] (BEAKER)[address] [place] [address] Lymphocytes (Bld) [#/Vol] 1.57 10*3/uL Normal 1.20-4.00 [facility] Comment on above: Performed By: #### L [id number] ####[facility] ([facility])[address] [place] [address] Lymphocytes/100 WBC (Bld) 25.5 % Normal 20.0-45.0 [facility] Comment on above: Performed By: #### L [id number] ####[facility] ([facility])[address] [place] [address] MCH (RBC) [Entitic mass] 33.5 pg High 27.0-33.0 [facility] Comment on above: Performed By: #### L [id number] ####[facility] ([facility])[address] [place] [address] MCV (RBC) [Entitic vol] 97.2 fL Normal 82.0-98.0 [facility] Comment on above: Performed By: #### L [id number] ####[facility] ([facility])[address] [place] [address] Monocytes (Bld) [#/Vol] 0.48 10*3/uL Normal 0.10-1.00 [facility] Comment on above: Performed By: #### L [id number] ####[facility] ([facility])[address] [place] [address] Monocytes/100 WBC (Bld) 7.8 % Normal 5.0-12.0 [facility] Comment on above: Performed By: #### L [id number] ####[facility] ([facility])[address] [place] [address] Neutrophils (Bld) [#/Vol] 3.92 10*3/uL Normal 1.60-7.60 [facility] Comment on above: Performed By: #### L [id number] ####[facility] (BEAKER)[address] [place] [address] Neutrophils/100 WBC (Bld) 63.7 % Normal 40.0-72.0 [facility] Comment on above: Performed By: #### L [id number] ####[facility] (BEAKER)[address] [place] [address] NRBC (PER 100 WBCS) BY AUTOMATED COUNT 0.0 % Normal 0 [facility] Comment on above: Performed By: #### L [id number] ####[facility] ([facility])[address] [place] [address] PLATELETS (10*3/UL) IN BLOOD AUTOMATED COUNT 203 10*3/uL Normal 150-400 [facility] Comment on above: Performed By: #### L [id number] ####[facility] (BEAKER)[address] [place] [address] RBC (Bld) [#/Vol] 4.27 10*6/uL Normal 3.80-5.00 [facility] Comment on above: Performed By: #### L [id number] ####[facility] ([facility])[address] [place] [address] WBC (Bld) [#/Vol] 6.16 10*3/uL Normal 4.00-10.60 [facility] Comment on above: Performed By: #### L [id number] ####[facility] ([facility])[address] [place] [address] HPon 05-22-2025 HP -- Attestation signed by Taniya Hare MD at 05/28/2025 2:39 PM By using the attestations below, the signing clinician agrees that I have read and verify that the documentation has been personally reviewed by me and ensure that the documentation accurately reflects the encounter. GC: I personally saw this patient on the day of the encounter with Dr. Aviles, performed the bhatia portion(s) of the service and participated in the management and confirm the resident's documentation. Please note there may be an additional personal documentation from me. History Of Present Illness Rosa Sadler is a 59 y.o. female here for follow up after her clinic visit with Dr Smith on 12/08/24. She has a h/o aortic stenosis s/p bioprosthetic aortic valve, pulmonary HTN, and tricuspid regurgitation, noted as severe TR on last LUIS in 10/21. She is here for LUIS for evaluation for severe TR and evaluation of prosthetic AV. Past Medical History She has a past medical history of Deafness, Heart valve disease, Hyperlipidemia, Hypertension, and Pulmonary hypertension (CMS/HCC). Surgical History She has a past surgical history that includes Hysterectomy; Cardiac valve replacement; and Cardiac catheterization. Social History She reports that she has never smoked. She has never used smokeless tobacco. She reports current alcohol use. She reports that she does not use drugs. Allergies Patient has no known allergies. Medications Prescriptions Prior to Admission[1] Transesophageal echo (LUIS) 10/20/2024 [id number] Final Review of Systems HENT: Negative. Respiratory: Negative. Cardiovascular: Negative. Gastrointestinal: Negative. Physical Exam Constitutional: Comments: Decreased hearing Cardiovascular: Rate and Rhythm: Normal rate and regular rhythm. Heart sounds: Murmur heard. Pulmonary: Effort: Pulmonary effort is normal. Breath sounds: Normal breath sounds. Musculoskeletal: Right lower leg: No edema. Left lower leg: No edema. Neurological: General: No focal deficit present. Mental Status: She is oriented to person, place, and time. Last Recorded Vitals Blood pressure 136/64, pulse 75, resp. rate 17, SpO2 95%. Relevant Results CBC, BMP wnl Assessment/Plan Active Problems: There are no active Hospital Problems. Plan: - proceed with LUIS for evaluation of aortic and tricuspid valves Eliot Aviles MD Diesel Power Mechanic, PGY-4 [facility] 05/22/25 10:36 AM [1] (Not in a hospital admission) Normal [facility] NURSNOTEon 05-22-2025 NURSNOTE RN educated pt on d/ c instructions. This included: site care, limited physical activity, resume normal diet, future appointments, medications, and moderate sedation instructions. RN educated pt on when to notify physician and when to go to the hospital. RN encouraged pt to voice any questions or concerns, and answered any questions or concerns if pt verbalized. [facility] NURSNOTE RN educated pt on d/ c instructions. This included: site care, limited physical activity, resume normal diet, future appointments, medications, and moderate sedation instructions. RN educated pt on when to notify physician and when to go to the hospital. RN encouraged pt to voice any questions or concerns, and answered any questions or concerns if pt verbalized. Pt was wheeled off of unit with all of belongings. [facility] NURSNOTE Bedside swallow stud y completed and passed. [facility] Telephoneon 05-20-2025 Telephone [id number] Rosa Sadler 1965 F Date Provider Department Center 05/20/2025 JOEL DAS [facility] VASC LAB TX HeartVAS Family History Problem Relation Age of Onset No Known Problems Mother No Known Problems Father Family Status - Relation Status Age at Mother Father [facility] CA ECHO DOPPLER COMPLETEon 0 05-04-2025 [place] [address] Cardiology Report Signed Patient: ROSA SADLER MR#: [id number] : 1965 Acct:[id number] Age/Sex: 59 / F ADM Date: 05/04/25 Loc: CARD Attending Dr: DAISY SMITH Ordering Physician: DAISY SMITH Date of Service: 05/04/25 Procedure(s): CA echo doppler complete Accession Number(s): [id number] cc: Cheri Pool NP; DAISY SMITH Patient Name: ROSA SADLER MR#: [id number] : 1965 Exam Date: 05/04/2025 Ordering Doctor: DR DIASY SMITH M.D. ECHOCARDIOGRAM REPORT PROCEDURE: CA ECHO DOPPLER COMPLETE INDICATIONS: Tricuspid regurgitation, aortic valve replacement (2018) COMPARISON: None. DESCRIPTION: COMPLETE ECHOCARDIOGRAM Real-time transthoracic echocardiography with 2D, M-mode, spectral and color flow Doppler performed. QUALITY: Technical quality was good. LEFT VENTRICLE: Normal chamber size. Borderline left ventricular hypertrophy. Systolic function is normal. LV EF: Normal left ventricular ejection fraction, (>55%). DIASTOLIC: Grade II diastolic dysfunction. ATRIAL SEPTUM: Visually appears intact. LEFT ATRIUM: Moderate dilatation. RIGHT ATRIUM: Severe dilatation. RIGHT VENTRICLE: Moderate dilatation. Mildly reduced systolic function. TRICUSPID VALVE: Normal mobility and thickness. No stenosis with moderate to severe regurgitation. Doppler studies reveal mildly (35-45) elevated right sided pressures. RVSP 42 mmHg MITRAL VALVE: Mildly thickened with normal mobility. No evidence of mitral valve stenosis. There is no mitral annular calcification. Mild mitral regurgitation. AORTIC VALVE: Bio-Prosthetic valve appears well seated in the aortic position with slightly abnormal doppler flow. DVI 0.25, Mean gradient 18.5 mmHg. No aortic regurgitation. AORTIC ROOT: Normal diameter and appearance, measuring 2.7 cm. Ascending aorta is normal in size, measuring 2.5 cm. PULMONIC VALVE: Normal thickness and mobility. No stenosis. No regurgitation. PERICARDIUM: No evidence of pericardial effusion. IVC: Collapses with inspiration. IVC is normal in size. PLEURA: CONCLUSION: 1. Borderline left ventricular hypertrophy with normal systolic function. LVEF is estimated at 55 to 60%. 2. Moderately dilated right ventricle with mildly reduced systolic function. 3. Moderate left atrial and severe right atrial dilatation. 4. Bioprosthetic aortic valve is well-seated with slightly increased Doppler flows and no regurgitation. 5. Moderate to severe tricuspid regurgitation. 6. Mildly elevated right-sided pressures. RVSP is 42 mmHg. Adult Echocardiography Procedure Report Left Ventricle LVEDD (3.7 - 5.6 cm): 3.85 cm LVESD (2.2 - 4.0 cm): 2.60 cm LVIVS thickness (0.6 - 1.2 cm): 0.95 cm LVPW thickness (0.5 - 1.0 cm): 1.19 cm e': 0.09 m/s E - e': 13.34 LVOT Max Gradient: 2.26 mm[Hg], 1.80 mm[Hg] Peak Velocity (LVOT): 0.75 m/s, 0.67 m/s LVOT Diameter 1.85 cm Left Atrium LA Volume Index (2D A2C): 41.82 ml/m2 Left Atrium Systolic Dimension: 3.66 cm Mitral Valve MV E to A Ratio: 1.23 Mitral Valve A-Wave Peak Velocity: 0.94 m/s Mitral Valve E-Wave Peak Velocity: 1.15 m/s Right Ventricle Aorta AO Root Diam: 2.67 cm Ascending Ao Diam: 2.52 cm Aortic Valve AoV Area (Peak Lobo): 0.68 cm2, 0.68 cm2, 0.70 cm2 AoV Area (VTI): 0.74 cm2, 0.74 cm2, 0.77 cm2 Peak Velocity(Antegrade Flow): 2.96 m/s, 2.58 m/s Peak Gradient(Antegrade Flow): 34.93 mm[Hg], 26.72 mm[Hg] Mean Velocity(Antegrade Flow): 2.01 m/s, 1.89 m/s Mean Gradient(Antegrade Flow): 18.50 mm[Hg], 15.93 mm[Hg] Velocity Time Integral: 69.93 cm, 65.14 cm Tricuspid Valve Peak Velocity (Regurgitant Flow): 2.39 m/s, 2.79 m/s, 2.76 m/s, 3.14 m/s Pulmonic Valve Peak Gradient: 2.40 mm[Hg], 2.54 mm[Hg] Right Atrium Right Atrium Systolic Pressure: 96.93 ml, 96.93 ml Dictated by: Laxmi (more content not included)... [facility] Radiology, Radiologist, MD - 05/04/2025 [place] [address] Cardiology Report Signed Patient: ROSA SADLER MR#: [id number] : 1965 Acct:[id number] Age/Sex: 59 / F ADM Date: 05/04/25 Loc: CARD Attending Dr: DAISY SMITH Ordering Physician: DAISY SMITH Date of Service: 05/04/25 Procedure(s): CA echo doppler complete Accession Number(s): [id number] cc: Cheri Pool BID CLERK; DAISY SMITH Patient Name: ROSA SADLER MR#: [id number] : 1965 Exam Date: 05/04/2025 Ordering Doctor: DR DAISY SMITH M.D. ECHOCARDIOGRAM REPORT PROCEDURE: CA ECHO DOPPLER COMPLETE INDICATIONS: Tricuspid regurgitation, aortic valve replacement (2018) COMPARISON: None. DESCRIPTION: COMPLETE ECHOCARDIOGRAM Real-time transthoracic echocardiography with 2D, M-mode, spectral and color flow Doppler performed. QUALITY: Technical quality was good. LEFT VENTRICLE: Normal chamber size. Borderline left ventricular hypertrophy. Systolic function is normal. LV EF: Normal left ventricular ejection fraction, (>55%). DIASTOLIC: Grade II diastolic dysfunction. ATRIAL SEPTUM: Visually appears intact. LEFT ATRIUM: Moderate dilatation. RIGHT ATRIUM: Severe dilatation. RIGHT VENTRICLE: Moderate dilatation. Mildly reduced systolic function. TRICUSPID VALVE: Normal mobility and thickness. No stenosis with moderate to severe regurgitation. Doppler studies reveal mildly (35-45) elevated right sided pressures. RVSP 42 mmHg MITRAL VALVE: Mildly thickened with normal mobility. No evidence of mitral valve stenosis. There is no mitral annular calcification. Mild mitral regurgitation. AORTIC VALVE: Bio-Prosthetic valve appears well seated in the aortic position with slightly abnormal doppler flow. DVI 0.25, Mean gradient 18.5 mmHg. No aortic regurgitation. AORTIC ROOT: Normal diameter and appearance, measuring 2.7 cm. Ascending aorta is normal in size, measuring 2.5 cm. PULMONIC VALVE: Normal thickness and mobility. No stenosis. No regurgitation. PERICARDIUM: No evidence of pericardial effusion. IVC: Collapses with inspiration. IVC is normal in size. PLEURA: CONCLUSION: 1. Borderline left ventricular hypertrophy with normal systolic function. LVEF is estimated at 55 to 60%. 2. Moderately dilated right ventricle with mildly reduced systolic function. 3. Moderate left atrial and severe right atrial dilatation. 4. Bioprosthetic aortic valve is well-seated with slightly increased Doppler flows and no regurgitation. 5. Moderate to severe tricuspid regurgitation. 6. Mildly elevated right-sided pressures. RVSP is 42 mmHg. Adult Echocardiography Procedure Report Left Ventricle LVEDD (3.7 - 5.6 cm): 3.85 cm LVESD (2.2 - 4.0 cm): 2.60 cm LVIVS thickness (0.6 - 1.2 cm): 0.95 cm LVPW thickness (0.5 - 1.0 cm): 1.19 cm e': 0.09 m/s E - e': 13.34 LVOT Max Gradient: 2.26 mm[Hg], 1.80 mm[Hg] Peak Velocity (LVOT): 0.75 m/s, 0.67 m/s LVOT Diameter 1.85 cm Left Atrium LA Volume Index (2D A2C): 41.82 ml/m2 Left Atrium Systolic Dimension: 3.66 cm Mitral Valve MV E to A Ratio: 1.23 Mitral Valve A-Wave Peak Velocity: 0.94 m/s Mitral Valve E-Wave Peak Velocity: 1.15 m/s Right Ventricle Aorta AO Root Diam: 2.67 cm Ascending Ao Diam: 2.52 cm Aortic Valve AoV Area (Peak Lobo): 0.68 cm2, 0.68 cm2, 0.70 cm2 AoV Area (VTI): 0.74 cm2, 0.74 cm2, 0.77 cm2 Peak Velocity(Antegrade Flow): 2.96 m/s, 2.58 m/s Peak Gradient(Antegrade Flow): 34.93 mm[Hg], 26.72 mm[Hg] Mean Velocity(Antegrade Flow): 2.01 m/s, 1.89 m/s Mean Gradient(Antegrade Flow): 18.50 mm[Hg], 15.93 mm[Hg] Velocity Time Integral: 69.93 cm, 65.14 cm Tricuspid Valve Peak Velocity (Regurgitant Flow): 2.39 m/s, 2.79 m/s, 2.76 m/s, 3.14 m/s Pulmonic Valve Peak Gradient: 2.40 mm[Hg], 2.54 mm[Hg] Right Atrium Right Atrium Systolic Pressure: 96.93 ml, 96.93 ml Dictated by: Daisy Smith M.D. on 05/04/2025 at 20:09 Approved by: Daisy Smith M.D. on 05/04/2025 at 20:19 Dictated By: DAISY SMITH Signed By: 05/04/252019 DD/ 18 TD/TT: Aircraft Structural Fitter: [facility] Radiology Study observation (narrative) [facility] CA ECHO DOPPLER COMPLETEOrde red By: Radiologist Radiology on 05-04-[address] [facility] Work Phone: Office Visiton 12-08-2024 Follow-up visit [id number] Rosa Sadler Echo 1965 F Date Provider Department Center 12/08/2024 Saul-DAISY SMITH Family History Problem Relation Age of Onset No Known Problems Mother No Known Problems Father Family Status - Relation Status Age at Mother Father Level of Service:81861 HI OFFICE/OUTPATIENT ESTABLISHED MOD MDM 30 MIN Normal [facility] ALL BASIC METABOLIC PANELon 12-02-2024 Anion gap [Moles/Vol] 10.5 mmol/L [facility] Calcium [Mass/Vol] 8.9 mg/dL 8.5 - 10. 1 mg/dL [facility] Chloride [Moles/Vol] 100 mmol/L 98 - 10 7 mmol/L [facility] CO2 [Moles/Vol] 31.5 mmol/L 21.0 - 32.0 mmol/L [facility] Creatinine [Mass/Vol] 0.76 mg/dL 0.55 - 1.02 mg/dL [facility] GFR/1.73 sq M.predicted CKD-EPI (S/P/Bld) [Vol rate/Area] >60 >=60 mL/min/1.73m [address] [facility] Glucose [Mass/Vol] 100 mg/dL 74 - 106 mg/dL [facility] Potassium [Moles/Vol] 4 mmol/L 3.5 - 5.1 mmol/L [facility] Sodium [Moles/Vol] 138 mmol/L 136 - 145 mmol/L [facility] TBH EGFR-NON AF MICRONESIAN >60 >=60 mL/min/1.73m 2 [facility] Urea nitrogen [Mass/Vol] 9 mg/dL 7.0 - 18.0 mg/dL [facility] Urea nitrogen/Creatinine [Mass ratio] 11.8 mg/mg [facility] ALL BASIC METABOLIC PANELon 11-06-2024 Anion gap [Moles/Vol] 11.7 mmol/L [facility] Calcium [Mass/Vol] 9.5 mg/dL 8.5 - 10. 1 mg/dL [facility] Chloride [Moles/Vol] 87 mmol/L Low 98 - 10 7 mmol/L [facility] CO2 [Moles/Vol] 31.7 mmol/L 21.0 - 32.0 mmol/L [facility] Creatinine [Mass/Vol] 0.64 mg/dL 0.55 - 1.02 mg/dL [facility] GFR/1.73 sq M.predicted CKD-EPI (S/P/Bld) [Vol rate/Area] >60 >=60 mL/min/1.73m [address] [facility] Glucose [Mass/Vol] 94 mg/dL 74 - 106 mg/dL [facility] Interpretation and review of laboratory results Abnormal [facility] Potassium [Moles/Vol] 3.4 mmol/L Low 3.5 - 5.1 mmol/L [facility] Sodium [Moles/Vol] 127 mmol/L Low 136 - 145 mmol/L [facility] TBH EGFR-NON AF MICRONESIAN >60 >=60 mL/min/1.73m [address] [facility] Urea nitrogen [Mass/Vol] 10 mg/dL 7.0 - 18.0 mg/dL [facility] Urea nitrogen/Creatinine [Mass ratio] 15.6 mg/mg [facility] Follow-Upon 11-03-2024 Follow-Up [id number] Rosa Sadler 1965 F Date Provider Department Center 11/03/2024 [id number][facility] Family History Problem Relation Age of Onset No Known Problems Mother No Known Problems Father Family Status - Relation Status Age at Mother Father Level of Service:54881 HI OFFICE/OUTPATIENT ESTABLISHED MOD MDM 30 MIN Reason for Visit and Comments: Post-Cath [731] - Follow up s/p right heart cath and LUIS. Pulmonary Hypertension [818] - Dr. Smith increased spironolactone to 25mg daily last week s/p lab results. Shortness of Breath [253157] - Improving per patient. Normal [facility] 36on 10-31-2024 36 Regarding lab result from 10/31/2024: MD Maria [...] the AM of 11/04/2024. He verbalized understanding. Normal [facility] HPon 10-20-2024 History Of Present Illness Rosa Sadler is [...] are in agreement. She signed informed consent. [facility] NURSNOTEon 10-20-2024 NURSNOTE RN educated pt on discharge instructions. RN encouraged pt to voice any questions or concerns. Pt verbalizes no questions or concerns at this time. Pt passed bedside swallow. Pt was wheeled off unit with all belongings. [facility] ALL BASIC METABOLIC PANELon 10-07-2024 Anion gap [Moles/Vol] 11.1 mmol/L [facility] Calcium [Mass/Vol] 9.3 mg/dL 8.5 - 10. 1 mg/dL [facility] Chloride [Moles/Vol] 93 mmol/L Low 98 - 10 7 mmol/L [facility] CO2 [Moles/Vol] 29.6 mmol/L 21.0 - 32.0 mmol/L [facility] Creatinine [Mass/Vol] 0.67 mg/dL 0.55 - 1.02 mg/dL [facility] GFR/1.73 sq M.predicted CKD-EPI (S/P/Bld) [Vol rate/Area] >60 >=60 mL/min/1.73m [address] [facility] Glucose [Mass/Vol] 88 mg/dL 74 - 106 mg/dL [facility] Interpretation and review of laboratory results Abnormal [facility] Potassium [Moles/Vol] 3.7 mmol/L 3.5 - 5.1 mmol/L [facility] Sodium [Moles/Vol] 130 mmol/L Low 136 - 145 mmol/L [facility] TBH EGFR-NON AF MICRONESIAN >60 >=60 mL/min/1.73m [address] [facility] Urea nitrogen [Mass/Vol] 6 mg/dL Low 7.0 - 18.0 mg/dL [facility] Urea nitrogen/Creatinine [Mass ratio] 9 mg/mg [facility] ALL CBC WITH AUTO DIFFon BASOPHILS ABSOLUTE AUTO 0.[address] [facility] Basophils/100 WBC (Bld) 0.9 % 0.2 - 2.0 % [facility] Eosinophils/100 WBC (Bld) 1.1 % 0.9 - 7.0 % [facility] Erythrocyte distribution width (RBC) [Ratio] 12.7 % 11.0 - 15.0 % [facility] Hematocrit (Bld) [Volume fraction] 38.2 % 36.0 - 48.0 % [facility] Hemoglobin (Bld) [Mass/Vol] 13.5 g/dL 12.0 - 16.0 g/dL [facility] IMMATURE GRANULOCYTES ABS AUTO 0.[address] [facility] Immature granulocytes/100 WBC (Bld) 0.4 % 0.0 - 0.5 % [facility] Interpretation and review of laboratory results Abnormal [facility] LYMPHOCYTES ABSOLUTE AUTO 1.[address] [facility] Lymphocytes/100 WBC (Bld) 22 % 20.5 - 60.0 % [facility] MCH (RBC) [Entitic mass] 33.1 pg 26.7 - 34.[address] [facility] MCHC (RBC) [Mass/Vol] 35.3 g/dL High 29.9 - 35.2 g/dL [facility] MCV (RBC) [Entitic vol] 93.6 fL 81.0 - 99.[address] [facility] MONOCYTES ABSOLUTE AUTO 0.[address] [facility] Monocytes/100 WBC (Bld) 10.3 % 1.7 - 12.0 % [facility] NEUTROPHILS ABSOLUTE AUTO 3.[address] [facility] Neutrophils/100 WBC (Bld) 65.3 % 43.0 - 75.0 % [facility] Platelet mean volume (Bld) [Entitic vol] 10 fL 9.5 - 13.[address] [facility] TBH EO # 0.[address] [facility] TBH PLT 165 [facility] RBC 4.08 Low [facility] WBC 5.[address] [facility] Orders Onlyon 10-02-2024 Orders Only [id number] Rosa Sadler 1965 F Date Provider Department Center 10/02/2024 8-MARIA E [facility] Family History Problem Relation Age of Onset No Known Problems Mother No Known Problems Father Family Status - Relation Status Age at Mother Father Normal [facility] 36on 09-16-2024 36 Regarding echo resul t [...] messages. I will try again later. Normal [facility] Office Visiton 08-20-2024 Follow-up visit [id number] Rosa Sadler Echo 1965 F Date Provider Department Center 08/20/2024 GiaABHIJITHERNAN LEVY CARD [facility] Family History Problem Relation Age of Onset No Known Problems Mother No Known Problems Father Family Status - Relation Status Age at Mother Father Level of Service:94487 HI OFFICE/OUTPATIENT ESTABLISHED LOW MDM 20 MIN Reason for Visit and Comments: Follow-up [840319] Normal [facility] THYROID ANTIBODIESon 023 Thyroglobulin Antibody <1.0 Normal 0.0-0.9 [facility] Comment on above: Result Comment: Thyr oglobulin Antibody measured by QCoefficient Methodology Performed By: #### T HYRABS #### [facility] [address] [place] [address] Dr. Olya Vides Thyroid Peroxidase (TPO) Ab <9 Normal 0-34 [facility] Comment on above: Performed By: #### T HYRABS #### [facility] [address] [place] [address] Dr. Olya Vides FREE T4on 01-19-2023 Free T4 [Mass/Vol] 0.84 ng/dL Normal 0.76-1.46 [facility] Comment on above: Performed By: #### T SH, CMP, LIPID #### [facility] [address] [place] [address] Dr. Olya Vides TSHon 01-19-2023 TSH 5.355 uIU/mL Critically high 0.358-3.740 [facility] Comment on above: Performed By: #### T SH #### [facility] [address] [place] [address] Dr. Olya Vides CBC AUTO DIFFon 12-22-2022 BASO # 0.1 103/ul Normal 0.0-0.1 [facility] Comment on above: Performed By: #### C BC #### [facility] [address] [place] [address] Dr. Olya Vides Basophils/100 WBC (Bld) 1.1 % Normal 0.2-2.0 [facility] Comment on above: Performed By: #### C BC #### [facility] [address] [place] [address] Dr. Olya Vides EO # 0.1 103/ul Normal 0.0-0.[address] [facility] Comment on above: Performed By: #### C BC #### [facility] [address] [place] [address] Dr. Olya Vides Eosinophils/100 WBC (Bld) 3.0 % Normal 0.9-7.0 [facility] Comment on above: Performed By: #### C BC #### [facility] [address] [place] [address] Dr. Olya Vides Erythrocyte distribution width (RBC) [Ratio] 12.5 % Normal 11.0-15.0 [facility] Comment on above: Performed By: #### C BC #### [facility] [address] [place] [address] Dr. Olya Vides Hematocrit (Bld) [Volume fraction] 42.5 % Normal 36.0-48.0 [facility] Comment on above: Performed By: #### C BC #### [facility] [address] [place] [address] Dr. Olya Vides Hemoglobin (Bld) [Mass/Vol] 15.0 g/dL Normal 12.0-16.0 [facility] Comment on above: Performed By: #### C BC #### [facility] [address] [place] [address] Dr. Olya Vides IG # 0.02 10e3/ul Normal 0.00-0.[address] [facility] Comment on above: Performed By: #### C BC #### [facility] [address] [place] [address] Dr. Olya Vides IG % 0.4 % Normal 0.0-0.[address] [facility] Comment on above: Performed By: #### C BC #### [facility] [address] [place] [address] Dr. Olya Vides LYMPH # 1.4 103/ul Normal 1.2-3.8 [facility] Comment on above: Performed By: #### C BC #### [facility] [address] [place] [address] Dr. Olya Vides Lymphocytes/100 WBC (Bld) 30.4 % Normal 20.5-60.0 [facility] Comment on above: Performed By: #### C BC #### [facility] [address] [place] [address] Dr. Olya Vides MANUAL DIFF REQ NO Normal [facility] Comment on above: Performed By: #### C BC #### [facility] [address] [place] [address] Dr. Olya Vides MCH (RBC) [Entitic mass] 32.8 pg Normal 26.7-34.0 [facility] Comment on above: Performed By: #### C BC #### [facility] [address] [place] [address] Dr. Olya Vides MCHC (RBC) [Mass/Vol] 35.3 g/dL Critically high 29.9-35.2 [facility] Comment on above: Performed By: #### C BC #### [facility] [address] [place] [address] Dr. Olya Vides MCV (RBC) [Entitic vol] 92.8 fL Normal 81.0-99.0 [facility] Comment on above: Performed By: #### C BC #### [facility] [address] [place] [address] Dr. Olya Vides MONO # 0.4 103/ul Normal 0.3-0.8 [facility] Comment on above: Performed By: #### C BC #### [facility] [address] [place] [address] Dr. Olya Vides Monocytes/100 WBC (Bld) 7.7 % Normal 1.7-12.0 [facility] Comment on above: Performed By: #### C BC #### [facility] [address] [place] [address] Dr. Olya Vides NEUT # 2.7 103/ul Normal 1.4-6.5 [facility] Comment on above: Performed By: #### C BC #### [facility] [address] [address] [address] Olya Vides Neutrophils/100 WBC (Bld) 57.4 % Normal 43.0-75.0 [facility] Comment on above: Performed By: #### C BC #### [facility] [address] [address] [address] Olya Vides Platelet mean volume (Bld) [Entitic vol] 9.7 fL Normal 9.5-13.5 [facility] Comment on above: Performed By: #### C BC #### [facility] [address] [place] [address] Dr. Olya Vides PLT 224 103/ul Normal 150-450 [facility] Comment on above: Performed By: #### C BC #### [facility] [address] [address] [address] Olya Vides RBC 4.58 106/ul Normal 4.20-5.40 [facility] Comment on above: Performed By: #### C BC #### [facility] [address] [address] [address] Olya Vides WBC 4.7 103/ul Normal 4.0-11.0 [facility] Comment on above: Performed By: #### C BC #### [facility] [address] [place] [address] Dr. Olya Vides FREE T4on 12-22-2022 Free T4 [Mass/Vol] 0.85 ng/dL Normal 0.76-1.46 [facility] Comment on above: Performed By: #### F T4 #### [facility] [address] [place] [address] Dr. Olya Vides LIPID PROFILEon 12-22-2022 CHOL-HDL RATIO NORM SEE BELOW Normal [facility] Comment on above: Result Comment: 3.3 - 4.4 LOW RISK 4.4 - 7.1 AVERAGE RISK 7.1 - 11.0 MODERATE RISK >11.0 HIGH RISK Performed By: #### T SH, CMP, LIPID #### [facility] [address] [address] [address] Olya Vides Cholesterol [Mass/Vol] 193 mg/dL Normal <=[address] [facility] Comment on above: Performed By: #### T SH, CMP, LIPID #### [facility] [address] [address] [address] Olya Vides Cholesterol in HDL [Mass/Vol] 63 mg/dL Critically high 40-[address] [facility] Comment on above: Performed By: #### T SH, CMP, LIPID #### [facility] [address] [address] [address] Olya Vides Cholesterol in LDL [Mass/Vol] 93.0 mg/dL Normal [facility] Comment on above: Performed By: #### T SH, CMP, LIPID #### [facility] [address] [address] [address] Olya Vides Cholesterol.total/Ch olesterol in HDL [Mass ratio] 3.1 {ratio} Normal [facility] Comment on above: Performed By: #### T SH, CMP, LIPID #### [facility] [address] [address] [address] Olya Vides HDL NORMAL > or = 60 mg/dl - LO W CARDIOVASCULAR RISK <40 mg/dl - HIGH CARDIOVASCULAR RISK Normal [facility] Comment on above: Performed By: #### T SH, CMP, LIPID #### [facility] [address] [address] [address] Olya Vides LDL CALC NORMAL SEE BELOW Normal [facility] Comment on above: Result Comment: <100 mg/dl OPTIMAL 100 - 129 mg/dl NEAR OR ABOVE OPTIMAL 130 - 159 mg/dl BORDERLINE HIGH 160 - 189 mg/dl HIGH >190 mg/dl VERY HIGH Performed By: #### T SH, CMP, LIPID #### [facility] [address] [address] [address] Olya Vides Triglyceride [Mass/Vol] 185 mg/dL Critically high <=[address] [facility] Comment on above: Performed By: #### T SH, CMP, LIPID #### [facility] [address] [address] [address] Olya Vides VLDL CALC 37.0 mg/dL Normal [facility] Comment on above: Performed By: #### T SH, CMP, LIPID #### [facility] [address] [address] [address] Olya Vides PROF 14(COMP METB)on 023 Albumin [Mass/Vol] 4.2 g/dL Normal 3.4-5.0 [facility] Comment on above: Performed By: #### T SH, CMP, LIPID #### [facility] [address] [address] [address] Olya Vides Albumin/Globulin [Mass ratio] 1.0 {ratio} Normal [facility] Comment on above: Performed By: #### T SH, CMP, LIPID #### [facility] [address] [address] [address] Olya Vides ALP [Catalytic activity/Vol] 73 U/L Normal 46-116 [facility] Comment on above: Performed By: #### T SH, CMP, LIPID #### [facility] [address] [place] [address] Dr. Olya Vides ALT [Catalytic activity/Vol] 39 U/L Normal 14-59 [facility] Comment on above: Performed By: #### T SH, CMP, LIPID #### [facility] [address] [address] [address] Olya Vides Anion gap [Moles/Vol] 15.5 mmol/L Normal [facility] Comment on above: Performed By: #### T SH, CMP, LIPID #### [facility] [address] [address] [address] Olya Vides AST [Catalytic activity/Vol] 47 U/L Critically high 15-37 [facility] Comment on above: Performed By: #### T SH, CMP, LIPID #### [facility] [address] [address] [address] Olya Vides Bilirubin [Mass/Vol] 0.5 mg/dL Normal 0.2-1.0 [facility] Comment on above: Performed By: #### T SH, CMP, LIPID #### [facility] [address] [address] [address] Olya Vides Calcium [Mass/Vol] 9.6 mg/dL Normal 8.5-10.1 [facility] Comment on above: Performed By: #### T SH, CMP, LIPID #### [facility] [address] [address] [address] Olya Vides Chloride [Moles/Vol] 96 mmol/L Critically low 98-[address] [facility] Comment on above: Performed By: #### T SH, CMP, LIPID #### [facility] [address] [address] [address] Olya Vides CO2 [Moles/Vol] 29.2 mmol/L Normal 21.0-32.0 [facility] Comment on above: Performed By: #### T SH, CMP, LIPID #### [facility] [address] [place] [address] Dr. Olya Vides Creatinine [Mass/Vol] 0.57 mg/dL Normal 0.55-1.02 [facility] Comment on above: Performed By: #### T SH, CMP, LIPID #### [facility] [address] [address] [address] Olya Vides EGFR-AF MICRONESIAN >60 Normal >=60 [facility] Comment on above: Performed By: #### T SH, CMP, LIPID #### [facility] [address] [place] [address] Dr. Olya Vides EGFR-NON AF MICRONESIAN >60 Normal >=[address] [facility] Comment on above: Performed By: #### T SH, CMP, LIPID #### [facility] [address] [address] [address] Olya Vides Globulin (S) [Mass/Vol] 4.4 g/dL Normal [facility] Comment on above: Performed By: #### T SH, CMP, LIPID #### [facility] [address] [address] [address] Olya Vides Glucose [Mass/Vol] 87 mg/dL Normal 74-106 [facility] Comment on above: Performed By: #### T SH, CMP, LIPID #### [facility] [address] [address] [address] Olya Vides Potassium [Moles/Vol] 3.7 mmol/L Normal 3.5-5.1 [facility] Comment on above: Performed By: #### T SH, CMP, LIPID #### [facility] [address] [place] [address] Dr. Olya Vides Protein [Mass/Vol] 8.6 g/dL Critically high 6.4-8.2 [facility] Comment on above: Performed By: #### T SH, CMP, LIPID #### [facility] [address] [place] [address] Dr. Olya Vides Sodium [Moles/Vol] 137 mmol/L Normal 136-145 [facility] Comment on above: Performed By: #### T SH, CMP, LIPID #### [facility] [address] [place] [address] Dr. Olya Vides Urea nitrogen [Mass/Vol] 5.0 mg/dL Critically low 7.0-18.0 [facility] Comment on above: Performed By: #### T SH, CMP, LIPID #### [facility] [address] [place] [address] Dr. Olya Vides Urea nitrogen/Creatinine [Mass ratio] 8.8 mg/mg Normal [facility] Comment on above: Performed By: #### T SH, CMP, LIPID #### [facility] [address] [place] [address] Dr. Olya Vides TSHon 12-22-2022 TSH 3.759 uIU/mL Critically high 0.358-3.740 [facility] Comment on above: Performed By: #### T SH, CMP, LIPID #### [facility] [address] [place] [address] Dr. Olya Vides UA RANDOM W/MICROSCOPICon BACTERIA NONE SEEN Normal NONE SEEN [facility] Comment on above: Performed By: #### U AMIC #### [facility] [address] [place] [address] Dr. Olya Vides Bilirubin Ql (U) Negative Normal NEGATIVE [facility] Comment on above: Performed By: #### U AMIC #### [facility] [address] [address] [address] Olya Vides CAST NONE SEEN Normal NONE SEEN [facility] Comment on above: Performed By: #### U AMIC #### [facility] [address] [address] [address] Olya Vides Clarity (U) CLEAR Normal CLEAR [facility] Comment on above: Performed By: #### U AMIC #### [facility] [address] [address] [address] Olya Vides Color (U) LT. YELLOW Normal YELLOW [facility] Comment on above: Performed By: #### U AMIC #### [facility] [address] [place] [address] Dr. Olya Vides Crystals LM Nom (Urine sed) NONE SEEN Normal NONE SEEN [facility] Comment on above: Performed By: #### U AMIC #### [facility] [address] [place] [address] Dr. Olya Vides Epithelial cells LM Ql (Urine sed) FEW Abnormal NONE SEEN /RARE [facility] Comment on above: Performed By: #### U AMIC #### [facility] [address] [place] [address] Dr. Olya Vides Glucose Ql (U) Negative Normal NEGATIVE [facility] Comment on above: Performed By: #### U AMIC #### [facility] [address] [place] [address] Dr. Olya Vides Hemoglobin Ql (U) SMALL Abnormal NEGATIVE [facility] Comment on above: Performed By: #### U AMIC #### [facility] [address] [address] [address] Olya Vides Ketones Ql (U) Negative Normal NEGATIVE [facility] Comment on above: Performed By: #### U AMIC #### [facility] [address] [place] [address] Dr. Olya Vides LEUKOCYTES Negative Normal NEGATIVE [facility] Comment on above: Performed By: #### U AMIC #### [facility] [address] [address] [address] Olya Vides MUCOUS NONE SEEN Normal NONE SEEN [facility] Comment on above: Performed By: #### U AMIC #### [facility] [address] [address] [address] Olya Vides Nitrite Ql (U) Negative Normal NEGATIVE [facility] Comment on above: Performed By: #### U AMIC #### [facility] [address] [address] [address] Olya Vdies pH (U) 5.5 [pH] Normal 5-9 [facility] Comment on above: Performed By: #### U AMIC #### [facility] [address] [place] [address] Dr. Olya Vides RBC 0-2 Normal 0-2 [facility] Comment on above: Performed By: #### U AMIC #### [facility] [address] [place] [address] Dr. Olya Vides SPEC GRAVITY <=1.005 Abnormal 1.005-<=1.025 [facility] Comment on above: Performed By: #### U AMIC #### [facility] [address] [address] [address] Olya Vides UA PROTEIN Negative Normal NEGATIVE/ TRACE [facility] Comment on above: Performed By: #### U AMIC #### [facility] [address] [address] [address] Olya Vides Urobilinogen Qn (U) 0.2 {Davie'U}/dL Normal 0.2 - 1. 0 [facility] Comment on above: Performed By: #### U AMIC #### [facility] [address] [address] [address] Olya Vides WBC NONE SEEN Normal NONE SEEN [facility] Comment on above: Performed By: #### U AMIC #### [facility] [address] [place] [address] Dr. Olya Vides MG MAMM SCREEN 3D YARY CADon 10-24-2022 MG MAMM SCREEN 3D YARY CAD Patient: ROSA SADLER. Exam Date: 10/24/2022 : 1965 Gender:F Ordering : SARAH POOL [facility] Admission #: [id number] Family : Order #: [id number] CLICK HERE TO VIEW EXAM RADIOLOGY REPORT [...] at age 68. LOCATION: [facility] BREAST COMPOSITION: Heterogeneously dense,which may obscure [...] 10/24/2022 at 15:31 Normal [facility] ECHOCARDIO M/2D COMPLETEon 0 03-21-2022 ECHOCARDIO M/2D COMPLETE Patient: ROSA SADLER Exam Date: 03/21/2022 : 1965 Gender:F Ordering : OLGA VIDES Admission #: [id number] Family : SARAH POOL [facility] Order #: [id number] CLICK HERE TO VIEW EXAM ECHOCARDIOGRAM REPORT [...] Area(A4C): 18.90 cm2 Left Atrium Systolic Volume(A4C): 08597 mm3 Mitral Valve MV E to A [...] Smith M.D. on 03/21/2022 at 17:14 Normal [facility] BASIC METABOLIC PANELon 10-3 Calcium [Mass/Vol] 9.9 mg/dL Normal 8.6-10.3 [facility] Comment on above: Performed By: #### 0 0071 #### [facility] [address] [facility] [place] [address], [facility] Chloride [Moles/Vol] 104 mmol/L Normal 98-107 [facility] Comment on above: Performed By: #### 0 0071 #### [facility] [address] [facility] [place] [address], [facility] CO2 [Moles/Vol] 27 mmol/L Normal 21-31 [facility] Comment on above: Performed By: #### 0 0071 #### [facility] [address] [facility] [place] [address], [facility] Creatinine [Mass/Vol] 0.62 mg/dL Normal 0.60-1.20 [facility] Comment on above: Performed By: #### 0 0071 #### [facility] [address] [facility] [place] [place] [address], [place] GFR/1.73 sq M.predicted among blacks MDRD (S/P/Bld) [Vol rate/Area] mL/min/{1.73_m2} Normal >60 [facility] Comment on above: Performed By: #### 0 0071 #### [facility] [address] [place] [address], [place] GFR/1.73 sq M.predicted among non-blacks MDRD (S/P/Bld) [Vol rate/Area] mL/min/{1.73_m2} Normal >60 [facility] Comment on above: Performed By: #### 0 0071 #### [facility] [address] [facility] Glucose [Mass/Vol] 105 mg/dL High 70-100 [facility] Comment on above: Performed By: #### 0 0071 #### [facility] [address] [facility]. [address] Potassium [Moles/Vol] 3.9 mmol/L Normal 3.5-5.1 [facility] Comment on above: Performed By: #### 0 0071 #### [facility] [address] [facility]. [address] Sodium [Moles/Vol] 139 mmol/L Normal 136-145 [facility] Comment on above: Performed By: #### 0 0071 #### [facility] [address] [facility]. [address] Urea nitrogen [Mass/Vol] 10 mg/dL Normal 7-25 [facility] Comment on above: Performed By: #### 0 1 #### [facility] [address] [facility]. [address] CBC W/DIFFon 08-27-2020 ABS IMM GRANS 0.0 10*3/uL Normal 0.0-0.2 [facility] Comment on above: Performed By: #### 5 102 #### [facility] [address] [place] [address], [facility] ABS NEUTROPHILS 5.2 10*3/uL Normal 1.6-7.6 [facility] Comment on above: Performed By: #### 5 102 #### [facility] [address] [place] [address], [facility] Basophils (Bld) [#/Vol] 0.1 10*3/uL Normal 0.0-0.2 [facility] Comment on above: Performed By: #### 5 0103 #### [facility] [address] [place] [address], [facility] Basophils/100 WBC (Bld) 0.8 % Normal 0.0-1.0 [facility] Comment on above: Performed By: #### 5 0103 #### [facility] [address] [facility] [place] [address], [facility] Eosinophils (Bld) [#/Vol] 0.1 10*3/uL Normal 0.0-0.5 [facility] Comment on above: Performed By: #### 5 0103 #### [facility] [address] [facility] [place] [address], [facility] Eosinophils/100 WBC (Bld) 1.0 % Normal 0.0-6.0 [facility] Comment on above: Performed By: #### 5 0103 #### [facility] [address] [facility] [place] [address], [facility] Erythrocyte distribution width (RBC) [Ratio] 13.2 % Normal 11.5-15.0 [facility] Comment on above: Performed By: #### 5 0103 #### [facility] [address] [facility] [place] [address], [facility] Hematocrit (Bld) [Volume fraction] 45.7 % High 36.0-45.0 [facility] Comment on above: Performed By: #### 5 0103 #### [facility] [address] [facility] [place] [address], [facility] Hemoglobin (Bld) [Mass/Vol] 15.4 g/dL High 12.0-15.0 [facility] Comment on above: Performed By: #### 5 0103 #### [facility] [address] [place] [id number], [facility] IMMATURE GRANS 0.4 % Normal 0.0-1.0 [facility] Comment on above: Performed By: #### 5 0103 #### [facility] [address] [place] [address], [facility] Lymphocytes (Bld) [#/Vol] 1.3 10*3/uL Normal 1.2-4.0 [facility] Comment on above: Performed By: #### 5 0103 #### [facility] [address] [facility] [place] [address], [facility] Lymphocytes/100 WBC (Bld) 17.7 % Low 20.0-45.0 [facility] Comment on above: Performed By: #### 5 0103 #### [facility] [address] [facility] [place] [address], [facility] MCH (RBC) [Entitic mass] 32.4 pg Normal 27.0-33.0 [facility] Comment on above: Performed By: #### 5 0103 #### [facility] [address] [facility]. [address] MCHC (RBC) [Mass/Vol] 33.7 g/dL Normal 32.0-35.0 [facility] Comment on above: Performed By: #### 5 0103 #### [facility] [address] [facility] [place] [address], [facility] MCV (RBC) [Entitic vol] 96.0 fL Normal 82.0-98.0 [facility] Comment on above: Performed By: #### 5 0103 #### [facility] [address] [facility] [place] [address], [facility] Monocytes (Bld) [#/Vol] 0.5 10*3/uL Normal 0.1-1.0 [facility] Comment on above: Performed By: #### 5 3 #### [facility] [address] [place] [address], [facility] MONOS 7.2 % Normal 5.0-12.0 [facility] Comment on above: Performed By: #### 5 0103 #### [facility] [address] [place] [address], [facility] Neutrophils/100 WBC (Bld) 72.9 % High 40.0-72.0 [facility] Comment on above: Performed By: #### 5 0103 #### [facility] [address] [facility] [place] [address], [facility] Nucleated RBC/100 WBC (Bld) [Ratio] 0 % Normal 0-0 [facility] Comment on above: Performed By: #### 5 0103 #### [facility] [address] [facility] [place] [address], [facility] PLAT CNT 199 10*3/uL Normal 150-400 [facility] Comment on above: Performed By: #### 5 0103 #### [facility] [address] [facility] [place] [address], [facility] RBC (Bld) [#/Vol] 4.76 10*6/uL Normal 3.80-5.00 The [facility] Comment on above: Performed By: #### 5 0103 #### [facility] [address] [facility] [place] [address], [facility] WBC (Bld) [#/Vol] 7.18 10*3/uL Normal 4.00-10.60 [facility] Comment on above: Performed By: #### 5 0103 #### [facility] [address] Vital Signs Date Time Vital Sign Value Performing Clinician Facility 07-16-2025 14:54-0400 Body height 153.67 cm Cheri MAYES Work Phone: [facility] 07-16-2025 14:54-0400 Body mass index (BMI) [Ratio] 32.2 kg/m2 Cheri MAYES Work Phone: [facility] 07-16-2025 14:54-0400 Body temperature 97 [degF] Cheri Aichholz BID CLERK-C Work Phone: [facility] 07-16-2025 14:54-0400 Body weight 76.2 kg Cheri Aichholz BID CLERK-C Work Phone: [facility] 07-16-2025 14:54-0400 Diastolic blood pressure 76 mm[Hg] Cheri Aichholz BID CLERK-C Work Phone: [facility] 07-16-2025 14:54-0400 Heart rate 80 /min Cheri Aichholz BID CLERK-C Work Phone: [facility] 07-16-2025 14:54-0400 Respiratory rate 18 /min Cheri Aichholz BID CLERK-C Work Phone: [facility] 07-16-2025 14:54-0400 SaO2% (BldA) [Mass fraction] 99 % Cheri Aichholz BID CLERK-C Work Phone: [facility] 07-16-2025 14:54-0400 Systolic blood pressure 128 mm[Hg] Cheri Aichholz BID CLERK-C Work Phone: [facility] 12-23-2024 10:52-0500 Body height 153.67 cm [facility] 12-23-2024 10:52-0500 Body mass index (BMI) [Ratio] 31.5 kg/m2 [facility] 12-23-2024 10:52-0500 Body temperature 96.9 [degF] [facility] 12-23-2024 10:52-0500 Body weight 74.44 kg [facility] 12-23-2024 10:52-0500 Diastolic blood pressure 79 mm[Hg] [facility] 12-23-2024 10:52-0500 Heart rate 73 /min [facility] 12-23-2024 10:52-0500 Respiratory rate 18 /min [facility] 12-23-2024 10:52-0500 SaO2% (BldA) [Mass fraction] 94 % [facility] 12-23-2024 10:52-0500 Systolic blood pressure 133 mm[Hg] [facility] 08-31-2024 12:24-0500 Body height 153.67 cm [facility] 08-31-2024 12:24-0500 Body mass index (BMI) [Ratio] 33.6 kg/m2 [facility] 08-31-2024 12:24-0500 Body temperature 97.3 [degF] [facility] 08-31-2024 12:24-0500 Body weight 79.37 kg [facility] 08-31-2024 12:24-0500 Diastolic blood pressure 84 mm[Hg] [facility] 08-31-2024 12:24-0500 Heart rate 74 /min [facility] 08-31-2024 12:24-0500 Respiratory rate 18 /min [facility] 08-31-2024 12:24-0500 SaO2% (BldA) [Mass fraction] 96 % [facility] 08-31-2024 12:24-0500 Systolic blood pressure 150 mm[Hg] [facility] 07-14-2024 15:09-0400 Body height 157.5 cm Cheri Pool BID CLERK Work Phone: [facility] 07-14-2024 15:09-0400 Body mass index (BMI) [Ratio] 32.01 kg/m2 Cheri Pool BID CLERK Work Phone: [facility] 07-14-2024 15:09-0400 Body temperature 98.1 [degF] Cheri Pool BID CLERK Work Phone: [facility] 07-14-2024 15:09-0400 Body weight 79.38 kg Cheri Pool BID CLERK Work Phone: [facility] 07-14-2024 15:09-0400 Diastolic blood pressure 80 mm[Hg] Cheri Pool BID CLERK Work Phone: [facility] 07-14-2024 15:040 Heart rate 80 /min Cheri Yrn BID CLERK Work Phone: [facility] 07-14-2024 15:040 Respiratory rate 19 /min Cheri Yrn BID CLERK Work Phone: [facility] 07-14-2024 15:040 SaO2% (BldA) [Mass fraction] 94 % Cheri Yrn BID CLERK Work Phone: [facility] 07-14-2024 15:040 Systolic blood pressure 128 mm[Hg] Cheri Yrn BID CLERK Work Phone: [facility] Healthcare Encounters Encounter Date Encounter Type Care Provider Facility Start: 07-16-2025 End: 07-16-2025 ambulatory Cheri Lottie Pool BID CLERK-C Work Phone: [facility] Work Phone: Start: 07-16-2025 End: 07-16-2025 Patient encounter procedure Cheri Lottie Pool BID CLERK-C -[facility] Work Phone: Start: 06-10-2025 End: 06-10-2025 Refill Cheri Yrn BID CLERK Work Phone: [facility] Comment on above: Mixed hyperlipidemia Start: 06-02-2025 End: 06-02-2025 Clinisync Result Encounter Cheri Yrn BID CLERK Work Phone: [facility] External Department Unsolicited Start: 06-02-2025 End: 06-02-2025 Clinisync Result Encounter Cheri Yrn BID CLERK Work Phone: [facility] External Department Unsolicited Start: 06-01-2025 End: 06-01-2025 ambulatory [facility] Start: 05-22-2025 End: 05-22-2025 ambulatory [facility] Start: 05-04-2025 End: 05-04-2025 Clinisync Result Encounter Generic External Data Provider [facility] External Department Unsolicited Start: 05-04-2025 End: 05-04-2025 Clinisync Result Encounter Generic External Data Provider [facility] External Department Unsolicited Start: 02-17-2025 End: 02-17-2025 Refill Cheri Aichholz BID CLERK Work Phone: [facility] Comment on above: Primary hypertension (CMS/HCC); 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) Start: 02-16-2025 End: 02-17-2025 Refill Cheri Aichholz BID CLERK Work Phone: [facility] Comment on above: Nonrheumatic aortic valve disorder, unspecified; Nonrheumatic aortic (valve) stenosis Start: 01-13-2025 End: 01-13-2025 ambulatory CHERI AICHHOLZ Not Available Start: 12-23-2024 End: 12-23-2024 ambulatory [facility] Work Phone: Start: 12-23-2024 End: 12-23-2024 Patient encounter procedure [facility] Work Phone: Start: 12-08-2024 End: 12-08-2024 ambulatory [facility] Start: 12-02-2024 End: 12-02-2024 Clinisync Result Encounter Generic External Data Provider [facility] External Department Unsolicited Start: 12-02-2024 End: 12-02-2024 Clinisync Result Encounter Generic External Data Provider [facility] External Department Unsolicited Start: 11-06-2024 End: 11-06-2024 Clinisync Result Encounter Generic External Data Provider [facility] External Department Unsolicited Start: 11-06-2024 End: 11-06-2024 Clinisync Result Encounter Generic External Data Provider [facility] External Department Unsolicited Start: 11-03-2024 End: 11-03-2024 ambulatory [facility] Start: 10-20-2024 End: 10-20-2024 ambulatory [facility] Start: 10-07-2024 End: 10-07-2024 Clinisync Result Encounter Generic External Data Provider [facility] External Department Unsolicited Start: 10-07-2024 End: 10-07-2024 Clinisync Result Encounter Generic External Data Provider [facility] External Department Unsolicited Start: 08-31-2024 End: 08-31-2024 ambulatory [facility] Work Phone: Start: 08-31-2024 End: 08-31-2024 Patient encounter procedure [facility] Work Phone: Start: 08-28-2024 End: 08-28-2024 Refill Cheri Yrn BID CLERK Work Phone: [facility] Comment on above: Mixed hyperlipidemia (CMS/HCC); Esophageal reflux Start: 08-23-2024 End: 08-25-2024 Refill Cheri Yrn BID CLERK Work Phone: [facility] Comment on above: Anxiety; Hypothyroidism (acquired) (CMS/HCC); Primary hypertension (CMS/HCC); 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) Start: 08-20-2024 End: 08-20-2024 ambulatory [facility] Start: 07-25-2024 End: 07-25-2024 Refill Cheri Yrn BID CLERK Work Phone: [facility] Comment on above: Esophageal reflux Start: 07-14-2024 End: 07-14-2024 Office outpatient visit 25 minutes Cheri Yrn BID CLERK Work Phone: [facility] Comment on above: Primary hypertension (CMS/HCC) (Primary Dx); Obstructive sleep apnea; Aortic valve stenosis, etiology of cardiac valve disease unspecified; Hypothyroidism (acquired) (CMS/HCC); Obesity (BMI 30-39.9); Anxiety Start: 07-14-2024 End: 07-14-2024 ambulatory CHERI YRN Not Available Start: 07-14-2024 End: 07-14-2024 Bamboo flowsheet Cheri Yrn BID CLERK Work Phone: [facility] Start: 07-14-2024 End: 07-14-2024 Bamboo flowsheet Cheri Yrn BID CLERK Work Phone: [facility] Start: 01-10-2024 Patient encounter procedure Cheri Yrn BID CLERK Work Phone: [facility] Start: 12-06-2023 Orders Only Cheri Yrn BID CLERK Work Phone: [facility] Comment on above: Hyponatremia (Primar y Dx) Start: 04-09-2023 ambulatory DEVOPS DEVELOPER CHERI YRN Facil ity:H1 Start: 02-19-2023 End: 02-20-2023 ambulatory DEVOPS DEVELOPER CHERI YRN Facility:[facility] Start: 01-19-2023 End: 01-20-2023 ambulatory DEVOPS DEVELOPER CHERI YRN Facility:[facility] Start: 12-22-2022 End: 12-23-2022 ambulatory DEVOPS DEVELOPER CHERI YRN Facility:[facility] Start: 10-24-2022 End: 10-25-2022 ambulatory DEVOPS DEVELOPER CHERI YRN Facility:[facility]1 Start: 03-21-2022 End: 03-22-2022 ambulatory OLGA VIDES Facility:[facility]1 Start: 08-27-2020 End: 08-28-2020 ambulatory PROVIDER UNKNOWN Facility:[facility] Procedures Date Procedure Procedure Detail Performing Clinician Start: 06-02-2025 ALL CBC WITH AUTO DIFF Cheri Yrn BID CLERK Work Phone: Start: 05-04-2025 CA ECHO DOPPLER COMPLETE Generic External Data Provider Start: 12-02-2024 ALL BASIC METABOLIC PANEL Generic External Data Provider Start: 11-10-2024 Mammography Generic Pr ovider Start: 11-06-2024 ALL BASIC METABOLIC PANEL Generic External Data Provider Start: 10-07-2024 ALL BASIC METABOLIC PANEL Generic External Data Provider Start: 10-07-2024 ALL CBC WITH AUTO DIFF Generic External Data Provider Start: 10-26-2023 Mammography Cheri chino BID CLERK Work Phone: Start: 01-07-2020 Colonoscopy Cheri chino BID CLERK Work Phone: Plan of Treatment Date Care Activity Detail Author Start: 01-06-2030 Screening for malign ant neoplasm of colon [facility] Start: 01-18-2026 End: 01-18-2026 Patient encounter procedure 01/18/2026 11:00 AM EDT Office Visit [facility] [address] [place] [address] Cheri Pool, ABIEL [address] [place] [address] [facility] Start: 01-13-2026 Medicare Annual Well ness (AWV) Medicare Annual Wellness (AWV) [facility] Start: 11-10-2025 Screening for malign ant neoplasm of breast Mammogram [facility] Start: 08-10-2025 End: 06-10-2026 Alanine aminotransferase [Enzymatic activity/volume] in Serum or Plasma ALT Lab Routine Mixed hyperlipidemia Expected: 08/10/2025 (Approximate), Expires: 06/10/[address] [facility] Comment on above: Expected: 08/10/2025 (Approximate), Expires: 06/10/2026 Start: 08-10-2025 End: 06-10-2026 Aspartate aminotransferase [Enzymatic activity/volume] in Serum or Plasma AST Lab Routine Mixed hyperlipidemia Expected: 08/10/2025 (Approximate), Expires: 06/10/[address] [facility] Comment on above: Expected: 08/10/2025 (Approximate), Expires: 06/10/2026 Start: 08-10-2025 End: 06-10-2026 Lipid 1996 panel - Serum or Plasma Lipid panel Lab Routine Mixed hyperlipidemia Expected: 08/10/2025 (Approximate), Expires: 06/10/[address] [facility] Work Phone: Comment on above: Expected: 08/10/2025 (Approximate), Expires: 06/10/2026 Start: 07-16-2025 End: 07-16-2025 Patient encounter procedure 07/16/2025 2:40 PM EDT Office Visit [facility] [address] [place] [address] Cheri Pool, ABIEL [address] [place] [id number] [facility] Start: 01-13-2025 End: 01-13-2025 Patient encounter procedure 01/13/2025 10:00 AM EDT Office Visit [facility] [address] [place] [address] Cheri Pool, ABIEL [address] [place] [id number] [facility] Start: 01-09-2025 Medicare Annual Well ness (AWV) Medicare Annual Wellness (AWV) [facility] Start: 10-26-2024 Screening for malign ant neoplasm of breast Mammogram [facility] Start: 07-14-2024 End: 07-14-2024 Patient encounter procedure 07/14/2024 3:00 PM EDT Office Visit [facility] [address] [place] [address] Cheri Pool, ABIEL [address] [place] [phone] Arrived [facility] Comment on above: Arrived Start: 01-10-2024 End: 01-10-2024 Patient encounter procedure 01/10/2024 4:30 PM EDT Office Visit [facility] [address] [place] [address] Cheri Pool, ABIEL [address] [place] [phone] [facility] Start: 12-06-2023 End: 12-06-2024 Basic metabolic 1998 panel - Serum or Plasma Basic metabolic panel Lab Routine Hyponatremia Expected: 12/06/2023 (Approximate), Expires: 12/06/2024 [facility] Work Phone: Comment on above: Expected: 12/06/2023 (Approximate), Expires: 12/06/2024 Start: 06-29-2023 Influenza vaccination Influenza Vacc ine (#1) [facility] Start: 1994 Screening for malign ant neoplasm of cervix HPV/Cotest [facility] Start: 1985 Screening for malign ant neoplasm of cervix Pap Smear [facility] Start: 1964 Medicare Annual Well ness (AWV) Medicare Annual Wellness (AWV) [facility] Start: 1964 Screening for malign ant neoplasm of colon [facility] Immunizations Immunization Date Immunization Notes Care Provider Fa [facility] 08-24-2022 influenza, injectabl e, quadrivalent, preservative free Cheri Aicpolaholz BID CLERK Work Phone: [facility] 08-24-2022 SARS-COV-2 (COVID-19 ) vaccine, mRNA, spike protein, LNP, bivalent, PF Cheri Aichholz BID CLERK Work Phone: [facility] 08-24-2022 influenza virus vacc ine, unspecified formulation Cheri Aichholz BID CLERK Work Phone: [facility] 10-27-2021 Moderna SARS-CoV-2 Vaccination Cheri Aichholz BID CLERK Work Phone: [facility] 02-25-2021 Moderna SARS-CoV-2 Vaccination Cheri Aichholz BID CLERK Work Phone: [facility] 01-28-2021 Moderna SARS-CoV-2 Vaccination Cheri Aichholz BID CLERK Work Phone: [facility] Payers Date Payer Category Payer Medicare [employer] UHC MEDICARE ADVANTAGE [id number] 2023-Present [address] [address] [place] [address] [id number] 2023 Medicare (Managed Care) [id number] 1964 Unknown [id number] 1964 Unknown [id number] 1964 Unknown [id number] 593 1964 Unknown [id number] [id number] 1964 Unknown [id number] 593 1964 Unknown [id number] [id number] 1964 Unknown [id number] 593 1964 Unknown [id number] 1259 1964 Unknown [id number] 1959 Medicare [id number] Medicare [id number] Private Health Insurance [facility] [id number] Private Health Insurance [facility] [id number] Social History Date Type Detail Facility Start: 10-09-2023 End: 08-31-2024 Tobacco smoking status AKIS Never smoked tobacco [facility] Start: 10-09-2023 Tobacco use and exposure Smoke less tobacco non-user [facility] Start: 12-06-2023 End: 01-13-2025 Alcohol intake Ex-drinker (finding) [facility] Start: 10-09-2023 End: 01-10-2024 History of Social function [facility] Start: 10-09-2023 End: 01-10-2024 Tobacco use panel [facility] Start: 1965 Sex Assigned At Not on file [facility] Within the last year , have you been afraid of your partner or ex-partner? No [facility] Do you belong to any clubs or organizations such as judaism groups, unions, fraternal or athletic groups, or [...] Start: 1965 Sex Assigned At Female F [facility] Start: 12-23-2024 Sex Female (finding) [facility] Clinical Notes 12-06-2023 to 06-01-2025 Cheri Pool, ABIEL - 07/14/2024 4:42 PM Dariel Pool, ABIEL - 07/14/2024 4:42 PM Dariel Pool, BID CLERK - 07/14/2024 4:42 PM Dariel Pool, ABIEL - 07/14/2024 4:42 PM EDT Note Date & Type Note Facility 06-01-2025 Note [place]iology - [facility] Subjective Rosa Sadler is a 59 y.o. year old female patient being seen for a follow up from her LUIS. Patient Active Problem List Diagnosis Acute urinary [...] sleep apnea Chronic diastolic heart failure (CMS/HCC) Menopause Family History Problem Relation Name Age of [...] Inspiris Resilia bovine pericardial tissue valve, serial #[id number], model 58112Y. She has done well with that with [...] is monolobular. There is no spontaneous echo c (more content not included)... [facility] 12-08-2024 Note [place] Cardiology - [facility] Subjective Rosa Sadler is a 59 [...] Inspiris Resilia bovine pericardial tissue valve, serial #[id number], model [id number]. She has done well with that with [...] LUIS 08/27/2020: Global left ventricular systolic function i (more content not included)... [facility] 11-03-2024 Note [place] Cardiology - [facility] Subjective Rosa Sadler is a 59 y.o. year old female patient being seen for Post-Cath (Follow up s/p right heart cath and LUIS. ), Pulmonary Hypertension (Dr. Smith increased spironolactone to 25mg daily last week [...] radiating to the base. RESPIRATORY: CTAB, no increase (more content not included)... [facility] 10-20-2024 Note Patient: Rosa izaguirre Procedure Information Date/Time: 10/20/24829 Procedure: Right heart cath (Right) - PC APPROVED with LIUS also Location: [facility] RACE[facility]OOK WRITER 3 / [facility] (Cath) Providers: Daisy Smith MD [...] consented to blood products. Additional Equipment Requests [facility] 10-02-2024 Note Called patient's hus band after obtaining the correct phone number from [facility] system. They are agreeable to procedure. Orders entered. He verbalized understanding. [facility] 08-20-2024 Note Cardiovascular Medic in[facility] SUBJECTIVE Chief Complaint Patient presents with [...] valve with abn (more content not included)... [facility] 07-14-2024 History of Present illness Narrative Associated [...] compliance problems. There is no history of CAD/CO or PVD. Identifiable causes of hypertension include [...] Daily hydroCHLOROthiazide (HYDRODIURIL) 25 mg, Oral, Daily, [facility] Cardiology hydroCHLOROthiazide (HYDRODIURIL) 25 mg, Oral, [...] disease without esophagitis 10/09/2023 Hyponatremia Hypothyroidism (acquired) ([facility]/HCC) 10/09/2023 Hypothyroidism, adult (CMS/HCC) Mixed hyperlipidemia (CMS/HCC) [...] Cont current med documented in this encounter [facility] 12-06-2023 History of Present illness Narrative labs documented in this encounter [facility] Evaluation note Diagnosis Hyponatremia- Primary Hyposmolality and/or hyponatremia documented in this encounter [facility] HealthcareEvaluation note* Diagnosis Primary hypertension (CMS/HCC)- [...] heart disease (CMS/HCC) documented in this encounter [facility] HealthcareEvaluation note* Diagnosis Primary hypertension (CMS/HCC)- Primary [...] hyperlipidemia Esophageal reflux documented in this encounter [facility] noteNo [facility] Work Phone: Evaluation note* Diagnosis Primary hypertension (CMS/HCC)- Primary Unspecified essential hypertension Obstructive sleep apnea Obstructive sleep apnea (adult) (pediatric) Aortic valve stenosis, etiology of cardiac valve disease unspecified Hypothyroidism (acquired) (CMS/HCC) Unspecified hypothyroidism Obesity (BMI 30-39.9) Anxiety Anxiety state, unspecified documented in this encounter [facility] HealthcareEvaluation note* Diagnosis Esophageal reflux documented in this encounter [facility] HealthcareEvaluation note* Diagnosis Primary hypertension (CMS/HCC)- [...] disease without esophagitis Esophageal reflux Hypothyroidism (acquired) ([facility]) Unspecified hypothyroidism Obesity (BMI 30-39.9) Anxiety Anxiety state, unspecified Gastro-esophageal reflux disease without esophagitis Esophageal reflux Mixed hyperlipidemia ([facility]/HCC) Mixed hyperlipidemia Primary hypertension ([facility]/HCC)- Primary Unspecified essential hypertension Obstructive sleep apnea Obstructive sleep apnea (adult) (pediatric) Aortic valve stenosis, etiology of cardiac valve disease unspecified Hypothyroidism (acquired) ([facility]) Unspecified hypothyroidism Obesity (BMI 30-39.9) Anxiety Anxiety state, unspecified Encounter for subsequent annual wellness visit (AWV) in Medicare patient- Primary Pulmonary hypertension due to left heart disease ([facility]) Obstructive sleep apnea Obstructive sleep apnea (adult) (pediatric) Chronic diastolic heart failure ([facility]/HCC) Chronic diastolic heart failure Primary hypertension ([facility]) Unspecified essential hypertension Gastroesophageal reflux disease without esophagitis Esophageal reflux Hypothyroidism (acquired) ([facility]) Unspecified hypothyroidism Obesity (BMI 30-39.9) Anxiety Anxiety state, unspecified Deafness, unspecified laterality Mixed hyperlipidemia ([facility]) Mixed hyperlipidemia Menopause Symptomatic menopausal or female climacteric states Overweight (BMI 25.0-29.9) Overweight Esophageal reflux Nonrheumatic aortic valve disorder, unspecified Nonrheumatic aortic (valve) stenosis documented in this encounter [facility] HealthcareEvaluation note* Diagnosis Primary hypertension ([facility])- Primary Unspecified essential hypertension Hypothyroidism (acquired) ([facility]) Unspecified hypothyroidism Encounter for screening mammogram for malignant neoplasm of breast Mixed hyperlipidemia ([facility]) Mixed hyperlipidemia Gastroesophageal reflux disease without esophagitis Esophageal reflux Obesity (BMI 30-39.9) Encounter for subsequent annual wellness visit (AWV) in Medicare patient- Primary Primary hypertension ([facility]) Unspecified essential hypertension Pulmonary hypertension due to left heart disease ([facility]) Aortic valve stenosis, etiology of cardiac valve disease unspecified Gastroesophageal reflux disease without esophagitis Esophageal reflux Hypothyroidism (acquired) ([facility]) Unspecified hypothyroidism Obesity (BMI 30-39.9) Anxiety Anxiety state, unspecified Gastro-esophageal reflux disease without esophagitis Esophageal reflux Mixed hyperlipidemia ([facility]/HCC) Mixed hyperlipidemia Primary hypertension ([facility])- Primary Unspecified essential hypertension Obstructive sleep apnea Obstructive sleep apnea (adult) (pediatric) Aortic valve stenosis, etiology of cardiac valve disease unspecified Hypothyroidism (acquired) ([facility]) Unspecified hypothyroidism Obesity (BMI 30-39.9) Anxiety Anxiety state, unspecified Encounter for subsequent annual wellness visit (AWV) in Medicare patient- Primary 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) Obstructive sleep apnea Obstructive sleep apnea (adult) (pediatric) Chronic diastolic heart failure (CMS/HCC) Chronic diastolic heart failure Primary hypertension (CMS/HCC) Unspecified essential hypertension Gastroesophageal reflux disease without esophagitis Esophageal reflux Hypothyroidism (acquired) (CMS/HCC) Unspecified hypothyroidism Obesity (BMI 30-39.9) Anxiety Anxiety state, unspecified Deafness, unspecified laterality Mixed hyperlipidemia (CMS/HCC) Mixed hyperlipidemia Menopause Symptomatic menopausal or female climacteric states Overweight (BMI 25.0-29.9) Overweight Esophageal reflux Primary hypertension (CMS/HCC) Unspecified essential hypertension 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) documented in this encounter [facility] Diagnosis Primary hypertension- Primary Unspecified essential hypertension Hypothyroidism (acquired) Unspecified hypothyroidism Encounter for screening mammogram for malignant neoplasm of breast Mixed hyperlipidemia Mixed hyperlipidemia Gastroesophageal reflux disease without esophagitis Esophageal reflux Obesity (BMI 30-39.9) Encounter for subsequent annual wellness visit (AWV) in Medicare patient- Primary Primary hypertension Unspecified essential hypertension Pulmonary hypertension due to left heart disease (HCC) Aortic valve stenosis, etiology of cardiac valve disease unspecified Gastroesophageal reflux disease without esophagitis Esophageal reflux Hypothyroidism (acquired) Unspecified hypothyroidism Obesity (BMI 30-39.9) Anxiety Anxiety state, unspecified Gastro-esophageal reflux disease without esophagitis Esophageal reflux Mixed hyperlipidemia Mixed hyperlipidemia Primary hypertension- Primary Unspecified essential hypertension Obstructive sleep apnea Obstructive sleep apnea (adult) (pediatric) Aortic valve stenosis, etiology of cardiac valve disease unspecified Hypothyroidism (acquired) Unspecified hypothyroidism Obesity (BMI 30-39.9) Anxiety Anxiety state, unspecified Encounter for subsequent annual wellness visit (AWV) in Medicare patient- Primary Pulmonary hypertension due to left heart disease (HCC) Obstructive sleep apnea Obstructive sleep apnea (adult) (pediatric) Chronic diastolic heart failure (HCC) Chronic diastolic heart failure Primary hypertension Unspecified essential hypertension Gastroesophageal reflux disease without esophagitis Esophageal reflux Hypothyroidism (acquired) Unspecified hypothyroidism Obesity (BMI 30-39.9) Anxiety Anxiety state, unspecified Deafness, unspecified laterality Mixed hyperlipidemia Mixed hyperlipidemia Menopause Symptomatic menopausal or female climacteric states Overweight (BMI 25.0-29.9) Overweight Esophageal reflux Mixed hyperlipidemia Mixed hyperlipidemia documented in this encounter [facility] Diagnosis Onset Date Resolution Status Admit Date STEVE (generalized anxiety disorder) acute July 16, 2025 2:28pm GERD without esophagitis acute July 16, 2025 2:28pm Hypothyroid acute June 2:28pm Mixed hyperlipidemia acute Jun 2:28pm JACQUES (obstructive sleep apnea) acute July 16, 2025 2:28pm Overweight (BMI 25.0-29.9) acute July 16, 2025 2:28pm Primary hypertension acute Jun 2:28pm [facility] Work Phone: Reason for referral (narrative)No reason for referral information availableSt. Elizabeth [facility] Work Phone: Summary Purpose Family History No Family History Records Found Relationship Condition Age at Onset Recorded Date/T warren father Malignant neoplasm Unknown Unknown mother Malignant neoplasm Unknown Advance Directives No Advanced Directives Records Found Advance Directive Response Recorded Date/ Time Advance Directives No August 31, 2024 12:11pm Advance Directive Response Recorded Date/ Time Advance Directives No August 31, 2024 1:11pm Chief Complaint and Reason for Visit Chief Complaint swollen sore below left breast Chief Complaint Admit Date cough, congestion December 23, 2024 10:26am Chief Complaint Admit Date 6M July 16, 2025 2:28pm Reason for Visit Admit Date STEVE [facility]generalized anxiety disorder) [facility] GERD without esophagitis July 16, 2025 2:28pm Hypothyroid July 16, 2025 2:28pm Mixed hyperlipidemia July 16 2:28pm JACQUES (obstructive sleep apnea) July 16, 2025 2:28pm Overweight (BMI 25.0-29.9) June 2:28pm Primary hypertension July 16 2:28pm Additional Source Comments INFORMATION SOURCE (unrecogn ized section and content) DATE CREATED AUTHOR 03/22/2021 [facility] DATE CREATED AUTHOR AUTHOR'S ORGANIZ ATION 03/13/2023 [facility] DATE CREATED AUTHOR AUTHOR'S ORGANIZ ATION 01/15/2025 [facility] EPIC DATE CREATED AUTHOR AUTHOR'S ORGANIZ ATION 07/31/2025 [facility] Care Teams (unrecognized sec tion and content) Retail Security Professional Relationship Specialty Start Date End Date Rick Blood MD [address] [place] [phone] PCP - General Family Medicine 09/26/23 Cheri Pool NP [address] [place] [phone] Referring Physician Family Medicine 10/29/22 Retail Security Professional Relationship Specialty Start Date End Date Rick Blood MD [address] [place] [phone] PCP - General Family Medicine 01/10/24 Cheri Pool NP [address] [place] [address] Referring Physician Family Medicine 10/29/22 Cheri Pool NP [address] [place] [address] Nurse Practitioner Family Medicine 01/10/24 Retail Security Professional Relationship Specialty Start Date End Date Rick Blood MD [address] [place] [phone] PCP - General Family Medicine 01/10/24 Cheri Pool NP [address] [place] [phone] Referring Physician Family Medicine 10/29/22 Cheri Pool NP [address] [place] [address] Nurse Practitioner Family Medicine 01/10/24 Team Status: Active Member Role Status Dates NON STAFF Primary Care Provider Active Team Status: Inactive Member Role Status Dates Margie Rasheed APRN Attending Provider Active Start: August 31, 2024 End: August 31, 2024 NON STAFF Primary Care Provider Active Start: August 31, 2024 End: August 31, 2024 Retail Security Professional Relationship Specialty Start Date End Date Rick Blood MD [address] [place] [phone] PCP - General Family Medicine 01/10/24 Cheri Pool NP [address] [place] [phone] Referring Physician Family Medicine 10/29/22 Cheri Pool NP [address] [place] [phone] Nurse Practitioner Family Medicine 01/10/24 Retail Security Professional Relationship Specialty Start Date End Date Rick Blood MD [address] [place] [phone] PCP - General Family Medicine 01/10/24 Cheri Pool NP [address] [place] [phone] Referring Physician Family Medicine 10/29/22 Cheri Pool NP [address] [place] [address] Nurse Practitioner Family Medicine 01/10/24 Retail Security Professional Relationship Specialty Start Date End Date Rick Blood MD [address] [place] [phone] PCP - General Family Medicine 01/10/24 Cheri Pool NP [address] [place] [phone] Referring Physician Family Medicine 10/29/22 Cheri Pool NP [address] [place] [phone] Nurse Practitioner Family Medicine 01/10/24 Retail Security Professional Relationship Specialty Start Date End Date Rick Blood MD [address] [place] [phone] PCP - General Family Medicine 01/10/24 Cheri Pool NP [address] [place] [address] Referring Physician Family Medicine 10/29/22 Cheri Pool NP [address] [place] [address] Nurse Practitioner Family Medicine 01/10/24 Retail Security Professional Relationship Specialty Start Date End Date Rick Blood MD [address] [place] [phone] PCP - General Family Medicine 01/10/24 Cheri Pool NP [address] [place] [address] Referring Physician Family Medicine 10/29/22 Cheri Pool NP [address] [place] [phone] Nurse Practitioner Family Medicine 01/10/24 Team Status: Inactive Member Role Status Dates NON STAFF Primary Care Provider Active Start: December 23, 2024 End: December 23, 2024 Margie Rasheed APRN Attending Provider Active Start: December 23, 2024 End: December 23, 2024 Retail Security Professional Relationship Specialty Start Date End Date Rick Blood MD [address] [place] [phone] PCP - General Family Medicine 01/10/24 Cheri Pool NP [address] [place] [address] Referring Physician Family Medicine 10/29/22 Cheri Pool NP [address] [place] [address] Nurse Practitioner Family Medicine 01/10/24 Retail Security Professional Relationship Specialty Start Date End Date Rick Blood MD [address] [place] [phone] PCP - General Family Medicine 01/10/24 Cheri Pool NP [address] [place] [address] Referring Physician Family Medicine 10/29/22 Cheri Pool NP [address] [place] [phone] Nurse Practitioner Family Medicine 01/10/24 Retail Security Professional Relationship Specialty Start Date End Date Rick Blood MD [address] [place] [phone] PCP - General Family Medicine 01/10/24 Cheri Pool NP [address] [place] [phone] Referring Physician Family Medicine 10/29/22 Cheri Pool NP [address] [place] [phone] Nurse Practitioner Family Medicine 01/10/24 Retail Security Professional Relationship Specialty Start Date End Date Rick Blood MD [address] [place] [phone] PCP - General Family Medicine 01/10/24 Cheri Pool NP [address] [place] [address] Referring Physician Family Medicine 10/29/22 Cheri Pool NP [address] [place] [address] Nurse Practitioner Family Medicine 01/10/24 Retail Security Professional Relationship Specialty Start Date End Date Rick Blood MD [address] [place] [address] PCP - General Family Medicine 01/10/24 Cheri Pool NP [address] [place] [address] Referring Physician Family Medicine 10/29/22 Cheri Pool NP [address] [place] [address] Nurse Practitioner Family Medicine 01/10/24 Team Status: Active Member Role Status Dates SUGEY Katz Primary Care Provider Active Team Status: Inactive Member Role Status Dates SUGEY Katz Primary Care Provider Active Start: July 16, 2025 End: July 16, 2025 SUGEY Katz Attending Provider Active Start: July 16, 2025 End: July 16, 2025 Reason for Visit (unrecogniz ed section and content) Reason Comments Med Refill Reason Onset Date Comments Med Refill 08/28/2024 Goals (unrecognized section and content) Goals may be documented in a n alternate sectionGoals may be documented in an alternate sectionGoals may be documented in an alternate section FOR RECORDS PERTAINING TO PATIENTS [...] BE BASED ON THE PRIMARY CLINICAL RECORDS. [employer] provides no warranty or guarantee of the accuracy or completeness of information in this document.
[2025-08-10 10:59] LABS: Alanine Aminotransferase 41 U/L (14-59); Aspartate Amino Transferase 42 U/L (15-37); Cholesterol 194 mg/dL (<=200); HDL Cholesterol 69 mg/dL (40-60); Triglycerides 72 mg/dL (<=150); VLDL CHOLESTEROL 14.4 mg/dL
== END 2025-08-10 09:43 | disposition home or self-care (01) ==
LOC: LAB 09:44
PROVIDERS: PCP Nurse Practitioner; Visit Provider Nurse Practitioner
DX: E78.2 Mixed hyperlipidemia (principal)
CPT/HCPCS: 36415; 80061; 84450; 84460

== ENCOUNTER 2025-10-13 08:43 | Outpatient (OUT) | payer MEDICARE, SELFPAY ==
--- OUTSIDE RECORDS SUMMARY | 2025-10-13 08:48 | XMS_ITS | Clinical Summary ---
Author Organization [facility] Address [address] [place] [address] Care Team Providers Care Law Secretary Name Role Phone Cheri Pool MD Primary Care Provider [phone] Allergies No known active allergies Medications MedicationSigDispense QuantityRefillsLast FilledStart DateEnd DateStatus aspirin 81 mg EC tablet Take 2 tablets by mouth in the morning.Active atorvastatin (Lipitor) 10 mg tablet TAKE 1 TABLET BY MOUTH EVERYDAY AT BEDTIMEActive escitalopram (Lexapro) 10 mg tablet Take 1 tablet by mouth in the morning.Active omeprazole (PriLOSEC) [address] capsule Take 1 tablet by mouth in the morning.Active levothyroxine (Synthroid, Levoxyl) 50 mcg tablet Take 50 mcg by mouth before breakfast.Active spironolactone (Aldactone) 25 mg tablet Indications: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)Take 1 tablet (25 mg) by mouth once daily as directed. 90 tablet 502/6Active metoprolol succinate XL (Toprol-XL) 50 mg 24 hr tablet Indications:Essential (primary) hypertensionTake 1 tablet (50 mg) by mouth once daily as directed. 90 tablet 5Active amoxicillin (Amoxil) 500 mg tablet Indications:S/P aortic valve replacement with bioprosthetic valveTake 4 tablets (2,000 mg) by mouth 1 (one) time if needed (30-60 minute prior to dental procedures)for up to 20 doses. 20 tablet 5Active furosemide (Lasix) 40 mg tablet Indications: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)Take 1 tablet (40 mg) by mouth in the morning. 90 tablet 311/ctive furosemide (Lasix) 40 mg tablet Indications: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)Take 1 tablet (40 mg) by mouth in the morning. 90 tablet Discontinued(Reorder) Active Problems ProblemNoted DateDiagnosed GroeEygxinmrb47/18/2025hronic diastolic heart tnzwnyd7811/03/2024Nonrheumatic tricuspid valve clqcajsxtmplq60/23/2024S/P aortic valve replacement with bioprosthetic valve10/20/2024ulmonary hypertension 10/02/2024llergic gvwlgybm50/08/9584Onyagsv78/08/7679Hchqhwnwxiit38/08/2024 Obstructive sleep apnea12/06/2023Encounter for screening mammogram for malignant neoplasm of fuinjv2010/09/2023astroesophageal reflux disease without esophagitis 10/09/2023Hypothyroidism (acquired)10/09/2023Mixed kalwqljmqtowpf06/12/2023 Obesity (BMI 30-39.9)10/09/2023History of aortic valve replacement with tissue graft09/18/2022ulmonary hypertension due to left heart kssshjx5309/18/2022cute urinary tract osqksdjtr32/21/2018Hearing loss09/18/2018Aortic valve stenosis 09/11/2018Hypertensive bsypjwbk39/17/2018 Encounters DateTypeDepartmentCare BjeiXtmukghwvdh84/18/2025[facility] [address] [address] Tammy Gonzáles MA 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)from Last 3 Months Family History Medical HistoryRelationNameCommentsNo Known ProblemsFatherNo Known Problems MotherRelationNameStatusCommentsFatherMother Social History Tobacco UseTypesPacks/DayYears UsedDateSmoking Tobacco: NeverSmokeless Tobacco: Never Tobacco Cessation:Counseling Given: Not Answered Alcohol UseStandard Drinks/WeekCommentsYes0 (1 standard drink = 0.6 oz pure alcohol)moderateUT Safety & EnvironmentAnswerDate RecordedFear of Current or Ex-PartnerNot on file12/20/2023Emotionally AbusedNot on file12/20/2023hysically AbusedNot on file12/20/2023Sexually AbusedNot on file12/20/2023hysically or Sexually AbusedNot on file12/20/2023CommentsNoSex and Gender Information ValueDate RecordedSex Assigned at EcextTjyntb03/01/2025 1:43 PM EDTLegal Sex Suljjb6304/27/2022 12:08 AM EDTGender BprmambaTfvukm93/01/2025 1:43 PM EDTSexual OrientationHeterosexual or Kpurfyem82/01/2025 1:43 PM EDT Last Filed Vital Signs Vital SignReadingTime TakenCommentsBlood Qjeqwtnc459/8008 2:29 PM EDT Oxrwe337806/01/2025 2:29 PM MHGQpxzeexpgmr63.6 ??C (97.8 ??F)11/13/2018 9:26 AM ESTRespiratory Flfr057105/22/2025 12:00 PM EDTOxygen Cugcydcdox38%06/01/2025 2:29 PM EDTInhaled Oxygen Concentration--Flqmxz01.8 kg (167 lb)06/01/2025 2:29 PM EDT Jtmzqm578.5 cm (5' 2 )06/01/2025 2:29 PM EDTBody Mass Index30.54006/01/2025 2:29 PM EDT Plan of Treatment Health MaintenanceDue DateLast DoneCommentsCT Thkrfiskagnm1964Colonoscopy 1964Colorectal Cancer Llkyycolo1964FIT-DNA1964FIT1964 FOBT1964Medicare Annual Wellness (AWV)1964 6658Ydhrvivjkjyvs1964 Depression Lmconywsg86/27/1976Pneumococcal Vaccine: Pediatrics (0 to 5 Years) and At-Risk Patients (6 to 64 Years) (1 of 2 - PCV)1983Pap Smear1985 Adult Mztdqgi4709/24/1986Cervical Cancer Tozjovfjd66/27/1994HPV/Ktnuxz0809/24/1994 Grukicige81/27/2004Zoster Vaccines (1 of 2)2014COVID-19 Vaccine ( season)51, 10/27/2021, 02/25/2021, Additional history existsInfluenza Vaccine (#1)51HIB VaccinesAged OutNo longer eligible based on patient's age to complete this topicHPV VaccinesAged OutNo longer eligible based on patient's age to complete this topicIPV VaccinesAged OutNo longer eligible based on patient's age to complete this topicMeningococcal B VaccineAged OutNo longer eligible based on patient's age to complete this topicMeningococcal VaccineAged OutNo longer eligible based on patient's age to complete this topicRotavirus VaccinesAged OutNo longer eligible based on patient's age to complete this topic Insurance Care Teams Team MemberRelationshipSpecialtyStart DateEnd Date Cheri Pool MD [address] [id number] [facility] - General07/08/22
--- OUTSIDE RECORDS SUMMARY | 2025-10-13 08:48 | XMS_ITS | Clinical Summary ---
Author Organization [facility] Address [address] [place] [address] Care Team Providers Care Land Degradation Analyst Name Role Phone Cheri Pool MANAGER PRODUCT Unavailable [phone] Rick Blood MD Primary Care Provider [phone] Cheri Pool MANAGER PRODUCT Unavailable [phone] Allergies No known active allergies Medications MedicationSigDispense QuantityRefillsLast FilledStart DateEnd DateStatus metoprolol succinate XL (Toprol-XL) 50 MG 24 hr tablet Take 50 mg by mouth in the morning. Do not crush or chew..Active furosemide (Lasix) 20 MG tablet Take 20 mg by mouth in the morning.5Active spironolactone (Aldactone) 25 MG tablet Take 12.5 mg by mouth in the morning.5Active escitalopram (Lexapro) 10 MG tablet Indications:AnxietyTake 1 tablet (10 mg) by mouth Daily 90 tablet 5Active levothyroxine (Synthroid, Levoxyl) 50 MCG tablet Indications:Hypothyroidism (acquired)Take 1 tablet (50 mcg) by mouth in the morning. Take before meals. 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)Take 1 tablet (25 mg) by mouth Daily 90 tablet 5Active atorvastatin (Lipitor) 20 MG tablet Indications:Mixed hyperlipidemiaTake 1 tablet (20 mg) by mouth in the evening 90 tablet 08/13/2025Active Active Problems ProblemNoted DateDiagnosed CzfsAozwomuht64/18/2025 Assessment & Plan (01/13/2025 6:23 AM EDT): Will check DEXA scan Overweight (BMI 25.0-29.9)01/13/2025 Assessment & Plan (01/13/2025 10:36 AM EDT): Recommend physical activity as chronic health conditions allow Health food choices and portion control Chronic diastolic heart yrlzvlb0011/03/2024 Assessment & Plan (01/13/2025 6:16 AM EDT): Dx with [facility] Cardiology Current meds: asa, lasix, hydrochlorothiazide, b cooper and aldactone S/P aortic valve replacement with bioprosthetic valve10/20/2024Nonrheumatic tricuspid valve hywgabbxfugbn80/11/2024 Overview (09/08/2024): ECHO 08/2024: severe RA regurg, elevated PA pressures Encounter for subsequent annual wellness visit (AWV) in Medicare patient 01/10/2024 [...] Follow up yearly and prn Obstructive sleep apnea12/06/2023 Assessment & Plan (01/13/2025 10:43 AM EDT): [...] w provider when they see them Aortic oazdlfyf85/08/2024 Assessment & Plan (07/14/2024 4:42 PM EDT): Continue with cardiology Assessment & Plan (01/10/2024 4:52 PM EDT): Continue with [facility] Cardiology Uztcvalirmbj90/08/2468Uehf03/08/8127Egjfkee56/08/2024 Assessment & Plan (01/13/2025 10:36 AM EDT): Current medication: escitalopram STEVE 7=1 Assessment & Plan (07/14/2024 4:42 PM EDT): Cont current med Assessment & Plan (01/10/2024 4:53 PM EDT): No changes in meds Fu in 6 months Allergic bvegviwp20/08/2024Encounter for screening mammogram for malignant neoplasm of tzuavt7210/09/2023 Assessment & Plan (10/09/2023 11:30 AM EST): Due in 10/20, order printed faxed to [facility] Primary ruzgsskgynco05/12/2023 Assessment & Plan (01/13/2025 6:17 AM EDT): [...] Recommend weight loss Cont current meds Hypothyroidism (acquired)10/09/2023 Assessment & Plan (01/13/2025 6:18 AM EDT): Current medication is levothyroxine Check labs yearly, prn dose changes, or changes in sxs Assessment & Plan (07/14/2024 4:42 PM EDT): Continue current meds Assessment & Plan (01/10/2024 4:53 PM EDT): Stable on current dose Reviewed recent labs Assessment & Plan (10/09/2023 11:29 AM EST): Stable no changes Mixed zradhotdbijkqv40/12/2023 Assessment & Plan (01/13/2025 6:20 AM EDT): On statin therapy Check labs yearly, and prn dose chagnes Assessment & Plan (10/09/2023 11:30 AM EST): Continue statin Orders for 11/2023 Gastroesophageal reflux disease without hfhjycxtfts07/12/2023 Assessment & Plan (01/13/2025 6:18 AM EDT): [...] History of aortic valve replacement with tissue graft09/18/2022ulmonary hypertension due to left heart ljsyius5109/18/2022 Assessment & Plan (01/13/2025 6:17 AM EDT): Noted on ECHO, does have JACQUES as well Current meds: asa, b cooper, diuretic therapy Assessment & Plan (01/10/2024 4:52 PM EDT): Continue with [facility] Cardiology Resolved Problems ProblemNoted DateDiagnosed DateResolved DatePulmonary dfonjavhspxi34/05/2024 01/13/2025lass 2 obesity due to excess calories in adult Obesity (BMI 30-39.9) Assessment & Plan (01/13/2025 6:18 AM EDT): Discussed with patient their BMI (actual, verses recommended). We have also discussed lifestyle modifications: attempts to perform physical activity as chronic conditions allow, also to monitor dietary intake: increasing protein/fruits/veggies and lowering carb intake (unless contraindicated). Limit sodas, juices, and sugary drinks. Immunizations ImmunizationAdministration DatesNext DueInfluenza, injectable, quadrivalent, preservative free08/24/2022Moderna SARS-CoV-2 Joqivvgzogt99/30/2021,02/25/2021, 01/28/20219991PFZL-SXN-7 (COVID-19) vaccine, mRNA, spike protein, LNP, bivalent, PF 08/24/2022 Social History Tobacco UseTypesPacks/DayYears UsedDateSmoking Tobacco: NeverSmokeless Tobacco: Never Tobacco Cessation:Counseling Given: Not Answered Alcohol UseStandard Drinks/WeekCommentsNot Currently0 (1 standard drink = 0.6 oz pure alcohol)Humiliation, Afraid, Rape, and Kick questionnaireAnswerDate RecordedWithin the last year, have you been afraid of your partner or ex-partner?No01/10/2024Within the last year, have you been humiliated or emotionally abused in other ways by your partner or ex-partner?No01/10/2024 Within the last year, have you been kicked, hit, slapped, or otherwise physically hurt by your partner or ex-partner?No01/10/2024Within the last year, have you been raped or forced to have any kind of sexual activity by your part ner or ex-partner?No01/10/2024Social Connection and Isolation PanelAnswerDate RecordedIn a typical week, how many times do you talk on the phone with family, friends, or neighbors?Never01/10/2024How often do you get together with friends or relatives?Never01/10/2024How often do you attend latter day or jain services?Never01/10/2024o you belong to any clubs or organizations such as latter day groups, unions, fraternal or athletic groups, or school groups?Yes 01/10/2024How often do you attend meetings of the clubs or organizations you belong to?More than 4 times per year01/10/2024re you , , , , never , or living with a partner?Vtauukv3901/10/2024 AUDIT-CAnswerDate RecordedQ1: How often do you have a drink containing alcohol?4 or more times a week01/10/2024Q2: How many drinks containing alcohol do you have on a typical day when you are drinking?5 or 6001/10/2024Q3: How often do you have six or more drinks on one occasion?Daily or almost daily01/10/2024Overall Financial Resource Strain (CARDIA)AnswerDate RecordedHow hard is it for you to pay for the very basics like food, housing, medical care, and heating?Not hard at all01/10/2024HQ-2AnswerDate RecordedPatient Health Questionnaire-2 Score1 01/13/2025[facility] [place] of Occupational Health - Occupational Stress QuestionnaireAnswerDate RecordedDo you feel stress - tense, restless, nervous, or anxious, or unable to sleep at night because yourmind is troubled all the time - these days?Not at all01/10/2024Exercise Vital SignAnswerDate RecordedOn average, how many days per week do you engage in moderate to strenuous exercise (like a brisk walk)?0 days01/10/2024On average, how many minutes do you engage in exercise at this level?0 min01/10/2024Hunger Vital SignAnswerDate Recorded Within the past 12 months, you worried that your food would run out before you got the money to buymore.Never true01/10/2024Within the past 12 months, the food you bought just didn't last and you didn't have money to get more.Never true 01/10/2024RAPARE - TransportationAnswerDate RecordedIn the past 12 months, has lack of transportation kept you from medical appointments or from getting medications?No01/10/2024In the past 12 months, has lack of transportation kept you from meetings, work, or from getting things needed for daily living?No 01/10/2024Housing Stability Vital SignAnswerDate RecordedIn the last 12 months, was there a time when you were not able to pay the mortgage or rent on time?No 01/10/2024In the last 12 months, how many places have you lived?In the last 12 months, was there a time when you did not have a steady place to sleep or slept in formerly [facility] (including now)?No01/10/2024CommentsUnknown Sex and Gender InformationValueDate RecordedSex Assigned at BirthNot on file Legal IrdQukgrz48/15/2023 8:26 PM EDTGender IdentityNot on fileSexual OrientationNot on file Last Filed Vital Signs Vital SignReadingTime TakenCommentsBlood Zutzigdn533/8201/13/2025 10:05 AM EDT Cysgd019401/13/2025 10:05 AM LGZGggkdgamqvi84.7 ??C (98.1 ??F)01/13/2025 10:05 AM EDTRespiratory Qimh739101/13/2025 10:05 AM EDTOxygen Mpnwcdsldq39%01/13/2025 10:05 AM EDTInhaled Oxygen Concentration--Wbfjec28.1 kg (163 lb 6.4 oz)01/13/2025 10:05 AM GZHXwybiy130.5 cm (5' 2 )07/14/2024 3:09 PM EDTBody Mass Index29.89 07/14/2024 3:09 PM EDT Plan of Treatment Not on file Insurance Care Teams Team MemberRelationshipSpecialtyStart DateEnd Date Rick Blood MD PCP - GeneralFamily Medicine01/10/24 Cheri Pool NP Referring PhysicianFamily Medicine10/29/22 Cheri Pool NP Nurse PractitionerFamily Medicine01/10/24
[2025-10-13 09:33] LABS: Alanine Aminotransferase 46 U/L (14-59); Aspartate Amino Transferase 38 U/L (15-37); Cholesterol 177 mg/dL (<=200); HDL Cholesterol 62 mg/dL (40-60); Triglycerides 125 mg/dL (<=150); VLDL CHOLESTEROL 25.0 mg/dL
== END 2025-10-13 08:44 | disposition home or self-care (01) ==
LOC: LAB 08:45
PROVIDERS: PCP Nurse Practitioner; Visit Provider Nurse Practitioner
DX: E78.2 Mixed hyperlipidemia (principal)
CPT/HCPCS: 36415; 80061; 84450; 84460